=== PATIENT | male | born 1955 | race Caucasian/White ===

== ENCOUNTER 2016-06-21 11:27 | Inpatient (IN) | payer OTHER ==
[~2016-06-21] VITALS: Ht 172.7 cm; Wt 83.8 kg
[2016-06-21] VITALS (10 sets, daily range): BP systolic 110–160; BP diastolic 73–114; PULSE 94–152; RESP 20; TEMP 97.6–98.2; O2SAT 96–99
[~2016-06-21 11:27] MED LIST: ATEN25TA PO
[2016-06-21] MEDS ORDERED: ISOS10TA3 PO (11:44)
[2016-06-21] MEDS ORDERED: ROPI0.25 PO (11:44)
[2016-06-21] MEDS ORDERED: DILTIAZEM HCL 25 MG/5 ML VIAL IVP ONE (11:45)
[2016-06-21] MEDS ORDERED: SODIUM CHLORIDE 0.9% FLUSH 10 ML FLUSH IVF PRN (11:45)
--- NOTE | 2016-06-21 11:54 | PD ---
HPI Chief Complaint: Cardiac Complaint Time Seen by Provider: 11:50 Travel History International Travel<30 days: No Contact w/Intl Traveler<30days: No Traveled to known affect area: No History of Present Illness HPI 61-year-old male that presents to the ED for evaluation of elevated heart rate. Per patient he went to his doctor's office today and they found that he had an elevated heart rate. Initially they wanted to send him here to get evaluated but apparently patient did not want to, refused so instead to give him a prescription for atenolol and instructions to get blood work and go back to his office on . Patient apparently left the office and change his mind. And now he is here for evaluation. Per patient he has no chest pain. No weakness. No palpitations. No history of heart disease as far as he knows. He does take blood pressure medications as well as a history of restless leg syndrome. He continues to smoke. He denies any use of drugs but does state that he drinks. Denies any chest pain or shortness of breath. Denies any symptoms of any kind. Per patient is mainly concerned about the heart rate. No allergies to medication. Has not filled his prescription yet. Per patient his doctor called the ED and gave information about the patient's status. He denies taking any blood thinners. PFSH Past Medical History Cardiovascular Problems: Yes (htn) Hypertension: Yes Medical other: Yes (RLS) Influenza Vaccination: No Past Surgical History Eye Surgery: Yes (cataracts) Social History Alcohol Use: Yes (4) Tobacco Use: Yes (1ppd) Substance Use: No Allergies-Medications (Allergen,Severity, Reaction): Coded Allergies: No Known Allergies (Unverified , 06/21/16) Reported Meds & Prescriptions Reported Meds & Active Scripts Active Reported Ropinirole 0.25 Mg Tab 0.25 Mg PO HS Isosorbide Mononitrate 10 Mg Tab 10 Mg PO BID Take 2 doses 7 hours apart. Review of Systems Except as stated in HPI: all other systems reviewed are Neg Physical Exam Narrative GENERAL: SKIN: Warm and dry. HEAD: Atraumatic. Normocephalic. EYES: Pupils equal and round. No scleral icterus. No injection or drainage. ENT: No nasal bleeding or discharge. Mucous membranes pink and moist. Tongue is midline. No uvula deviation. NECK: Trachea midline. No JVD. CARDIOVASCULAR: Regular tachycardic rate and rhythm. No obvious murmurs, S3, S4. RESPIRATORY: No accessory muscle use. Clear to auscultation. Breath sounds equal bilaterally. GASTROINTESTINAL: Abdomen soft, non-tender, nondistended. Hepatic and splenic margins not palpable. MUSCULOSKELETAL: Extremities without clubbing, cyanosis, or edema. No obvious deformities. Full range of motion of the upper and lower extremities bilaterally. 2+ pulses bilaterally. NEUROLOGICAL: Awake and alert. No obvious cranial nerve deficits. Motor grossly within normal limits. Five out of 5 muscle strength in the arms and legs. Normal speech. PSYCHIATRIC: Appropriate mood and affect; insight and judgment normal. Data Data Last Documented VS Vital Signs Date Time Temp Pulse Resp B/P Pulse Ox O2 Delivery O2 Flow Rate FiO2 06/21/16 12:37 148 144/93 06/21/16 12:30 20 99 Nasal Cannula 2 06/21/16 11:30 98.2 Orders Electrocardiogram (06/21/16 11:39) Basic Metabolic Panel (Bmp) (06/21/16 11:39) Ckmb (Isoenzyme) Profile (06/21/16 11:39) Complete Blood Count With Diff (06/21/16 11:39) Magnesium (Mg) (06/21/16 11:39) Prothrombin Time / Inr (Pt) (06/21/16 11:39) Act Partial Throm Time (Ptt) (06/21/16 11:39) Troponin I (06/21/16 11:39) Chest, Single Ap (06/21/16 11:39) Ecg Monitoring (06/21/16 11:39) Iv Access Insert/Monitor (06/21/16 11:39) Oximetry (06/21/16 11:39) Sodium Chloride 0.9% Flush (Ns Flush) (06/21/16 11:45) Diltiazem Inj (Cardizem Inj) (06/21/16 11:45) Diltiazem Inj (Cardizem Inj) (06/21/16 12:30) Thyroid Stimulating Hormone (06/21/16 12:36) Diltiazem Inj (Cardizem Inj) (06/21/16 12:45) Digoxin Inj (Lanoxin Inj) (06/22/16 09:00) Digoxin Inj (Lanoxin Inj) (06/21/16 13:15) Consult Cardiology (06/21/16 ) Admit Order (Ed Use Only) (06/21/16 13:35) Labs Laboratory Tests Test 06/21/16 11:45 White Blood Count 7.0 TH/MM3 Red Blood Count 5.18 MIL/MM3 Hemoglobin 16.1 GM/DL Hematocrit 45.9 % Mean Corpuscular Volume 88.5 FL Mean Corpuscular Hemoglobin 31.0 PG Mean Corpuscular Hemoglobin 35.0 % Concent Red Cell Distribution Width 13.6 % Platelet Count 187 TH/MM3 Mean Platelet Volume 8.4 FL Neutrophils (%) (Auto) 76.1 % Lymphocytes (%) (Auto) 12.7 % Monocytes (%) (Auto) 8.9 % Eosinophils (%) (Auto) 1.5 % Basophils (%) (Auto) 0.8 % Neutrophils # (Auto) 5.3 TH/MM3 Lymphocytes # (Auto) 0.9 TH/MM3 Monocytes # (Auto) 0.6 TH/MM3 Eosinophils # (Auto) 0.1 TH/MM3 Basophils # (Auto) 0.1 TH/MM3 CBC Comment DIFF FINAL Differential Comment Prothrombin Time 12.3 SEC Prothromb Time International 1.1 RATIO Ratio Activated Partial 27.3 SEC Thromboplast Time Sodium Level 137 MEQ/L Potassium Level 4.1 MEQ/L Chloride Level 104 MEQ/L Carbon Dioxide Level 24.3 MEQ/L Anion Gap 9 MEQ/L Blood Urea Nitrogen 15 MG/DL Creatinine 1.06 MG/DL Estimat Glomerular Filtration 71 ML/MIN Rate Random Glucose 97 MG/DL Calcium Level 8.8 MG/DL Magnesium Level 1.9 MG/DL Total Creatine Kinase 86 U/L Troponin I LESS THAN 0.02 NG/ML MDM Medical Decision Making Medical Screen Exam Complete: Yes Emergency Medical Condition: Yes Medical Record Reviewed: Yes Interpretation(s) EKG showed atrial flutter with a ventricular rate in the 151. No sign of acute ischemia noted by me and my attending. CBC & BMP Diagram 06/21/16 11:45 Troponin negative CXR negative Differential Diagnosis Atrial flutter versus atrial fibrillation versus tachyarrhythmia versus electrolyte abnormality versus normal exam Narrative Course 61-year-old male that presents to the ED for evaluation of the liver heart rate. Patient was properly examined and was found to have signs and symptoms consistent appears to be atrial flutter. Ventricular rates in the 150s. At this time I recommend labs and imaging. Patient is in agreement with this. Patient was given diltiazem bolus and will be monitored. Patient was given a second bolus with minimal results. Patient was put on a drip. Patient was evaluated by my attending Dr. Navarro who agrees with admission plan. Patient goes to the [facility] for dressings were be contacted. This was discussed with the patient who was counceled extensively as well as about need for admission due to risk of stroke, CVA, . He decided to stay. Case discussed with residents who agreed to admission. Procedures EKG Prior to Arrival: No Diagnosis Primary Impression: Atrial flutter Qualified Code: I48.3 - Typical atrial flutter Admitting Information Admitting Physician Requests: Benjamin Mo Jun 21, 2016 11:54
[2016-06-21 11:55] LABS: AUTOMATED NEUTROPHIL # 5.3 TH/MM3 (1.8-7.7); BASOPHIL # 0.1 TH/MM3 (0-0.2); BASOPHIL % 0.8 % (0.0-2.0); EOSINOPHIL # 0.1 TH/MM3 (0-0.4); EOSINOPHIL % 1.5 % (0.0-4.0); HEMATOCRIT 45.9 % (39.0-51.0); HEMO FLAGS DIFF FINAL; LYMPH % 12.7 % (9.0-44.0); LYMPHOCYTE # 0.9 TH/MM3 (1.0-4.8); MEAN CELL VOLUME 88.5 FL (80.0-100.0); MONO % 8.9 % (0.0-8.0); NEUT % 76.1 % (16.0-70.0); PLATELET COUNT 187 TH/MM3 (150-450); RED BLOOD COUNT 5.18 MIL/MM3 (4.50-5.90); RED CELL DISTRIBUTION WIDTH 13.6 % (11.6-17.2)
[2016-06-21 12:09] LABS: APTT (PATIENT) 27.3 SEC (24.3-30.1); INTERNATIONAL NORMALIZED RATIO 1.1 RATIO; PROTHROMBIN TIME - PATIENT 12.3 SEC (9.8-11.6)
[2016-06-21 12:19] LABS: ANION GAP 9 MEQ/L (5-15); BICARBONATE 24.3 MEQ/L (21.0-32.0); BLOOD UREA NITROGEN 15 MG/DL (7-18); CHLORIDE 104 MEQ/L (98-107); GLOMERULAR FILTRATION RATE 71 ML/MIN (>89); MAGNESIUM 1.9 MG/DL (1.5-2.5); POTASSIUM 4.1 MEQ/L (3.5-5.1); SODIUM (NA) 137 MEQ/L (136-145)
[2016-06-21 12:20] LABS: CREATINE KINASE 86 U/L (39-308)
[2016-06-21] MEDS ORDERED: DILTIAZEM HCL 25 MG/5 ML VIAL IV ONE (12:30)
--- NOTE | 2016-06-21 12:44 | RADRPT ---
EXAM DATE/TIME: 06/21/2016 12:09 [facility] COMPARISON: No previous studies available for comparison. INDICATIONS : Tachycardia. MEDICAL HISTORY : Hypertension. Smoker. SURGICAL HISTORY : None. ENCOUNTER: Initial ACUITY: 1 day PAIN SCORE: 0/10 LOCATION: Bilateral chest FINDINGS: Calcified granuloma left upper lobe. Cardiomegaly. Clear lungs. Hyperinflation. Osseous structures ar e intact. CONCLUSION: No acute disease. Fortino Schrader MD on June 21, 2016 at 12:42 Board Certified Radiologist. This report was verified electronically.
[2016-06-21] MEDS ORDERED: DILTIAZEM INJ 125 MG in SODIUM CHLORIDE 0.9% INJ 100 ML IV SCH (12:45)
--- NOTE | 2016-06-21 13:05 | PD ---
Data Data Last Documented VS Vital Signs Date Time Temp Pulse Resp B/P Pulse Ox O2 Delivery O2 Flow Rate FiO2 06/21/16 12:37 148 144/93 06/21/16 12:30 20 99 Nasal Cannula 2 06/21/16 11:30 98.2 Orders Electrocardiogram (06/21/16 11:39) Basic Metabolic Panel (Bmp) (06/21/16 11:39) Ckmb (Isoenzyme) Profile (06/21/16 11:39) Complete Blood Count With Diff (06/21/16 11:39) Magnesium (Mg) (06/21/16 11:39) Prothrombin Time / Inr (Pt) (06/21/16 11:39) Act Partial Throm Time (Ptt) (06/21/16 11:39) Troponin I (06/21/16 11:39) Chest, Single Ap (06/21/16 11:39) Ecg Monitoring (06/21/16 11:39) Iv Access Insert/Monitor (06/21/16 11:39) Oximetry (06/21/16 11:39) Sodium Chloride 0.9% Flush (Ns Flush) (06/21/16 11:45) Diltiazem Inj (Cardizem Inj) (06/21/16 11:45) Diltiazem Inj (Cardizem Inj) (06/21/16 12:30) Thyroid Stimulating Hormone (06/21/16 12:36) Diltiazem Inj (Cardizem Inj) (06/21/16 12:45) Digoxin Inj (Lanoxin Inj) (06/22/16 09:00) Labs Laboratory Tests Test 06/21/16 11:45 White Blood Count 7.0 TH/MM3 Red Blood Count 5.18 MIL/MM3 Hemoglobin 16.1 GM/DL Hematocrit 45.9 % Mean Corpuscular Volume 88.5 FL Mean Corpuscular Hemoglobin 31.0 PG Mean Corpuscular Hemoglobin 35.0 % Concent Red Cell Distribution Width 13.6 % Platelet Count 187 TH/MM3 Mean Platelet Volume 8.4 FL Neutrophils (%) (Auto) 76.1 % Lymphocytes (%) (Auto) 12.7 % Monocytes (%) (Auto) 8.9 % Eosinophils (%) (Auto) 1.5 % Basophils (%) (Auto) 0.8 % Neutrophils # (Auto) 5.3 TH/MM3 Lymphocytes # (Auto) 0.9 TH/MM3 Monocytes # (Auto) 0.6 TH/MM3 Eosinophils # (Auto) 0.1 TH/MM3 Basophils # (Auto) 0.1 TH/MM3 CBC Comment DIFF FINAL Differential Comment Prothrombin Time 12.3 SEC Prothromb Time International 1.1 RATIO Ratio Activated Partial 27.3 SEC Thromboplast Time Sodium Level 137 MEQ/L Potassium Level 4.1 MEQ/L Chloride Level 104 MEQ/L Carbon Dioxide Level 24.3 MEQ/L Anion Gap 9 MEQ/L Blood Urea Nitrogen 15 MG/DL Creatinine 1.06 MG/DL Estimat Glomerular Filtration 71 ML/MIN Rate Random Glucose 97 MG/DL Calcium Level 8.8 MG/DL Magnesium Level 1.9 MG/DL Total Creatine Kinase 86 U/L Troponin I LESS THAN 0.02 NG/ML MDM Supervised Visit with TRANG: Yes Narrative Course I, Dr. Cooper, have reviewed the advance practice practioner's documentation and am in agreement, met with the patient face to face, made the diagnosis, and the medical decision making was done by me. *My assessment and Findings: 61-year-old male here with elevated heart rate. Patient went PCP office for medication refill. He is entirely symptomatic and noted to have heart rates around 150. Center to the ER for evaluation. No history of arrhythmia, otherwise been well recently. No chest pain shortness of breath or palpitations. On exam patient has heart rate in the 150s, narrow complex regular rhythm on monitor. Differential includes arrhythmia, electrolyte abnormality. Twelve-lead EKG shows atrial flutter, rate 151 with 2- 1 conduction. Patient was given 15 mg of diltiazem with no change in heart rate. Given 25 mg of diltiazem with little change in heart rate in place on diltiazem drip. Electrolytes all unremarkable. Patient not responding rapidly to diltiazem drip and therefore was given a dose of digoxin will be admitted for further management. Diagnosis Primary Impression: Atrial flutter Dea Cooper MD Jun 21, 2016 13:05
[2016-06-21] MEDS ORDERED: DIGOXIN 0.5 MG/2 ML VIAL IV PUSH ONE (13:15)
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
[2016-06-21] MEDS ORDERED: SODIUM CHLORIDE 0.9% FLUSH 10 ML FLUSH IV FLUSH PRN ×2 (14:30→14:45)
[2016-06-21] MEDS ORDERED: LORazepam 1 MG TAB PO PRN (14:45)
[2016-06-21] MEDS ORDERED: RESP: ALBUTEROL 2.5 MG/IPRATROPIUM 0.5 MG NEB (PRN) NEB (14:45)
[2016-06-21] MEDS ORDERED: FLUMAZENIL 0.5 MG/5 ML VIAL IV PUSH PRN (14:45)
[2016-06-21] MEDS ORDERED: hydrOXYzine HCL 25 MG TAB PO PRN (14:45)
[2016-06-21] MEDS: SODIUM CHLORIDE 0.9% FLUSH 10 ML FLUSH IV FLUSH SCH ×4 (14:49→21:00)
[2016-06-21] MEDS ORDERED: ENOXAPARIN SODIUM 40 MG/0.4 ML SYRINGE SQ SCH (15:00)
[2016-06-21] MEDS ORDERED: HEPARIN SODIUM - IV 10,000 UNITS/10 ML VIAL IV ONE (15:30)
[2016-06-21] MEDS ORDERED: DILTIAZEM HCL 25 MG/5 ML VIAL IV PUSH ONE (15:30)
[2016-06-21] MEDS ORDERED: DILTIAZEM HCL 25 MG/5 ML VIAL IVP PRN (15:45)
[2016-06-21] MEDS: HEPARIN-D5W INJ 250 ML IV SCH (16:48)
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
[2016-06-21 18:22] LABS: CREATINE KINASE 67 U/L (39-308)
[2016-06-21] MEDS: DILTIAZEM INJ 125 MG in SODIUM CHLORIDE 0.9% INJ 100 ML IV SCH (20:13)
[2016-06-21] MEDS ORDERED: HEPARIN SODIUM - IV 10,000 UNITS/10 ML VIAL IV PRN (21:30)
[2016-06-21 22:44] LABS: APTT (PATIENT) 35.5 SEC (24.3-30.1)
[2016-06-21] MEDS ORDERED: DILTIAZEM HCL 50 MG/10 ML VIAL IV ONE (23:00)
[2016-06-22] VITALS (23 sets, daily range): BP systolic 108–141; BP diastolic 74–93; PULSE 48–153; RESP 18–24; TEMP 97.4–98.2; O2SAT 95–100
[2016-06-22 01:30] LABS: CREATINE KINASE 85 U/L (39-308)
[2016-06-22] MEDS: LORazepam 2 MG TAB PO PRN ×2 (01:49→03:50)
[2016-06-22] MEDS: DILTIAZEM INJ 125 MG in SODIUM CHLORIDE 0.9% INJ 100 ML IV SCH (03:45)
[2016-06-22] MEDS: LORazepam 2 MG/ML VIAL IV PUSH PRN ×10 (04:16→19:41)
[2016-06-22 06:49] LABS: HEMATOCRIT 43.7 % (39.0-51.0); MEAN CELL VOLUME 87.7 FL (80.0-100.0); MEAN CORPUSCULAR HEMOGLOBIN 30.8 PG (27.0-34.0); MEAN CORPUSCULAR HGB CONC 35.1 % (32.0-36.0); PLATELET COUNT 150 TH/MM3 (150-450); RED BLOOD COUNT 4.98 MIL/MM3 (4.50-5.90); RED CELL DISTRIBUTION WIDTH 13.4 % (11.6-17.2); REVIEW FLAG FINAL; WHITE BLOOD COUNT 6.3 TH/MM3 (4.0-11.0)
[2016-06-22 06:53] LABS: APTT (PATIENT) 34.6 SEC (24.3-30.1)
[2016-06-22 07:05] LABS: ALKALINE PHOSPHATASE 43 U/L (45-117); ALT (GPT) 40 U/L (12-78); ANION GAP 8 MEQ/L (5-15); AST (GOT) 21 U/L (15-37); BICARBONATE 27.6 MEQ/L (21.0-32.0); BLOOD UREA NITROGEN 18 MG/DL (7-18); CHLORIDE 103 MEQ/L (98-107); GLOMERULAR FILTRATION RATE 72 ML/MIN (>89); POTASSIUM 3.6 MEQ/L (3.5-5.1); SODIUM (NA) 139 MEQ/L (136-145)
--- NOTE | 2016-06-22 08:46 | HHI.PR ---
Addendum to Inpatient Note Addendum Reason: Additional Documentation Additional Information VENICET NOTE S: Medical team paged for VENICET at approximately 0745 due to agitation. Per nursing report patient has been agitated and altered throughout the night with CIWA scores up to 25. Currently the patient will not participate in history due to agitation. Overnight he started to pull out his IVs and was verbally aggressive towards staff and threatening to leave AMA. He was placed in restraints and given 6 mg of Ativan since admission secondary to CIWA protocol. Per H/P and discussion with today, the patient does have an extensive history of alcohol use with up to 3/4 drinks per day. He also has an extensive smoking history, and per his was demanding to smoke a cigarette overnight. O: GENERAL: Well-nourished, well-developed patient writhing in bed currently restrained yelling at staff and . SKIN: Warm and dry. No rash. CARDIOVASCULAR: Tachycardic up to 150s with no MGR. RESPIRATORY: Clear to auscultation with no CRW. No increased work of breathing. GASTROINTESTINAL: Abdomen soft, non-tender, nondistended. MUSCULOSKELETAL: No cyanosis or edema. No obvious deformities NEURO/PSYCH: Patient oriented to self and date, but not to place. No focal ABN appreciated. A: Mr. Guevara is a 61 y/o CM with a PMHx of HTN presenting from the [facility] with an elevated, irregular heart rate found to have atrial flutter. He was admitted for atrial flutter and scheduled for ablation today, however now has AMS likely secondary to alcohol withdrawal with a CIWA score of 25. P: Transferred to ICU for further monitoring and possible intervention. Critical care consulted, appreciate recommendations. Discussed patient with Dr. Ron, environmental health inspector, who will accept the patient. CIWA score up to 25 overnight with most recent score of 15. A total of 6 mg of Ativan has been administered over the last 24 hours per protocol. Swapnil Barrera MD R1 Jun 22, 2016 08:46
[2016-06-22] MEDS ORDERED: DEXMEDETOMIDINE INJ 200 MCG in SODIUM CHLORIDE 0.9% INJ 50 ML IV SCH ×2 (09:00→10:15)
[2016-06-22] MEDS: FOLIC ACID 1 MG TAB PO SCH (09:00)
[2016-06-22] MEDS: THIAMINE HCL 100 MG TAB PO SCH (09:00)
[2016-06-22] MEDS: LOSARTAN 50 MG TAB PO SCH (09:00)
[2016-06-22] MEDS: MULTIVITAMINS/MINERALS THERAPEUTIC TAB PO SCH (09:00)
[2016-06-22] MEDS: SODIUM CHLORIDE 0.9% FLUSH 10 ML FLUSH IV FLUSH SCH ×5 (09:00→21:00)
[2016-06-22] MEDS ORDERED: DIGOXIN 0.5 MG/2 ML VIAL IV PUSH SCH (09:00)
[2016-06-22] MEDS: ASPIRIN 81 MG CHEW TAB PO SCH (09:00)
[2016-06-22] MEDS: HYDROCHLOROTHIAZIDE 12.5 MG CAP PO SCH (09:00)
--- NOTE | 2016-06-22 09:05 | EC ---
Study Study Date:06/21/2016 STUDY CONCLUSIONS SUMMARY - Left ventricle: The cavity size was normal. Wall thickness was normal. Systolic function was moderately reduced. The estimated ejection fraction was in the range of 35% to 40% but techically very difficult to assess due to marked tachycardia. Wall motion was normal; there were no regional wall motion abnormalities. - Aortic valve: Valve area: 3.84cm^2(VTI). Valve area: 3.81cm^2 (Vmax). If LV function is below 40, please consider prescribing an ACEI or ARB or document rationale for non-use. PROCEDURE DATA STUDY STATUS: Elective. Procedure: Transthoracic echocardiography. Image quality was good. Scanning was performed from the parasternal, apical, and subcostal acoustic windows. Study completion: The patient tolerated the procedure well. Transthoracic echocardiography. M-mode, complete 2D, complete spectral Doppler, and color Doppler. Height: Height: 68in. Weight: Weight: 210.6lb. Body mass index: BMI: 32.1kg/m^2. Body surface area: BSA: 2.09m^2. Patient status: Inpatient. CARDIAC ANATOMY LEFT VENTRICLE: The cavity size was normal. Wall thickness was normal. Systolic function was moderately reduced. The estimated ejection fraction was in the range of 35% to 40% but techically very difficult to assess due to marked tachycardia. Wall motion was normal; there were no regional wall motion abnormalities. AORTIC VALVE: Trileaflet; normal thickness leaflets. Doppler: Transvalvular velocity was within the normal range. There was no stenosis. No regurgitation. Valve area: 3.84cm^2(VTI). Indexed valve area: 1.84cm^2/m^2 (VTI). Valve area: 3.81cm^2 (Vmax). Indexed valve area: 1.82cm^2/m^2 (Vmax). Mean gradient: 2mm Hg (S). AORTA: Aortic root: The aortic root was normal in size. MITRAL VALVE: Structurally normal valve. Doppler: Transvalvular velocity was within the normal range. There was no evidence for stenosis. Trace regurgitation. Peak gradient: 5mm Hg (D). LEFT ATRIUM: The atrium was normal in size. RIGHT VENTRICLE: The cavity size was normal. Wall thickness was normal. PULMONIC VALVE: Doppler: Transvalvular velocity was within the normal range. There was no evidence for stenosis. No regurgitation. TRICUSPID VALVE: Structurally normal valve. Doppler: Transvalvular velocity was within the normal range. Trace regurgitation. PULMONARY ARTERY: The main pulmonary artery was normal-sized. Systolic pressure was within the normal range. RIGHT ATRIUM: The atrium was normal in size. PERICARDIUM: There was no pericardial effusion. SYSTEMIC VEINS: Inferior vena cava: Poorly visualized. Patient weight: 210.6lb _Ejection fraction:_ 65-75% _Fractional shortening:_ 32% up to 5Kg 5-11.5Kg 11.6-22.9Kg 23-45Kg 45-57Kg Aortic Root 7-13 <17 13-22 17-27 17-27 LA diam 6-13 <23 24-38 33-47 37-40 RVID 10-17 7-15 7-15 7-18 8-17 LVIDd 12-22 <32 24-38 33-47 37-40 LVPW 2-4 3-6 5-7 6-8 7-8 IVS 2-4 3-6 5-7 6-8 7-8 BASIC MEASUREMENTS ADULT NORMAL Left ventricle LV internal dimension, ED, chordal 51.1 mm 43-52 level, PLAX LV internal dimension, ES, chordal *47.3 mm 23-38 level, PLAX Fractional shortening, chordal level, *7 % >29 PLAX LV posterior wall thickness, ED 8.36 mm IVS/LVPW ratio, ED 1 <1.3 Ventricular septum Septal thickness, ED 8.33 mm Aortic valve Leaflet separation 20 mm 15-26 Aorta Root diameter, ED 33 mm Left atrium Anterior-posterior dimension 34 mm Anterior-posterior dimension index 1.63 cm/m^2 <2.2 BASIC MEASUREMENTS ADULT NORMAL Aortic valve Leaflet separation 20 mm 15-26 DOPPLER MEASUREMENTS ADULT NORMAL Aortic valve Peak velocity, S 93.7 cm/s Mean velocity, S 64.3 cm/s VTI, S 12.6 cm Mean gradient, S 2 mm Hg Valve area, VTI 3.84 cm^2 Valve area index, VTI 1.84 cm^2/m^2 Valve area, Vmax 3.81 cm^2 Valve area index, Vmax 1.82 cm^2/m^2 Mitral valve Peak E-wave velocity 114 cm/s Peak gradient, D 5 mm Hg Pulmonic valve Peak velocity, S 49.6 cm/s LEGEND: Mean values are shown as u=mean value. Asterisk (*) weller values outside specified normal range. Prepared and signed by Leoncio Casillas [id number]
--- NOTE | 2016-06-22 09:50 | HHI.HP ---
HPI Service Critical Care Medicine Primary Care Physician Irwin Rodriguez MD Admission Diagnosis atrial flutter with RVR Diagnosis: Travel History International Travel<30 Days: No Contact w/Intl Traveler <30 Da: No Traveled to Known Affected Are: No History of Present Illness On 06/21 ,Mr. Guevara presented with a PMHx of HTN presenting from the [facility] with an elevated, irregular heart rate. He is a patient of Dr. Irwin Rodriguez, who sent this patient from clinic. In clinic, he had a heart rate in the 150s and was instructed to go to the ED for further evaluation. Upon arriving to the ED ,the patient was found to have atrial flutter on twelve-lead EKG with a rate 151 with 2-1 conduction. He denied any chest pain, prior arrhythmia, thyroid disorder, or heart disease. He reported his last EKG was approximately 8 years ago before his eye surgery s/p accident. The patient has a significant alcohol and smoking history, but denies any illicit drugs. He states that he is at his baseline except for 3 episodes of nonbloody diarrhea that have all occurred over this morning. The patient was admitted to the hospital, and placed on CIWA protocol, Cardizem infusion and was scheduled for ablation per interventional cardiology. Early this a.m. the patient became significantly more confused, difficult to control a Hallicat at was called, and the patient was transferred to ICU for further management. Review of Systems Constitutional: DENIES: Fever Eyes: DENIES: Blurred vision, Double Vision Ears, nose, mouth, throat: COMPLAINS OF: Running Nose (allergies), DENIES: Throat pain Respiratory: COMPLAINS OF: Cough, DENIES: Shortness of breath Cardiovascular: DENIES: Chest pain, Palpitations, Syncope Gastrointestinal: COMPLAINS OF: Diarrhea (Today for 3 episodes), DENIES: Abdominal pain, Nausea, Vomiting Genitourinary: DENIES: Dysuria Musculoskeletal: COMPLAINS OF: Back pain Hematologic/lymphatic: DENIES: Lymphadenopathy Neurologic: DENIES: Headache Psychiatric: DENIES: Mood changes Past Family Social History Past Medical History Restless leg syndrome Hypertension L1-L3 collapsed disc Past Surgical History [place] teeth Cataract Eyelid repair Allergies: Coded Allergies: No Known Allergies (Unverified , 06/21/16) Family History Father - stomach or prostate cancer at age 76 y/o, CAD Mother - lung cancer 80 y/o Brother - 76 y/o healthy, stomach cancer Leonela - 74 y/o healthy glaucoma, diverticulitis Chetna - 63 y/o healthy, alcoholism Social History Tobacco - since age 19 y/o, 1 ppd EtOH: 17 y/o - used to drink beer, borboun - 3-4 drinks per day - helps with his back pain. 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 Physical Exam Vital Signs Vital Signs Date Time Temp Pulse Resp B/P Pulse Ox O2 Delivery O2 Flow Rate FiO2 06/22/16 08:03 153 06/22/16 07:46 96 Nasal Cannula 3.00 06/22/16 07:44 97.4 150 24 128/87 96 06/22/16 07:15 143 06/22/16 06:00 128 06/22/16 05:52 147 141/93 06/22/16 05:00 150 06/22/16 04:00 144 06/22/16 03:20 98.1 130 20 137/92 95 06/22/16 03:20 95 06/22/16 03:00 129 06/22/16 02:06 97 06/22/16 01:00 114 06/22/16 00:00 146 06/21/16 23:00 97.6 146 20 148/108 96 06/21/16 23:00 146 06/21/16 23:00 96 Nasal Cannula 2.00 06/21/16 22:22 122 16 111/73 100 Nasal Cannula 2 06/21/16 20:13 128 20 110/81 99 06/21/16 20:00 Nasal Cannula 2.00 06/21/16 16:55 94 20 143/81 96 Room Air 06/21/16 14:43 98 Nasal Cannula 2.00 06/21/16 12:37 148 144/93 06/21/16 12:30 149 20 143/100 99 Nasal Cannula 2 06/21/16 11:41 98 06/21/16 11:31 150 20 140/103 06/21/16 11:30 98.2 152 20 160/114 97 Room Air Physical Exam GENERAL: Agitated and combative, attempting to get out of bed, non-cooperative SKIN: Warm and dry. HEAD: Atraumatic. Normocephalic. EYES: Pupils equal and round. No scleral icterus. No injection or drainage. ENT: No nasal bleeding or discharge. Mucous membranes pink and moist. NECK: Trachea midline. No JVD. CARDIOVASCULAR: Normal rate, regular rhythm. RESPIRATORY: No accessory muscle use. Clear to auscultation. Breath sounds equal bilaterally. GASTROINTESTINAL: Abdomen soft, non-tender, nondistended. No guarding. MUSCULOSKELETAL: Extremities without clubbing, cyanosis, or edema. No obvious deformities. NEUROLOGICAL: Awake and alert, agitated. No gross focal/sensory deficits. Moving extremities 4. Laboratory Laboratory Tests Test 06/21/16 06/21/16 06/21/16 06/22/16 11:45 17:34 22:15 00:21 White Blood Count 7.0 Red Blood Count 5.18 Hemoglobin 16.1 Hematocrit 45.9 Mean Corpuscular Volume 88.5 Mean Corpuscular Hemoglobin 31.0 Mean Corpuscular Hemoglobin 35.0 Concent Red Cell Distribution Width 13.6 Platelet Count 187 Mean Platelet Volume 8.4 Neutrophils (%) (Auto) 76.1 Lymphocytes (%) (Auto) 12.7 Monocytes (%) (Auto) 8.9 Eosinophils (%) (Auto) 1.5 Basophils (%) (Auto) 0.8 Neutrophils # (Auto) 5.3 Lymphocytes # (Auto) 0.9 Monocytes # (Auto) 0.6 Eosinophils # (Auto) 0.1 Basophils # (Auto) 0.1 CBC Comment DIFF FINAL Differential Comment Prothrombin Time 12.3 Prothromb Time International 1.1 Ratio Activated Partial 27.3 35.5 Thromboplast Time Sodium Level 137 Potassium Level 4.1 Chloride Level 104 Carbon Dioxide Level 24.3 Anion Gap 9 Blood Urea Nitrogen 15 Creatinine 1.06 Estimat Glomerular Filtration 71 Rate Random Glucose 97 Calcium Level 8.8 Magnesium Level 1.9 Total Creatine Kinase 86 67 85 Troponin I LESS THAN 0.02 LESS THAN 0.02 LESS THAN 0.02 Thyroid Stimulating Hormone 1.470 3rd Gen Test 06/22/16 05:15 White Blood Count 6.3 Red Blood Count 4.98 Hemoglobin 15.3 Hematocrit 43.7 Mean Corpuscular Volume 87.7 Mean Corpuscular Hemoglobin 30.8 Mean Corpuscular Hemoglobin 35.1 Concent Red Cell Distribution Width 13.4 Platelet Count 150 Mean Platelet Volume 8.8 Activated Partial 34.6 Thromboplast Time Sodium Level 139 Potassium Level 3.6 Chloride Level 103 Carbon Dioxide Level 27.6 Anion Gap 8 Blood Urea Nitrogen 18 Creatinine 1.05 Estimat Glomerular Filtration 72 Rate Random Glucose 106 Calcium Level 8.9 Total Bilirubin 1.0 Aspartate Amino Transf 21 (AST/SGOT) Alanine Aminotransferase 40 (ALT/SGPT) Alkaline Phosphatase 43 Total Protein 6.4 Albumin 3.5 Result Diagram: 06/22/1651406/22/16514 Imaging Last 24 hours Impressions Chest X-Ray 06/21/16 1139 Signed Impressions: Service Date/Time: Tuesday, June 21, 2016 12:09 - CONCLUSION: No acute disease. Fortino Schrader MD Septic Shock Reassessment Heart: Regular rate and rhythm Lungs: Clear Skin: Warm Peripheral Pulses: Bounding Right Radial Bounding Left Radial Bounding Right Popliteal Bounding Left Popliteal Bounding Right Dorsalis Pedis Bounding Left Dorsalis Pedis Assessment and Plan Assessment and Plan Plan by systems: Neurologic: Delirium tremens Alcohol abuse Encephalopathy Alcohol withdrawal GCS 14-patient confused and combative, alert to name only Begin Precedex infusion Continue CIWA protocol-monitor for seizures Respiratory: Tobacco abuse Obtain chest x-ray Noted expiratory wheezing upon auscultation, significant smoking history one pack a day greater than 20 years DuoNeb every 6 hours scheduled and every 2 hours when necessary Maintain O2 sat greater than 92%, currently O2 at 3 L nasal cannula Cardiovascular: Atrial flutter Cardiomegaly Continue Cardizem infusion, heart rate 140's Planned ablation today with , spoke with Dr. Bautista Heparin infusion Cardiology following Tentative ablation per scheduled for today Renal: Monitor BMP -- Strict I/Os FEN/GI: Maintain nothing by mouth status Zofran IV for nausea Protonix IV Heme/ID: Monitor CBC Transfuse for hemoglobin less than 7 Endocrine: Glucose monitoring per ICU protocol Low-dose regimen -- SSI Prophylaxis: GI Prophylaxis Protonix IV 40 mg/day DVT Prophylaxis -- SCDs Heparin infusion Lines: Peripheral IVs 2. Central line if indicated Dispo: Discussed with and UNDERWRITING OPERATIONS MANAGER at bedside. The patient remains at elevated risk for possible intubation, states she is understands and agrees. Discussed with Dr. Bautista about continuing the possibility of ablation today with patient with continued intermittent confusion attempt made to contact to follow up regarding planned ablation for today. This patient remains critically ill with one or more organ systems which are or may become a threat to life. I have spent in excess of 60 minutes discontinuously in the care and management of this patient. This time is exclusive of procedures, and includes, but is not limited to, evaluation of the patient, review of the medical record, discussions with family, consultants, nursing staff, or respiratory therapy, and documentation in the medical record. Code Status Full Discussed Condition With and UNDERWRITING OPERATIONS MANAGER at bedside Alice Ron MD Jun 22, 2016 09:50
[2016-06-22] MEDS ORDERED: MAGNESIUM SULFATE INJ 2 GM in SODIUM CHLORIDE 0.9% INJ 96 ML IV PRN (10:15)
[2016-06-22] MEDS ORDERED: SODIUM PHOSPHATE INJ 30 MMOL in SODIUM CHLOR 0.9% 250 ML INJ 240 ML IV PRN (10:15)
[2016-06-22] MEDS ORDERED: ONDANSETRON HCL 4 MG/2 ML VIAL IV PRN (10:15)
[2016-06-22] MEDS ORDERED: MAGNESIUM SULFATE INJ 4 GM in SODIUM CHLORIDE 0.9% INJ 92 ML IV PRN (10:15)
[2016-06-22] MEDS ORDERED: POTASSIUM CHLOR 40 MEQ PREMIX 100 ML IV PRN (10:15)
[2016-06-22] MEDS ORDERED: RESP: ALBUTEROL 2.5 MG/IPRATROPIUM 0.5 MG NEB (PRN) INH (10:15)
[2016-06-22] MEDS ORDERED: POTASSIUM PHOSPHATE INJ 30 MMOL in SODIUM CHLOR 0.9% 250 ML INJ 250 ML IV PRN (10:15)
[2016-06-22] MEDS ORDERED: CHLORHEXIDINE GLUCONATE 2 % 1 PACK (2 CLOTHS) TOP PRN (10:15)
[2016-06-22] MEDS ORDERED: MISCELLANEOUS NURSING INFORMATION XX SCH (10:15)
[2016-06-22] MEDS ORDERED: POTASSIUM PHOSPHATE MONOBASIC 500 MG TAB PO PRN (10:15)
[2016-06-22] MEDS ORDERED: POTASSIUM CHLORIDE 25 MEQ EFFERVESCENT TAB PO PRN (10:15)
[2016-06-22] MEDS ORDERED: MAGNESIUM OXIDE 400 MG TAB PO PRN (10:15)
[2016-06-22] MEDS ORDERED: POTASSIUM PHOSPHATE MONOBASIC 500 MG TAB PO/TUBE PRN (10:15)
--- NOTE | 2016-06-22 10:30 | EKG ---
Date Performed: 06/22/2016 Time Performed: 00:07:26 PTAGE: 61 years EKG: Atrial flutter with rapid ventricular response with 2:1 A-V block Extensive ST-T changes ma y be due to myocardial ischemia Abnormal ECG NO PREVIOUS TRACING DOCTOR: Dax Schulte Interpretating Date/Time 06/22/2016 10:29:23
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
[2016-06-22] MEDS ORDERED: ETOMIDATE 20 MG/10 ML VIAL ONE (10:40)
[2016-06-22] MEDS ORDERED: PROPOFOL 1000 MG/100 ML INJ 100 ML ONE (10:40)
[2016-06-22] MEDS ORDERED: SUCCINYLCHOLINE CHLORIDE 200 MG/10 ML VIAL ONE (10:41)
[2016-06-22] MEDS ORDERED: ROCURONIUM INJ 50 MG/5 ML VIAL ONE (10:41)
--- NOTE | 2016-06-22 10:43 | EKG ---
Date Performed: 06/21/2016 Time Performed: 17:45:18 PTAGE: 61 years EKG: ATRIAL FLUTTER/TACHYCARDIA POSSIBLE RIGHT VENTRICULAR CONDUCTION DELAY SEPTAL MYOCARDIAL IN FARCTION MODERATE T-WAVE ABNORMALITY, CONSIDER INFERIOR ISCHEMIA ABNORMAL ECG PREVIOUS TRACING : 06/21/2016 11.39 DOCTOR: Dax Schulte Interpretating Date/Time 06/22/2016 10:43:15
[2016-06-22] MEDS ORDERED: NOREPINEPHRINE-DEXTROSE DRIP 250 ML IV ONE (10:59)
--- NOTE | 2016-06-22 11:09 | PD.PROCEDR ---
Procedure Note Procedure Endotracheal Intubation Diagnosis: Respiratory distress, atrial flutter Indications: Respiratory distress Consent: Obtained from Anesthesia: see MAR Description of the Procedure: The patient was positioned in the sniffing position. Pre-oxygenation was performed using a BVM. Anesthesia was induced via rapid sequence. A Glidescope 4 was used for laryngoscopy and a Grade 1 view was obtained. A 8.0 cuffed endotracheal tube was inserted atraumatically through the vocal cords. Confirmation of correct endotracheal tube placement was made by equal and bilateral breath sounds and colorimetric CO2 detection. The endotracheal tube was secured at 24 cm at the teeth. There were no immediate complications noted. The patient remained hemodynamically stable throughout the procedure. A chest x-ray has been ordered. I personally performed the procedure. Alice Ron MD Jun 22, 2016 11:09
--- NOTE | 2016-06-22 12:03 | EKG ---
Date Performed: 06/21/2016 Time Performed: 11:39:03 PTAGE: 61 years EKG: ATRIAL FLUTTER/TACHYCARDIA WITH RAPID VENTRICULAR RESPONSE POSSIBLE RIGHT VENTRICULAR CONDU CTION DELAY NONSPECIFIC ST & T-WAVE ABNORMALITY ABNORMAL RHYTHM ECG NO PREVIOUS TRACING DOCTOR: Dax Schulte Interpretating Date/Time 06/22/2016 11:56:22
--- NOTE | 2016-06-22 12:09 | RADRPT ---
EXAM DATE/TIME: 06/22/2016 11:03 [facility] COMPARISON: CHEST SINGLE AP, June 21, 2016, 12:09. INDICATIONS : Post intubation. Evaluate ET tube placement. MEDICAL HISTORY : Hypertension. Smoker. SURGICAL HISTORY : None. ENCOUNTER: Subsequent ACUITY: 2 days PAIN SCORE: Non-responsive. LOCATION: Bilateral chest FINDINGS: A single view of the chest demonstrates the lungs to be symmetrically aerated without evidence of mas s, infiltrate or effusion. The cardiomediastinal contours are unremarkable. Osseous structures are intact. Endotracheal tube tip at the inferior margin of the clavicles. CONCLUSION: Endotracheal tube as above. Fortino Schrader MD on June 22, 2016 at 12:07 Board Certified Radiologist. This report was verified electronically.
[2016-06-22] MEDS: HEPARIN-D5W INJ 250 ML IV SCH (13:48)
[2016-06-22 15:20] LABS: APTT (PATIENT) 30.3 SEC (24.3-30.1)
--- NOTE | 2016-06-22 16:44 | PD.PROCEDR ---
Procedure Note Procedure Diagnosis: Atrial flutter with 5-1 conduction Indications: Hemodynamic instability Consent: Obtained by Anesthesia: Versed 5 mg Description of the Procedure: The patient was placed in the supine, mild- Trendelenburg position. The area was prepped and draped sterilely. A 19g needle was inserted under negative pressure aspiration and dark venous blood was obtained. A guidewire was inserted easily without resistance. A small incision was made using a #11 blade. Using a modified Seldinger technique, the dilator and 7 [place] catheter were advanced over the guidewire without resistance. All ports were aspirated and flushed, and had brisk blood return. The line was secured at [ ] at the skin using 2-0 silk interrupted sutures. A Biopatch and Transparent sterile dressing were applied. There were no immediate complications noted. There was minimal EBL. The patient tolerated the procedure well. Right IJ Ultrasound Guidance: Ultrasound guidance was used to identify the right IJ. The vascular anatomy was normal. The vessel was cannulated under direct, real-time ultrasound visualization. After placement of the guidewire, confirmation of the guidewire in the lumen of the vessel was made using ultrasound visualization, before dilation of the tract. A Chest x-ray has been ordered. I personally performed the procedure. Alice Ron MD Jun 22, 2016 16:43
--- NOTE | 2016-06-22 17:07 | RADRPT ---
EXAM DATE/TIME: 06/22/2016 16:40 [facility] COMPARISON: CHEST SINGLE AP, June 22, 2016, 11:03. INDICATIONS : Evaluate for central line placement. MEDICAL HISTORY : Hypertension. Smoker. SURGICAL HISTORY : None. ENCOUNTER: Subsequent ACUITY: 1 day PAIN SCORE: Non-responsive. LOCATION: chest FINDINGS: Right jugular line tip overlies the SVC. Endotracheal tube tip at the inferior margin of the clavicle s. NG tube side-port at the esophagogastric junction. Linear atelectasis at the left lung base and ca rdiomegaly. No evidence of pneumothorax. CONCLUSION: Right jugular line placement as above. Fortino Schrader MD on June 22, 2016 at 17:05 Board Certified Radiologist. This report was verified electronically.
[2016-06-22] MEDS: RESP: ALBUTEROL 2.5 MG/IPRATROPIUM 0.5 MG NEB (SCH) NEB ×2 (17:16→20:14)
--- NOTE | 2016-06-22 19:13 | HHI.PR ---
Subjective Remarks On mechanical ventilation Objective Vital Signs Date Time Temp Pulse Resp B/P Pulse Ox O2 Delivery O2 Flow Rate FiO2 06/22/16 17:18 100 50 06/22/16 14:00 48 06/22/16 12:00 81 06/22/16 11:00 97 50 06/22/16 10:00 106 06/22/16 08:03 153 06/22/16 07:46 96 Nasal Cannula 3.00 06/22/16 07:44 97.4 150 24 128/87 96 06/22/16 07:15 143 06/22/16 06:00 128 06/22/16 05:52 147 141/93 06/22/16 05:00 150 06/22/16 04:00 144 06/22/16 03:20 98.1 130 20 137/92 95 06/22/16 03:20 95 06/22/16 03:00 129 06/22/16 02:06 97 06/22/16 01:00 114 06/22/16 00:00 146 06/21/16 23:00 97.6 146 20 148/108 96 06/21/16 23:00 146 06/21/16 23:00 96 Nasal Cannula 2.00 06/21/16 22:22 122 16 111/73 100 Nasal Cannula 2 06/21/16 20:13 128 20 110/81 99 06/21/16 20:00 Nasal Cannula 2.00 I/O 06/21/16 06/21/16 06/21/16 06/22/16 06/22/16 06/22/16 07:00 15:00 23:00 07:00 15:00 23:00 Intake Total 240 ml 240 ml 655 ml Output Total 1800 ml Balance 240 ml 240 ml -1145 ml Intake Oral 240 ml 240 ml 480 ml IV Total 175 ml Output Urine Total 1800 ml # Voids 1 # Bowel Movements 0 Result Diagram: 06/22/16 0515 06/22/1615 Imaging Sedated, on mechanical ventilation Lungs: ventilated Heart: S1, S2 regular Abdomen: soft, no mass Ext: no edema Last Impressions Chest X-Ray 06/22/16 0000 Signed Impressions: Service Date/Time: Wednesday, June 22, 2016 16:40 - CONCLUSION: Right jugular line placement as above. Fortino Schrader MD Current Medications Medications (Trade) Dose Ordered Sig/Krishan Route Start Time Stop Time Status Last Admin (NS Flush) 2 ml UNSCH PRN IV FLUSH 06/21/16 14:30 06/22/16 07:52 (NS Flush) 2 ml BID IV FLUSH 06/21/16 14:30 06/21/16 14:49 (Aspirin Chew) 81 mg DAILY PO 06/22/16 09:00 (NS Flush) 2 ml UNSCH PRN IV FLUSH 06/21/16 14:45 (NS Flush) 2 ml BID IV FLUSH 06/21/16 14:45 06/21/16 16:31 (Folate) 1 mg DAILY PO 06/22/16 09:00 06/27/16 08:59 (Vitamin B1) 100 mg DAILY PO 06/22/16 09:00 (Theragran M Tab) 1 tab DAILY PO 06/22/16 09:00 06/27/16 08:59 (Catapres) 0.1 mg Q6H PRN PO 06/21/16 14:45 (Romazicon Inj) 0.2 mg Q1M PRN IV PUSH 06/21/16 14:45 (Ativan) 1 mg Q4H PRN PO 06/21/16 14:45 06/21/16 22:51 (Ativan Inj) 1 mg Q4H PRN IV PUSH 06/21/16 14:45 (Ativan) 2 mg Q2H PRN PO 06/21/16 14:45 06/22/16 03:50 (Ativan Inj) 2 mg Q2H PRN IV PUSH 06/21/16 14:45 (Ativan Inj) 2 mg Q1H PRN IV PUSH 06/21/16 14:45 06/22/16 09:08 (Ativan Inj) 2 mg Q15M PRN IV PUSH 06/21/16 14:45 06/22/16 13:49 (Atarax) 25 mg HS PRN PO 06/21/16 14:45 06/21/16 23:20 (Heparin Inj) 5,000 units UNSCH PRN IV 06/21/16 21:30 Heparin Sodium (Porcine) 2500 units 2,500 units UNSCH PRN IV 06/21/16 21:30 Heparin Sodium/ Dextrose 250 ml @ 0 mls/hr TITRATE IV 06/21/16 15:30 06/22/16 13:48 (Cardizem Inj/NS Inj) 125 ml @ 0 mls/hr TITRATE IV 06/21/16 15:30 06/22/16 03:45 (Cozaar) 100 mg DAILY PO 06/22/16 09:00 (Microzide) 12.5 mg DAILY PO 06/22/16 09:00 (NS Flush) 2 ml UNSCH PRN IV FLUSH 06/22/16 10:15 (NS Flush) 2 ml BID IV FLUSH 06/22/16 21:00 (Protonix Inj) 40 mg DAILY IV 06/23/16 09:00 (Zofran Inj) 4 mg Q6H PRN IV 06/22/16 10:15 Miscellaneous Information 1 Q361D XX 06/22/16 10:15 (Chlorhexidine 2% Cloth) 3 pack Taper DAILY@04 TOP 06/23/16 04:00 06/19/17 03:59 Chlorhexidine Gluconate 3 pack 3 pack UNSCH PRN TOP 06/22/16 10:15 Potassium Chloride 100 ml @ 50 mls/hr Q2H PRN IV 06/22/16 10:15 (KCl 20 Meq Premix Inj) 100 ml @ 50 mls/hr Q2H PRN IV 06/22/16 10:15 Potassium Bicarb/ Potassium Chloride 50 meq 50 meq UNSCH PRN PO 06/22/16 10:15 Potassium Chloride 100 ml @ 25 mls/hr UNSCH PRN IV 06/22/16 10:15 Potassium Chloride 100 ml @ 50 mls/hr Q2H PRN IV 06/22/16 10:15 (Magnesium Sulfate Inj/NS Inj) 100 ml @ 50 mls/hr UNSCH PRN IV 06/22/16 10:15 Magnesium Oxide 800 mg 800 mg UNSCH PRN PO 06/22/16 10:15 (Magnesium Sulfate Inj/NS Inj) 100 ml @ 50 mls/hr UNSCH PRN IV 06/22/16 10:15 Potassium Phosphate 2000 mg 2,000 mg Q4H PRN PO 06/22/16 10:15 (Sodium Phosphate Inj/NS 250 ml Inj) 250 ml @ 42 mls/hr UNSCH PRN IV 06/22/16 10:15 Potassium Phosphate 2000 mg 2,000 mg UNSCH PRN PO/TUBE 06/22/16 10:15 Potassium Phosphate 30 mmol/ Sodium Chloride 260 ml @ 42 mls/hr UNSCH PRN IV 06/22/16 10:15 Fentanyl Citrate 250 ml @ 0 mls/hr TITRATE IV 06/22/16 14:00 (Versed Inj) 100 ml @ 0 mls/hr TITRATE IV 06/22/16 14:00 Assessment and Plan Problem List: (1) Atrial flutter with rapid ventricular response Status: Acute Plan: Patient on mechanical ventilation. HR control. Sedated , unresponsive. Was started on Levophed. Beck Operator inserting a jugular central line. I had a long conversation with The MD and subsequently with Mrs Guevara. The gentleman is currently intubated. HR control. There is a question vinny about alcohol withdrawal. If patient cleared in the morning, ablation will be considered. Otherwise we have to wait until patient stable and neurologically cleared. Condition of care. Prognosis guarded (2) Alcohol withdrawal Status: Acute Plan: upset. Believes ambien was the reason patient get disoriented, not alcohol withdrawal. I had a long conversation with her. I do ask her to trust the managing team. When the patient is stable ablation will be attempted (3) Respiratory failure Status: Acute Plan: On [facility] ventilation. Apparently stable (4) Hypertension Status: Acute Plan: SBP was in the 80s. now int the 130s. On Levophed Problem Qualifiers (1) Hypertension: Qualified Code: I10 - Essential hypertension Louis Ponce MD Jun 22, 2016 19:13
[2016-06-22] MEDS: MIDAZOLAM 100 MG/NS 100 ML DRIP Premix IV SCH ×2 (19:42→19:46)
[2016-06-22] MEDS: fentaNYL 2,500 MCG/NS 250 ML IV SCH (19:42)
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
[2016-06-23] VITALS (28 sets, daily range): BP systolic 93–129; BP diastolic 52–88; PULSE 74–146; RESP 17–23; TEMP 98.5–100.2; O2SAT 90–100
[2016-06-23] MEDS: MIDAZOLAM 100 MG/NS 100 ML DRIP Premix IV SCH ×2 (00:53→12:18)
[2016-06-23] MEDS ORDERED: TERBUTALINE INJ 1 MG/ML AMP SQ PRN (02:45)
[2016-06-23 02:59] LABS: HEMATOCRIT 38.7 % (39.0-51.0); MEAN CELL VOLUME 88.5 FL (80.0-100.0); MEAN CORPUSCULAR HEMOGLOBIN 31.2 PG (27.0-34.0); MEAN CORPUSCULAR HGB CONC 35.3 % (32.0-36.0); PLATELET COUNT 158 TH/MM3 (150-450); RED BLOOD COUNT 4.38 MIL/MM3 (4.50-5.90); RED CELL DISTRIBUTION WIDTH 13.6 % (11.6-17.2); REVIEW FLAG FINAL; WHITE BLOOD COUNT 7.8 TH/MM3 (4.0-11.0)
[2016-06-23] MEDS: RESP: ALBUTEROL 2.5 MG/IPRATROPIUM 0.5 MG NEB (SCH) NEB ×4 (03:29→20:09)
[2016-06-23] MEDS ORDERED: DILTIAZEM HCL 25 MG/5 ML VIAL IVP ONE (03:30)
[2016-06-23] MEDS ORDERED: DILTIAZEM INJ 125 MG in SODIUM CHLORIDE 0.9% INJ 100 ML IV SCH (03:30)
[2016-06-23 03:32] LABS: APTT (PATIENT) 52.4 SEC (24.3-30.1)
[2016-06-23 03:39] LABS: BICARBONATE 25.9 MEQ/L (21.0-32.0); POTASSIUM 3.7 MEQ/L (3.5-5.1)
[2016-06-23] MEDS ORDERED: PHENYLEPHRINE INJ 40 MG in DEXTROSE 5% IN WATE 500 ML INJ 496 ML IV SCH ×2 (03:45)
[2016-06-23] MEDS: LORazepam 2 MG/ML VIAL IV PUSH PRN ×5 (03:58→20:02)
[2016-06-23] MEDS: CHLORHEXIDINE GLUCONATE 2 % 1 PACK (2 CLOTHS) TOP SCH (04:00)
--- NOTE | 2016-06-23 07:38 | HHI.CCPN ---
Subjective Remarks/Hospital Course On 06/21 ,Mr. Guevara presented with a PMHx of HTN presenting from the [facility] with an elevated, irregular heart rate. He is a patient of Dr. Irwin Rodriguez, who sent this patient from clinic. In clinic, he had a heart rate in the 150s and was instructed to go to the ED for further evaluation. Upon arriving to the ED ,the patient was found to have atrial flutter on twelve-lead EKG with a rate 151 with 2-1 conduction. He denied any chest pain, prior arrhythmia, thyroid disorder, or heart disease. He reported his last EKG was approximately 8 years ago before his eye surgery s/p accident. The patient has a significant alcohol and smoking history, but denies any illicit drugs. He states that he is at his baseline except for 3 episodes of nonbloody diarrhea that have all occurred over this morning. The patient was admitted to the hospital, and placed on CIWA protocol, Cardizem infusion and was scheduled for ablation per interventional cardiology. Early this a.m. the patient became significantly more confused, difficult to control a Hallicat at was called, and the patient was transferred to ICU for further management. Subjective 06/23: Afebrile. Since admission to the ICU yesterday, the patient was placed initially on Precedex infusion for agitation/delirium, in addition to CIWA protocol. The patient subsequently required intubation. Later the afternoon the patient became hypotensive requiring vasopressor support of Levophed which was weaned off during the night. The patient converted to A. fib flutter heart rate 150s and Cardizem infusion was reinitiated. Systolic blood pressure low 100's. The patient continues on Versed low-dose and fentanyl infusions for ventilator synchrony. Plan today for cardiac ablation with Dr. Ponce. Objective Vital Signs Date Time Temp Pulse Resp B/P Pulse Ox O2 Delivery O2 Flow Rate FiO2 06/23/16 07:00 123 17 112/71 104/58 06/23/16 06:00 90 06/23/16 04:12 50 06/23/16 04:00 99.6 06/22/16 07:46 Nasal Cannula 3.00 Intake and Output 06/22/16 06/22/16 06/23/16 08:00 16:00 00:00 Intake Total 655 ml 2439 ml Output Total 1800 ml 600 ml Balance -1145 ml 1839 ml Result Diagram: 06/23/16 0245 06/23/16 0245 Imaging Last 24 hours Impressions Chest X-Ray 06/21/16 1139 Signed Impressions: Service Date/Time: Tuesday, June 21, 2016 12:09 - CONCLUSION: No acute disease. Fortino Schrader MD Objective Remarks GENERAL: Well-developed well-nourished, male patient intubated and sedated SKIN: Warm and dry. HEAD: Atraumatic. Normocephalic. EYES: Pupils equal and round. No scleral icterus. No injection or drainage. ENT: No nasal bleeding or discharge. Mucous membranes pink and moist. NECK: Trachea midline. No JVD. CARDIOVASCULAR: Normal rate, regular rhythm. RESPIRATORY: Mechanical ventilation Clear to auscultation. Breath sounds equal bilaterally. GASTROINTESTINAL: Abdomen soft, non-tender, nondistended. No guarding. OGT to gravity MUSCULOSKELETAL: Extremities without clubbing, cyanosis, or edema. No obvious deformities. NEUROLOGICAL: Intubated and sedated. Upon sedation vacation patient becomes agitated, moving extremitiesx4. Procedures Plan for cardiac ablation today with Dr. Ponce Urinary Catheter: Yes Lujan insert reason: Measure Accurate Output Vascular Central Line Catheter: Yes Date of Insertion: Jun 22, 2016 Line: Central Venous Catheter Side: Right Location: Internal, Jugular Reason for Continuation Vasopressor support and central venous pressure monitoring A/P Assessment and Plan Plan by systems: Neurologic: Delirium tremens Alcohol abuse Encephalopathy Alcohol withdrawal Restless leg syndrome GCS 11T Versed and fentanyl infusions for ventilator synchrony Neurochecks per ICU protocol Will resume Ropinirole 0.25 mg/ hs when clinically indicated Respiratory: Tobacco abuse Obtain chest x-ray Noted expiratory wheezing upon auscultation, significant smoking history one pack a day greater than 20 years DuoNeb every 6 hours scheduled and every 2 hours when necessary Maintain O2 sat greater than 92%, currently O2 at 3 L nasal cannula Plan cardiac ablation today Cardiovascular: Atrial flutter Atrial fib flutter Cardiomegaly Continue Cardizem infusion, heart rate 120's Heparin infusion Cardiology following Ablation per scheduled for today Renal: Monitor BMP -- Strict I/Os Lujan in situ FEN/GI: Maintain nothing by mouth status Zofran IV for nausea Protonix IV 40 mg/day Heme/ID: Monitor CBC Transfuse for hemoglobin less than 7 Monitor PTT per heparin protocol Endocrine: Glucose monitoring per ICU protocol Low-dose regimen -- SSI Prophylaxis: GI Prophylaxis Protonix IV 40 mg/day DVT Prophylaxis -- SCDs Heparin infusion Lines: Peripheral IVs 2. Central line right IJ 06/22 Dispo: Discussed with ROLL COVERER at bedside and Dr. Ponce this a.m. plan cardiac ablation today. Extensive discussion with Mrs. Guevara yesterday regarding the patient's medical status. This patient remains critically ill with one or more organ systems which are or may become a threat to life. I have spent in excess of 54 minutes discontinuously in the care and management of this patient. This time is exclusive of procedures, and includes, but is not limited to, evaluation of the patient, review of the medical record, discussions with family, consultants, nursing staff, or respiratory therapy, and documentation in the medical record. Physician Alice Murray MD Jun 23, 2016 07:38
[2016-06-23] MEDS: PANTOPRAZOLE SODIUM 40 MG VIAL IV SCH (08:40)
[2016-06-23] MEDS: SODIUM CHLORIDE 0.9% FLUSH 10 ML FLUSH IV FLUSH SCH ×6 (08:41→20:04)
[2016-06-23] MEDS: ASPIRIN 81 MG CHEW TAB PO SCH (08:49)
[2016-06-23] MEDS: THIAMINE HCL 100 MG TAB PO SCH (08:50)
[2016-06-23] MEDS: FOLIC ACID 1 MG TAB PO SCH (08:50)
[2016-06-23] MEDS: LOSARTAN 50 MG TAB PO SCH (08:50)
[2016-06-23] MEDS: HYDROCHLOROTHIAZIDE 12.5 MG CAP PO SCH (08:50)
[2016-06-23] MEDS: MULTIVITAMINS/MINERALS THERAPEUTIC TAB PO SCH (08:50)
[2016-06-23 10:07] LABS: APTT (PATIENT) 54.6 SEC (24.3-30.1)
--- NOTE | 2016-06-23 11:28 | HHI.FPPN ---
Subjective Remarks Patient seen and examined this morning by medical team. After admission to ICU yesterday, patient placed on Precedex drip for agitation and delirium in addition to the C1 protocol. Patient then subsequently required intubation and became unstable. He then became hypotensive requiring Levophed. Overnight the Levophed was weaned off, however his heart rate increased to the 150s with atrial flutter. Cardizem drip was then started in addition to low-dose Versed with fentanyl while intubated. Team discussed clinical course and plan for today with Dr. Ron, aquarium tank attendant. She states that Dr. gallegos will plan for cardiac ablation later this afternoon. (Swapnil Barrera MD R1) Objective Vitals Vital Signs Date Time Temp Pulse Resp B/P Pulse Ox O2 Delivery O2 Flow Rate FiO2 06/23/16 08:00 50 06/23/16 08:00 99.3 123 17 112/71 93 06/23/16 07:57 94 50 06/23/16 07:00 123 17 112/71 104/58 06/23/16 07:00 123 06/23/16 06:00 87 06/23/16 06:00 87 18 101/80 90 100/52 06/23/16 05:00 145 19 116/80 90 116/80 06/23/16 04:12 99 50 06/23/16 04:00 146 06/23/16 04:00 99.6 146 23 107/72 92 100/65 06/23/16 04:00 50 06/23/16 02:00 122 06/23/16 01:12 99 50 06/23/16 00:00 98.5 94 18 93/65 98 06/23/16 00:00 94 06/23/16 00:00 50 06/22/16 22:12 100 50 06/22/16 22:00 75 06/22/16 20:14 100 50 06/22/16 20:00 98.2 74 18 108/74 98 06/22/16 20:00 74 06/22/16 20:00 50 06/22/16 17:18 100 50 06/22/16 16:00 106 06/22/16 14:00 48 06/22/16 12:00 81 I/O 06/22/16 06/22/16 06/22/16 06/23/16 06/23/16 06/23/16 07:00 15:00 23:00 07:00 15:00 23:00 Intake Total 655 ml 2439 ml 406 ml Output Total 1800 ml 600 ml 275 ml Balance -1145 ml 1839 ml 131 ml Intake Oral 480 ml IV Total 175 ml 2439 ml 406 ml Output Urine Total 1800 ml 500 ml 275 ml Gastric Drainage Total 100 ml # Voids 1 # Bowel Movements 0 (Swapnil Barrera MD R1) Result Diagram: 06/23/1624406/23/16244 Objective Remarks GENERAL: Well-developed well-nourished, male patient intubated and sedated with at bedside. SKIN: Warm and dry. HEENT: Atraumatic, normocephalic. Endotracheal tube in place. CARDIOVASCULAR: Tachycardic to 120s. RESPIRATORY: Patient intubated and on mechanical ventilation. Clear to anterior auscultation bilaterally. GASTROINTESTINAL: Abdomen soft, non-tender, nondistended. No guarding. OGT to gravity MUSCULOSKELETAL: Extremities without clubbing, cyanosis, or edema. No obvious deformities. NEUROLOGICAL: Intubated and sedated. Upon sedation vacation patient becomes agitated, moving extremitiesx4 per staff. (Swapnil Barrera MD R1) Date of Insertion: Jun 22, 2016 Line: Central Venous Catheter Side: Right Location: Internal, Jugular (Swapnil Barrera MD R1) A/P Assessment and Plan Mr. Guevara is a 61 y/o CM with a PMHx of HTN and whiskey consumption presenting from the [facility] with an elevated, irregular heart rate found to have atrial flutter. He was admitted for medical management of his arrhythmia. However, overnight he went into severe alcohol withdrawal and is now intubated in the [facility]. Discharge Planning Unclear given patient's current clinical state. Discussed with Dr. Burr, Dr. Pizarro, Dr. Kavya Mcrae (Swapnil Barrera MD R1) Attending Attestation Patient seen and examined. Case reviewed and discussed with the resident team. Agree with plan of care as discussed with me and documented in the resident note. severe alcohol withdrawal complicated by his flutter which is effected by the meds used to help his withdrawal (Dana Burr MD) Problem List: (1) Alcohol withdrawal Status: Acute Plan: Medical team paged for HALICAT at approximately 0745 on 06/23/15 due to agitation. Per nursing report patient has been agitated and altered throughout the night with CIWA scores up to 25. Currently the patient will not participate in history due to agitation. Overnight he started to pull out his IVs and was verbally aggressive towards staff and threatening to leave AMA. He was placed in restraints and given 6 mg of Ativan since admission secondary to CIWA protocol. Per H/P and discussion with today, the patient does have an extensive history of alcohol use with up to 3/4 drinks per day. He also has an extensive smoking history, and per his was demanding to smoke a cigarette overnight. Patient on transfer to ICU for further clinical management and placed on Precedex drip. However he became unstable and was emergently intubated. Shift Superintendent Caustic Cresylate consulted, appreciate recommendations Patient intubated with Versed and fentanyl infusion GCS of 11 Ativan per CIWA protocol, scores up to 26 over the last 24 hours with most recent score of 2 (2) Atrial flutter with rapid ventricular response Status: Acute Plan: Patient presenting from clinic with atrial fibrillation with rate into the 150s. He is currently asymptomatic and will be admitted for medical management of his arrhythmia. Catapres to score of 1 (hypertension). EKG: Atrial fibrillation with rate of 150 per medical team on admission CBC: Within normal limits on admission Electrolytes: Within normal limits on admission TSH: 1.470 Troponin: Less than 0.02, 2 pending Echo: Normal cavity size and wall thickness. Systolic function mildly reduced with EF of 35-40%, however study was limited due to markedly tachycardia. Wall motion normal. Telemetry Consulted cardiology, appreciate recommendations which were for ablation * Per Dr. Ron, Dr. Ponce will plan for ablation later this afternoon. Medications: Heparin drip Diltiazem drip (3) Hypertension Status: Acute Plan: Patient with chronic HTN. Medications held due to intubation and current atrial flutter Continue Irbesartan-HCTZ (300-12.5) with conversion to Losartan 100mg daily and HCTZ 12.5mg daily Clonidine 0.1 mg by mouth when necessary for SBP greater than 180 over DBP greater than 110 (4) Restless leg syndrome Status: Acute Plan: Patient with reported restless leg syndrome -Hold Ropinirole for now (5) Nutrition, metabolism, and development symptoms Status: Acute Plan: Fluids: Currently none, monitor I/Os Diet: NPO as patient is intubated Electrolytes: WNL, continue to monitor DVT: Lovenox 40mg daily Prophylaxis: Protonix 40 mg IV daily, DuoNeb's every 6 hours when necessary for shortness of breath/wheezing, hydroxyzine 25 mg daily at bedtime when necessary for insomnia (Held) (Swapnil Barrera MD R1) Problem List: (1) Alcohol withdrawal Status: Acute Plan: Medical team paged for HALICAT at approximately 0745 on 06/23/15 due to agitation. Per nursing report patient has been agitated and altered throughout the night with CIWA scores up to 25. Currently the patient will not participate in history due to agitation. Overnight he started to pull out his IVs and was verbally aggressive towards staff and threatening to leave AMA. He was placed in restraints and given 6 mg of Ativan since admission secondary to CIWA protocol. Per H/P and discussion with today, the patient does have an extensive history of alcohol use with up to 3/4 drinks per day. He also has an extensive smoking history, and per his was demanding to smoke a cigarette overnight. Patient on transfer to ICU for further clinical management and placed on Precedex drip. However he became unstable and was emergently intubated. Shift Superintendent Caustic Cresylate consulted, appreciate recommendations Patient intubated with Versed and fentanyl infusion GCS of 11 Ativan per CIWA protocol, scores up to 26 over the last 24 hours with most recent score of 2 (2) Atrial flutter with rapid ventricular response Status: Acute Plan: Patient presenting from clinic with atrial fibrillation with rate into the 150s. He is currently asymptomatic and will be admitted for medical management of his arrhythmia. Catapres to score of 1 (hypertension). EKG: Atrial fibrillation with rate of 150 per medical team on admission CBC: Within normal limits on admission Electrolytes: Within normal limits on admission TSH: 1.470 Troponin: Less than 0.02, 2 pending Echo: Normal cavity size and wall thickness. Systolic function mildly reduced with EF of 35-40%, however study was limited due to markedly tachycardia. Wall motion normal. Telemetry Consulted cardiology, appreciate recommendations which were for ablation * Per Dr. Ron, Dr. Ponce will plan for ablation later this afternoon. Medications: Heparin drip Diltiazem drip (3) Hypertension Status: Acute Plan: Patient with chronic HTN. Medications held due to intubation and current atrial flutter Continue Irbesartan-HCTZ (300-12.5) with conversion to Losartan 100mg daily and HCTZ 12.5mg daily Clonidine 0.1 mg by mouth when necessary for SBP greater than 180 over DBP greater than 110 (4) Restless leg syndrome Status: Acute Plan: Patient with reported restless leg syndrome -Hold Ropinirole for now (5) Nutrition, metabolism, and development symptoms Status: Acute Plan: Fluids: Currently none, monitor I/Os Diet: NPO as patient is intubated Electrolytes: WNL, continue to monitor DVT: Lovenox 40mg daily Prophylaxis: Protonix 40 mg IV daily, DuoNeb's every 6 hours when necessary for shortness of breath/wheezing, hydroxyzine 25 mg daily at bedtime when necessary for insomnia (Held) (Dana Burr MD) Problem Qualifiers (1) Alcohol withdrawal: Qualified Code: F10.231 - Alcohol withdrawal, with delirium (2) Hypertension: Qualified Code: I10 - Essential hypertension Swapnil Barrera MD R1 Jun 23, 2016 11:28 Dana Burr MD Jun 25, 2016 13:32
[2016-06-23] MEDS: HEPARIN-D5W INJ 250 ML IV SCH (11:30)
[2016-06-23 12:57] LABS: BLOOD GAS BASE EXCESS -0.7 mmol/L (-2-2); BLOOD GAS CARBOXYHEMOGLOBIN 1.7 % (0-4); BLOOD GAS HCO3 25 mmol/L (22-26); BLOOD GAS METHEMOGLOBIN 1.1 % (0-2); BLOOD GAS O2 HGB SATURATION 92 % (90-100); BLOOD GAS OXYGEN CONTENT 18.6 Vol % (12.0-20.0); BLOOD GAS PCO2 50 mmHg (38-42); BLOOD GAS PO2 82 mmHg (61-120); BLOOD GAS TOTAL HGB 14.3 G/DL (12.0-16.0); CRITICAL VALUE NO; DRAW SITE ART LINE; FIO2 50 %; OXYGEN DEVICE VENTILATOR; TEMP CORR TO 98.6; VENT SETTINGS SIMV
[2016-06-23 12:58] LABS: STAT NO; ULNAR PULSE PRESENT
[2016-06-23] MEDS ORDERED: AMIODARONE INJ 150 MG in DEXTROSE 5% IN WATER 100ML INJ 97 ML IV ONE ×2 (13:15)
[2016-06-23 14:02] LABS: BLOOD GAS BASE EXCESS -0.9 mmol/L (-2-2); BLOOD GAS CARBOXYHEMOGLOBIN 1.8 % (0-4); BLOOD GAS HCO3 24 mmol/L (22-26); BLOOD GAS METHEMOGLOBIN 1.3 % (0-2); BLOOD GAS O2 HGB SATURATION 92 % (90-100); BLOOD GAS OXYGEN CONTENT 18.4 Vol % (12.0-20.0); BLOOD GAS PCO2 48 mmHg (38-42); BLOOD GAS PO2 82 mmHg (61-120); BLOOD GAS TOTAL HGB 14.1 G/DL (12.0-16.0); TEMP CORR TO 98.6
[2016-06-23 14:03] LABS: CRITICAL VALUE YES; OXYGEN DEVICE VENTILATOR
[2016-06-23 14:04] LABS: DRAW SITE ART LINE; FIO2 50 %; STAT YES; ULNAR PULSE PRESENT; VENT SETTINGS SIMV
[2016-06-23] MEDS ORDERED: VASOPRESSIN INJ 20 UNITS/ML VIAL ONE (14:14)
[2016-06-23] MEDS: fentaNYL 2,500 MCG/NS 250 ML IV SCH (15:05)
[2016-06-23] MEDS ORDERED: MIDAZOLAM HCL 5 MG/5 ML VIAL ONE (16:25)
[2016-06-23] MEDS ORDERED: HEPARIN-NS/PF INJ 500 ML ONE (16:51)
[2016-06-23] MEDS ORDERED: ISOPROTERENOL HCL 1 MG/5 ML AMP ONE (17:32)
[2016-06-23] MEDS ORDERED: ATROPINE SULFATE 1 MG/ML VIAL IV PRN (18:00)
[2016-06-23] MEDS ORDERED: LIDOCAINE HCL 1% 50 ML VIAL INFIL PRN (18:00)
[2016-06-23] MEDS ORDERED: LORazepam 2 MG/ML VIAL IV PRN (18:00)
[2016-06-23] MEDS ORDERED: SODIUM CHLOR 0.9% 250 ML INJ 250 ML IV PRN (18:00)
[2016-06-23] MEDS ORDERED: ONDANSETRON HCL 4 MG/2 ML VIAL IV PRN (18:00)
[2016-06-23] MEDS ORDERED: BACITRACIN OINT 0.9 GM PKT TOP ONE (18:00)
[2016-06-23] MEDS ORDERED: METOCLOPRAMIDE HCL 10 MG/2 ML VIAL IV PRN (18:00)
--- NOTE | 2016-06-23 22:23 | EKG ---
Date Performed: 06/23/2016 Time Performed: 18:33:26 PTAGE: 61 years EKG: SINUS TACHYCARDIA NONSPECIFIC T-WAVE ABNORMALITY ABNORMAL ECG PREVIOUS TRACING : 06/22/2016 15.51 Compared to previous tracing, Sinus rhythm has replaced atrial flutter. DOCTOR: Иван Bautista Interpretating Date/Time 06/23/2016 22:21:14
[2016-06-24] VITALS (19 sets, daily range): BP systolic 100–130; BP diastolic 51–83; PULSE 83–145; RESP 15–27; TEMP 98.1–100; O2SAT 89–99
[2016-06-24] MEDS: RESP: ALBUTEROL 2.5 MG/IPRATROPIUM 0.5 MG NEB (SCH) NEB ×4 (03:32→20:23)
[2016-06-24] MEDS: CHLORHEXIDINE GLUCONATE 2 % 1 PACK (2 CLOTHS) TOP SCH (04:00)
[2016-06-24] MEDS: HEPARIN-D5W INJ 250 ML IV SCH ×2 (04:46→23:20)
[2016-06-24] MEDS: fentaNYL 2,500 MCG/NS 250 ML IV SCH (04:47)
--- NOTE | 2016-06-24 05:26 | MA ---
cc: EDUARDO CHAVEZ M.D., HANSCY M.D. DATE 06/23/2016 PROCEDURE PERFORMED Electrophysiology study, CS cannulation, 3-D mapping, radiofrequency ablation of atrial flutter, repeat electrophysiology study on Isuprel infusion. INDICATIONS FOR PROCEDURE Mr. Guevara is 61-year-old gentleman with atrial flutter, heart rate unable to control with medication, was agitated, was put on mechanical ventilation. Blood pressure cannot be maintained with negative chronotropic medication. He had to be put on Levophed on multiple occasions. After multiple conversations with the anesthesiologist and spool salvager, decision for atrial flutter ablation was taken. The family understands the risks, the nature and the benefit of the procedure. Industrial Maintenance Technician mentioned that the patient has to have the heart rate controlled before they can try intubation and control the blood pressure. The understood and agreed to proceed. Also, the patient is a very high risk. PROCEDURE After written informed consent was obtained, the patient was brought to the EP Lab where he was prepped and draped in the usual sterile fashion. Conscious sedation was initiated and maintained throughout the procedure by anesthesiologist. The patient was already intubated. Once sedation was verified, the right and left inguinal area was anesthetized with 2% Xylocaine. Using modified Seldinger technique, the left femoral vein first was cannulated on three occasions and three guidewires were advanced. Over the wires three 5-Syriac Hemaquets were advanced. Then the right femoral vein was cannulated on two occasions. Two guidewires were advanced over the wires. A 6 and an 8-Syriac Hemaquet were advanced. Then under fluoroscopic guidance through the 5 and 6-Syriac Hemaquet, four 5-Syriac Constantino curved quadripolar electrophysiology catheters were advanced and placed on the His, upper right atrium, coronary sinus and right ventricular apex. The patient was in atrial flutter. Entrainment was performed and was positive. Then, through the 8-Syriac Hemaquet, a Cordis Flood F-curve, 8-mm mapping and radiofrequency ablation catheter was advanced. Using [employer] endocardial solution mapping system, a three-dimensional configuration of the right atrium was obtained. Then the catheter was placed at the critical isthmus. Radiofrequency energy was delivered. During ablation, further cycle length increased and subsequently converted into sinus rhythm. Further burn was delivered in the area. Then atrial pacing protocol was performed. No tachyarrhythmia was induced. Pacing lateral to the line indicated activation in the His compared to the CS that indicated bilateral line of block. Then Isuprel infusion was initiated at 10 mcg for over 10 minutes. No tachyarrhythmia was induced. At that the point procedure was complete. All catheters were removed. The patient is going to be transferred to the recovery room. No incident reported. The patient tolerated the procedure, blood loss minimal. 1. ELECTROCARDIOGRAM: At baseline the patient was in atrial flutter. Postprocedure the patient was in sinus rhythm. 2. BASIC INTERVAL: Base cycle length was around 620, post-ablation it was around 980, AH at 90 and HV at around 40 milliseconds. 3. ATRIAL PACING PROTOCOL: Entrainment was performed. It was positive. Post-ablation Wenckebach was around 420 milliseconds. 4. TACHYARRHYTHMIA: Atrial flutter was mapped and ablated. Ablation was successful. CONCLUSIONS Successful electrophysiology study, mapping and radiofrequency ablation of atrial flutter, RECOMMENDATIONS The patient going to be transferred back to the intensive care unit. Further decision about extubation and management by critical care and . Louis Ponce MD HS/SSB /5:54 PM /5:02 AM
[2016-06-24 05:30] LABS: APTT (PATIENT) 48.6 SEC (24.3-30.1)
[2016-06-24 05:36] LABS: BICARBONATE 25.5 MEQ/L (21.0-32.0); MAGNESIUM 1.9 MG/DL (1.5-2.5); POTASSIUM 3.8 MEQ/L (3.5-5.1)
[2016-06-24 05:37] LABS: HEMATOCRIT 40.6 % (39.0-51.0); MEAN CELL VOLUME 89.9 FL (80.0-100.0); MEAN CORPUSCULAR HEMOGLOBIN 30.4 PG (27.0-34.0); MEAN CORPUSCULAR HGB CONC 33.9 % (32.0-36.0); PLATELET COUNT 133 TH/MM3 (150-450); RED BLOOD COUNT 4.52 MIL/MM3 (4.50-5.90); RED CELL DISTRIBUTION WIDTH 13.9 % (11.6-17.2); REVIEW FLAG FINAL; WHITE BLOOD COUNT 9.5 TH/MM3 (4.0-11.0)
--- NOTE | 2016-06-24 06:56 | RADRPT ---
EXAM DATE/TIME: 06/24/2016 04:16 [facility] COMPARISON: CHEST SINGLE AP, June 22, 2016, 16:40. INDICATIONS : Shortness of breath. MEDICAL HISTORY : Hypertension. SURGICAL HISTORY : None. ENCOUNTER: Subsequent ACUITY: 4 - 6 days PAIN SCORE: Non-responsive. LOCATION: Bilateral chest FINDINGS: The support devices remain in place. There is no pneumothorax. There is some mild bibasilar atelectas is. No significant changes compared to the prior study. CONCLUSION: No interval change. Shashank Ramos MD on June 24, 2016 at 6:54 Board Certified Radiologist. This report was verified electronically.
--- NOTE | 2016-06-24 08:25 | EKG ---
Date Performed: 06/22/2016 Time Performed: 15:51:34 PTAGE: 61 years EKG: Atrial flutter. Incomplete RBBB Lateral ST-T changes may be due to myocardial ischemia Low QRS voltages in precordial leads Abnormal ECG Compared to PREVIOUS TRACING , the ventricular response has slowed. PREVIOUS TRACIN06/22/2016 00.0 7 DOCTOR: Cl Rollins Interpretating Date/Time 06/24/2016 08:23:47
[2016-06-24] MEDS: ASPIRIN 81 MG CHEW TAB PO SCH (09:00)
[2016-06-24] MEDS: LOSARTAN 50 MG TAB PO SCH (09:00)
[2016-06-24] MEDS: HYDROCHLOROTHIAZIDE 12.5 MG CAP PO SCH (09:00)
--- NOTE | 2016-06-24 09:10 | PD.CARD.PN ---
Subjective Subjective Remarks Status post self extubation. Mildly dyspneic. No CP, groin pain, dizziness, palpitations. Objective Medications Item Value Date Time Aspirin 81 mg 06/22/16 0900 (Aspirin Chew) DAILY/PO Losartan Potassium 100 mg 06/22/16 0900 (Cozaar) DAILY/PO Hydrochlorothiazide 12.5 mg 06/22/16 0900 (Microzide) DAILY/PO Heparin Sodium/ 250 ml @ 0 mls/hr 06/21/16 1530 Dextrose TITRATE/IV 06/24/16 0446 Vital Signs / I&O Vital Signs Date Time Temp Pulse Resp B/P Pulse Ox O2 Delivery O2 Flow Rate FiO2 06/24/16 08:56 92 4 06/24/16 08:14 94 50 06/24/16 08:14 50 06/24/16 06:00 100 06/24/16 06:00 100.0 100 18 118/75 95 103/53 06/24/16 04:09 98 50 06/24/16 04:00 100.0 89 18 119/74 94 100/51 06/24/16 04:00 97 06/24/16 04:00 50 06/24/16 02:00 98 06/24/16 01:09 99 50 06/24/16 00:38 99.5 96 18 122/76 95 103/56 06/24/16 00:00 50 06/24/16 00:00 89 06/24/16 00:00 99.5 89 18 105/72 99 103/60 06/23/16 23:38 99.1 90 18 105/71 99 104/61 06/23/16 23:02 98 50 06/23/16 22:38 93 18 103/70 99 98/58 06/23/16 22:00 96 06/23/16 21:38 99.4 95 18 102/68 99 100/60 06/23/16 20:30 100 18 111/74 98 112/64 06/23/16 20:08 100 50 06/23/16 20:08 99.3 106 18 125/79 99 129/69 06/23/16 20:00 50 06/23/16 20:00 99.3 106 18 125/79 99 129/69 06/23/16 20:00 106 06/23/16 19:38 99.3 100 18 112/72 99 120/68 4/13/17 19:08 99.3 101 18 109/73 97 116/66 06/23/16 18:45 104 22 107/74 06/23/16 18:30 107 06/23/16 18:30 107 18 118/62 06/23/16 16:00 74 06/23/16 16:00 99.5 74 18 105/66 98 06/23/16 16:00 50 06/23/16 15:57 99 50 06/23/16 14:00 142 06/23/16 13:33 98 50 06/23/16 12:00 50 06/23/16 12:00 100.2 138 18 120/88 99 06/23/16 12:00 138 06/23/16 11:47 99 50 I/O 06/23/16 06/23/16 06/23/16 06/24/16 06/24/16 06/24/16 07:00 15:00 23:00 07:00 15:00 23:00 Intake Total 406 ml 665 ml 284 ml 484 ml Output Total 275 ml 225 ml 175 ml 200 ml Balance 131 ml 440 ml 109 ml 284 ml Intake Oral 0 ml 0 ml 0 ml IV Total 406 ml 665 ml 224 ml 484 ml Tube Irrigant 60 ml Output Urine Total 275 ml 225 ml 175 ml 200 ml Physical Exam GENERAL: Well developed, well nourished. Mild respiratory distress. HEENT: Jugular venous pressure is normal. CHEST: Few scattered anterior wheezes. CARDIAC: Regular rate and rhythm without S3, S4, or murmur. ABDOMEN: Soft, nontender, no hepatosplenomegaly. Bowel sounds present. EXTREMITIES: No clubbing, cyanosis, or edema. Laboratory Laboratory Tests Test 06/23/16 06/23/16 06/23/16 06/24/16 09:40 12:43 13:41 04:52 Activated Partial 54.6 SEC 48.6 SEC Thromboplast Time Blood Gas Puncture Site ART LINE ART LINE Blood Gas Patient Temperature 98.6 98.6 Blood Gas HCO3 25 mmol/L 24 mmol/L Blood Gas Base Excess -0.7 mmol/L -0.9 mmol/L Blood Gas Oxygen Saturation 92 % 92 % Arterial Blood pH 7.31 7.33 Arterial Blood Partial 50 mmHg 48 mmHg Pressure CO2 Arterial Blood Partial 82 mmHg 82 mmHg Pressure O2 Arterial Blood Oxygen Content 18.6 Vol % 18.4 Vol % Arterial Blood 1.7 % 1.8 % Carboxyhemoglobin Arterial Blood Methemoglobin 1.1 % 1.3 % Blood Gas Hemoglobin 14.3 G/DL 14.1 G/DL Oxygen Delivery Device VENTILATOR VENTILATOR Blood Gas Ventilator Setting SIMV SIMV Blood Gas Inspired Oxygen 50 % 50 % White Blood Count 9.5 TH/MM3 Red Blood Count 4.52 MIL/MM3 Hemoglobin 13.8 GM/DL Hematocrit 40.6 % Mean Corpuscular Volume 89.9 FL Mean Corpuscular Hemoglobin 30.4 PG Mean Corpuscular Hemoglobin 33.9 % Concent Red Cell Distribution Width 13.9 % Platelet Count 133 TH/MM3 Mean Platelet Volume 8.8 FL Sodium Level 139 MEQ/L Potassium Level 3.8 MEQ/L Chloride Level 105 MEQ/L Carbon Dioxide Level 25.5 MEQ/L Anion Gap 9 MEQ/L Blood Urea Nitrogen 19 MG/DL Creatinine 1.37 MG/DL Estimat Glomerular Filtration 53 ML/MIN Rate Random Glucose 121 MG/DL Calcium Level 8.2 MG/DL Phosphorus Level 3.3 MG/DL Magnesium Level 1.9 MG/DL Imaging Last 48 hours Impressions Chest X-Ray 06/24/16 0600 Signed Impressions: Service Date/Time: Friday, June 24, 2016 04:16 - CONCLUSION: No interval change. Shashank Ramos MD Assessment and Plan Problem List: (1) Paroxysmal atrial flutter Assessment and Plan: Stable s/p ablation by Dr. Ponce. Rhythm currently appears to be sinus tachycardia. Continue daily aspirin. Will f/u as needed over the weekend. (2) Hypertension Assessment and Plan: Hypertension not active issue. Code Status full code Discussed Condition With patient Problem Qualifiers (1) Hypertension: Qualified Code: I10 - Essential hypertension Иван Bautista MD Jun 24, 2016 09:10
[2016-06-24] MEDS: PANTOPRAZOLE SODIUM 40 MG VIAL IV SCH (09:13)
[2016-06-24] MEDS: SODIUM CHLORIDE 0.9% FLUSH 10 ML FLUSH IV FLUSH SCH ×4 (09:14→19:54)
--- NOTE | 2016-06-24 09:35 | EKG ---
Date Performed: 06/24/2016 Time Performed: 07:27:24 PTAGE: 61 years EKG: SINUS TACHYCARDIA NONSPECIFIC T-WAVE ABNORMALITY ABNORMAL RHYTHM ECG PREVIOUS TRACING : 06/23/2016 18.33 No significant change from previous tracing noted. DOCTOR: Иван Bautista Interpretating Date/Time 06/24/2016 09:34:29
--- NOTE | 2016-06-24 09:48 | HHI.FPPN ---
Subjective Remarks Pt seem and examined this morning. Intubated and on fentanyl and midazolam IV. On ventilator SIMV setting, rate of 18, FiO2 of 50%, Peep 5, currently undergoing CPAP trials which he is tolerating. Able to respond to commands, agitated. Status update: Pt self intubated despite restraints, respiratory status currently stable. (Vasile Mcrae MD R2) Objective Vitals Vital Signs Date Time Temp Pulse Resp B/P Pulse Ox O2 Delivery O2 Flow Rate FiO2 06/24/16 08:56 92 4 06/24/16 08:14 94 50 06/24/16 08:14 50 06/24/16 06:00 100 06/24/16 06:00 100.0 100 18 118/75 95 103/53 06/24/16 04:09 98 50 06/24/16 04:00 100.0 89 18 119/74 94 100/51 06/24/16 04:00 97 06/24/16 04:00 50 06/24/16 02:00 98 06/24/16 01:09 99 50 06/24/16 00:38 99.5 96 18 122/76 95 103/56 06/24/16 00:00 50 06/24/16 00:00 89 06/24/16 00:00 99.5 89 18 105/72 99 103/60 06/23/16 23:38 99.1 90 18 105/71 99 104/61 06/23/16 23:02 98 50 06/23/16 22:38 93 18 103/70 99 98/58 06/23/16 22:00 96 06/23/16 21:38 99.4 95 18 102/68 99 100/60 06/23/16 20:30 100 18 111/74 98 112/64 06/23/16 20:08 100 50 06/23/16 20:08 99.3 106 18 125/79 99 129/69 06/23/16 20:00 50 06/23/16 20:00 99.3 106 18 125/79 99 129/69 06/23/16 20:00 106 06/23/16 19:38 99.3 100 18 112/72 99 120/68 06/23/16 19:08 99.3 101 18 109/73 97 116/66 06/23/16 18:45 104 22 107/74 06/23/16 18:30 107 4/13/17 18:30 107 18 118/62 06/23/16 16:00 74 06/23/16 16:00 99.5 74 18 105/66 98 06/23/16 16:00 50 06/23/16 15:57 99 50 06/23/16 14:00 142 06/23/16 13:33 98 50 06/23/16 12:00 50 06/23/16 12:00 100.2 138 18 120/88 99 06/23/16 12:00 138 06/23/16 11:47 99 50 I/O 06/23/16 06/23/16 06/23/16 06/24/16 06/24/16 06/24/16 07:00 15:00 23:00 07:00 15:00 23:00 Intake Total 406 ml 665 ml 284 ml 484 ml Output Total 275 ml 225 ml 175 ml 200 ml Balance 131 ml 440 ml 109 ml 284 ml Intake Oral 0 ml 0 ml 0 ml IV Total 406 ml 665 ml 224 ml 484 ml Tube Irrigant 60 ml Output Urine Total 275 ml 225 ml 175 ml 200 ml (Vasile Mcrae MD R2) Result Diagram: 06/24/16 0452 06/24/16 045 Objective Remarks GENERAL: Well-developed well-nourished, male patient intubated. SKIN: Warm and dry. HEENT: Atraumatic, normocephalic. Endotracheal tube in place. CARDIOVASCULAR: Tachycardic to 120s. RESPIRATORY: Patient intubated and on mechanical ventilation. Clear to anterior auscultation bilaterally. GASTROINTESTINAL: Abdomen soft, non-tender, nondistended. No guarding. OGT to gravity MUSCULOSKELETAL: Extremities without clubbing, cyanosis, or edema. No obvious deformities. NEUROLOGICAL: Intubated and sedated. Upon sedation vacation patient becomes agitated, moving extremitiesx4 per staff. (Vasile Mcrae MD R2) Date of Insertion: Jun 22, 2016 Line: Central Venous Catheter Side: Right Location: Internal, Jugular (Vasile Mcrae MD R2) A/P Assessment and Plan Mr. Guevara is a 61 y/o CM with a PMHx of HTN and alcohol abuse presenting from the [facility] with an elevated, irregular heart rate found to have atrial flutter. He was admitted for medical management of his arrhythmia. Currently withdrawing from chronic alcohol use, on the CIWA protocol. Discharge Planning Unclear given patient's current clinical state. Discussed with Dr. Burr (Vasile Mcrae MD R2) Attending Attestation Patient seen and examined. Case reviewed and discussed with the resident team. Agree with plan of care as discussed with me and documented in the resident note. he is very strong and self extubated. he is still in severe DTs, appreciate so much all the help by Dr Ron who has saved this patients life (Dana Burr MD) Problem List: (1) Alcohol withdrawal Status: Acute Plan: Medical team paged for HALICAT at approximately 0745 on 06/23/15 due to agitation. Per nursing report patient had been agitated and altered throughout the night with CIWA scores up to 25. The patient does have an extensive history of alcohol use with up to 3/4 drinks per day. He also has an extensive smoking history. Patient transferred to ICU. Flue Gas Analyst consulted, appreciate recommendations Patient intubated, currenlty self extubated despite Midazolam and fentanyl infusion. Sedation is currently off. Continue to monitor respiratory status Ativan per CIWA protocol, scores up to 20 over the last 24 hours with most recent score of 5 Over the past 24 hours patient has received approximately 8 mg of Ativan per CIWA protocol, as well as 2 mg of Haldol. (2) Atrial flutter with rapid ventricular response Status: Acute Plan: Patient presenting from clinic with atrial fibrillation with rate into the 150s, found to be in atrial flutter. Patient's heart rate has been persistently elevated. Cardiology consulted, appreciate recommendations and intervention Patient status post successful ablation on 06/23, currently on a heparin drip Echo: Normal cavity size and wall thickness. Systolic function mildly reduced with EF of 35-40%, however study was limited due to markedly tachycardia. Wall motion normal. Heart rate in the 90s-140s Continue to monitor vitals (3) Hypertension Status: Acute Plan: Patient with chronic HTN Pt has been hypotensive and required pressors from 06/23 until 06/24 Hold home Irbesartan-HCTZ (300-12.5) with conversion to Losartan 100mg daily and HCTZ 12.5mg daily (4) Restless leg syndrome Status: Acute Plan: Patient with reported restless leg syndrome -Hold Ropinirole (5) History of alcohol use Status: Acute Plan: Patient with history of alcohol abuse since 17 years old. Reports that he drinks 3-4 drinks per day of beer/bourbon to ease his back pain. Patient actively withdrawing from alcohol, see plan above Rally pack CIWA protocol Seizure precautions (6) Nutrition, metabolism, and development symptoms Status: Acute Plan: Fluids: NS 50mls/hr Diet: Heart healthy as tolerated Electrolytes: WNL, continue to monitor DVT PPX: Heparin drip GI Prophylaxis: Protonix (Vasile Mcrae MD R2) Problem Qualifiers (1) Alcohol withdrawal: Qualified Code: F10.231 - Alcohol withdrawal, with delirium (2) Hypertension: Qualified Code: I10 - Essential hypertension Vasile Mcrae MD R2 Jun 24, 2016 09:48 Dnaa Burr MD Jun 25, 2016 13:34
[2016-06-24 09:55] LABS: BLOOD GAS BASE EXCESS -0.8 mmol/L (-2-2); BLOOD GAS CARBOXYHEMOGLOBIN 1.8 % (0-4); BLOOD GAS HCO3 24 mmol/L (22-26); BLOOD GAS O2 HGB SATURATION 92 % (90-100); BLOOD GAS OXYGEN CONTENT 16.6 Vol % (12.0-20.0); BLOOD GAS PCO2 42 mmHg (38-42); BLOOD GAS PO2 75 mmHg (61-120); BLOOD GAS TOTAL HGB 12.9 G/DL (12.0-16.0); CRITICAL VALUE NO; FIO2 50 %; OXYGEN DEVICE Venti Mask; TEMP CORR TO 98.6
[2016-06-24 09:56] LABS: DRAW SITE ART LINE; STAT NO
[2016-06-24] MEDS ORDERED: METOPROLOL TARTRATE 5 MG/5 ML VIAL ONE (10:06)
[2016-06-24] MEDS ORDERED: DEXMEDETOMIDINE HCL 200 MCG/2 ML VIAL ONE (10:08)
[2016-06-24] MEDS: LORazepam 2 MG/ML VIAL IV PUSH PRN ×8 (10:11→21:49)
[2016-06-24] MEDS ORDERED: METOPROLOL TARTRATE 5 MG/5 ML VIAL IV PUSH ONE (11:00)
--- NOTE | 2016-06-24 11:38 | HHI.CCPN ---
Subjective Remarks/Hospital Course On 06/21 ,Mr. Guevara presented with a PMHx of HTN presenting from the [facility] with an elevated, irregular heart rate. He is a patient of Dr. Irwin Rodriguez, who sent this patient from clinic. In clinic, he had a heart rate in the 150s and was instructed to go to the ED for further evaluation. Upon arriving to the ED ,the patient was found to have atrial flutter on twelve-lead EKG with a rate 151 with 2-1 conduction. He denied any chest pain, prior arrhythmia, thyroid disorder, or heart disease. He reported his last EKG was approximately 8 years ago before his eye surgery s/p accident. The patient has a significant alcohol and smoking history, but denies any illicit drugs. He states that he is at his baseline except for 3 episodes of nonbloody diarrhea that have all occurred over this morning. The patient was admitted to the hospital, and placed on CIWA protocol, Cardizem infusion and was scheduled for ablation per interventional cardiology. Early this a.m. the patient became significantly more confused, difficult to control a Hallicat at was called, and the patient was transferred to ICU for further management. Subjective 06/23: Afebrile. Since admission to the ICU yesterday, the patient was placed initially on Precedex infusion for agitation/delirium, in addition to CIWA protocol. The patient subsequently required intubation. Later the afternoon the patient became hypotensive requiring vasopressor support of Levophed which was weaned off during the night. The patient converted to A. fib flutter heart rate 150s and Cardizem infusion was reinitiated. Systolic blood pressure low 100's. The patient continues on Versed low-dose and fentanyl infusions for ventilator synchrony. Plan today for cardiac ablation with Dr. Ponce. 06/24: The patient underwent successful RF ablation for atrial flutter, patient currently remains sinus rhythm sinus tach. The patient underwent CPAP trials however self extubated. Immediately upon self extubation the patient stated " I havent had a drink in 3 days, I need a drink" .The patient's maintain an O2 sat greater than 92% on Ventimask at 50% currently. The patient continues to be confused and agitated than what appears to be delirium tremens , Precedex infusion begun with Ativan PRN . Family present at bedside with patient. The patient noted to be confused, combative, remains in 4 point restraints. Will initiate Coumadin pharmacy dosing, with overlap of heparin until therapeutic INR today. CIWA protocol initiated. Objective Vital Signs Date Time Temp Pulse Resp B/P Pulse Ox O2 Delivery O2 Flow Rate FiO2 06/24/16 10:49 94 Venturi Mask 50 06/24/16 08:56 4 06/24/16 06:00 100 06/24/16 06:00 100.0 18 118/75 103/53 Intake and Output 06/23/16 06/23/16 06/24/16 08:00 16:00 00:00 Intake Total 406 ml 665 ml 284 ml Output Total 275 ml 225 ml 175 ml Balance 131 ml 440 ml 109 ml Result Diagram: 06/24/16 0452 06/24/16 0452 Other Results Laboratory Tests Test 06/23/16 06/23/16 06/24/16 12:43 13:41 09:44 Blood Gas Puncture Site ART LINE ART LINE ART LINE Blood Gas Patient Temperature 98.6 98.6 98.6 Blood Gas HCO3 25 mmol/L 24 mmol/L 24 mmol/L (22-26) (22-26) (22-26) Blood Gas Base Excess -0.7 mmol/L -0.9 mmol/L -0.8 mmol/L (-2-2) (-2-2) (-2-2) Blood Gas Oxygen Saturation 92 % (90-100) 92 % (90-100) 92 % (90-100) Arterial Blood pH 7.31 7.33 7.37 (7.380-7.420) (7.380-7.420) (7.380-7.420) Arterial Blood Partial 50 mmHg (38-42) 48 mmHg (38-42) 42 mmHg (38-42) Pressure CO2 Arterial Blood Partial 82 mmHg 82 mmHg 75 mmHg Pressure O2 (61-120) (61-120) (61-120) Arterial Blood Oxygen Content 18.6 Vol % 18.4 Vol % 16.6 Vol % (12.0-20.0) (12.0-20.0) (12.0-20.0) Arterial Blood 1.7 % (0-4) 1.8 % (0-4) 1.8 % (0-4) Carboxyhemoglobin Arterial Blood Methemoglobin 1.1 % (0-2) 1.3 % (0-2) 1.0 % (0-2) Blood Gas Hemoglobin 14.3 G/DL 14.1 G/DL 12.9 G/DL (12.0-16.0) (12.0-16.0) (12.0-16.0) Oxygen Delivery Device VENTILATOR VENTILATOR Venti Mask Blood Gas Ventilator Setting SIMV SIMV Blood Gas Inspired Oxygen 50 % 50 % 50 % Imaging Last Impressions Chest X-Ray 06/24/16 0600 Signed Impressions: Service Date/Time: Friday, June 24, 2016 04:16 - CONCLUSION: No interval change. Shashank Ramos MD Last 24 hours Impressions Chest X-Ray 06/21/16 1139 Signed Impressions: Service Date/Time: Tuesday, June 21, 2016 12:09 - CONCLUSION: No acute disease. Fortino Schrader MD Objective Remarks GENERAL: Agitated and combative, attempting to get out of bed, non-cooperative, confused SKIN: Warm and dry. HEAD: Atraumatic. Normocephalic. EYES: Pupils equal and round. No scleral icterus. No injection or drainage. ENT: No nasal bleeding or discharge. Mucous membranes pink and moist. NECK: Trachea midline. No JVD. CARDIOVASCULAR: Normal rate, regular rhythm. RESPIRATORY: No accessory muscle use. Clear to auscultation. Breath sounds equal bilaterally. GASTROINTESTINAL: Abdomen soft, non-tender, nondistended. No guarding. MUSCULOSKELETAL: Extremities without clubbing, cyanosis, or edema. No obvious deformities. NEUROLOGICAL: Awake and alert, agitated. No gross focal/sensory deficits. Moving extremities 4. GCS 14 Urinary Catheter: Yes Lujan insert reason: Measure Accurate Output Date of Insertion: Jun 22, 2016 Line: Central Venous Catheter Side: Right Location: Internal, Jugular A/P Assessment and Plan Plan by systems: Neurologic: Delirium tremens Alcohol abuse Encephalopathy Alcohol withdrawal Restless leg syndrome GCS 14-patient alert to name, recognizes family members combative and agitated Neurochecks per ICU protocol Will resume Ropinirole 0.25 mg/ hs when clinically indicated CIWA Protocol-monitor for signs of withdrawal and seizure activity Continue Precedex infusion Multivitamin bag x 5 days Thiamine IVPB daily Respiratory: Tobacco abuse Noted expiratory wheezing upon auscultation, significant smoking history one pack a day greater than 20 years DuoNeb every 6 hours scheduled and every 2 hours when necessary Maintain O2 sat greater than 92%, currently O2 at 3 L nasal cannula Plan cardiac ablation today, we'll order nicotine patch post procedure Cardiovascular: Atrial flutter-resolved Atrial fib flutter-resolved Cardiomegaly Sinus tachycardia HR 100-120's. Begin metoprolol Heparin infusion, initiate Coumadin pharmacy dosing Cardiology following, Dr. Bautista S/P RF Ablation 06/24 Renal: Monitor BMP Slight creatinine elevation 1.3 -- Strict I/Os Lujan in situ FEN/GI: Maintain NPO Begin NS @50 cc/hour Zofran IV for nausea Protonix IV 40 mg/day Heme/ID: Monitor CBC Transfuse for hemoglobin less than 7 Monitor PTT per heparin protocol Transition Coumadin today, when INR therapeutic will discontinue heparin Endocrine: Glucose monitoring per ICU protocol Low-dose regimen -- SSI Prophylaxis: GI Prophylaxis Protonix IV 40 mg/day DVT Prophylaxis -- SCDs Heparin infusion Lines: Peripheral IVs 2. Central line right IJ 06/22 Dispo: Mrs. Guevara , son and daughter updated at patient bedside. Family made aware that the patient may require reintubation. This patient remains critically ill with one or more organ systems which are or may become a threat to life. I have spent in excess of 51 minutes discontinuously in the care and management of this patient. This time is exclusive of procedures, and includes, but is not limited to, evaluation of the patient, review of the medical record, discussions with family, consultants, nursing staff, or respiratory therapy, and documentation in the medical record. Physician Alice Murray MD Jun 24, 2016 11:38
[2016-06-24] MEDS: SODIUM CHLOR 0.9% 1000 ML INJ 1,000 ML IV SCH (11:41)
[2016-06-24] MEDS ORDERED: FLUMAZENIL 0.5 MG/5 ML VIAL IV PUSH PRN (11:45)
[2016-06-24] MEDS ORDERED: LORazepam 1 MG TAB PO PRN (11:45)
[2016-06-24] MEDS: HALOPERIDOL LACTATE 5 MG/ML AMP IM PRN ×3 (12:27→22:00)
[2016-06-24] MEDS: DEXMEDETOMIDINE INJ 200 MCG in SODIUM CHLORIDE 0.9% INJ 50 ML IV SCH ×2 (12:40→12:44)
[2016-06-24 12:58] LABS: INTERNATIONAL NORMALIZED RATIO 1.1 RATIO; PROTHROMBIN TIME - PATIENT 12.7 SEC (9.8-11.6)
[2016-06-24] MEDS: DEXMEDETOMIDINE INJ 1,000 MCG in SODIUM CHLOR 0.9% 250 ML INJ 250 ML IV SCH ×2 (13:27→20:18)
[2016-06-24] MEDS: THIAMINE INJ 100 MG in SODIUM CHLORIDE 0.9% INJ 100 ML IV SCH (13:28)
[2016-06-24] MEDS: MULTIVITAMIN INJ 10 ML, FOLIC ACID INJ 1 MG in SODIUM CHLORID 0.9% 500 ML INJ 500 ML IV SCH (13:31)
[2016-06-24] MEDS ORDERED: WARFARIN SOD 5 MG TAB PO SCH (16:00)
[2016-06-24] MEDS ORDERED: FUROSEMIDE 20 MG/2 ML VIAL IV PUSH ONE (23:15)
[2016-06-25] VITALS (17 sets, daily range): BP systolic 81–164; BP diastolic 50–97; PULSE 79–120; RESP 19–45; TEMP 97.4–99.2; O2SAT 92–97
[2016-06-25] MEDS: LORazepam 2 MG/ML VIAL IV PUSH PRN ×9 (00:26→18:56)
[2016-06-25] MEDS: DEXMEDETOMIDINE INJ 1,000 MCG in SODIUM CHLOR 0.9% 250 ML INJ 250 ML IV SCH ×2 (02:16→10:27)
[2016-06-25] MEDS: RESP: ALBUTEROL 2.5 MG/IPRATROPIUM 0.5 MG NEB (SCH) NEB ×4 (03:28→20:43)
[2016-06-25] MEDS: CHLORHEXIDINE GLUCONATE 2 % 1 PACK (2 CLOTHS) TOP SCH (04:00)
[2016-06-25 05:17] LABS: APTT (PATIENT) 44.3 SEC (24.3-30.1)
[2016-06-25] MEDS: SODIUM CHLOR 0.9% 1000 ML INJ 1,000 ML IV SCH (05:59)
[2016-06-25] MEDS: HALOPERIDOL LACTATE 5 MG/ML AMP IM PRN ×4 (06:24→15:01)
[2016-06-25] MEDS: SODIUM CHLORIDE 0.9% FLUSH 10 ML FLUSH IV FLUSH SCH ×2 (07:57→20:24)
[2016-06-25] MEDS: PANTOPRAZOLE SODIUM 40 MG VIAL IV SCH (07:57)
[2016-06-25] MEDS: LOSARTAN 50 MG TAB PO SCH (09:00)
[2016-06-25] MEDS: ASPIRIN 81 MG CHEW TAB PO SCH (09:00)
[2016-06-25] MEDS: HYDROCHLOROTHIAZIDE 12.5 MG CAP PO SCH (09:00)
--- NOTE | 2016-06-25 12:13 | HHI.FPPN ---
Subjective Remarks Patient seen and examined this morning. Overnight patient became SOB with coarse breath sound believed to be due to fluid overload therefore Lasix was ordered. Currently patient with oxygen saturation of 98% while on 8L via simple mask with auditory wheezing and upper airway sounds. Patient is agitated and disoriented. He does respond to verbal stimulation with incoherent auditory sounds. He continues to be restrained due to his agitation. He is unable to assist with a complete ROS due to his disorientation at this time. (Swapnil Barrera MD R1) Objective Vitals Vital Signs Date Time Temp Pulse Resp B/P Pulse Ox O2 Delivery O2 Flow Rate FiO2 06/25/16 10:00 97 06/25/16 08:38 97 Simple Mask 8.00 06/25/16 08:00 86 06/25/16 06:00 94 06/25/16 04:00 97.4 90 20 164/97 95 06/25/16 04:00 90 06/25/16 02:00 79 06/25/16 00:00 84 06/25/16 00:00 97.8 84 20 150/90 95 06/24/16 22:00 83 06/24/16 20:48 93 Simple Mask 8.00 06/24/16 20:00 98.1 83 24 130/81 89 06/24/16 20:00 83 06/24/16 18:00 85 06/24/16 16:00 96 06/24/16 16:00 99.7 92 27 129/82 94 06/24/16 14:00 97 06/24/16 12:00 102 06/24/16 12:00 99.8 102 27 104/65 92 I/O 06/24/16 06/24/16 06/24/16 06/25/16 06/25/16 06/25/16 07:00 15:00 23:00 07:00 15:00 23:00 Intake Total 484 ml 629 ml 1178 ml 640 ml Output Total 200 ml 250 ml 200 ml 1550 ml Balance 284 ml 379 ml 978 ml -910 ml Intake Oral 0 ml 0 ml IV Total 484 ml 629 ml 1178 ml 640 ml Output Urine Total 200 ml 250 ml 200 ml 1550 ml # Bowel Movements 0 0 (Swapnil Barrera MD R1) Result Diagram: 06/24/1645106/24/16451 Objective Remarks GENERAL: 61 y/o CM lying in bed restrained who is currently disoriented. SKIN: Warm and dry. CARDIOVASCULAR: Tachycardic to 90s in sinus rhythm per monitor. RESPIRATORY: Patient currently breathing with simple mask applied with 8L of supplemental oxygen. Mild increase work of breathing. Coarse breath sound BL with expiratory wheezing and audible upper respiratory sounds. GASTROINTESTINAL: Abdomen soft, non-tender, nondistended with +BS. No masses appreciated. MUSCULOSKELETAL: Extremities without cyanosis or edema. UROGENITAL: Patient with lakhani catheter in place. No signs of hemorrhage at site of insertion. Patient with approximately 150cc of red/blood tinged urine likely due to irritation from the lakhani. NEUROLOGICAL: AAOx1. Patient disoriented and unable to follow commands currently. Patient also agitated as well, writhing in bed due to frustration from restraints. (Swapnil Barrera MD R1) Date of Insertion: Jun 22, 2016 Line: Central Venous Catheter Side: Right Location: Internal, Jugular (Swapnil Barrera MD R1) A/P Assessment and Plan Mr. Guevara is a 61 y/o CM with a PMHx of HTN and alcohol abuse presenting from the [facility] with an elevated, irregular heart rate found to have atrial flutter. He is s/p cardiac ablation and currently in sinus rhythm. Currently withdrawing from chronic alcohol use, on the CIWA protocol. Discharge Planning Unclear given patient's current clinical state. Discussed with Dr. Burr (Swapnil Barrera MD R1) Attending Attestation Patient seen and examined. Case reviewed and discussed with the resident team. Agree with plan of care as discussed with me and documented in the resident note. his breathing was much better with no wheezes after his treatment. He is still delirious from his alcohol withdrawal. Hopefully, when he is clearer mentally he could be persuaded to stop drinking alcohol. per his he has been to "a few AA meetings but otherwise has not been ready to quit drinking". (Dana Burr MD) Problem List: (1) Alcohol withdrawal Status: Acute Plan: Medical team paged for HALICAT at approximately 0745 on 06/23/15 due to agitation. Per nursing report patient had been agitated and altered throughout the night with CIWA scores up to 25. The patient does have an extensive history of alcohol use with up to 3/4 drinks per day. He also has an extensive smoking history. Patient transferred to ICU. Cloud Automation Tester consulted, appreciate recommendations Patient intubated, then self extubated despite Midazolam and fentanyl infusion. Continue to monitor respiratory status Ativan per CIWA protocol, scores 10-14 over the last 24 hours with most recent score of 10 Currently on Precedex drip per protocol, currently running at 1.3 (2) Atrial flutter with rapid ventricular response Status: Acute Plan: Patient presenting from clinic with atrial fibrillation with rate into the 150s, found to be in atrial flutter. Patient's heart rate has been persistently elevated. Cardiology consulted, appreciate recommendations and intervention Patient status post successful ablation on 06/23, currently on a heparin drip and in sinus rhythm Echo: Normal cavity size and wall thickness. Systolic function mildly reduced with EF of 35-40%, however study was limited due to markedly tachycardia. Wall motion normal. Heart rate in the 80s-140s Continue to monitor vitals (3) Hypertension Status: Acute Plan: Patient with chronic HTN Pt has been hypotensive and required pressors from 06/23 until 06/24 Hold home Irbesartan-HCTZ (300-12.5) with conversion to Losartan 100mg daily and HCTZ 12.5mg daily (4) Restless leg syndrome Status: Acute Plan: Patient with reported restless leg syndrome -Hold Ropinirole (5) History of alcohol use Status: Acute Plan: Patient with history of alcohol abuse since 17 years old. Reports that he drinks 3-4 drinks per day of beer/bourbon to ease his back pain. Patient actively withdrawing from alcohol, see plan above Rally pack [facility] protocol Seizure precautions (6) Nutrition, metabolism, and development symptoms Status: Acute Plan: Fluids: NS 50mls/hr Diet: Heart healthy as tolerated Electrolytes: WNL, continue to monitor DVT PPX: Heparin drip GI Prophylaxis: Protonix (Swapnil Barrera MD R1) Problem Qualifiers (1) Alcohol withdrawal: Qualified Code: F10.231 - Alcohol withdrawal, with delirium (2) Hypertension: Qualified Code: I10 - Essential hypertension Swapnil Barrera MD R1 Jun 25, 2016 12:13 Dana Burr MD Jun 25, 2016 13:37
[2016-06-25 12:42] LABS: HEMATOCRIT 35.4 % (39.0-51.0); MEAN CELL VOLUME 88.3 FL (80.0-100.0); MEAN CORPUSCULAR HEMOGLOBIN 31.3 PG (27.0-34.0); MEAN CORPUSCULAR HGB CONC 35.5 % (32.0-36.0); PLATELET COUNT 109 TH/MM3 (150-450); RED CELL DISTRIBUTION WIDTH 13.5 % (11.6-17.2); REVIEW FLAG FINAL; WHITE BLOOD COUNT 7.2 TH/MM3 (4.0-11.0)
[2016-06-25 12:49] LABS: INTERNATIONAL NORMALIZED RATIO 1.1 RATIO; PROTHROMBIN TIME - PATIENT 12.3 SEC (9.8-11.6)
[2016-06-25 13:11] LABS: ALKALINE PHOSPHATASE 41 U/L (45-117); ALT (GPT) 32 U/L (12-78); ANION GAP 9 MEQ/L (5-15); AST (GOT) 20 U/L (15-37); BICARBONATE 27.3 MEQ/L (21.0-32.0); BLOOD UREA NITROGEN 14 MG/DL (7-18); CHLORIDE 104 MEQ/L (98-107); GLOMERULAR FILTRATION RATE 69 ML/MIN (>89); MAGNESIUM 1.9 MG/DL (1.5-2.5); POTASSIUM 3.7 MEQ/L (3.5-5.1); SODIUM (NA) 140 MEQ/L (136-145); TOTAL BILIRUBIN ADULT 0.9 MG/DL (0.2-1.0)
[2016-06-25] MEDS: MULTIVITAMIN INJ 10 ML, FOLIC ACID INJ 1 MG in SODIUM CHLORID 0.9% 500 ML INJ 500 ML IV SCH (13:38)
[2016-06-25] MEDS: THIAMINE INJ 100 MG in SODIUM CHLORIDE 0.9% INJ 100 ML IV SCH (13:38)
[2016-06-25] MEDS ORDERED: DILTIAZEM HCL 25 MG/5 ML VIAL ONE ×2 (15:22→15:25)
[2016-06-25] MEDS ORDERED: FUROSEMIDE 40 MG/4 ML VIAL ONE (15:25)
[2016-06-25] MEDS ORDERED: DILTIAZEM HCL 25 MG/5 ML VIAL IVP ONE (15:45)
--- NOTE | 2016-06-25 15:56 | RADRPT ---
EXAM DATE/TIME: 06/25/2016 15:28 [facility] COMPARISON: CHEST SINGLE AP, June 24, 2016, 4:16. INDICATIONS : Respiratory distress MEDICAL HISTORY : Hypertension. SURGICAL HISTORY : None. ENCOUNTER: Subsequent ACUITY: 4 - 6 days PAIN SCORE: Non-responsive. LOCATION: Bilateral chest FINDINGS: A single view of the chest demonstrates right central line in superior vena cava. Previous endotrache al tube and nasogastric tube removed. Basilar airspace disease slightly increased from June 24. No s ignificant effusion. No pneumothorax. CONCLUSION: 1. Right central line tip in superior vena cava. Basilar airspace disease stable to slightly increase d from June 24. Yves Olivarez MD on June 25, 2016 at 15:53 Board Certified Radiologist. This report was verified electronically.
[2016-06-25 16:05] LABS: BLOOD GAS BASE EXCESS -2.4 mmol/L (-2-2); BLOOD GAS CARBOXYHEMOGLOBIN 1.6 % (0-4); BLOOD GAS HCO3 22 mmol/L (22-26); BLOOD GAS METHEMOGLOBIN 1.1 % (0-2); BLOOD GAS O2 HGB SATURATION 93 % (90-100); BLOOD GAS OXYGEN CONTENT 16.9 Vol % (12.0-20.0); BLOOD GAS PCO2 35 mmHg (38-42); BLOOD GAS PO2 78 mmHg (61-120); BLOOD GAS TOTAL HGB 12.9 G/DL (12.0-16.0); CRITICAL VALUE NO; DRAW SITE RT RADIAL; FIO2 100 %; LITER FLOW 12 L/M; NUMBER OF ARTERIAL PUNCTURES 1; OXYGEN DEVICE NRM; STAT YES; TEMP CORR TO 98.6; ULNAR PULSE PRESENT
[2016-06-25] MEDS ORDERED: DILTIAZEM HCL 25 MG/5 ML VIAL IVP PRN (16:15)
[2016-06-25] MEDS ORDERED: ETOMIDATE 20 MG/10 ML VIAL ONE (16:45)
[2016-06-25] MEDS ORDERED: PROPOFOL 1000 MG/100 ML INJ 100 ML ONE (16:50)
--- NOTE | 2016-06-25 17:17 | PD.PROCEDR ---
Procedure Note Procedure Endotracheal Intubation Diagnosis: Respiratory distress , uncontrolled atrial fibrillation Indications: Respiratory distress Consent: Emergent by discussed extensively with Anesthesia: See MAR Description of the Procedure: The patient was positioned in the sniffing position. Pre-oxygenation was performed using a BVM. Anesthesia was induced via rapid sequence. A Glidescope 4 was used for laryngoscopy and a Grade [ ] view was obtained. A 8.0 cuffed endotracheal tube was inserted atraumatically through the vocal cords. Confirmation of correct endotracheal tube placement was made by equal and bilateral breath sounds and colorimetric CO2 detection. The endotracheal tube was secured at [ ] cm at the teeth. There were no immediate complications noted. The patient remained hemodynamically stable throughout the procedure. A chest x-ray has been ordered. I personally performed the procedure. Alice Ron MD Jun 25, 2016 17:17
--- NOTE | 2016-06-25 17:37 | HHI.CCPN ---
Subjective Remarks/Hospital Course On 06/21 ,Mr. Guevara presented with a PMHx of HTN presenting from the [facility] with an elevated, irregular heart rate. He is a patient of Dr. Irwin Rodriguez, who sent this patient from clinic. In clinic, he had a heart rate in the 150s and was instructed to go to the ED for further evaluation. Upon arriving to the ED ,the patient was found to have atrial flutter on twelve-lead EKG with a rate 151 with 2-1 conduction. He denied any chest pain, prior arrhythmia, thyroid disorder, or heart disease. He reported his last EKG was approximately 8 years ago before his eye surgery s/p accident. The patient has a significant alcohol and smoking history, but denies any illicit drugs. He states that he is at his baseline except for 3 episodes of nonbloody diarrhea that have all occurred over this morning. The patient was admitted to the hospital, and placed on CIWA protocol, Cardizem infusion and was scheduled for ablation per interventional cardiology. Early this a.m. the patient became significantly more confused, difficult to control a Hallicat at was called, and the patient was transferred to ICU for further management. Subjective 06/23: Afebrile. Since admission to the ICU yesterday, the patient was placed initially on Precedex infusion for agitation/delirium, in addition to CIWA protocol. The patient subsequently required intubation. Later the afternoon the patient became hypotensive requiring vasopressor support of Levophed which was weaned off during the night. The patient converted to A. fib flutter heart rate 150s and Cardizem infusion was reinitiated. Systolic blood pressure low 100's. The patient continues on Versed low-dose and fentanyl infusions for ventilator synchrony. Plan today for cardiac ablation with Dr. Ponce. 06/24: The patient underwent successful RF ablation for atrial flutter, patient currently remains sinus rhythm sinus tach. The patient underwent CPAP trials however self extubated. Immediately upon self extubation the patient stated " I havent had a drink in 3 days, I need a drink" .The patient's maintain an O2 sat greater than 92% on Ventimask at 50% currently. The patient continues to be confused and agitated than what appears to be delirium tremens , Precedex infusion begun with Ativan PRN . Family present at bedside with patient. The patient noted to be confused, combative, remains in 4 point restraints. Will initiate Coumadin pharmacy dosing, with overlap of heparin until therapeutic INR today. CIWA protocol initiated. 06/25: The patient remain on Precedex infusion throughout the night, with supplementation per CIMT protocol and rested comfortably without agitation, in normal sinus rhythm. During the night he received Lasix 20 mg IV and diuresed greater than 1 L. At approximately 1400, the patient went into A. fib RVR with a rate of 220, and extremely dyspneic with audibly expiratory wheezing. Cardizem bolus 20 mg 2 doses was given. The patient was placed on a Cardizem infusion at 10 mg per hour. The heart rate decreased from 80-100, but rhythm atrial fibrillation. The patient continued to have respiratory distress, tachypnea with a rate in the 40s50s. An ABG was obtained showing a very large A-a gradient, and a PaO2 of 77 on 100% nonrebreather after 40 mg of Lasix diuresis and a DuoNeb treatment. Emergent intubation was required, family at bedside, discussed extensively with and updated her on the the patient's current condition. The patient was reintubated. He continues on a heparin infusion propofol infusion for ventilator synchrony. Objective Vital Signs Date Time Temp Pulse Resp B/P Pulse Ox O2 Delivery O2 Flow Rate FiO2 06/25/16 12:00 98.4 92 34 143/83 96 06/25/16 08:38 Simple Mask 8.00 06/24/16 10:49 50 Intake and Output 06/24/16 06/24/16 06/25/16 08:00 16:00 00:00 Intake Total 484 ml 629 ml 1178 ml Output Total 200 ml 250 ml 200 ml Balance 284 ml 379 ml 978 ml Result Diagram: 06/25/16 1145 06/25/16 1145 Other Results Laboratory Tests Test 06/25/16 15:55 Blood Gas Puncture Site RT RADIAL Blood Gas Patient Temperature 98.6 Blood Gas HCO3 22 mmol/L (22-26) Blood Gas Base Excess -2.4 mmol/L (-2-2) Blood Gas Oxygen Saturation 93 % (90-100) Arterial Blood pH 7.41 (7.380-7.420) Arterial Blood Partial 35 mmHg (38-42) Pressure CO2 Arterial Blood Partial 78 mmHg Pressure O2 (61-120) Arterial Blood Oxygen Content 16.9 Vol % (12.0-20.0) Arterial Blood 1.6 % (0-4) Carboxyhemoglobin Arterial Blood Methemoglobin 1.1 % (0-2) Blood Gas Hemoglobin 12.9 G/DL (12.0-16.0) Oxygen Delivery Device NRM Blood Gas Liter Flow 12 L/M Blood Gas Inspired Oxygen 100 % Imaging Last Impressions Chest X-Ray 06/24/16 0600 Signed Impressions: Service Date/Time: Friday, June 24, 2016 04:16 - CONCLUSION: No interval change. Shashank Ramos MD Last 24 hours Impressions Chest X-Ray 06/21/16 1139 Signed Impressions: Service Date/Time: Tuesday, June 21, 2016 12:09 - CONCLUSION: No acute disease. Fortino Schrader MD Objective Remarks GENERAL: Agitated and combative, attempting to get out of bed, non-cooperative, confused SKIN: Warm and dry. HEAD: Atraumatic. Normocephalic. EYES: Pupils equal and round. No scleral icterus. No injection or drainage. ENT: No nasal bleeding or discharge. Mucous membranes pink and moist. NECK: Trachea midline. No JVD. CARDIOVASCULAR: Normal rate, regular rhythm. RESPIRATORY: No accessory muscle use. Clear to auscultation. Breath sounds equal bilaterally. GASTROINTESTINAL: Abdomen soft, non-tender, nondistended. No guarding. MUSCULOSKELETAL: Extremities without clubbing, cyanosis, or edema. No obvious deformities. NEUROLOGICAL: Awake and alert, agitated. No gross focal/sensory deficits. Moving extremities 4. GCS 14 Urinary Catheter: Yes Vascular Central Line Catheter: Yes Date of Insertion: Jun 22, 2016 Line: Central Venous Catheter Side: Right Location: Internal, Jugular A/P Assessment and Plan Plan by systems: Neurologic: Delirium tremens Alcohol abuse Encephalopathy Alcohol withdrawal Restless leg syndrome GCS 3T S/P intubation procedure 8.0 ETT Neurochecks per ICU protocol Will resume Ropinirole 0.25 mg/ hs when clinically indicated CIWA Protocol-monitor for signs of withdrawal and seizure activity Discontinue Precedex and propofol infusion for ventilator synchrony Multivitamin bag x 5 days Thiamine IVPB daily Respiratory: Tobacco abuse Noted expiratory wheezing upon auscultation, significant smoking history one pack a day greater than 20 years DuoNeb every 6 hours scheduled and every 2 hours when necessary Maintain O2 sat greater than 92%, Mechanical vent settings to 550/14/0.50/5 Cardiovascular: Atrial flutter-resolved Atrial fib flutter-resolved Cardiomegaly Sinus tachycardia A. fib RVR HR 80-110. Heparin infusion, initiate Coumadin pharmacy dosing Cardiology following, Dr. Bautista S/P RF Ablation 06/24 Paroxysmal A. fib-Cardizem bolus 30mg, currently on Cardizem infusion at 15 mg an hour Renal: Monitor BMP Slight creatinine elevation 1.3 -- Strict I/Os Lujan in situ FEN/GI: Maintain NPO D/C NS Lasix 20 mg -diuresed approximately 2 L Zofran IV for nausea Protonix IV 40 mg/day Heme/ID: Monitor CBC Transfuse for hemoglobin less than 7 Monitor PTT per heparin protocol Unable to Transition Coumadin today Endocrine: Glucose monitoring per ICU protocol Low-dose regimen -- SSI Prophylaxis: GI Prophylaxis Protonix IV 40 mg/day DVT Prophylaxis -- SCDs Heparin infusion Lines: Peripheral IVs 2. Central line right IJ 06/22 Dispo: Mrs. Guevara son r updated at patient bedside. Family made aware that the patient requires reintubation. This patient remains critically ill with one or more organ systems which are or may become a threat to life. I have spent in excess of 60 minutes discontinuously in the care and management of this patient. This time is exclusive of procedures, and includes, but is not limited to, evaluation of the patient, review of the medical record, discussions with family, consultants, nursing staff, or respiratory therapy, and documentation in the medical record. Physician Alice Murray MD Jun 25, 2016 17:37
--- NOTE | 2016-06-25 17:59 | RADRPT ---
EXAM DATE/TIME: 06/25/2016 17:14 [facility] COMPARISON: CHEST SINGLE AP, June 25, 2016, 15:28. INDICATIONS : Post intubation. MEDICAL HISTORY : Hypertension. SURGICAL HISTORY : None. ENCOUNTER: Subsequent ACUITY: 4 - 6 days PAIN SCORE: 0/10 LOCATION: Bilateral chest FINDINGS: Endotracheal tube tip is in the proximal right mainstem bronchus. This should be withdrawn about 3 cm . Right central line in superior vena cava. Basilar airspace disease and small effusions. Cardiomegal y. No pneumothorax. CONCLUSION: 1. Endotracheal tube tip in proximal right mainstem bronchus. This should be withdrawn about 3 cm. Yves Olivarez MD on June 25, 2016 at 17:57 Board Certified Radiologist. This report was verified electronically.
[2016-06-25] MEDS: HEPARIN-D5W INJ 250 ML IV SCH (18:55)
[2016-06-25] MEDS: fentaNYL 2,500 MCG/NS 250 ML IV SCH (20:24)
[2016-06-25] MEDS: PROPOFOL 1000 MG/100 ML INJ 100 ML IV SCH (21:21)
[2016-06-26] VITALS (21 sets, daily range): BP systolic 86–113; BP diastolic 56–71; PULSE 83–129; RESP 14–29; TEMP 99–100.6; O2SAT 93–98
[2016-06-26] MEDS: SODIUM CHLOR 0.9% 1000 ML INJ 1,000 ML IV SCH (03:00)
[2016-06-26] MEDS: RESP: ALBUTEROL 2.5 MG/IPRATROPIUM 0.5 MG NEB (SCH) NEB ×4 (03:22→20:00)
[2016-06-26] MEDS: CHLORHEXIDINE GLUCONATE 2 % 1 PACK (2 CLOTHS) TOP SCH (04:00)
[2016-06-26] MEDS: PROPOFOL 1000 MG/100 ML INJ 100 ML IV SCH ×4 (05:47→19:58)
[2016-06-26] MEDS: fentaNYL 2,500 MCG/NS 250 ML IV SCH ×2 (05:47→17:58)
[2016-06-26 07:04] LABS: HEMATOCRIT 31.6 % (39.0-51.0); MEAN CELL VOLUME 88.8 FL (80.0-100.0); MEAN CORPUSCULAR HGB CONC 34.9 % (32.0-36.0); PLATELET COUNT 123 TH/MM3 (150-450); RED BLOOD COUNT 3.56 MIL/MM3 (4.50-5.90); RED CELL DISTRIBUTION WIDTH 13.5 % (11.6-17.2); REVIEW FLAG FINAL; WHITE BLOOD COUNT 5.6 TH/MM3 (4.0-11.0)
[2016-06-26 07:36] LABS: BICARBONATE 28.6 MEQ/L (21.0-32.0); POTASSIUM 3.2 MEQ/L (3.5-5.1)
[2016-06-26 07:45] LABS: APTT (PATIENT) 43.6 SEC (24.3-30.1); INTERNATIONAL NORMALIZED RATIO 1.1 RATIO
[2016-06-26] MEDS: SODIUM CHLORIDE 0.9% FLUSH 10 ML FLUSH IV FLUSH SCH ×2 (08:37→19:58)
[2016-06-26] MEDS: POTASSIUM CHLOR 40 MEQ PREMIX 100 ML IV PRN ×2 (08:37→10:51)
[2016-06-26] MEDS: PANTOPRAZOLE SODIUM 40 MG VIAL IV SCH (08:37)
[2016-06-26] MEDS: ASPIRIN 81 MG CHEW TAB PO SCH (09:00)
[2016-06-26] MEDS: HYDROCHLOROTHIAZIDE 12.5 MG CAP PO SCH (09:00)
[2016-06-26] MEDS: LOSARTAN 50 MG TAB PO SCH (09:00)
--- NOTE | 2016-06-26 09:57 | RADRPT ---
EXAM DATE/TIME: 06/26/2016 08:42 [facility] COMPARISON: CHEST SINGLE AP, June 25, 2016, 17:14. INDICATIONS : Respiratory disstress. MEDICAL HISTORY : Hypertension. SURGICAL HISTORY : None. ENCOUNTER: Subsequent ACUITY: 4 - 6 days PAIN SCORE: Non-responsive. LOCATION: Bilateral chest FINDINGS: NG tube is present with tip in the stomach. ET tube is present with tip overlapping approximately 1 c m above the burak. There is no significant change in diffuse pulmonary edema bilaterally. Left basil ar opacity is present may be due to a combination of consolidation and or pleural effusion. Right IJ line is present with tip overlapping the expected region of the SVC. CONCLUSION: Placement of NG tube otherwise not changed. Muaricio Hines MD on June 26, 2016 at 9:55 Board Certified Radiologist. This report was verified electronically.
[2016-06-26] MEDS: DILTIAZEM INJ 125 MG in SODIUM CHLORIDE 0.9% INJ 100 ML IV SCH ×2 (10:51→20:10)
--- NOTE | 2016-06-26 11:28 | HHI.FPPN ---
Subjective Remarks Patient seen and examined this morning. Patient was reintubated yesterday after becoming extremely dyspneic with a PaO2 of 77 while on 100% nonrebreather and Lasix diuresis. Patient also went into A. fib with RVR with a rate of 220. Rate currently controlled with Cardizem infusion. This morning patient with Tmax of 100.6. Per discussion with Dr. Ron, straightening press operator helper, patient will remain intubated and sedated today with initiation of tube feeds. Objective Vitals Vital Signs Date Time Temp Pulse Resp B/P Pulse Ox O2 Delivery O2 Flow Rate FiO2 06/26/16 10:00 129 06/26/16 08:07 94 70 06/26/16 08:00 65 06/26/16 08:00 100.6 101 17 93/57 94 06/26/16 08:00 101 06/26/16 07:00 98 06/26/16 06:00 96 06/26/16 04:09 94 70 06/26/16 04:00 70 06/26/16 04:00 99.4 97 14 103/62 98 06/26/16 04:00 95 06/26/16 02:00 88 06/26/16 01:16 95 80 06/26/16 00:00 90 06/26/16 00:00 99.6 83 24 86/56 96 06/26/16 00:00 87 06/25/16 23:00 80 06/25/16 22:15 96 90 06/25/16 22:00 119 06/25/16 20:43 95 100 06/25/16 20:00 120 06/25/16 20:00 100 06/25/16 20:00 99.2 79 19 81/50 96 06/25/16 18:00 95 06/25/16 17:00 94 100 06/25/16 16:00 98.7 99 45 142/71 93 06/25/16 16:00 99 06/25/16 14:00 93 06/25/16 12:00 98.4 92 34 143/83 96 06/25/16 12:00 92 I/O 06/25/16 06/25/16 06/25/16 06/26/16 06/26/16 06/26/16 07:00 15:00 23:00 07:00 15:00 23:00 Intake Total 640 ml 1101 ml 1033 ml 638 ml Output Total 1550 ml 2000 ml 150 ml 150 ml Balance -910 ml -899 ml 883 ml 488 ml IV Total 640 ml 1101 ml 1033 ml 638 ml Output Urine Total 1550 ml 2000 ml 150 ml 150 ml Stool Total 0 ml # Bowel Movements 0 0 0 Result Diagram: 06/26/16 0600 06/26/16 0600 Objective Remarks GENERAL: 61 y/o CM lying in bed intubated and sedated SKIN: Warm and dry. CARDIOVASCULAR: Tachycardic to 90s in atrial fibrillation. RESPIRATORY: Currently intubated. Coarse, equal breath sounds bilaterally. GASTROINTESTINAL: Abdomen soft, non-tender, nondistended with +BS. No masses appreciated. MUSCULOSKELETAL: Extremities without cyanosis or edema. UROGENITAL: Patient with lakhani catheter in place. No signs of hemorrhage at site of insertion. Patient with approximately 200cc of concentrated urine. NEUROLOGICAL: Patient currently intubated and sedated. Date of Insertion: Jun 22, 2016 Line: Central Venous Catheter Side: Right Location: Internal, Jugular A/P Assessment and Plan Mr. Guevara is a 61 y/o CM with a PMHx of HTN and alcohol abuse presenting from the [facility] with an elevated, irregular heart rate found to have atrial flutter. He is s/p cardiac ablation and currently in sinus rhythm. Currently withdrawing from chronic alcohol use, on the CIWA protocol. Discharge Planning Unclear given patient's current clinical state. Discussed with Dr. Abreu, Dr. Kavya Mcrae Problem List: (1) Alcohol withdrawal Status: Acute Plan: Medical team paged for HALICAT at approximately 0745 on 06/23/15 due to agitation. Per nursing report patient had been agitated and altered throughout the night with CIWA scores up to 25. The patient does have an extensive history of alcohol use with up to 3/4 drinks per day. He also has an extensive smoking history. Patient transferred to ICU. Clinical Staff Pharmacist consulted, appreciate recommendations Patient intubated, then self extubated despite Midazolam and fentanyl infusion. Patient reintubated on 06/25 due to flash pulmonary edema with desaturation. Continue to monitor respiratory status Ativan per CIWA protocol, scores 5 over the last 24 hours with most recent score of 5 Currently on Diprivan and fentanyl drips (2) Atrial flutter with rapid ventricular response Status: Acute Plan: Patient presenting from clinic with atrial fibrillation with rate into the 150s, found to be in atrial flutter. Patient was then ablated, however presented with atrial fibrillation with RVR to a rate of 220. Rate currently controlled on diltiazem drip Cardiology consulted, appreciate recommendations and intervention Patient status post successful ablation on 06/23, currently on a heparin drip and in sinus rhythm Echo: Normal cavity size and wall thickness. Systolic function mildly reduced with EF of 35-40%, however study was limited due to markedly tachycardia. Wall motion normal. Patient converted to atrial fibrillation with RVR on 06/25 to a rate of 220, diltiazem drip initiated to control rate Medications: Heparin drip Diltiazem drip (3) Creatinine elevation Status: Acute Plan: Patient with creatinine elevation to 1.9 on 06/26/16. Patient with hematuria upon Lakhani placement. Strict I's/O's with Lakhani catheter Continue to monitor (4) Hypertension Status: Chronic Plan: Patient with chronic HTN Pt has been hypotensive and required pressors from 06/23 until 06/24 Hold home Irbesartan-HCTZ (300-12.5) with conversion to Losartan 100mg daily and HCTZ 12.5mg daily (5) Restless leg syndrome Status: Chronic Plan: Patient with reported restless leg syndrome -Hold Ropinirole for now (6) Nutrition, metabolism, and development symptoms Status: Acute Plan: Fluids: Currently none, monitor I/Os Diet: NPO as patient is intubated Electrolytes: WNL, continue to monitor DVT: Heparin drip Prophylaxis: Protonix 40 mg IV daily, DuoNeb's every 6 hours when necessary for shortness of breath/wheezing, hydroxyzine 25 mg daily at bedtime when necessary for insomnia (Held) Problem Qualifiers (1) Alcohol withdrawal: Qualified Code: F10.231 - Alcohol withdrawal, with delirium (2) Hypertension: Qualified Code: I10 - Essential hypertension Swapnil Barrera MD R1 Jun 26, 2016 11:28 Swapnil Barrera MD R1 Jun 26, 2016 11:28
[2016-06-26] MEDS: MULTIVITAMIN INJ 10 ML, FOLIC ACID INJ 1 MG in SODIUM CHLORID 0.9% 500 ML INJ 500 ML IV SCH (13:13)
[2016-06-26] MEDS: THIAMINE INJ 100 MG in SODIUM CHLORIDE 0.9% INJ 100 ML IV SCH (13:13)
[2016-06-26] MEDS ORDERED: FUROSEMIDE 20 MG/2 ML VIAL IV PUSH ONE (13:45)
--- NOTE | 2016-06-26 14:07 | HHI.CCPN ---
Subjective Remarks/Hospital Course On 06/21 ,Mr. Guevara presented with a PMHx of HTN presenting from the [facility] with an elevated, irregular heart rate. He is a patient of Dr. Irwin Rodriguez, who sent this patient from clinic. In clinic, he had a heart rate in the 150s and was instructed to go to the ED for further evaluation. Upon arriving to the ED ,the patient was found to have atrial flutter on twelve-lead EKG with a rate 151 with 2-1 conduction. He denied any chest pain, prior arrhythmia, thyroid disorder, or heart disease. He reported his last EKG was approximately 8 years ago before his eye surgery s/p accident. The patient has a significant alcohol and smoking history, but denies any illicit drugs. He states that he is at his baseline except for 3 episodes of nonbloody diarrhea that have all occurred over this morning. The patient was admitted to the hospital, and placed on CIWA protocol, Cardizem infusion and was scheduled for ablation per interventional cardiology. Early this a.m. the patient became significantly more confused, difficult to control a Hallicat at was called, and the patient was transferred to ICU for further management. Subjective 06/23: Afebrile. Since admission to the ICU yesterday, the patient was placed initially on Precedex infusion for agitation/delirium, in addition to CIWA protocol. The patient subsequently required intubation. Later the afternoon the patient became hypotensive requiring vasopressor support of Levophed which was weaned off during the night. The patient converted to A. fib flutter heart rate 150s and Cardizem infusion was reinitiated. Systolic blood pressure low 100's. The patient continues on Versed low-dose and fentanyl infusions for ventilator synchrony. Plan today for cardiac ablation with Dr. Ponce. 06/24: The patient underwent successful RF ablation for atrial flutter, patient currently remains sinus rhythm sinus tach. The patient underwent CPAP trials however self extubated. Immediately upon self extubation the patient stated " I havent had a drink in 3 days, I need a drink" .The patient's maintain an O2 sat greater than 92% on Ventimask at 50% currently. The patient continues to be confused and agitated than what appears to be delirium tremens , Precedex infusion begun with Ativan PRN . Family present at bedside with patient. The patient noted to be confused, combative, remains in 4 point restraints. Will initiate Coumadin pharmacy dosing, with overlap of heparin until therapeutic INR today. CIWA protocol initiated. 06/25: The patient remain on Precedex infusion throughout the night, with supplementation per CIVT protocol and rested comfortably without agitation, in normal sinus rhythm. During the night he received Lasix 20 mg IV and diuresed greater than 1 L. At approximately 1400, the patient went into A. fib RVR with a rate of 220, and extremely dyspneic with audibly expiratory wheezing. Cardizem bolus 20 mg 2 doses was given. The patient was placed on a Cardizem infusion at 10 mg per hour. The heart rate decreased from 80-100, but rhythm atrial fibrillation. The patient continued to have respiratory distress, tachypnea with a rate in the 40s50s. An ABG was obtained showing a very large A-a gradient, and a PaO2 of 77 on 100% nonrebreather after 40 mg of Lasix diuresis and a DuoNeb treatment. Emergent intubation was required, family at bedside, discussed extensively with and updated her on the the patient's current condition. The patient was reintubated. He continues on a heparin infusion propofol infusion for ventilator synchrony. 06/26:Tmax 100.6. Patient's rhythm atrial fibrillation with a rate 90-109, Cardizem 12 mg/hour. The patient continues on a heparin infusion at this time. Patient was noted to have flash pulmonary edema episode of A. fib RVR which required intubation. Repeat chest x-ray this a.m. still shows pulmonary edema, the patient was diuresed approximately 2 L yesterday, he continues on a PEEP of 10. Patient remains sedated on a propofol and fentanyl infusion for ventilator synchrony. Will initiate tube feeds today. Objective Vital Signs Date Time Temp Pulse Resp B/P Pulse Ox O2 Delivery O2 Flow Rate FiO2 06/26/16 12:04 94 65 06/26/16 12:00 124 06/26/16 12:00 100.5 25 101/71 06/25/16 08:38 Simple Mask 8.00 Intake and Output 06/25/16 06/25/16 06/26/16 08:00 16:00 00:00 Intake Total 640 ml 1101 ml 1033 ml Output Total 1550 ml 2000 ml 150 ml Balance -910 ml -899 ml 883 ml Result Diagram: 06/26/16 0600 06/26/16 0600 Other Results Laboratory Tests Test 06/25/16 15:55 Blood Gas Puncture Site RT RADIAL Blood Gas Patient Temperature 98.6 Blood Gas HCO3 22 mmol/L (22-26) Blood Gas Base Excess -2.4 mmol/L (-2-2) Blood Gas Oxygen Saturation 93 % (90-100) Arterial Blood pH 7.41 (7.380-7.420) Arterial Blood Partial 35 mmHg (38-42) Pressure CO2 Arterial Blood Partial 78 mmHg Pressure O2 (61-120) Arterial Blood Oxygen Content 16.9 Vol % (12.0-20.0) Arterial Blood 1.6 % (0-4) Carboxyhemoglobin Arterial Blood Methemoglobin 1.1 % (0-2) Blood Gas Hemoglobin 12.9 G/DL (12.0-16.0) Oxygen Delivery Device NRM Blood Gas Liter Flow 12 L/M Blood Gas Inspired Oxygen 100 % Imaging Last Impressions Chest X-Ray 06/24/16 0600 Signed Impressions: Service Date/Time: Friday, June 24, 2016 04:16 - CONCLUSION: No interval change. Shashank Ramos MD Last 24 hours Impressions Chest X-Ray 06/21/16 1139 Signed Impressions: Service Date/Time: Tuesday, June 21, 2016 12:09 - CONCLUSION: No acute disease. Fortino Schrader MD Objective Remarks GENERAL: Well-nourished well-developed male intubated and sedated. SKIN: Warm and dry. HEAD: Atraumatic. Normocephalic. EYES: Pupils equal and round. No scleral icterus. No injection or drainage. ENT: No nasal bleeding or discharge. Mucous membranes pink and moist. NECK: Trachea midline. No JVD. CARDIOVASCULAR: Normal rate, regular rhythm. RESPIRATORY: No accessory muscle use. Clear to auscultation. Breath sounds equal bilaterally. GASTROINTESTINAL: Abdomen soft, non-tender, nondistended. No guarding. MUSCULOSKELETAL: Extremities without clubbing, cyanosis, or edema. No obvious deformities. NEUROLOGICAL:RASS-2. On propofol and fentanyl infusions intubated and sedated. Urinary Catheter: Yes Lujan insert reason: Measure Accurate Output Date of Insertion: Jun 22, 2016 Line: Central Venous Catheter Side: Right Location: Internal, Jugular A/P Assessment and Plan Plan by systems: Neurologic: Delirium tremens Alcohol abuse Encephalopathy Alcohol withdrawal Restless leg syndrome GCS 11T Versed and fentanyl infusions for ventilator synchrony Neurochecks per ICU protocol Will resume Ropinirole 0.25 mg/ hs when clinically indicated Respiratory: Tobacco abuse 06/26 CXR-diffuse pulmonary edema Continue fentanyl and propofol for ventilator synchrony CPAP trials as tolerated DuoNeb every 6 hours scheduled and every 2 hours when necessary Mechanical vent settings 14/550/60/10, wean FiO2 to maintain O2 sat greater than 92% 06/24 S/P RF cardiac ablation Cardiovascular: Atrial flutter-resolved Atrial fib flutter resolved Atrial fibrillation with RVR 06/25 (HR 220's) Cardiomegaly Continue Cardizem infusion, heart rate 90-109 Heparin infusion Cardizem infusion currently at 12 mg/hour Cardiology following- Dr. Bautista S/P RF cardiac ablation per Renal: Hematuria Monitor BMP -- Strict I/Os Lujan in situ, continue to monitor Creatinine elevated 1.9, continue to monitor FEN/GI: Begin tube feeds, monitor for residual Zofran IV for nausea Protonix IV 40 mg/day Bowel regimen Heme/ID: Monitor CBC Transfuse for hemoglobin less than 7 Monitor PTT per heparin protocol Plan to transition to Coumadin PO, if no further cardiac procedures or other interventional procedures indicated Endocrine: Glucose monitoring per ICU protocol Low-dose regimen -- SSI Prophylaxis: GI Prophylaxis Protonix IV 40 mg/day DVT Prophylaxis -- SCDs Heparin infusion Lines: Peripheral IVs 2. Central line right IJ 06/22 Dispo: Discussed with [facility], and Mrs. Guevara was updated on the patient's current medical status. This patient remains critically ill with one or more organ systems which are or may become a threat to life. I have spent in excess of 39 minutes discontinuously in the care and management of this patient. This time is exclusive of procedures, and includes, but is not limited to, evaluation of the patient, review of the medical record, discussions with family, consultants, nursing staff, or respiratory therapy, and documentation in the medical record. Physician Alice Murray MD Jun 26, 2016 14:07
[2016-06-26 14:21] LABS: BLOOD GAS BASE EXCESS -2.5 mmol/L (-2-2); BLOOD GAS CARBOXYHEMOGLOBIN 1.4 % (0-4); BLOOD GAS HCO3 22 mmol/L (22-26); BLOOD GAS METHEMOGLOBIN 1.2 % (0-2); BLOOD GAS O2 HGB SATURATION 92 % (90-100); BLOOD GAS OXYGEN CONTENT 14.7 Vol % (12.0-20.0); BLOOD GAS PCO2 42 mmHg (38-42); BLOOD GAS PO2 76 mmHg (61-120); BLOOD GAS TOTAL HGB 11.3 G/DL (12.0-16.0); CRITICAL VALUE NO; OXYGEN DEVICE VENTILATOR; TEMP CORR TO 98.6
[2016-06-26 14:23] LABS: DRAW SITE RT RADIAL; FIO2 65 %; NUMBER OF ARTERIAL PUNCTURES 1; STAT NO; ULNAR PULSE PRESENT
[2016-06-26] MEDS: HEPARIN-D5W INJ 250 ML IV SCH (14:59)
[2016-06-26] MEDS: DOCUSATE SODIUM 100 MG/10 ML UDC PO SCH (19:58)
[2016-06-27] VITALS (20 sets, daily range): BP systolic 90–117; BP diastolic 56–69; PULSE 74–122; RESP 14–22; TEMP 98.2–100.5; O2SAT 91–99
[2016-06-27] MEDS: RESP: ALBUTEROL 2.5 MG/IPRATROPIUM 0.5 MG NEB (SCH) NEB ×4 (03:39→20:26)
[2016-06-27] MEDS: CHLORHEXIDINE GLUCONATE 2 % 1 PACK (2 CLOTHS) TOP SCH (04:00)
[2016-06-27] MEDS: DILTIAZEM INJ 125 MG in SODIUM CHLORIDE 0.9% INJ 100 ML IV SCH (05:41)
[2016-06-27] MEDS: fentaNYL 2,500 MCG/NS 250 ML IV SCH ×2 (05:41→21:05)
[2016-06-27] MEDS: HEPARIN-D5W INJ 250 ML IV SCH (05:43)
[2016-06-27 06:06] LABS: BLOOD GAS BASE EXCESS -1.6 mmol/L (-2-2); BLOOD GAS CARBOXYHEMOGLOBIN 1.4 % (0-4); BLOOD GAS HCO3 24 mmol/L (22-26); BLOOD GAS METHEMOGLOBIN 1.3 % (0-2); BLOOD GAS O2 HGB SATURATION 94 % (90-100); BLOOD GAS OXYGEN CONTENT 17.9 Vol % (12.0-20.0); BLOOD GAS PCO2 49 mmHg (38-42); BLOOD GAS PO2 90 mmHg (61-120); BLOOD GAS TOTAL HGB 13.5 G/DL (12.0-16.0); TEMP CORR TO 98.6
[2016-06-27 06:07] LABS: CRITICAL VALUE NO; OXYGEN DEVICE VENTILATOR; VENT SETTINGS SIMV/IMV
[2016-06-27 06:08] LABS: DRAW SITE RT BRACHIAL; FIO2 80 %; NUMBER OF ARTERIAL PUNCTURES 1; STAT NO; ULNAR PULSE PRESENT
[2016-06-27 06:41] LABS: HEMATOCRIT 34.1 % (39.0-51.0); MEAN CELL VOLUME 90.4 FL (80.0-100.0); MEAN CORPUSCULAR HEMOGLOBIN 30.2 PG (27.0-34.0); MEAN CORPUSCULAR HGB CONC 33.4 % (32.0-36.0); PLATELET COUNT 136 TH/MM3 (150-450); RED BLOOD COUNT 3.78 MIL/MM3 (4.50-5.90); RED CELL DISTRIBUTION WIDTH 14.2 % (11.6-17.2); REVIEW FLAG FINAL; WHITE BLOOD COUNT 6.1 TH/MM3 (4.0-11.0)
[2016-06-27 06:42] LABS: APTT (PATIENT) 36.4 SEC (24.3-30.1); PROTHROMBIN TIME - PATIENT 11.1 SEC (9.8-11.6)
[2016-06-27] MEDS: PROPOFOL 1000 MG/100 ML INJ 100 ML IV SCH ×3 (06:49→21:06)
[2016-06-27 06:56] LABS: BICARBONATE 26.1 MEQ/L (21.0-32.0); MAGNESIUM 2.1 MG/DL (1.5-2.5); POTASSIUM 3.7 MEQ/L (3.5-5.1)
[2016-06-27] MEDS: SENNOSIDES SYRUP 8.8 MG/5 ML CUP PO SCH (08:23)
[2016-06-27] MEDS: DOCUSATE SODIUM 100 MG/10 ML UDC PO SCH ×2 (08:23→21:03)
[2016-06-27] MEDS: PANTOPRAZOLE SODIUM 40 MG VIAL IV SCH (08:23)
[2016-06-27] MEDS: ASPIRIN 81 MG CHEW TAB PO SCH (08:23)
[2016-06-27] MEDS: SODIUM CHLORIDE 0.9% FLUSH 10 ML FLUSH IV FLUSH SCH ×2 (08:24→21:03)
[2016-06-27] MEDS: LOSARTAN 50 MG TAB PO SCH (08:26)
--- NOTE | 2016-06-27 08:45 | HHI.CCPN ---
Subjective Remarks/Hospital Course On 06/21 ,Mr. Guevara presented with a PMHx of HTN presenting from the [facility] with an elevated, irregular heart rate. He is a patient of Dr. Irwin Rodriguez, who sent this patient from clinic. In clinic, he had a heart rate in the 150s and was instructed to go to the ED for further evaluation. Upon arriving to the ED ,the patient was found to have atrial flutter on twelve-lead EKG with a rate 151 with 2-1 conduction. He denied any chest pain, prior arrhythmia, thyroid disorder, or heart disease. He reported his last EKG was approximately 8 years ago before his eye surgery s/p accident. The patient has a significant alcohol and smoking history, but denies any illicit drugs. He states that he is at his baseline except for 3 episodes of nonbloody diarrhea that have all occurred over this morning. The patient was admitted to the hospital, and placed on CIWA protocol, Cardizem infusion and was scheduled for ablation per interventional cardiology. Early this a.m. the patient became significantly more confused, difficult to control a Hallicat at was called, and the patient was transferred to ICU for further management. Subjective 06/23: Afebrile. Since admission to the ICU yesterday, the patient was placed initially on Precedex infusion for agitation/delirium, in addition to CIWA protocol. The patient subsequently required intubation. Later the afternoon the patient became hypotensive requiring vasopressor support of Levophed which was weaned off during the night. The patient converted to A. fib flutter heart rate 150s and Cardizem infusion was reinitiated. Systolic blood pressure low 100's. The patient continues on Versed low-dose and fentanyl infusions for ventilator synchrony. Plan today for cardiac ablation with Dr. Ponce. 06/24: The patient underwent successful RF ablation for atrial flutter, patient currently remains sinus rhythm sinus tach. The patient underwent CPAP trials however self extubated. Immediately upon self extubation the patient stated " I havent had a drink in 3 days, I need a drink" .The patient's maintain an O2 sat greater than 92% on Ventimask at 50% currently. The patient continues to be confused and agitated than what appears to be delirium tremens , Precedex infusion begun with Ativan PRN . Family present at bedside with patient. The patient noted to be confused, combative, remains in 4 point restraints. Will initiate Coumadin pharmacy dosing, with overlap of heparin until therapeutic INR today. CIWA protocol initiated. 06/25: The patient remain on Precedex infusion throughout the night, with supplementation per [facility] protocol and rested comfortably without agitation, in normal sinus rhythm. During the night he received Lasix 20 mg IV and diuresed greater than 1 L. At approximately 1400, the patient went into A. fib RVR with a rate of 220, and extremely dyspneic with audibly expiratory wheezing. Cardizem bolus 20 mg 2 doses was given. The patient was placed on a Cardizem infusion at 10 mg per hour. The heart rate decreased from 80-100, but rhythm atrial fibrillation. The patient continued to have respiratory distress, tachypnea with a rate in the 40s50s. An ABG was obtained showing a very large A-a gradient, and a PaO2 of 77 on 100% nonrebreather after 40 mg of Lasix diuresis and a DuoNeb treatment. Emergent intubation was required, family at bedside, discussed extensively with and updated her on the the patient's current condition. The patient was reintubated. He continues on a heparin infusion propofol infusion for ventilator synchrony. 06/26:Tmax 100.6. Patient's rhythm atrial fibrillation with a rate 90-109, Cardizem 12 mg/hour. The patient continues on a heparin infusion at this time. Patient was noted to have flash pulmonary edema episode of A. fib RVR which required intubation. Repeat chest x-ray this a.m. still shows pulmonary edema, the patient was diuresed approximately 2 L yesterday, he continues on a PEEP of 10. Patient remains sedated on a propofol and fentanyl infusion for ventilator synchrony. Will initiate tube feeds today. 06/27 Patient is sedated with Diprivan, Fentnayl and intubated. Tmax 100.6. On Heparin and Cardizem drips. On SIMV with FIO2 80%, PEEP: 10. Objective Vital Signs Date Time Temp Pulse Resp B/P Pulse Ox O2 Delivery O2 Flow Rate FiO2 06/27/16 07:49 92 50 06/27/16 06:00 111 06/27/16 04:00 99.0 14 111/69 06/25/16 08:38 Simple Mask 8.00 Intake and Output 06/26/16 06/26/16 06/27/16 08:00 16:00 00:00 Intake Total 638 ml 1067 ml 1230 ml Output Total 150 ml 250 ml 1150 ml Balance 488 ml 817 ml 80 ml Result Diagram: 06/27/16 0620 06/27/16 0620 Other Results Laboratory Tests Test 06/26/16 06/26/16 06/27/16 06/27/16 14:10 16:00 05:57 06:20 Blood Gas Puncture Site RT RADIAL RT BRACHIAL Blood Gas Patient Temperature 98.6 98.6 Blood Gas HCO3 22 mmol/L 24 mmol/L Blood Gas Base Excess -2.5 mmol/L -1.6 mmol/L Blood Gas Oxygen Saturation 92 % 94 % Arterial Blood pH 7.35 7.31 Arterial Blood Partial 42 mmHg 49 mmHg Pressure CO2 Arterial Blood Partial 76 mmHg 90 mmHg Pressure O2 Arterial Blood Oxygen Content 14.7 Vol % 17.9 Vol % Arterial Blood 1.4 % 1.4 % Carboxyhemoglobin Arterial Blood Methemoglobin 1.2 % 1.3 % Blood Gas Hemoglobin 11.3 G/DL 13.5 G/DL Oxygen Delivery Device VENTILATOR VENTILATOR Blood Gas Ventilator Setting SIMV/IMV Blood Gas Inspired Oxygen 65 % 80 % Potassium Level 3.8 MEQ/L 3.7 MEQ/L White Blood Count 6.1 TH/MM3 Red Blood Count 3.78 MIL/MM3 Hemoglobin 11.4 GM/DL Hematocrit 34.1 % Mean Corpuscular Volume 90.4 FL Mean Corpuscular Hemoglobin 30.2 PG Mean Corpuscular Hemoglobin 33.4 % Concent Red Cell Distribution Width 14.2 % Platelet Count 136 TH/MM3 Mean Platelet Volume 8.8 FL Prothrombin Time 11.1 SEC Prothromb Time International 1.0 RATIO Ratio Activated Partial 36.4 SEC Thromboplast Time Sodium Level 142 MEQ/L Chloride Level 107 MEQ/L Carbon Dioxide Level 26.1 MEQ/L Anion Gap 9 MEQ/L Blood Urea Nitrogen 23 MG/DL Creatinine 1.35 MG/DL Estimat Glomerular Filtration 54 ML/MIN Rate Random Glucose 122 MG/DL Calcium Level 8.7 MG/DL Phosphorus Level 3.4 MG/DL Magnesium Level 2.1 MG/DL Imaging Last Impressions Chest X-Ray 06/26/16 0000 Signed Impressions: Service Date/Time: Sunday, June 26, 2016 08:42 - CONCLUSION: Placement of NG tube otherwise not changed. Mauricio Hines MD Objective Remarks GENERAL: Well-nourished well-developed male intubated and sedated. SKIN: Warm and dry. HEAD: Atraumatic. Normocephalic. EYES: Pupils equal and round. No scleral icterus. No injection or drainage. ENT: No nasal bleeding or discharge. Mucous membranes pink and moist. NECK: Trachea midline. No JVD. Orally intubated CARDIOVASCULAR: Tachycardic, Nl S1, S2, no murmurs. RESPIRATORY: No accessory muscle use. Clear to auscultation. Breath sounds equal bilaterally. GASTROINTESTINAL: Abdomen soft, non-tender, nondistended. No guarding. MUSCULOSKELETAL: Extremities without clubbing, cyanosis, or edema. No obvious deformities. NEUROLOGICAL:RASS-2. On propofol and fentanyl infusions intubated and sedated. Date of Insertion: Jun 22, 2016 Line: Central Venous Catheter Side: Right Location: Internal, Jugular A/P Assessment and Plan Plan by systems: Neurologic: Delirium tremens Alcohol abuse Encephalopathy Alcohol withdrawal Restless leg syndrome On Diprivan and Fentnayl infusion for sedation. Daily sedation vacation when appropriate. Neurochecks per ICU protocol Respiratory: Tobacco abuse VDRF Continue with vent support keep sat >92%. Change vent setting to ACV RR 14, TV 550, PEEP: 10 and decrease FIO2 50% as farzana. Check ABG Bronchodilators, ICU vent bundle. 06/24 S/P RF cardiac ablation 06/21 Echo showed EF 35-40% Cardiovascular: Atrial fibrillation with RVR 06/25 Cardiomegaly Monitor HR and BP keep MAP>65mmHg Wean off Cardizem drip and place on PO cardizem 60mg QID On Heparin infusion- monitor PTT Cardiology following- Dr. Bautista S/P RF cardiac ablation per Renal: SHAWNA Monitor renal function, I/O's, avoid nephrotoxins Renal function improviong with Cr: 1.35 today from 1.98. UO 1800ml in 24 hrs FEN/GI: Continue TF-Jevity 1.5 with goal rate 50ml/hr Zofran IV for nausea Protonix IV 40 mg/day Bowel regimen Heme/ID: Monitor CBC Transfuse for hemoglobin less than 7 Monitor PTT per heparin protocol Plan to transition to Coumadin PO, if no further cardiac procedures or other interventional procedures indicated Monitor for signs of infections ( Fever, WBC) check sputum cx, UA with cx if indicated Endocrine: Glucose monitoring per ICU protocol Low-dose regimen -- SSI Prophylaxis: GI Prophylaxis Protonix IV 40 mg/day DVT Prophylaxis -- SCDs Heparin infusion Lines: Peripheral IVs 2. Central line right IJ 06/22 CCT 30 mins Adrienne Suh MD Jun 27, 2016 08:45
[2016-06-27 08:47] LABS: BLOOD GAS BASE EXCESS 0.2 mmol/L (-2-2); BLOOD GAS CARBOXYHEMOGLOBIN 1.4 % (0-4); BLOOD GAS HCO3 25 mmol/L (22-26); BLOOD GAS METHEMOGLOBIN 0.9 % (0-2); BLOOD GAS O2 HGB SATURATION 92 % (90-100); BLOOD GAS OXYGEN CONTENT 14.8 Vol % (12.0-20.0); BLOOD GAS PCO2 45 mmHg (38-42); BLOOD GAS PO2 73 mmHg (61-120); BLOOD GAS TOTAL HGB 11.4 G/DL (12.0-16.0); CRITICAL VALUE NO; DRAW SITE RT RADIAL; FIO2 50 %; NUMBER OF ARTERIAL PUNCTURES 1; OXYGEN DEVICE VENTILATOR; STAT NO; TEMP CORR TO 98.6; ULNAR PULSE PRESENT; VENT SETTINGS AC/14/550/PEEP10
[2016-06-27] MEDS ORDERED: BUMETANIDE INJ 1 MG/4 ML VIAL IV PUSH ONE (09:15)
[2016-06-27] MEDS: DILTIAZEM HCL 60 MG TAB PO SCH ×4 (10:34→21:03)
--- NOTE | 2016-06-27 10:35 | HHI.FPPN ---
Subjective Remarks Patient seen and examined this morning by medical team. Patient intubated and sedated with tube feeds currently running at goal. No acute events overnight per nursing staff. Patient with temperature up to 100.5 overnight and tachycardic to 111 while on Cardizem drip. Per discussion with critical care, team will plan to transition to by mouth Cardizem today and remained sedated while intubated. (Swapnil Barrera MD R1) Objective Vitals Vital Signs Date Time Temp Pulse Resp B/P Pulse Ox O2 Delivery O2 Flow Rate FiO2 06/27/16 10:00 122 06/27/16 08:00 50 06/27/16 08:00 100.5 103 14 117/67 91 06/27/16 08:00 103 06/27/16 07:49 92 50 06/27/16 06:00 111 06/27/16 05:05 93 80 06/27/16 04:20 94 50 06/27/16 04:00 99.0 102 14 111/69 95 06/27/16 04:00 102 06/27/16 04:00 65 06/27/16 02:00 95 06/27/16 01:17 95 50 06/27/16 00:00 98.2 88 14 90/66 98 06/27/16 00:00 94 06/27/16 00:00 65 06/26/16 23:00 99 06/26/16 22:21 96 60 06/26/16 22:00 107 06/26/16 20:00 102 06/26/16 20:00 99.0 104 14 93/62 94 06/26/16 20:00 95 60 06/26/16 20:00 65 06/26/16 18:00 104 06/26/16 16:00 101 06/26/16 16:00 65 06/26/16 16:00 100.5 101 29 113/68 95 06/26/16 15:32 93 60 06/26/16 15:00 116 06/26/16 14:00 107 06/26/16 12:04 94 65 06/26/16 12:00 124 06/26/16 12:00 65 06/26/16 12:00 100.5 124 25 101/71 94 I/O 06/26/16 06/26/16 06/26/16 06/27/16 06/27/1606/27/17 07:00 15:00 23:00 07:00 15:00 23:00 Intake Total 638 ml 1067 ml 1230 ml 1114 ml Output Total 150 ml 250 ml 1150 ml 400 ml Balance 488 ml 817 ml 80 ml 714 ml IV Total 638 ml 1067 ml 937 ml 568 ml Tube Feeding 93 ml 296 ml Other 200 ml 250 ml Output Urine Total 150 ml 250 ml 1150 ml 400 ml # Bowel Movements 0 0 0 0 (Swapnil Barrera MD R1) Result Diagram: 06/27/1661906/27/16619 Objective Remarks GENERAL: 61 y/o CM lying in bed intubated and sedated SKIN: Warm and dry. CARDIOVASCULAR: Tachycardic to 90s in atrial fibrillation. RESPIRATORY: Currently intubated. Breath sound equal bilaterally with mild coarse sound, improved from yesterday's exam. GASTROINTESTINAL: Abdomen soft, non-tender, nondistended with +BS. No masses appreciated. MUSCULOSKELETAL: Extremities without cyanosis. Mild anasarca changes to BL hands. UROGENITAL: Patient with lakhani catheter in place. No signs of hemorrhage at site of insertion. Patient with approximately 150-200cc of concentrated urine. Dried blood in catheter tubing from traumatic placement per staff. NEUROLOGICAL: Patient currently intubated and sedated. (Swapnil Barrera MD R1) Date of Insertion: Jun 22, 2016 Line: Central Venous Catheter Side: Right Location: Internal, Jugular (Swapnil Barrera MD R1) A/P Assessment and Plan Mr. Guevara is a 61 y/o CM with a PMHx of HTN and alcohol abuse presenting from the [facility] with an elevated, irregular heart rate found to have atrial flutter. He is s/p cardiac ablation and currently in sinus rhythm. Currently withdrawing from chronic alcohol use, on the CIWA protocol. Discharge Planning Unclear given patient's current clinical state. Discussed with Dr. Moira Garcia (Swapnil Barrera MD R1) Attending Attestation Pt. examined and case discussed with resident team I have read the above note and agree with the assessment/plan as discussed with me I was involved in all medical decision making for this patient Shashank Abreu MD (Shashank Abreu MD) Problem List: (1) Alcohol withdrawal Status: Acute Plan: Medical team paged for HALTRINIT at approximately 6207 on 06/23/15 due to agitation. Per nursing report patient had been agitated and altered throughout the night with CIWA scores up to 25. The patient does have an extensive history of alcohol use with up to 3/4 drinks per day. He also has an extensive smoking history. Patient transferred to ICU. Dye Penetrant Testing Technician consulted, appreciate recommendations Patient intubated, then self extubated despite Midazolam and fentanyl infusion. Patient reintubated on 06/25 due to flash pulmonary edema with desaturation. Continue to monitor respiratory status Ativan per CIWA protocol, scores up to 6 the last 24 hours with most recent score of 5 Currently on Diprivan and fentanyl drips (2) Atrial flutter with rapid ventricular response Status: Acute Plan: Patient presenting from clinic with atrial fibrillation with rate into the 150s, found to be in atrial flutter. Patient was then ablated, however presented with atrial fibrillation with RVR to a rate of 220. Rate currently controlled on diltiazem drip Cardiology consulted, appreciate recommendations and intervention Patient status post successful ablation on 06/23, currently on a heparin drip and in sinus rhythm Echo: Normal cavity size and wall thickness. Systolic function mildly reduced with EF of 35-40%, however study was limited due to markedly tachycardia. Wall motion normal. Patient converted to atrial fibrillation with RVR on 06/25 to a rate of 220, diltiazem drip initiated to control rate Medications: Heparin drip Diltiazem drip, plan to transition to PO today per CC (3) Creatinine elevation Status: Acute Plan: Patient with creatinine elevation to 1.9 on 06/26/16. Patient with hematuria upon Lakhani placement. Strict I's/O's with Lakhani catheter Continue to monitor (4) Hypertension Status: Chronic Plan: Patient with chronic HTN Pt has been hypotensive and required pressors from 06/23 until 06/24 Hold home Irbesartan-HCTZ (300-12.5) with conversion to Losartan 100mg daily and HCTZ 12.5mg daily (5) Restless leg syndrome Status: Chronic Plan: Patient with reported restless leg syndrome -Hold Ropinirole for now (6) Nutrition, metabolism, and development symptoms Status: Acute Plan: Fluids: Currently none, monitor I/Os Diet: NPO as patient is intubated. Tube feeds with Jevity at goal with rate of 50 ml/hr. Electrolytes: WNL, continue to monitor DVT: Heparin drip Prophylaxis: Protonix 40 mg IV daily, DuoNeb's every 6 hours when necessary for shortness of breath/wheezing, hydroxyzine 25 mg daily at bedtime when necessary for insomnia (Held) (Swapnil Barrera MD R1) Problem Qualifiers (1) Alcohol withdrawal: Qualified Code: F10.231 - Alcohol withdrawal, with delirium (2) Hypertension: Qualified Code: I10 - Essential hypertension Swapnil Barrera MD R1 Jun 27, 2016 10:35 Shashank Abreu MD Jun 27, 2016 16:23
[2016-06-27 12:36] LABS: BACTERIA, URINE OCC /hpf; BLOOD, URINE MOD (NEG); COMMENT (UR) CATH-CULTURE IND; CULTURE IF INDICATED CATH CULTURE IND; GLUCOSE,URINE NEG (NEG); HYALINE CAST, URINE 7 /lpf (RARE); KETONE, URINE NEG (NEG); MUCUS URINE FEW /lpf (OCC); NITRITE,URINE NEG (NEG); SQUAMOUS EPITHELIAL CELL URINE <1 /hpf (0-5); URIC ACID CRYSTALS, URINE RARE /hpf; URINE COLOR YELLOW (YELLW/STRAW)
[2016-06-27] MEDS: MULTIVITAMIN INJ 10 ML, FOLIC ACID INJ 1 MG in SODIUM CHLORID 0.9% 500 ML INJ 500 ML IV SCH (13:35)
[2016-06-27] MEDS: METOPROLOL TARTRATE 5 MG/5 ML VIAL IV PUSH PRN (21:44)
[2016-06-27 23:44] LABS: APTT (PATIENT) 36.7 SEC (24.3-30.1)
[2016-06-28] VITALS (20 sets, daily range): BP systolic 90–167; BP diastolic 59–97; PULSE 99–154; RESP 14; TEMP 99–100.3; O2SAT 93–100
[2016-06-28] MEDS: PROPOFOL 1000 MG/100 ML INJ 100 ML IV SCH ×6 (00:11→23:27)
[2016-06-28] MEDS: HEPARIN-D5W INJ 250 ML IV SCH ×2 (00:13→17:10)
[2016-06-28] MEDS: HEPARIN SODIUM - IV 10,000 UNITS/10 ML VIAL IV PRN (00:14)
[2016-06-28] MEDS: RESP: ALBUTEROL 2.5 MG/IPRATROPIUM 0.5 MG NEB (SCH) NEB ×4 (03:40→19:42)
[2016-06-28] MEDS: LORazepam 2 MG/ML VIAL IV PUSH PRN ×2 (03:52→06:35)
[2016-06-28] MEDS: CHLORHEXIDINE GLUCONATE 2 % 1 PACK (2 CLOTHS) TOP SCH (04:00)
[2016-06-28 05:47] LABS: AUTOMATED NEUTROPHIL # 4.6 TH/MM3 (1.8-7.7); BASOPHIL % 0.3 % (0.0-2.0); EOSINOPHIL # 0.1 TH/MM3 (0-0.4); EOSINOPHIL % 2.1 % (0.0-4.0); HEMATOCRIT 33.2 % (39.0-51.0); HEMO FLAGS DIFF FINAL; LYMPH % 6.8 % (9.0-44.0); LYMPHOCYTE # 0.4 TH/MM3 (1.0-4.8); MEAN CELL VOLUME 90.1 FL (80.0-100.0); MEAN CORPUSCULAR HEMOGLOBIN 30.9 PG (27.0-34.0); MEAN CORPUSCULAR HGB CONC 34.3 % (32.0-36.0); MONO % 13.7 % (0.0-8.0); NEUT % 77.1 % (16.0-70.0); PLATELET COUNT 154 TH/MM3 (150-450); RED BLOOD COUNT 3.68 MIL/MM3 (4.50-5.90); RED CELL DISTRIBUTION WIDTH 13.9 % (11.6-17.2)
[2016-06-28 06:01] LABS: APTT (PATIENT) 41.6 SEC (24.3-30.1); PROTHROMBIN TIME - PATIENT 11.4 SEC (9.8-11.6)
[2016-06-28 06:10] LABS: BICARBONATE 30.4 MEQ/L (21.0-32.0); MAGNESIUM 2.3 MG/DL (1.5-2.5); POTASSIUM 3.7 MEQ/L (3.5-5.1)
[2016-06-28] MEDS: METOPROLOL TARTRATE 5 MG/5 ML VIAL IV PUSH PRN (06:34)
[2016-06-28] MEDS: fentaNYL 2,500 MCG/NS 250 ML IV SCH ×2 (07:26→20:29)
--- NOTE | 2016-06-28 08:07 | HHI.FPPN ---
Subjective Remarks Pt seen and examined. Overnight HR elevated to the 130s. He is currently off Cardizem drip, remains sedated on Diprivan and fentanyl. He is agitated at times despite sedation. Ventilator with PEEP of 10, FiO2 40%. Objective Vitals Vital Signs Date Time Temp Pulse Resp B/P Pulse Ox O2 Delivery O2 Flow Rate FiO2 06/28/16 06:00 130 06/28/16 05:04 98 40 06/28/16 04:00 40 06/28/16 04:00 99.3 114 14 109/72 93 06/28/16 04:00 114 06/28/16 02:00 124 06/28/16 01:56 98 40 06/28/16 00:00 100.3 116 14 127/69 98 06/28/16 00:00 40 06/28/16 00:00 116 06/27/16 23:42 97 40 06/27/16 22:00 74 06/27/16 20:26 98 40 06/27/16 20:00 40 06/27/16 20:00 108 22 110/56 96 06/27/16 20:00 74 06/27/16 18:00 109 06/27/16 16:05 99 40 06/27/16 16:00 99.8 101 14 113/63 96 06/27/16 16:00 101 06/27/16 16:00 40 06/27/16 14:00 102 06/27/16 12:00 99.8 107 14 103/59 93 06/27/16 12:00 107 06/27/16 12:00 40 06/27/16 11:07 92 50 06/27/16 10:00 122 I/O 06/27/16 06/27/16 06/27/16 06/28/16 06/28/16 06/28/16 07:00 15:00 23:00 07:00 15:00 23:00 Intake Total 1114 ml 1055 ml 1011 ml 767 ml Output Total 400 ml 450 ml 350 ml 300 ml Balance 714 ml 605 ml 661 ml 467 ml Intake Oral 0 ml IV Total 568 ml 553 ml 442 ml 459 ml Tube Feeding 296 ml 382 ml 369 ml 308 ml Other 250 ml 120 ml 200 ml Output Urine Total 400 ml 450 ml 350 ml 300 ml Gastric Drainage Total 0 ml Tube Feeding Residual Discard 0 ml 0 ml # Bowel Movements 0 0 0 Result Diagram: 06/28/16 0515 06/28/16 0515 Objective Remarks GENERAL: 61 y/o CM lying in bed, in no acute cardiopulmonary distress. SKIN: Warm and dry. CARDIOVASCULAR: Tachycardic to 130s in atrial fibrillation. RESPIRATORY: Currently intubated. Breath sound equal bilaterally with mild coarse breath sounds GASTROINTESTINAL: Abdomen soft, non-tender, nondistended with +BS. No masses appreciated. MUSCULOSKELETAL: Extremities without cyanosis. Mild edema to BL hands. UROGENITAL: Patient with lakhani catheter in place. No signs of hemorrhage at site of insertion. Urine appears concentrated. NEUROLOGICAL: Patient currently intubated and sedated. Date of Insertion: Jun 22, 2016 Line: Central Venous Catheter Side: Right Location: Internal, Jugular A/P Assessment and Plan Mr. Guevara is a 61 y/o CM with a PMHx of HTN and alcohol abuse presenting from the [facility] with an elevated, irregular heart rate found to have atrial flutter. He is s/p cardiac ablation and currently in sinus rhythm. Currently withdrawing from chronic alcohol use, on the CIWA protocol. Discharge Planning Unclear given patient's current clinical state. Discussed with Dr. Abreu, Dr. Pizarro Problem List: (1) Alcohol withdrawal Status: Acute Plan: Maintenance Technician consulted, appreciate recommendations Patient intubated, then self extubated despite Midazolam and fentanyl infusion. Patient reintubated on 06/25 due to flash pulmonary edema with desaturation. Continue to monitor respiratory status Ativan per CIWA protocol, scores up to 5 the last 24 hours, he has received 2Mg of Ativan this morning Currently on Diprivan and fentanyl drips Medical team paged for HALICAT at approximately 0745 on 06/23/15 due to agitation. Per nursing report patient had been agitated and altered throughout the night with CIWA scores up to 25. The patient does have an extensive history of alcohol use with up to 3/4 drinks per day. He also has an extensive smoking history. Patient transferred to ICU. (2) Atrial flutter with rapid ventricular response Status: Acute Plan: Patient presenting from clinic with atrial fibrillation with rate into the 150s, found to be in atrial flutter. Patient was then ablated, however presented with atrial fibrillation with RVR to a rate of 220. HR currently elevated to the 130s. Cardiology consulted, appreciate recommendations and intervention Patient status post successful ablation on 06/23, currently on a heparin drip and in sinus rhythm Echo: Normal cavity size and wall thickness. Systolic function mildly reduced with EF of 35-40%, however study was limited due to markedly tachycardia. Wall motion normal. Patient converted to atrial fibrillation with RVR on 06/25 to a rate of 220, diltiazem drip initiated to control rate. Diltiazem drip has currently been stopped (06/25-06/27) and he has been transitioned to PO Cardizem. Medications: Heparin drip Diltiazem PO (3) Creatinine elevation Status: Acute Plan: RESOLVED Patient with creatinine elevation to 1.9 on 06/26/16. Patient with hematuria upon Lakhani placement. Creatinine within normal limits at 1.04 this morning. Strict I's/O's with Lakhani catheter Continue to monitor (4) Hypertension Status: Chronic Plan: Patient with chronic HTN Pt has been hypotensive and required pressors from 06/23 until 06/24, BP currently stable. Hold home Irbesartan-HCTZ (300-12.5) with conversion to Losartan 100mg daily and HCTZ 12.5mg daily -Cardizem 60mg QID -Lopressor and clonidine PRN (5) Restless leg syndrome Status: Chronic Plan: Patient with reported restless leg syndrome -Hold Ropinirole for now (6) Nutrition, metabolism, and development symptoms Status: Acute Plan: Fluids: Currently none, monitor I/Os Diet: NPO as patient is intubated. Tube feeds with Jevity at goal with rate of 50 ml/hr. Electrolytes: WNL, continue to monitor DVT: Heparin drip Prophylaxis: Protonix 40 mg IV daily, DuoNeb's every 6 hours when necessary for shortness of breath/wheezing, hydroxyzine 25 mg daily at bedtime when necessary for insomnia (Held) Problem Qualifiers (1) Alcohol withdrawal: Qualified Code: F10.231 - Alcohol withdrawal, with delirium (2) Hypertension: Qualified Code: I10 - Essential hypertension Vasile Mcrae MD R2 Jun 28, 2016 08:07
--- NOTE | 2016-06-28 08:57 | HHI.CCPN ---
Subjective Remarks/Hospital Course On 06/21 ,Mr. Guevara presented with a PMHx of HTN presenting from the [facility] with an elevated, irregular heart rate. He is a patient of Dr. Irwin Rodriguez, who sent this patient from clinic. In clinic, he had a heart rate in the 150s and was instructed to go to the ED for further evaluation. Upon arriving to the ED ,the patient was found to have atrial flutter on twelve-lead EKG with a rate 151 with 2-1 conduction. He denied any chest pain, prior arrhythmia, thyroid disorder, or heart disease. He reported his last EKG was approximately 8 years ago before his eye surgery s/p accident. The patient has a significant alcohol and smoking history, but denies any illicit drugs. He states that he is at his baseline except for 3 episodes of nonbloody diarrhea that have all occurred over this morning. The patient was admitted to the hospital, and placed on CIWA protocol, Cardizem infusion and was scheduled for ablation per interventional cardiology. Early this a.m. the patient became significantly more confused, difficult to control a Hallicat at was called, and the patient was transferred to ICU for further management. Subjective 06/23: Afebrile. Since admission to the ICU yesterday, the patient was placed initially on Precedex infusion for agitation/delirium, in addition to CIWA protocol. The patient subsequently required intubation. Later the afternoon the patient became hypotensive requiring vasopressor support of Levophed which was weaned off during the night. The patient converted to A. fib flutter heart rate 150s and Cardizem infusion was reinitiated. Systolic blood pressure low 100's. The patient continues on Versed low-dose and fentanyl infusions for ventilator synchrony. Plan today for cardiac ablation with Dr. Ponce. 06/24: The patient underwent successful RF ablation for atrial flutter, patient currently remains sinus rhythm sinus tach. The patient underwent CPAP trials however self extubated. Immediately upon self extubation the patient stated " I havent had a drink in 3 days, I need a drink" .The patient's maintain an O2 sat greater than 92% on Ventimask at 50% currently. The patient continues to be confused and agitated than what appears to be delirium tremens , Precedex infusion begun with Ativan PRN . Family present at bedside with patient. The patient noted to be confused, combative, remains in 4 point restraints. Will initiate Coumadin pharmacy dosing, with overlap of heparin until therapeutic INR today. CIWA protocol initiated. 06/25: The patient remain on Precedex infusion throughout the night, with supplementation per [facility] protocol and rested comfortably without agitation, in normal sinus rhythm. During the night he received Lasix 20 mg IV and diuresed greater than 1 L. At approximately 1400, the patient went into A. fib RVR with a rate of 220, and extremely dyspneic with audibly expiratory wheezing. Cardizem bolus 20 mg 2 doses was given. The patient was placed on a Cardizem infusion at 10 mg per hour. The heart rate decreased from 80-100, but rhythm atrial fibrillation. The patient continued to have respiratory distress, tachypnea with a rate in the 40s50s. An ABG was obtained showing a very large A-a gradient, and a PaO2 of 77 on 100% nonrebreather after 40 mg of Lasix diuresis and a DuoNeb treatment. Emergent intubation was required, family at bedside, discussed extensively with and updated her on the the patient's current condition. The patient was reintubated. He continues on a heparin infusion propofol infusion for ventilator synchrony. 06/26:Tmax 100.6. Patient's rhythm atrial fibrillation with a rate 90-109, Cardizem 12 mg/hour. The patient continues on a heparin infusion at this time. Patient was noted to have flash pulmonary edema episode of A. fib RVR which required intubation. Repeat chest x-ray this a.m. still shows pulmonary edema, the patient was diuresed approximately 2 L yesterday, he continues on a PEEP of 10. Patient remains sedated on a propofol and fentanyl infusion for ventilator synchrony. Will initiate tube feeds today. 06/27 Patient is sedated with Diprivan, Fentnayl and intubated. Tmax 100.6. On Heparin and Cardizem drips. On SIMV with FIO2 80%, PEEP: 10. 06/28 No acute events ovenright. Remains sedated and intubated. Afebrile. Off Cardizem drip . On ACV with PEEP: 10 and FIO2 40%. T:100.3 at midnight. Objective Vital Signs Date Time Temp Pulse Resp B/P Pulse Ox O2 Delivery O2 Flow Rate FiO2 06/28/16 08:02 98 40 06/28/16 06:00 130 06/28/16 04:00 99.3 14 109/72 06/25/16 08:38 Simple Mask 8.00 Intake and Output 06/27/16 06/27/16 06/27/16 07:59 15:59 23:59 Intake Total 1114 ml 1055 ml 1011 ml Output Total 400 ml 450 ml 350 ml Balance 714 ml 605 ml 661 ml Result Diagram: 06/28/16 0515 06/28/16 0515 Other Results Laboratory Tests Test 06/27/16 06/27/16 06/27/16 06/28/16 12:10 14:10 23:15 05:15 Urine Color YELLOW Urine Turbidity HAZY Urine pH 5.0 Urine Specific [place] 1.012 Urine Protein NEG mg/dL Urine Glucose (UA) NEG mg/dL Urine Ketones NEG mg/dL Urine Occult Blood MOD Urine Nitrite NEG Urine Bilirubin NEG Urine Urobilinogen LESS THAN 2.0 MG/DL Urine Leukocyte Esterase NEG Urine RBC 53 /hpf Urine WBC 2 /hpf Urine Squamous Epithelial <1 /hpf Cells Urine Uric Acid Crystals RARE /hpf Urine Amorphous Sediment FEW Urine Bacteria OCC /hpf Urine Hyaline Casts 7 /lpf Urine Mucus FEW /lpf Microscopic Urinalysis Comment CATH-CULTURE IND Activated Partial 38.0 SEC 36.7 SEC 41.6 SEC Thromboplast Time White Blood Count 6.0 TH/MM3 Red Blood Count 3.68 MIL/MM3 Hemoglobin 11.4 GM/DL Hematocrit 33.2 % Mean Corpuscular Volume 90.1 FL Mean Corpuscular Hemoglobin 30.9 PG Mean Corpuscular Hemoglobin 34.3 % Concent Red Cell Distribution Width 13.9 % Platelet Count 154 TH/MM3 Mean Platelet Volume 9.3 FL Neutrophils (%) (Auto) 77.1 % Lymphocytes (%) (Auto) 6.8 % Monocytes (%) (Auto) 13.7 % Eosinophils (%) (Auto) 2.1 % Basophils (%) (Auto) 0.3 % Neutrophils # (Auto) 4.6 TH/MM3 Lymphocytes # (Auto) 0.4 TH/MM3 Monocytes # (Auto) 0.8 TH/MM3 Eosinophils # (Auto) 0.1 TH/MM3 Basophils # (Auto) 0.0 TH/MM3 CBC Comment DIFF FINAL Differential Comment Prothrombin Time 11.4 SEC Prothromb Time International 1.0 RATIO Ratio Sodium Level 143 MEQ/L Potassium Level 3.7 MEQ/L Chloride Level 107 MEQ/L Carbon Dioxide Level 30.4 MEQ/L Anion Gap 6 MEQ/L Blood Urea Nitrogen 20 MG/DL Creatinine 1.04 MG/DL Estimat Glomerular Filtration 72 ML/MIN Rate Random Glucose 127 MG/DL Calcium Level 8.5 MG/DL Phosphorus Level 3.4 MG/DL Magnesium Level 2.3 MG/DL Imaging Last Impressions Chest X-Ray 06/26/16 0000 Signed Impressions: Service Date/Time: Sunday, June 26, 2016 08:42 - CONCLUSION: Placement of NG tube otherwise not changed. Mauricio Hines MD Objective Remarks GENERAL: Well-nourished well-developed male intubated and sedated. SKIN: Warm and dry. HEAD: Atraumatic. Normocephalic. EYES: Pupils equal and round. No scleral icterus. No injection or drainage. ENT: No nasal bleeding or discharge. Mucous membranes pink and moist. NECK: Trachea midline. No JVD. Orally intubated CARDIOVASCULAR: Tachycardic, Nl S1, S2, no murmurs. RESPIRATORY: No accessory muscle use. Clear to auscultation. Breath sounds equal bilaterally. GASTROINTESTINAL: Abdomen soft, non-tender, nondistended. No guarding. MUSCULOSKELETAL: Extremities without clubbing, cyanosis, or edema. No obvious deformities. NEUROLOGICAL:RASS-2. On propofol and fentanyl infusions intubated and sedated. Date of Insertion: Jun 22, 2016 Line: Central Venous Catheter Side: Right Location: Internal, Jugular A/P Assessment and Plan Plan by systems: Neurologic: Delirium tremens Alcohol abuse Encephalopathy Alcohol withdrawal Restless leg syndrome On Diprivan and Fentanyl infusion for sedation. Daily sedation vacation Neurochecks per ICU protocol Continue with Thiamine , MVI, Folic acid Respiratory: Tobacco abuse VDRF Continue with vent support keep sat >92%., decrease PEEP: 5 Bronchodilators, ICU vent bundle. Start SBT daily as farzana 06/24 S/P RF cardiac ablation 06/21 Echo showed EF 35-40% Cardiovascular: Atrial fibrillation with RVR 06/25 Cardiomegaly Monitor HR and BP keep MAP>65mmHg On PO Cardizem 60mg QID On Heparin infusion- monitor PTT Cardiology following- Dr. Bautista S/P RF cardiac ablation per Renal: SHAWNA Monitor renal function, I/O's, avoid nephrotoxins Renal function improving with Cr:1.04 from 1.35 Diurese with Bumex 1mg x1 FEN/GI: Continue TF-Jevity 1.5 with goal rate 50ml/hr Zofran IV for nausea Protonix IV 40 mg/day Bowel regimen Heme/ID: Monitor CBC Transfuse for hemoglobin less than 7 Monitor PTT per heparin protocol Plan to transition to Coumadin PO, if no further cardiac procedures or other interventional procedures indicated Monitor for signs of infections ( Fever, WBC) follow up on sputum cx and urine cx Endocrine: Glucose monitoring per ICU protocol Low-dose regimen -- SSI Prophylaxis: GI Prophylaxis Protonix IV 40 mg/day DVT Prophylaxis -- SCDs Heparin infusion Lines: Peripheral IVs 2. Central line right IJ 06/22 CCT 30 mins Adrienne Suh MD Jun 28, 2016 08:57
[2016-06-28] MEDS: SODIUM CHLORIDE 0.9% FLUSH 10 ML FLUSH IV FLUSH SCH ×2 (09:00→21:31)
[2016-06-28] MEDS ORDERED: BUMETANIDE INJ 1 MG/4 ML VIAL IV PUSH ONE (09:00)
[2016-06-28] MEDS: LOSARTAN 50 MG TAB PO SCH (09:10)
[2016-06-28] MEDS: SENNOSIDES SYRUP 8.8 MG/5 ML CUP PO SCH (09:10)
[2016-06-28] MEDS: PANTOPRAZOLE SODIUM 40 MG VIAL IV SCH (09:10)
[2016-06-28] MEDS: DOCUSATE SODIUM 100 MG/10 ML UDC PO SCH ×2 (09:10→21:31)
[2016-06-28] MEDS: THIAMINE HCL 100 MG TAB PO SCH (09:11)
[2016-06-28] MEDS: DILTIAZEM HCL 60 MG TAB PO SCH ×4 (09:11→21:31)
[2016-06-28] MEDS: ASPIRIN 81 MG CHEW TAB PO SCH (09:11)
[2016-06-28 11:32] LABS: APTT (PATIENT) 37.9 SEC (24.3-30.1)
[2016-06-28] MEDS: MULTIVITAMIN INJ 10 ML, FOLIC ACID INJ 1 MG in SODIUM CHLORID 0.9% 500 ML INJ 500 ML IV SCH (14:50)
[2016-06-28 18:40] LABS: APTT (PATIENT) 38.7 SEC (24.3-30.1)
[2016-06-28] MEDS ORDERED: DEXTROSE 50% IN WATER 50 ML VIAL(D50) IV PUSH PRN (20:30)
[2016-06-28] MEDS ORDERED: GLUCAGON 1 MG/ML VIAL OTHER PRN (20:30)
[2016-06-28] MEDS: INSULIN NovoLIN REGULAR SUPPLEMENTAL SCALE SQ SCH (21:00)
[2016-06-29] VITALS (17 sets, daily range): BP systolic 103–127; BP diastolic 58–87; PULSE 81–117; RESP 14–22; TEMP 98–99; O2SAT 94–98
[2016-06-29 03:00] LABS: APTT (PATIENT) 51.5 SEC (24.3-30.1)
[2016-06-29] MEDS: PROPOFOL 1000 MG/100 ML INJ 100 ML IV SCH ×5 (03:04→20:42)
[2016-06-29] MEDS: RESP: ALBUTEROL 2.5 MG/IPRATROPIUM 0.5 MG NEB (SCH) NEB ×3 (03:56→21:14)
[2016-06-29] MEDS: CHLORHEXIDINE GLUCONATE 2 % 1 PACK (2 CLOTHS) TOP SCH (04:00)
[2016-06-29 05:57] LABS: BASOPHIL % 0.5 % (0.0-2.0); EOSINOPHIL # 0.2 TH/MM3 (0-0.4); EOSINOPHIL % 2.9 % (0.0-4.0); HEMATOCRIT 32.7 % (39.0-51.0); HEMO FLAGS DIFF FINAL; LYMPH % 10.7 % (9.0-44.0); LYMPHOCYTE # 0.6 TH/MM3 (1.0-4.8); MEAN CELL VOLUME 89.6 FL (80.0-100.0); MEAN CORPUSCULAR HEMOGLOBIN 30.1 PG (27.0-34.0); MEAN CORPUSCULAR HGB CONC 33.6 % (32.0-36.0); MONO % 12.5 % (0.0-8.0); NEUT % 73.4 % (16.0-70.0); PLATELET COUNT 158 TH/MM3 (150-450); RED BLOOD COUNT 3.65 MIL/MM3 (4.50-5.90); RED CELL DISTRIBUTION WIDTH 13.6 % (11.6-17.2); WHITE BLOOD COUNT 5.5 TH/MM3 (4.0-11.0)
[2016-06-29 05:58] LABS: APTT (PATIENT) 52.4 SEC (24.3-30.1); INTERNATIONAL NORMALIZED RATIO 1.1 RATIO; PROTHROMBIN TIME - PATIENT 11.9 SEC (9.8-11.6)
[2016-06-29 06:10] LABS: POTASSIUM 3.5 MEQ/L (3.5-5.1)
[2016-06-29] MEDS: fentaNYL 2,500 MCG/NS 250 ML IV SCH ×3 (06:10→20:43)
[2016-06-29] MEDS: HEPARIN-D5W INJ 250 ML IV SCH (06:11)
[2016-06-29] MEDS: INSULIN NovoLIN REGULAR SUPPLEMENTAL SCALE SQ SCH ×4 (06:22→21:00)
[2016-06-29] MEDS: THIAMINE HCL 100 MG TAB PO SCH (09:00)
[2016-06-29] MEDS: DOCUSATE SODIUM 100 MG/10 ML UDC PO SCH ×2 (09:08→21:01)
[2016-06-29] MEDS: SENNOSIDES SYRUP 8.8 MG/5 ML CUP PO SCH (09:08)
[2016-06-29] MEDS: LOSARTAN 50 MG TAB PO SCH (09:09)
[2016-06-29] MEDS: DILTIAZEM HCL 60 MG TAB PO SCH ×3 (09:09→21:01)
[2016-06-29] MEDS: PANTOPRAZOLE SODIUM 40 MG VIAL IV SCH (09:09)
[2016-06-29] MEDS: ASPIRIN 81 MG CHEW TAB PO SCH (09:09)
[2016-06-29] MEDS: SODIUM CHLORIDE 0.9% FLUSH 10 ML FLUSH IV FLUSH SCH ×2 (09:10→21:00)
--- NOTE | 2016-06-29 09:43 | HHI.CCPN ---
Subjective Remarks/Hospital Course On 06/21 ,Mr. Guevara presented with a PMHx of HTN presenting from the [facility] with an elevated, irregular heart rate. He is a patient of Dr. Irwin Rodriguez, who sent this patient from clinic. In clinic, he had a heart rate in the 150s and was instructed to go to the ED for further evaluation. Upon arriving to the ED ,the patient was found to have atrial flutter on twelve-lead EKG with a rate 151 with 2-1 conduction. He denied any chest pain, prior arrhythmia, thyroid disorder, or heart disease. He reported his last EKG was approximately 8 years ago before his eye surgery s/p accident. The patient has a significant alcohol and smoking history, but denies any illicit drugs. He states that he is at his baseline except for 3 episodes of nonbloody diarrhea that have all occurred over this morning. The patient was admitted to the hospital, and placed on CIWA protocol, Cardizem infusion and was scheduled for ablation per interventional cardiology. Early this a.m. the patient became significantly more confused, difficult to control a Hallicat at was called, and the patient was transferred to ICU for further management. Subjective 06/23: Afebrile. Since admission to the ICU yesterday, the patient was placed initially on Precedex infusion for agitation/delirium, in addition to CIWA protocol. The patient subsequently required intubation. Later the afternoon the patient became hypotensive requiring vasopressor support of Levophed which was weaned off during the night. The patient converted to A. fib flutter heart rate 150s and Cardizem infusion was reinitiated. Systolic blood pressure low 100's. The patient continues on Versed low-dose and fentanyl infusions for ventilator synchrony. Plan today for cardiac ablation with Dr. Ponce. 06/24: The patient underwent successful RF ablation for atrial flutter, patient currently remains sinus rhythm sinus tach. The patient underwent CPAP trials however self extubated. Immediately upon self extubation the patient stated " I havent had a drink in 3 days, I need a drink" .The patient's maintain an O2 sat greater than 92% on Ventimask at 50% currently. The patient continues to be confused and agitated than what appears to be delirium tremens , Precedex infusion begun with Ativan PRN . Family present at bedside with patient. The patient noted to be confused, combative, remains in 4 point restraints. Will initiate Coumadin pharmacy dosing, with overlap of heparin until therapeutic INR today. CIWA protocol initiated. 06/25: The patient remain on Precedex infusion throughout the night, with supplementation per [facility] protocol and rested comfortably without agitation, in normal sinus rhythm. During the night he received Lasix 20 mg IV and diuresed greater than 1 L. At approximately 1400, the patient went into A. fib RVR with a rate of 220, and extremely dyspneic with audibly expiratory wheezing. Cardizem bolus 20 mg 2 doses was given. The patient was placed on a Cardizem infusion at 10 mg per hour. The heart rate decreased from 80-100, but rhythm atrial fibrillation. The patient continued to have respiratory distress, tachypnea with a rate in the 40s50s. An ABG was obtained showing a very large A-a gradient, and a PaO2 of 77 on 100% nonrebreather after 40 mg of Lasix diuresis and a DuoNeb treatment. Emergent intubation was required, family at bedside, discussed extensively with and updated her on the the patient's current condition. The patient was reintubated. He continues on a heparin infusion propofol infusion for ventilator synchrony. 06/26:Tmax 100.6. Patient's rhythm atrial fibrillation with a rate 90-109, Cardizem 12 mg/hour. The patient continues on a heparin infusion at this time. Patient was noted to have flash pulmonary edema episode of A. fib RVR which required intubation. Repeat chest x-ray this a.m. still shows pulmonary edema, the patient was diuresed approximately 2 L yesterday, he continues on a PEEP of 10. Patient remains sedated on a propofol and fentanyl infusion for ventilator synchrony. Will initiate tube feeds today. 06/27 Patient is sedated with Diprivan, Fentnayl and intubated. Tmax 100.6. On Heparin and Cardizem drips. On SIMV with FIO2 80%, PEEP: 10. 06/28 No acute events overnight. Remains sedated and intubated. Afebrile. Off Cardizem drip . On ACV with PEEP: 10 and FIO2 40%. T:100.3 at midnight. 06/29 Patient remains sedated and intubated. Afebrile. Remains on Heparin drip. Objective Vital Signs Date Time Temp Pulse Resp B/P Pulse Ox O2 Delivery O2 Flow Rate FiO2 06/29/16 08:21 95 40 06/29/16 06:00 94 06/29/16 04:00 98.4 14 103/60 06/25/16 08:38 Simple Mask 8.00 Intake and Output 06/28/16 06/28/16 06/29/16 08:00 16:00 00:00 Intake Total 767 ml 979 ml 1577 ml Output Total 300.0 ml 1150.0 ml 350.0 ml Balance 467.0 ml -171.0 ml 1227.0 ml Result Diagram: 06/29/16 0510 06/29/16 0510 Other Results Laboratory Tests Test 06/28/16 06/28/16 06/29/16 06/29/16 11:00 18:05 02:10 05:10 Activated Partial 37.9 SEC 38.7 SEC 51.5 SEC 52.4 SEC Thromboplast Time White Blood Count 5.5 TH/MM3 Red Blood Count 3.65 MIL/MM3 Hemoglobin 11.0 GM/DL Hematocrit 32.7 % Mean Corpuscular Volume 89.6 FL Mean Corpuscular Hemoglobin 30.1 PG Mean Corpuscular Hemoglobin 33.6 % Concent Red Cell Distribution Width 13.6 % Platelet Count 158 TH/MM3 Mean Platelet Volume 9.3 FL Neutrophils (%) (Auto) 73.4 % Lymphocytes (%) (Auto) 10.7 % Monocytes (%) (Auto) 12.5 % Eosinophils (%) (Auto) 2.9 % Basophils (%) (Auto) 0.5 % Neutrophils # (Auto) 4.0 TH/MM3 Lymphocytes # (Auto) 0.6 TH/MM3 Monocytes # (Auto) 0.7 TH/MM3 Eosinophils # (Auto) 0.2 TH/MM3 Basophils # (Auto) 0.0 TH/MM3 CBC Comment DIFF FINAL Differential Comment Prothrombin Time 11.9 SEC Prothromb Time International 1.1 RATIO Ratio Sodium Level 143 MEQ/L Potassium Level 3.5 MEQ/L Chloride Level 105 MEQ/L Carbon Dioxide Level 33.0 MEQ/L Anion Gap 5 MEQ/L Blood Urea Nitrogen 17 MG/DL Creatinine 0.90 MG/DL Estimat Glomerular Filtration 86 ML/MIN Rate Random Glucose 171 MG/DL Calcium Level 9.0 MG/DL Imaging Last Impressions Chest X-Ray 06/26/16 0000 Signed Impressions: Service Date/Time: Sunday, June 26, 2016 08:42 - CONCLUSION: Placement of NG tube otherwise not changed. Mauricio Hines MD Objective Remarks GENERAL: Well-nourished well-developed male intubated and sedated. SKIN: Warm and dry. HEAD: Atraumatic. Normocephalic. EYES: Pupils equal and round. No scleral icterus. No injection or drainage. ENT: No nasal bleeding or discharge. Mucous membranes pink and moist. NECK: Trachea midline. No JVD. Orally intubated CARDIOVASCULAR: Tachycardic, Nl S1, S2, no murmurs. RESPIRATORY: No accessory muscle use. Clear to auscultation. Breath sounds equal bilaterally. GASTROINTESTINAL: Abdomen soft, non-tender, nondistended. No guarding. MUSCULOSKELETAL: Extremities without clubbing, cyanosis, or edema. No obvious deformities. NEUROLOGICAL:RASS-2. On propofol and fentanyl infusions intubated and sedated. Date of Insertion: Jun 22, 2016 Line: Central Venous Catheter Side: Right Location: Internal, Jugular A/P Assessment and Plan Plan by systems: Neurologic: Delirium tremens Alcohol abuse Encephalopathy Alcohol withdrawal Restless leg syndrome On Diprivan and Fentanyl infusion for sedation. Daily sedation vacation Place on Precedex drip to facilitate with weaning trials. Neurochecks per ICU protocol Continue with Thiamine , MVI, Folic acid Respiratory: Tobacco abuse VDRF Continue with vent support keep sat >92%., Bronchodilators, ICU vent bundle. SBT daily as farzana Check CXR Cardiovascular: Atrial fibrillation with RVR 06/25 Cardiomegaly Monitor HR and BP keep MAP>65mmHg On PO Cardizem 60mg QID On Heparin infusion- monitor PTT Cardiology following- Dr. Bautista 06/24 S/P RF cardiac ablation 06/21 Echo showed EF 35-40% Renal: SHAWNA- resolved Monitor renal function, I/O's, electrolytes replacement per protocol. Diurese with Bumex 1mg IV daily FEN/GI: Continue TF-Jevity 1.5 with goal rate 50ml/hr Zofran IV for nausea Protonix IV 40 mg/day Bowel regimen Heme/ID: Monitor CBC Transfuse for hemoglobin less than 7 Monitor PTT per heparin protocol Plan to transition to Coumadin PO, if no further cardiac procedures or other interventional procedures indicated Monitor for signs of infections ( Fever, WBC) Endocrine: Glucose monitoring per ICU protocol Low-dose regimen -- SSI Prophylaxis: GI Prophylaxis Protonix IV 40 mg/day DVT Prophylaxis -- SCDs Heparin infusion Lines: Peripheral IVs 2. Central line right IJ 06/22 CCT 30 mins Adrienne Suh MD Jun 29, 2016 09:43
[2016-06-29] MEDS: BUMETANIDE INJ 1 MG/4 ML VIAL IV PUSH SCH (10:48)
--- NOTE | 2016-06-29 11:05 | RADRPT ---
EXAM DATE/TIME: 06/29/2016 10:15 [place] COMPARISON: CHEST SINGLE AP, June 25, 2016, 17:14. CHEST SINGLE AP, June 26, 2016, 8:42. INDICATIONS : Respiratory failure. MEDICAL HISTORY : Hypertension. SURGICAL HISTORY : None. ENCOUNTER: Subsequent ACUITY: 1 week PAIN SCORE: Non-responsive. LOCATION: Bilateral chest FINDINGS: Endotracheal tube tip is 4 cm above the burak. Right internal jugular catheter tip projects over th e proximal superior vena cava. There is persistent consolidation in the left lower lung with loss of delineation the left hemidiaphragm. There is a new area of consolidation in the right upper lobe ad jacent to the minor fissure. The right hemidiaphragm is well delineated. The heart is enlarged, sim ilar to prior. CONCLUSION: Stable consolidation left lower lobe. New area of consolidation in the right upper lobe. Alexandr Bernal MD on June 29, 2016 at 11:02 Board Certified Radiologist. This report was verified electronically.
--- NOTE | 2016-06-29 11:56 | HHI.FPPN ---
Subjective Remarks Patient seen and examined this morning. No acute events overnight. Patient remains tachycardic to 122 over the last 24 hours. Patient continues to be intubated and sedated with heparin drip. Critical care plans to initiate Precedex drip today and possible CPAP trials this afternoon pending clinical course. Objective Vitals Vital Signs Date Time Temp Pulse Resp B/P Pulse Ox O2 Delivery O2 Flow Rate FiO2 06/29/16 11:33 97 40 06/29/16 10:00 113 06/29/16 08:21 95 40 06/29/16 08:00 98.0 108 22 126/80 96 06/29/16 08:00 40 06/29/16 08:00 113 06/29/16 06:00 94 06/29/16 04:00 40 06/29/16 04:00 90 06/29/16 04:00 98.4 90 14 103/60 97 06/29/16 03:56 97 40 06/29/16 02:00 104 06/29/16 00:00 99.0 94 14 108/58 94 06/29/16 00:00 40 06/29/16 00:00 94 06/28/16 22:58 93 40 06/28/16 22:00 103 06/28/16 20:00 114 06/28/16 20:00 99.0 114 14 90/73 94 06/28/16 20:00 40 06/28/16 19:42 94 40 06/28/16 18:00 108 06/28/16 16:44 97 40 06/28/16 16:00 99.5 99 14 115/60 96 06/28/16 16:00 40 06/28/16 16:00 99 06/28/16 14:15 40 06/28/16 14:00 40 06/28/16 14:00 122 06/28/16 14:00 40 06/28/16 12:11 96 40 06/28/16 12:00 40 06/28/16 12:00 99.5 101 14 100/59 98 06/28/16 12:00 101 I/O 06/28/16 06/28/16 06/28/16 06/29/16 06/29/16 06/29/16 07:00 15:00 23:00 07:00 15:00 23:00 Intake Total 767 ml 979 ml 1577 ml 826 ml Output Total 300 ml 1150 ml 350 ml 250 ml Balance 467 ml -171 ml 1227 ml 576 ml IV Total 459 ml 496 ml 1094 ml 492 ml Tube Feeding 308 ml 363 ml 383 ml 334 ml Other 120 ml 100 ml Output Urine Total 300 ml 1150 ml 350 ml 250 ml Tube Feeding Residual Discard 0 ml 0 ml 0 ml 0 ml # Bowel Movements 0 0 0 Result Diagram: 06/29/1610 06/29/16509 Objective Remarks GENERAL: 61 y/o CM lying in bed, in no acute cardiopulmonary distress. SKIN: Warm and dry. CARDIOVASCULAR: Tachycardic to 110s in atrial fibrillation. RESPIRATORY: Currently intubated. Breath sound equal bilaterally with mild coarse breath sounds GASTROINTESTINAL: Abdomen soft, non-tender, nondistended with +BS. No masses appreciated. MUSCULOSKELETAL: Extremities without cyanosis. Mild edema to BL hands. UROGENITAL: Patient with lakhani catheter in place. No signs of hemorrhage at site of insertion. Urine concentration improved. NEUROLOGICAL: Patient currently intubated and sedated. Date of Insertion: Jun 22, 2016 Line: Central Venous Catheter Side: Right Location: Internal, Jugular A/P Assessment and Plan Mr. Guevara is a 61 y/o CM with a PMHx of HTN and alcohol abuse presenting from the [facility] with an elevated, irregular heart rate found to have atrial flutter. He is s/p cardiac ablation and currently in sinus rhythm. Currently withdrawing from chronic alcohol use, on the CIWA protocol. Discharge Planning Unclear given patient's current clinical state. Discussed with Dr. Abreu, Dr. Pizarro Problem List: (1) Alcohol withdrawal Status: Acute Plan: Medical team paged for HALICAT at approximately 0745 on 06/23/15 due to agitation. Per nursing report patient had been agitated and altered throughout the night with CIWA scores up to 25. The patient does have an extensive history of alcohol use with up to 3/4 drinks per day. He also has an extensive smoking history. Patient transferred to ICU. Caddy Packer consulted, appreciate recommendations Patient intubated, then self extubated despite Midazolam and fentanyl infusion. Patient reintubated on 06/25 due to flash pulmonary edema with desaturation. Continue to monitor respiratory status Ativan per CIWA protocol, scores up to 5 the last 24 hours Currently on Diprivan and fentanyl drips Per staff, critical care will plan to transition to Precedex drip today for likely CPAP trials and eventual extubation pending clinical course (2) Atrial flutter with rapid ventricular response Status: Acute Plan: Patient presenting from clinic with atrial fibrillation with rate into the 150s, found to be in atrial flutter. Patient was then ablated, however presented with atrial fibrillation with RVR to a rate of 220. HR currently elevated to the 130s. Cardiology consulted, appreciate recommendations and intervention Patient status post successful ablation on 06/23, currently on a heparin drip and in sinus rhythm Echo: Normal cavity size and wall thickness. Systolic function mildly reduced with EF of 35-40%, however study was limited due to markedly tachycardia. Wall motion normal. Patient converted to atrial fibrillation with RVR on 06/25 to a rate of 220, diltiazem drip initiated to control rate. Diltiazem drip has currently been stopped (06/25-06/27) and he has been transitioned to PO Cardizem. Medications: Heparin drip Diltiazem 60 mg 4 times a day Lopressor 2.5 mg every 6 hours when necessary for heart rate greater than 100 (3) Creatinine elevation Status: Acute Plan: Patient with creatinine elevation to 1.9 on 06/26/16 which has since resolved with IV fluid resuscitation. Patient with hematuria upon Lakhani placement, likely traumatic placement. Strict I's/O's with Lakhani catheter Continue to monitor (4) Hypertension Status: Chronic Plan: Patient with chronic HTN Pt has been hypotensive and required pressors from 06/23 until 06/24, BP currently stable. Hold home Irbesartan-HCTZ (300-12.5) with conversion to Losartan 100mg daily and HCTZ 12.5mg daily Cardizem 60mg QID Bumex 1 mg daily Losartan 100 mg daily (5) Restless leg syndrome Status: Chronic Plan: Patient with reported restless leg syndrome -Hold Ropinirole for now (6) Nutrition, metabolism, and development symptoms Status: Acute Plan: Fluids: Currently none, monitor I/Os Diet: NPO as patient is intubated. Tube feeds with Jevity at goal with rate of 50 ml/hr. Electrolytes: WNL, continue to monitor DVT: Heparin drip Prophylaxis: Protonix 40 mg IV daily, DuoNeb's every 6 hours when necessary for shortness of breath/wheezing, hydroxyzine 25 mg daily at bedtime when necessary for insomnia (Held) Problem Qualifiers (1) Alcohol withdrawal: Qualified Code: F10.231 - Alcohol withdrawal, with delirium (2) Hypertension: Qualified Code: I10 - Essential hypertension Swapnil Barrera MD R1 Jun 29, 2016 11:56
[2016-06-29 15:34] LABS: APTT (PATIENT) 44.7 SEC (24.3-30.1)
[2016-06-29] MEDS: DEXMEDETOMIDINE INJ 200 MCG in SODIUM CHLORIDE 0.9% INJ 50 ML IV SCH ×2 (15:48→20:42)
[2016-06-29] MEDS: DEXMEDETOMIDINE INJ 1,000 MCG in SODIUM CHLOR 0.9% 250 ML INJ 250 ML IV SCH (23:06)
[2016-06-30] VITALS (18 sets, daily range): BP systolic 100–129; BP diastolic 70–87; PULSE 9–105; RESP 14–22; TEMP 97.5–99.7; O2SAT 93–100
[2016-06-30] MEDS: RESP: ALBUTEROL 2.5 MG/IPRATROPIUM 0.5 MG NEB (SCH) NEB ×4 (03:04→19:54)
[2016-06-30] MEDS: CHLORHEXIDINE GLUCONATE 2 % 1 PACK (2 CLOTHS) TOP SCH (04:00)
[2016-06-30] MEDS: PROPOFOL 1000 MG/100 ML INJ 100 ML IV SCH ×5 (04:08→20:40)
[2016-06-30 04:58] LABS: AUTOMATED NEUTROPHIL # 4.6 TH/MM3 (1.8-7.7); BASOPHIL % 0.5 % (0.0-2.0); EOSINOPHIL # 0.2 TH/MM3 (0-0.4); EOSINOPHIL % 3.5 % (0.0-4.0); HEMATOCRIT 36.5 % (39.0-51.0); HEMO FLAGS DIFF FINAL; LYMPH % 9.8 % (9.0-44.0); LYMPHOCYTE # 0.6 TH/MM3 (1.0-4.8); MEAN CELL VOLUME 89.9 FL (80.0-100.0); MEAN CORPUSCULAR HEMOGLOBIN 30.5 PG (27.0-34.0); MEAN CORPUSCULAR HGB CONC 33.9 % (32.0-36.0); MONO % 11.9 % (0.0-8.0); NEUT % 74.3 % (16.0-70.0); PLATELET COUNT 167 TH/MM3 (150-450); RED BLOOD COUNT 4.06 MIL/MM3 (4.50-5.90); RED CELL DISTRIBUTION WIDTH 13.5 % (11.6-17.2); WHITE BLOOD COUNT 6.2 TH/MM3 (4.0-11.0)
[2016-06-30 05:11] LABS: BICARBONATE 35.1 MEQ/L (21.0-32.0); POTASSIUM 3.8 MEQ/L (3.5-5.1)
[2016-06-30 05:22] LABS: APTT (PATIENT) 49.2 SEC (24.3-30.1); PROTHROMBIN TIME - PATIENT 11.4 SEC (9.8-11.6)
[2016-06-30] MEDS: INSULIN NovoLIN REGULAR SUPPLEMENTAL SCALE SQ SCH ×4 (06:01→20:35)
[2016-06-30] MEDS: HEPARIN-D5W INJ 250 ML IV SCH ×2 (06:24→17:31)
[2016-06-30] MEDS: THIAMINE HCL 100 MG TAB PO SCH (07:38)
[2016-06-30] MEDS: PANTOPRAZOLE SODIUM 40 MG VIAL IV SCH (07:38)
[2016-06-30] MEDS: DILTIAZEM HCL 60 MG TAB PO SCH ×4 (07:38→20:35)
[2016-06-30] MEDS: SENNOSIDES SYRUP 8.8 MG/5 ML CUP PO SCH (07:39)
[2016-06-30] MEDS: DOCUSATE SODIUM 100 MG/10 ML UDC PO SCH ×2 (07:39→20:35)
[2016-06-30] MEDS: LOSARTAN 50 MG TAB PO SCH (07:39)
[2016-06-30] MEDS: BUMETANIDE INJ 1 MG/4 ML VIAL IV PUSH SCH (07:39)
[2016-06-30] MEDS: ASPIRIN 81 MG CHEW TAB PO SCH (07:40)
--- NOTE | 2016-06-30 07:48 | HHI.FPPN ---
Subjective Remarks Patient remains intubated and sedated with Precedex drip. Patient has been having increased respiratory secretions per nursing staff with one episode during exam this morning. Patient has shown improvement with neurological status and HR since the Precedex drip was initiated. Critical Care will plan for CPAP trials/extubation pending clinical course today per report. (Swapnil Barrera MD R1) Objective Vitals Vital Signs Date Time Temp Pulse Resp B/P Pulse Ox O2 Delivery O2 Flow Rate FiO2 06/30/16 06:00 93 06/30/16 04:22 95 40 06/30/16 04:00 40 06/30/16 04:00 95 06/30/16 04:00 99.7 95 15 129/87 95 06/30/16 02:09 97 40 06/30/16 02:00 81 06/30/16 00:00 98.7 87 14 120/81 96 06/30/16 00:00 87 06/30/16 00:00 40 06/29/16 22:00 86 06/29/16 21:14 98 40 06/29/16 20:00 98.4 81 14 123/78 94 06/29/16 20:00 81 06/29/16 20:00 40 06/29/16 18:00 117 06/29/16 17:02 97 40 06/29/16 16:00 40 06/29/16 16:00 98.3 104 22 108/72 96 06/29/16 16:00 117 06/29/16 14:00 98.2 87 20 127/87 98 06/29/16 14:00 117 06/29/16 12:00 117 06/29/16 12:00 40 06/29/16 11:33 97 40 06/29/16 10:00 113 06/29/16 08:21 95 40 06/29/16 08:00 98.0 108 22 126/80 96 06/29/16 08:00 40 06/29/16 08:00 113 I/O 06/29/16 06/29/16 06/29/16 06/30/16 06/30/16 06/30/16 07:00 15:00 23:00 07:00 15:00 23:00 Intake Total 826 ml 793 ml 1562 ml 646 ml Output Total 250 ml 1100 ml 475 ml 150 ml Balance 576 ml -307 ml 1087 ml 496 ml IV Total 492 ml 436 ml 957 ml 432 ml Tube Feeding 334 ml 357 ml 485 ml 214 ml Other 120 ml Output Urine Total 250 ml 1100 ml 475 ml 150 ml Tube Feeding Residual Discard 0 ml # Bowel Movements 0 0 0 (Swapnil Barrera MD R1) Result Diagram: 06/30/1642906/30/16429 Objective Remarks GENERAL: 61 y/o CM lying in bed, in no acute cardiopulmonary distress. SKIN: Warm and dry. CARDIOVASCULAR: Tachycardic to 90s in atrial fibrillation. RESPIRATORY: Currently intubated. Increased coarse breath sounds BL with yellow/ green respiratory secretions per ET tube suction. GASTROINTESTINAL: Abdomen slightly distended likely secondary to constipation. + BS. MUSCULOSKELETAL: Extremities without cyanosis. Mild edema to BL hands. UROGENITAL: Patient with lakhani catheter in place. No signs of hemorrhage at site of insertion. NEUROLOGICAL: Patient currently intubated and sedated. (Swapnil Barrera MD R1) Date of Insertion: Jun 22, 2016 Line: Central Venous Catheter Side: Right Location: Internal, Jugular (Swapnil Barrera MD R1) A/P Assessment and Plan Mr. Guevara is a 61 y/o CM with a PMHx of HTN and alcohol abuse presenting from the [facility] with an elevated, irregular heart rate found to have atrial flutter. He is s/p cardiac ablation and currently in sinus rhythm. Currently withdrawing from chronic alcohol use, on the CIWA protocol. Discharge Planning Unclear given patient's current clinical state. Discussed with Dr. Abreu, Dr. Pizarro (Swapnil Barrera MD R1) Attending Attestation Pt. examined and case discussed with resident physicians I have read the above note and agree with the assessment/plan as discussed with me I was involved in all medical decision making for this patient Shashank Abreu MD (Shashank Abreu MD) Problem List: (1) Alcohol withdrawal Status: Acute Plan: Medical team paged for HALICAT at approximately 0745 on 06/23/15 due to agitation. Per nursing report patient had been agitated and altered throughout the night with CIWA scores up to 25. The patient does have an extensive history of alcohol use with up to 3/4 drinks per day. He also has an extensive smoking history. Patient transferred to ICU. Garment Sorter consulted, appreciate recommendations Patient intubated, then self extubated despite Midazolam and fentanyl infusion. Patient reintubated on 06/25 due to flash pulmonary edema with desaturation. Continue to monitor respiratory status Ativan per [facility] protocol Currently on Diprivan, fentanyl, and Precedex drips Per staff, critical care will plan for CPAP trials and eventual extubation pending clinical course CXR 06/29: Stable consolidation of L lower lobe. New area of consolidation in R upper lobe Team to discuss with Critical Care possibility of PNA vs atelectasis (2) Atrial flutter with rapid ventricular response Status: Acute Plan: Patient presenting from clinic with atrial fibrillation with rate into the 150s, found to be in atrial flutter. Patient was then ablated, however presented with atrial fibrillation with RVR to a rate of 220. HR currently elevated to the 130s. Cardiology consulted, appreciate recommendations and intervention Patient status post successful ablation on 06/23, currently on a heparin drip and in sinus rhythm Echo: Normal cavity size and wall thickness. Systolic function mildly reduced with EF of 35-40%, however study was limited due to markedly tachycardia. Wall motion normal. Patient converted to atrial fibrillation with RVR on 06/25 to a rate of 220, diltiazem drip initiated to control rate. Diltiazem drip has currently been stopped (06/25-06/27) and he has been transitioned to PO Cardizem. Medications: Heparin drip Diltiazem 60 mg 4 times a day Lopressor 2.5 mg every 6 hours when necessary for heart rate greater than 100 ASA 81mg daily (3) Creatinine elevation Status: Acute Plan: Patient with creatinine elevation to 1.9 on 06/26/16 which has since resolved with IV fluid resuscitation. Patient with hematuria upon Lakhani placement, likely traumatic placement. Strict I's/O's with Lakhani catheter Continue to monitor (4) Hypertension Status: Chronic Plan: Patient with chronic HTN Pt has been hypotensive and required pressors from 06/23 until 06/24, BP currently stable. Hold home Irbesartan-HCTZ (300-12.5) with conversion to Losartan 100mg daily and HCTZ 12.5mg daily Cardizem 60mg QID Bumex 1 mg daily Losartan 100 mg daily (5) Restless leg syndrome Status: Chronic Plan: Patient with reported restless leg syndrome -Hold Ropinirole for now (6) Nutrition, metabolism, and development symptoms Status: Acute Plan: Fluids: Currently none, monitor I/Os Diet: NPO as patient is intubated. Tube feeds with Jevity at goal with rate of 50 ml/hr. Electrolytes: WNL, continue to monitor DVT: Heparin drip Prophylaxis: Protonix 40 mg IV daily, DuoNeb's every 6 hours when necessary for shortness of breath/wheezing, hydroxyzine 25 mg daily at bedtime when necessary for insomnia (Held) Constipation: Senna daily and Colace BID, Monitor stool output (Swapnil Barrera MD R1) Problem Qualifiers (1) Alcohol withdrawal: Qualified Code: F10.231 - Alcohol withdrawal, with delirium (2) Hypertension: Qualified Code: I10 - Essential hypertension Swapnil Barrera MD R1 Jun 30, 2016 07:48 Shashank Abreu MD Jun 30, 2016 09:54
[2016-06-30] MEDS: fentaNYL 2,500 MCG/NS 250 ML IV SCH ×2 (08:06→17:19)
--- NOTE | 2016-06-30 08:24 | HHI.CCPN ---
Subjective Remarks/Hospital Course On 06/21 ,Mr. Guevara presented with a PMHx of HTN presenting from the [facility] with an elevated, irregular heart rate. He is a patient of Dr. Irwin Rodriguez, who sent this patient from clinic. In clinic, he had a heart rate in the 150s and was instructed to go to the ED for further evaluation. Upon arriving to the ED ,the patient was found to have atrial flutter on twelve-lead EKG with a rate 151 with 2-1 conduction. He denied any chest pain, prior arrhythmia, thyroid disorder, or heart disease. He reported his last EKG was approximately 8 years ago before his eye surgery s/p accident. The patient has a significant alcohol and smoking history, but denies any illicit drugs. He states that he is at his baseline except for 3 episodes of nonbloody diarrhea that have all occurred over this morning. The patient was admitted to the hospital, and placed on CIWA protocol, Cardizem infusion and was scheduled for ablation per interventional cardiology. Early this a.m. the patient became significantly more confused, difficult to control a Hallicat at was called, and the patient was transferred to ICU for further management. Subjective 06/23: Afebrile. Since admission to the ICU yesterday, the patient was placed initially on Precedex infusion for agitation/delirium, in addition to CIWA protocol. The patient subsequently required intubation. Later the afternoon the patient became hypotensive requiring vasopressor support of Levophed which was weaned off during the night. The patient converted to A. fib flutter heart rate 150s and Cardizem infusion was reinitiated. Systolic blood pressure low 100's. The patient continues on Versed low-dose and fentanyl infusions for ventilator synchrony. Plan today for cardiac ablation with Dr. Ponce. 06/24: The patient underwent successful RF ablation for atrial flutter, patient currently remains sinus rhythm sinus tach. The patient underwent CPAP trials however self extubated. Immediately upon self extubation the patient stated " I havent had a drink in 3 days, I need a drink" .The patient's maintain an O2 sat greater than 92% on Ventimask at 50% currently. The patient continues to be confused and agitated than what appears to be delirium tremens , Precedex infusion begun with Ativan PRN . Family present at bedside with patient. The patient noted to be confused, combative, remains in 4 point restraints. Will initiate Coumadin pharmacy dosing, with overlap of heparin until therapeutic INR today. CIWA protocol initiated. 06/25: The patient remain on Precedex infusion throughout the night, with supplementation per [facility] protocol and rested comfortably without agitation, in normal sinus rhythm. During the night he received Lasix 20 mg IV and diuresed greater than 1 L. At approximately 1400, the patient went into A. fib RVR with a rate of 220, and extremely dyspneic with audibly expiratory wheezing. Cardizem bolus 20 mg 2 doses was given. The patient was placed on a Cardizem infusion at 10 mg per hour. The heart rate decreased from 80-100, but rhythm atrial fibrillation. The patient continued to have respiratory distress, tachypnea with a rate in the 40s50s. An ABG was obtained showing a very large A-a gradient, and a PaO2 of 77 on 100% nonrebreather after 40 mg of Lasix diuresis and a DuoNeb treatment. Emergent intubation was required, family at bedside, discussed extensively with and updated her on the the patient's current condition. The patient was reintubated. He continues on a heparin infusion propofol infusion for ventilator synchrony. 06/26:Tmax 100.6. Patient's rhythm atrial fibrillation with a rate 90-109, Cardizem 12 mg/hour. The patient continues on a heparin infusion at this time. Patient was noted to have flash pulmonary edema episode of A. fib RVR which required intubation. Repeat chest x-ray this a.m. still shows pulmonary edema, the patient was diuresed approximately 2 L yesterday, he continues on a PEEP of 10. Patient remains sedated on a propofol and fentanyl infusion for ventilator synchrony. Will initiate tube feeds today. 06/27 Patient is sedated with Diprivan, Fentnayl and intubated. Tmax 100.6. On Heparin and Cardizem drips. On SIMV with FIO2 80%, PEEP: 10. 06/28 No acute events overnight. Remains sedated and intubated. Afebrile. Off Cardizem drip . On ACV with PEEP: 10 and FIO2 40%. T:100.3 at midnight. 06/29 Patient remains sedated and intubated. Afebrile. Remains on Heparin drip. 06/30 Patient remains sedated and intubated. Did not tolerate CPAP trials yesterday. T: 99.7 at 4am. On Heparin drip. Objective Vital Signs Date Time Temp Pulse Resp B/P Pulse Ox O2 Delivery O2 Flow Rate FiO2 06/30/16 06:00 93 06/30/16 04:22 95 40 06/30/16 04:00 99.7 15 129/87 Intake and Output 06/29/16 06/29/16 06/30/16 08:00 16:00 00:00 Intake Total 826 ml 793 ml 1562 ml Output Total 250 ml 1100 ml 475 ml Balance 576 ml -307 ml 1087 ml Result Diagram: 06/30/16 0430 06/30/16 0430 Other Results Laboratory Tests Test 06/29/16 06/30/16 15:00 04:30 Activated Partial 44.7 SEC 49.2 SEC Thromboplast Time White Blood Count 6.2 TH/MM3 Red Blood Count 4.06 MIL/MM3 Hemoglobin 12.4 GM/DL Hematocrit 36.5 % Mean Corpuscular Volume 89.9 FL Mean Corpuscular Hemoglobin 30.5 PG Mean Corpuscular Hemoglobin 33.9 % Concent Red Cell Distribution Width 13.5 % Platelet Count 167 TH/MM3 Mean Platelet Volume 9.4 FL Neutrophils (%) (Auto) 74.3 % Lymphocytes (%) (Auto) 9.8 % Monocytes (%) (Auto) 11.9 % Eosinophils (%) (Auto) 3.5 % Basophils (%) (Auto) 0.5 % Neutrophils # (Auto) 4.6 TH/MM3 Lymphocytes # (Auto) 0.6 TH/MM3 Monocytes # (Auto) 0.7 TH/MM3 Eosinophils # (Auto) 0.2 TH/MM3 Basophils # (Auto) 0.0 TH/MM3 CBC Comment DIFF FINAL Differential Comment Prothrombin Time 11.4 SEC Prothromb Time International 1.0 RATIO Ratio Sodium Level 142 MEQ/L Potassium Level 3.8 MEQ/L Chloride Level 102 MEQ/L Carbon Dioxide Level 35.1 MEQ/L Anion Gap 5 MEQ/L Blood Urea Nitrogen 17 MG/DL Creatinine 0.91 MG/DL Estimat Glomerular Filtration 84 ML/MIN Rate Random Glucose 153 MG/DL Calcium Level 8.9 MG/DL Imaging Last Impressions Chest X-Ray 06/29/16 0000 Signed Impressions: Service Date/Time: Wednesday, June 29, 2016 10:15 - CONCLUSION: Stable consolidation left lower lobe. New area of consolidation in the right upper lobe. Alexandr Bernal MD Objective Remarks GENERAL: Well-nourished well-developed male intubated and sedated. SKIN: Warm and dry. HEAD: Atraumatic. Normocephalic. EYES: Pupils equal and round. No scleral icterus. No injection or drainage. ENT: No nasal bleeding or discharge. Mucous membranes pink and moist. NECK: Trachea midline. No JVD. Orally intubated CARDIOVASCULAR: Tachycardic, Nl S1, S2, no murmurs. RESPIRATORY: No accessory muscle use. Clear to auscultation. Breath sounds equal bilaterally. GASTROINTESTINAL: Abdomen soft, non-tender, nondistended. No guarding. MUSCULOSKELETAL: Extremities without clubbing, cyanosis, or edema. No obvious deformities. NEUROLOGICAL:RASS-2. On propofol and fentanyl infusions intubated and sedated. Date of Insertion: Jun 22, 2016 Line: Central Venous Catheter Side: Right Location: Internal, Jugular A/P Assessment and Plan Plan by systems: Neurologic: Delirium tremens Alcohol abuse Encephalopathy Alcohol withdrawal Restless leg syndrome On Diprivan and Fentanyl infusion for sedation. Daily sedation vacation Precedex drip to facilitate with weaning trials. Neurochecks per ICU protocol Continue with Thiamine , MVI, Folic acid Respiratory: Tobacco abuse VDRF Continue with vent support keep sat >92%., Bronchodilators, ICU vent bundle. SBT daily as farzana Cardiovascular: Atrial fibrillation with RVR 06/25 Cardiomegaly Monitor HR and BP keep MAP>65mmHg On PO Cardizem 60mg QID On Heparin infusion- monitor PTT Cardiology following- Dr. Bautista 06/24 S/P RF cardiac ablation 06/21 Echo showed EF 35-40% Renal: SHAWNA- resolved Monitor renal function, I/O's, electrolytes replacement per protocol. Continue with Bumex 1mg IV daily FEN/GI: Continue TF-Jevity 1.5 with goal rate 50ml/hr Zofran IV for nausea Protonix IV 40 mg/day Bowel regimen Heme/ID: Monitor CBC Transfuse for hemoglobin less than 7 Monitor PTT per heparin protocol Monitor for signs of infections ( Fever, WBC) check sputum cx and place on empiric abx ( Zosyn) Endocrine: Glucose monitoring per ICU protocol Low-dose regimen -- SSI Prophylaxis: GI Prophylaxis Protonix IV 40 mg/day DVT Prophylaxis -- SCDs Heparin infusion Lines: Peripheral IVs 2. Central line right IJ 06/22 CCT 30 mins Adrienne Suh MD Jun 30, 2016 08:24
[2016-06-30] MEDS: SODIUM CHLORIDE 0.9% FLUSH 10 ML FLUSH IV FLUSH SCH ×2 (09:00→20:35)
[2016-06-30] MEDS: PIPERACIL-TAZO 4.5 GM PREMIX 100 ML IV SCH ×3 (10:01→20:36)
[2016-06-30] MEDS: DEXMEDETOMIDINE INJ 1,000 MCG in SODIUM CHLOR 0.9% 250 ML INJ 250 ML IV SCH ×2 (11:32→17:19)
[2016-07-01] VITALS (18 sets, daily range): BP systolic 95–148; BP diastolic 45–85; PULSE 82–120; RESP 11–22; TEMP 98.4–100.4; O2SAT 92–99
[2016-07-01] MEDS: DEXMEDETOMIDINE INJ 1,000 MCG in SODIUM CHLOR 0.9% 250 ML INJ 250 ML IV SCH ×3 (00:50→13:32)
[2016-07-01] MEDS: PROPOFOL 1000 MG/100 ML INJ 100 ML IV SCH ×4 (00:51→11:52)
[2016-07-01] MEDS: RESP: ALBUTEROL 2.5 MG/IPRATROPIUM 0.5 MG NEB (SCH) NEB ×4 (03:08→21:32)
[2016-07-01] MEDS: PIPERACIL-TAZO 4.5 GM PREMIX 100 ML IV SCH ×4 (03:26→20:22)
[2016-07-01] MEDS: fentaNYL 2,500 MCG/NS 250 ML IV SCH ×2 (03:26→12:57)
[2016-07-01] MEDS: INSULIN NovoLIN REGULAR SUPPLEMENTAL SCALE SQ SCH ×4 (05:51→22:00)
[2016-07-01 05:58] LABS: AUTOMATED NEUTROPHIL # 5.1 TH/MM3 (1.8-7.7); BASOPHIL % 0.6 % (0.0-2.0); EOSINOPHIL # 0.1 TH/MM3 (0-0.4); EOSINOPHIL % 1.3 % (0.0-4.0); HEMATOCRIT 32.9 % (39.0-51.0); HEMO FLAGS DIFF FINAL; LYMPH % 6.7 % (9.0-44.0); LYMPHOCYTE # 0.4 TH/MM3 (1.0-4.8); MEAN CELL VOLUME 87.7 FL (80.0-100.0); MEAN CORPUSCULAR HEMOGLOBIN 30.8 PG (27.0-34.0); MEAN CORPUSCULAR HGB CONC 35.1 % (32.0-36.0); MONO % 10.6 % (0.0-8.0); NEUT % 80.8 % (16.0-70.0); PLATELET COUNT 182 TH/MM3 (150-450); RED BLOOD COUNT 3.75 MIL/MM3 (4.50-5.90); RED CELL DISTRIBUTION WIDTH 13.5 % (11.6-17.2); WHITE BLOOD COUNT 6.3 TH/MM3 (4.0-11.0)
[2016-07-01 06:14] LABS: APTT (PATIENT) 52.8 SEC (24.3-30.1)
[2016-07-01 06:22] LABS: BICARBONATE 34.5 MEQ/L (21.0-32.0); POTASSIUM 3.6 MEQ/L (3.5-5.1)
[2016-07-01] MEDS: HEPARIN-D5W INJ 250 ML IV SCH ×2 (07:49→20:22)
[2016-07-01] MEDS: DOCUSATE SODIUM 100 MG/10 ML UDC PO SCH ×2 (09:00→21:00)
[2016-07-01] MEDS: PANTOPRAZOLE SODIUM 40 MG VIAL IV SCH (09:00)
[2016-07-01] MEDS: SODIUM CHLORIDE 0.9% FLUSH 10 ML FLUSH IV FLUSH SCH ×2 (09:00→20:25)
[2016-07-01] MEDS: THIAMINE HCL 100 MG TAB PO SCH (09:00)
[2016-07-01] MEDS: SENNOSIDES SYRUP 8.8 MG/5 ML CUP PO SCH (09:00)
[2016-07-01] MEDS ORDERED: GLUCAGON 1 MG/ML VIAL OTHER PRN (09:15)
[2016-07-01] MEDS ORDERED: DEXTROSE 50% IN WATER 50 ML VIAL(D50) IV PUSH PRN (09:15)
--- NOTE | 2016-07-01 09:17 | HHI.CCPN ---
Subjective Remarks/Hospital Course On 06/21 ,Mr. Guevara presented with a PMHx of HTN presenting from the [facility] with an elevated, irregular heart rate. He is a patient of Dr. Irwin Rodriguez, who sent this patient from clinic. In clinic, he had a heart rate in the 150s and was instructed to go to the ED for further evaluation. Upon arriving to the ED ,the patient was found to have atrial flutter on twelve-lead EKG with a rate 151 with 2-1 conduction. He denied any chest pain, prior arrhythmia, thyroid disorder, or heart disease. He reported his last EKG was approximately 8 years ago before his eye surgery s/p accident. The patient has a significant alcohol and smoking history, but denies any illicit drugs. He states that he is at his baseline except for 3 episodes of nonbloody diarrhea that have all occurred over this morning. The patient was admitted to the hospital, and placed on CIWA protocol, Cardizem infusion and was scheduled for ablation per interventional cardiology. Early this a.m. the patient became significantly more confused, difficult to control a Hallicat at was called, and the patient was transferred to ICU for further management. Subjective 06/23: Afebrile. Since admission to the ICU yesterday, the patient was placed initially on Precedex infusion for agitation/delirium, in addition to CIWA protocol. The patient subsequently required intubation. Later the afternoon the patient became hypotensive requiring vasopressor support of Levophed which was weaned off during the night. The patient converted to A. fib flutter heart rate 150s and Cardizem infusion was reinitiated. Systolic blood pressure low 100's. The patient continues on Versed low-dose and fentanyl infusions for ventilator synchrony. Plan today for cardiac ablation with Dr. Ponce. 06/24: The patient underwent successful RF ablation for atrial flutter, patient currently remains sinus rhythm sinus tach. The patient underwent CPAP trials however self extubated. Immediately upon self extubation the patient stated " I havent had a drink in 3 days, I need a drink" .The patient's maintain an O2 sat greater than 92% on Ventimask at 50% currently. The patient continues to be confused and agitated than what appears to be delirium tremens , Precedex infusion begun with Ativan PRN . Family present at bedside with patient. The patient noted to be confused, combative, remains in 4 point restraints. Will initiate Coumadin pharmacy dosing, with overlap of heparin until therapeutic INR today. CIWA protocol initiated. 06/25: The patient remain on Precedex infusion throughout the night, with supplementation per [facility] protocol and rested comfortably without agitation, in normal sinus rhythm. During the night he received Lasix 20 mg IV and diuresed greater than 1 L. At approximately 1400, the patient went into A. fib RVR with a rate of 220, and extremely dyspneic with audibly expiratory wheezing. Cardizem bolus 20 mg 2 doses was given. The patient was placed on a Cardizem infusion at 10 mg per hour. The heart rate decreased from 80-100, but rhythm atrial fibrillation. The patient continued to have respiratory distress, tachypnea with a rate in the 40s50s. An ABG was obtained showing a very large A-a gradient, and a PaO2 of 77 on 100% nonrebreather after 40 mg of Lasix diuresis and a DuoNeb treatment. Emergent intubation was required, family at bedside, discussed extensively with and updated her on the the patient's current condition. The patient was reintubated. He continues on a heparin infusion propofol infusion for ventilator synchrony. 06/26:Tmax 100.6. Patient's rhythm atrial fibrillation with a rate 90-109, Cardizem 12 mg/hour. The patient continues on a heparin infusion at this time. Patient was noted to have flash pulmonary edema episode of A. fib RVR which required intubation. Repeat chest x-ray this a.m. still shows pulmonary edema, the patient was diuresed approximately 2 L yesterday, he continues on a PEEP of 10. Patient remains sedated on a propofol and fentanyl infusion for ventilator synchrony. Will initiate tube feeds today. 06/27 Patient is sedated with Diprivan, Fentnayl and intubated. Tmax 100.6. On Heparin and Cardizem drips. On SIMV with FIO2 80%, PEEP: 10. 06/28 No acute events overnight. Remains sedated and intubated. Afebrile. Off Cardizem drip . On ACV with PEEP: 10 and FIO2 40%. T:100.3 at midnight. 06/29 Patient remains sedated and intubated. Afebrile. Remains on Heparin drip. 06/30 Patient remains sedated and intubated. Did not tolerate CPAP trials yesterday. T: 99.7 at 4am. On Heparin drip. 07/01 No acute events overnight intubated and sedated. Had low grade fever with T : 100.4 at 4 am. Objective Vital Signs Date Time Temp Pulse Resp B/P Pulse Ox O2 Delivery O2 Flow Rate FiO2 07/01/16 07:40 45 07/01/16 07:40 98 07/01/16 06:00 95 07/01/16 04:00 100.4 18 111/74 Intake and Output 06/30/16 06/30/16 07/01/16 08:00 16:00 00:00 Intake Total 646 ml 1189 ml 1142 ml Output Total 150 ml 450 ml Balance 496 ml 1189 ml 692 ml Result Diagram: 07/01/16 0535 07/01/16 0535 Other Results Laboratory Tests Test 07/01/16 05:35 White Blood Count 6.3 TH/MM3 Red Blood Count 3.75 MIL/MM3 Hemoglobin 11.5 GM/DL Hematocrit 32.9 % Mean Corpuscular Volume 87.7 FL Mean Corpuscular Hemoglobin 30.8 PG Mean Corpuscular Hemoglobin 35.1 % Concent Red Cell Distribution Width 13.5 % Platelet Count 182 TH/MM3 Mean Platelet Volume 9.2 FL Neutrophils (%) (Auto) 80.8 % Lymphocytes (%) (Auto) 6.7 % Monocytes (%) (Auto) 10.6 % Eosinophils (%) (Auto) 1.3 % Basophils (%) (Auto) 0.6 % Neutrophils # (Auto) 5.1 TH/MM3 Lymphocytes # (Auto) 0.4 TH/MM3 Monocytes # (Auto) 0.7 TH/MM3 Eosinophils # (Auto) 0.1 TH/MM3 Basophils # (Auto) 0.0 TH/MM3 CBC Comment DIFF FINAL Differential Comment Activated Partial 52.8 SEC Thromboplast Time Sodium Level 137 MEQ/L Potassium Level 3.6 MEQ/L Chloride Level 98 MEQ/L Carbon Dioxide Level 34.5 MEQ/L Anion Gap 5 MEQ/L Blood Urea Nitrogen 17 MG/DL Creatinine 1.05 MG/DL Estimat Glomerular Filtration 72 ML/MIN Rate Random Glucose 280 MG/DL Calcium Level 8.5 MG/DL Imaging Last Impressions Chest X-Ray 06/29/16 0000 Signed Impressions: Service Date/Time: Wednesday, June 29, 2016 10:15 - CONCLUSION: Stable consolidation left lower lobe. New area of consolidation in the right upper lobe. Alexandr Bernal MD Objective Remarks GENERAL: Well-nourished well-developed male intubated and sedated. SKIN: Warm and dry. HEAD: Atraumatic. Normocephalic. EYES: Pupils equal and round. No scleral icterus. No injection or drainage. ENT: No nasal bleeding or discharge. Mucous membranes pink and moist. NECK: Trachea midline. No JVD. Orally intubated CARDIOVASCULAR: Tachycardic, Nl S1, S2, no murmurs. RESPIRATORY: No accessory muscle use. Clear to auscultation. Breath sounds equal bilaterally. GASTROINTESTINAL: Abdomen soft, non-tender, nondistended. No guarding. MUSCULOSKELETAL: Extremities without clubbing, cyanosis, or edema. No obvious deformities. NEUROLOGICAL:RASS-2. On propofol and fentanyl infusions intubated and sedated. Date of Insertion: Jun 22, 2016 Line: Central Venous Catheter Side: Right Location: Internal, Jugular A/P Assessment and Plan Plan by systems: Neurologic: Delirium tremens Alcohol abuse Encephalopathy Alcohol withdrawal Restless leg syndrome On Diprivan , Fentanyl infusion for sedation. Daily sedation vacation Precedex drip to facilitate with weaning trials. Neurochecks per ICU protocol Continue with Thiamine , MVI, Folic acid Check CT brain r/o acute process Respiratory: Tobacco abuse VDRF Continue with vent support keep sat >92%., Bronchodilators, ICU vent bundle. SBT daily as farzana Cardiovascular: Atrial fibrillation with RVR 06/25 Cardiomegaly Monitor HR and BP keep MAP>65mmHg On PO Cardizem 60mg QID On Heparin infusion- monitor PTT Cardiology following- Dr. Bautista 06/24 S/P RF cardiac ablation 06/21 Echo showed EF 35-40% Renal: SHAWNA- resolved Monitor renal function, I/O's, electrolytes replacement per protocol. Continue with Bumex 1mg IV daily FEN/GI: Continue TF-Jevity 1.5@ 50ml/hr Zofran IV for nausea Protonix IV 40 mg/day Bowel regimen Heme/ID: Monitor CBC Transfuse for hemoglobin less than 7 Monitor PTT per heparin protocol Continue with abx ( Zosyn) Monitor for signs of infections ( Fever, WBC) followup on sputum cx Endocrine: Increase SSI to medium scale for glycemic control Prophylaxis: GI Prophylaxis Protonix IV 40 mg/day DVT Prophylaxis -- SCDs Heparin infusion Lines: Peripheral IVs 2. Central line right IJ 06/22 Spoke to patient's and sister updated them on his condition all questions answered. CCT 30 mins Adrienne Suh MD Jul 01, 2016 09:16
[2016-07-01] MEDS: ASPIRIN 81 MG CHEW TAB PO SCH (10:38)
[2016-07-01] MEDS: LOSARTAN 50 MG TAB PO SCH (10:40)
[2016-07-01] MEDS: BUMETANIDE INJ 1 MG/4 ML VIAL IV PUSH SCH ×2 (10:40→20:23)
[2016-07-01] MEDS: DILTIAZEM HCL 60 MG TAB PO SCH ×3 (11:52→20:23)
--- NOTE | 2016-07-01 12:31 | HHI.FPPN ---
Subjective Remarks Patient seen and examined this morning. No acute events overnight. Temperature up to 100.4 degrees overnight. Patient intubated and sedated with Precedex drip. Patient continues to not tolerate CPAP trials. Critical care will plan for head CT to rule out any acute process at this time. Objective Vitals Vital Signs Date Time Temp Pulse Resp B/P Pulse Ox O2 Delivery O2 Flow Rate FiO2 07/01/16 12:00 118 07/01/16 12:00 45 07/01/16 10:00 118 07/01/16 08:00 98.4 95 20 136/85 96 07/01/16 08:00 118 07/01/16 08:00 45 07/01/16 07:40 45 07/01/16 07:40 98 45 07/01/16 06:00 95 07/01/16 04:00 92 40 07/01/16 04:00 100.4 102 18 111/74 96 07/01/16 04:00 102 07/01/16 04:00 40 07/01/16 02:00 108 07/01/16 00:03 98 40 07/01/16 00:00 82 07/01/16 00:00 40 06/30/16 22:00 105 06/30/16 20:00 40 06/30/16 20:00 90 06/30/16 20:00 97.5 90 17 100/70 100 06/30/16 19:54 94 40 06/30/16 18:00 93 06/30/16 16:00 93 06/30/16 16:00 40 06/30/16 16:00 98.5 93 18 113/76 95 06/30/16 15:52 97 45 06/30/16 14:00 93 I/O 06/30/16 06/30/16 06/30/16 07/01/16 07/01/16 07/01/16 07:00 15:00 23:00 07:00 15:00 23:00 Intake Total 646 ml 1189 ml 1142 ml 1393 ml Output Total 150 ml 450 ml 550 ml Balance 496 ml 1189 ml 692 ml 843 ml IV Total 432 ml 721 ml 686 ml 909 ml Tube Feeding 214 ml 468 ml 306 ml 384 ml Other 150 ml 100 ml Output Urine Total 150 ml 450 ml 550 ml # Bowel Movements 0 0 0 Result Diagram: 07/01/16 0535 07/01/16 0535 Objective Remarks GENERAL: 61 y/o CM lying in bed, in no acute cardiopulmonary distress. SKIN: Warm and dry. CARDIOVASCULAR: Tachycardic to 100s in atrial fibrillation. RESPIRATORY: Currently intubated. Increased coarse breath sounds BL with yellow/ green respiratory secretions per ET tube suction. Secretions have decreased from prior exam. GASTROINTESTINAL: Abdomen slightly distended likely secondary to constipation. + BS. MUSCULOSKELETAL: Extremities without cyanosis. Mild edema to BL hands. UROGENITAL: Patient with lakhani catheter in place with approximately 1.4L in reservoir. No signs of hemorrhage at site of insertion. NEUROLOGICAL: Patient currently intubated and sedated. Date of Insertion: Jun 22, 2016 Line: Central Venous Catheter Side: Right Location: Internal, Jugular A/P Assessment and Plan Mr. Guevara is a 61 y/o CM with a PMHx of HTN and alcohol abuse presenting from the [facility] with an elevated, irregular heart rate found to have atrial flutter. He is s/p cardiac ablation and currently in sinus rhythm. Currently withdrawing from chronic alcohol use, on the CIWA protocol while intubated and sedated. Discharge Planning Unclear given patient's current clinical state. Discussed with Dr. Abreu, Dr. Pizarro Problem List: (1) Alcohol withdrawal Status: Acute Plan: Medical team paged for HALICAT at approximately 0745 on 06/23/15 due to agitation. Per nursing report patient had been agitated and altered throughout the night with CIWA scores up to 25. The patient does have an extensive history of alcohol use with up to 3/4 drinks per day. He also has an extensive smoking history. Patient transferred to ICU. Sock Drier consulted, appreciate recommendations Patient intubated, then self extubated despite Midazolam and fentanyl infusion. Patient reintubated on 06/25 due to flash pulmonary edema with desaturation. Continue to monitor respiratory status Ativan per CIWA protocol Currently on Diprivan, fentanyl, and Precedex drips Per staff, critical care will plan for CPAP trials and eventual extubation pending clinical course (2) Ventilator associated pneumonia Status: Acute Plan: Patient with recent temperature up to 100.4 as well as increased respiratory secretions who is currently intubated. Chest x-ray 06/29: Stable consolidation left lower lobe, new area of consolidation in the right upper lobe. Exam: Coarse breath sounds bilaterally with yellow/[place] nurse for secretions per ET tube suction. Patient currently intubated. Sputum culture: Moraxella catarrhalis Medications: Zosyn (06/30 ) (3) Atrial flutter with rapid ventricular response Status: Acute Plan: Patient presenting from clinic with atrial fibrillation with rate into the 150s, found to be in atrial flutter. Patient was then ablated, however presented with atrial fibrillation with RVR to a rate of 220. HR currently elevated to the 130s. Cardiology consulted, appreciate recommendations and intervention Patient status post successful ablation on 06/23, currently on a heparin drip and in sinus rhythm Echo: Normal cavity size and wall thickness. Systolic function mildly reduced with EF of 35-40%, however study was limited due to markedly tachycardia. Wall motion normal. Patient converted to atrial fibrillation with RVR on 06/25 to a rate of 220, diltiazem drip initiated to control rate. Diltiazem drip has currently been stopped (06/25-06/27) and he has been transitioned to PO Cardizem. Medications: Heparin drip Diltiazem 60 mg 4 times a day Lopressor 2.5 mg every 6 hours when necessary for heart rate greater than 100 ASA 81mg daily (4) Creatinine elevation Status: Acute Plan: Patient with creatinine elevation to 1.9 on 06/26/16 which has since resolved with IV fluid resuscitation. Patient with hematuria upon Lakhani placement, likely traumatic placement. Strict I's/O's with Lakhani catheter Continue to monitor (5) Hypertension Status: Chronic Plan: Patient with chronic HTN Pt has been hypotensive and required pressors from 06/23 until 06/24, BP currently stable. Hold home Irbesartan-HCTZ (300-12.5) with conversion to Losartan 100mg daily and HCTZ 12.5mg daily Cardizem 60mg QID Bumex 1 mg daily Losartan 100 mg daily (6) Restless leg syndrome Status: Chronic Plan: Patient with reported restless leg syndrome -Hold Ropinirole for now (7) Nutrition, metabolism, and development symptoms Status: Acute Plan: Fluids: Currently none, monitor I/Os Diet: NPO as patient is intubated. Tube feeds with Jevity at goal with rate of 50 ml/hr. Electrolytes: WNL, continue to monitor DVT: Heparin drip Prophylaxis: Protonix 40 mg IV daily, DuoNeb's every 6 hours when necessary for shortness of breath/wheezing, hydroxyzine 25 mg daily at bedtime when necessary for insomnia (Held) Constipation: Senna daily and Colace BID, Monitor stool output Problem Qualifiers (1) Alcohol withdrawal: Qualified Code: F10.231 - Alcohol withdrawal, with delirium (2) Hypertension: Qualified Code: I10 - Essential hypertension Swapnil Barrera MD R1 Jul 01, 2016 12:31
[2016-07-01 17:07] LABS: BLOOD GAS BASE EXCESS 5.8 mmol/L (-2-2); BLOOD GAS CARBOXYHEMOGLOBIN 1.7 % (0-4); BLOOD GAS HCO3 30 mmol/L (22-26); BLOOD GAS METHEMOGLOBIN 1.1 % (0-2); BLOOD GAS O2 HGB SATURATION 90 % (90-100); BLOOD GAS OXYGEN CONTENT 16.5 Vol % (12.0-20.0); BLOOD GAS PCO2 49 mmHg (38-42); BLOOD GAS PO2 67 mmHg (61-120); TEMP CORR TO 98.6
[2016-07-01 17:08] LABS: CRITICAL VALUE NO; DRAW SITE RT RADIAL; FIO2 45 %; NUMBER OF ARTERIAL PUNCTURES 2; OXYGEN DEVICE VENT; STAT NO; ULNAR PULSE PRESENT
[2016-07-01] MEDS ORDERED: DEXMEDETOMIDINE INJ 200 MCG in SODIUM CHLORIDE 0.9% INJ 50 ML IV SCH (17:15)
[2016-07-01] MEDS: CHLORHEXIDINE GLUCONATE 2 % 1 PACK (2 CLOTHS) TOP SCH (19:49)
[2016-07-01] MEDS: QUEtiapine FUMARATE 25 MG TAB PO SCH (20:23)
[2016-07-01] MEDS: LORazepam 2 MG/ML VIAL IV PUSH PRN (20:24)
[2016-07-01] MEDS: SODIUM CHLORIDE 0.9% FLUSH 10 ML FLUSH IV FLUSH PRN (20:25)
[2016-07-01] MEDS ORDERED: EPINEPHrine HCL (1:10,000) 1 MG/10 ML SYRINGE ONE (20:36)
--- NOTE | 2016-07-01 21:08 | RADRPT ---
EXAM DATE/TIME: 07/01/2016 20:54 [facility] COMPARISON: No previous studies available for comparison. INDICATIONS : Altered mental status. RADIATION DOSE: 51.66 CTDIvol (mGy) MEDICAL HISTORY : Hypertension. Cardiovascular disease SURGICAL HISTORY : None. ENCOUNTER: Subsequent ACUITY: 2 days PAIN SCALE: Non-responsive LOCATION: cranial TECHNIQUE: Multiple contiguous axial images were obtained of the head. Using automated exposure control and adj ustment of the mA and/or kV according to patient size, radiation dose was kept as low as reasonably a chievable to obtain optimal diagnostic quality images. FINDINGS: CEREBRUM: The ventricles are normal for age. No evidence of midline shift, mass lesion, hemorrhage or acute in farction. No extra-axial fluid collections are seen. POSTERIOR FOSSA: The cerebellum and brainstem are intact. The 4th ventricle is midline. The cerebellopontine angle i s unremarkable. EXTRACRANIAL: The visualized portion of the orbits is intact. Fluid throughout the paranasal sinuses. SKULL: The calvaria is intact. No evidence of skull fracture. CONCLUSION: No acute intracranial abnormality. Bilateral paranasal sinusitis. Mason Noe MD on July 01, 2016 at 21:04 Board Certified Radiologist. This report was verified electronically.
[2016-07-02] VITALS (20 sets, daily range): BP systolic 104–155; BP diastolic 64–90; PULSE 82–127; RESP 11–32; TEMP 97.3–98.7; O2SAT 92–99
[2016-07-02] MEDS: MIDAZOLAM 100 MG/ML INJ 100 ML IV SCH ×2 (01:12→09:55)
[2016-07-02] MEDS: RESP: ALBUTEROL 2.5 MG/IPRATROPIUM 0.5 MG NEB (SCH) NEB ×5 (03:07→23:22)
[2016-07-02] MEDS: INSULIN NovoLIN REGULAR SUPPLEMENTAL SCALE SQ SCH ×4 (04:00→22:00)
[2016-07-02] MEDS: CHLORHEXIDINE GLUCONATE 2 % 1 PACK (2 CLOTHS) TOP SCH (04:00)
[2016-07-02] MEDS: PIPERACIL-TAZO 4.5 GM PREMIX 100 ML IV SCH ×4 (04:11→21:10)
[2016-07-02 04:12] LABS: AUTOMATED NEUTROPHIL # 5.1 TH/MM3 (1.8-7.7); BASOPHIL # 0.1 TH/MM3 (0-0.2); EOSINOPHIL # 0.2 TH/MM3 (0-0.4); EOSINOPHIL % 2.3 % (0.0-4.0); HEMO FLAGS DIFF FINAL; LYMPH % 11.6 % (9.0-44.0); LYMPHOCYTE # 0.8 TH/MM3 (1.0-4.8); MEAN CORPUSCULAR HEMOGLOBIN 30.3 PG (27.0-34.0); MEAN CORPUSCULAR HGB CONC 34.4 % (32.0-36.0); MONO % 8.9 % (0.0-8.0); NEUT % 76.2 % (16.0-70.0); PLATELET COUNT 193 TH/MM3 (150-450); RED BLOOD COUNT 3.86 MIL/MM3 (4.50-5.90); RED CELL DISTRIBUTION WIDTH 13.8 % (11.6-17.2); WHITE BLOOD COUNT 6.6 TH/MM3 (4.0-11.0)
[2016-07-02 04:23] LABS: APTT (PATIENT) 47.7 SEC (24.3-30.1)
[2016-07-02 04:28] LABS: BICARBONATE 36.9 MEQ/L (21.0-32.0); MAGNESIUM 2.4 MG/DL (1.5-2.5); POTASSIUM 3.6 MEQ/L (3.5-5.1)
[2016-07-02] MEDS: DEXMEDETOMIDINE INJ 1,000 MCG in SODIUM CHLOR 0.9% 250 ML INJ 240 ML IV SCH ×2 (06:25→13:57)
--- NOTE | 2016-07-02 08:23 | HHI.CCPN ---
Subjective Remarks/Hospital Course On 06/21 ,Mr. Guevara presented with a PMHx of HTN presenting from the [facility] with an elevated, irregular heart rate. He is a patient of Dr. Irwin Rodriguez, who sent this patient from clinic. In clinic, he had a heart rate in the 150s and was instructed to go to the ED for further evaluation. Upon arriving to the ED ,the patient was found to have atrial flutter on twelve-lead EKG with a rate 151 with 2-1 conduction. He denied any chest pain, prior arrhythmia, thyroid disorder, or heart disease. He reported his last EKG was approximately 8 years ago before his eye surgery s/p accident. The patient has a significant alcohol and smoking history, but denies any illicit drugs. He states that he is at his baseline except for 3 episodes of nonbloody diarrhea that have all occurred over this morning. The patient was admitted to the hospital, and placed on CIWA protocol, Cardizem infusion and was scheduled for ablation per interventional cardiology. Early this a.m. the patient became significantly more confused, difficult to control a Hallicat at was called, and the patient was transferred to ICU for further management. Subjective 06/23: Afebrile. Since admission to the ICU yesterday, the patient was placed initially on Precedex infusion for agitation/delirium, in addition to CIWA protocol. The patient subsequently required intubation. Later the afternoon the patient became hypotensive requiring vasopressor support of Levophed which was weaned off during the night. The patient converted to A. fib flutter heart rate 150s and Cardizem infusion was reinitiated. Systolic blood pressure low 100's. The patient continues on Versed low-dose and fentanyl infusions for ventilator synchrony. Plan today for cardiac ablation with Dr. Ponce. 06/24: The patient underwent successful RF ablation for atrial flutter, patient currently remains sinus rhythm sinus tach. The patient underwent CPAP trials however self extubated. Immediately upon self extubation the patient stated " I havent had a drink in 3 days, I need a drink" .The patient's maintain an O2 sat greater than 92% on Ventimask at 50% currently. The patient continues to be confused and agitated than what appears to be delirium tremens , Precedex infusion begun with Ativan PRN . Family present at bedside with patient. The patient noted to be confused, combative, remains in 4 point restraints. Will initiate Coumadin pharmacy dosing, with overlap of heparin until therapeutic INR today. CIWA protocol initiated. 06/25: The patient remain on Precedex infusion throughout the night, with supplementation per [facility] protocol and rested comfortably without agitation, in normal sinus rhythm. During the night he received Lasix 20 mg IV and diuresed greater than 1 L. At approximately 1400, the patient went into A. fib RVR with a rate of 220, and extremely dyspneic with audibly expiratory wheezing. Cardizem bolus 20 mg 2 doses was given. The patient was placed on a Cardizem infusion at 10 mg per hour. The heart rate decreased from 80-100, but rhythm atrial fibrillation. The patient continued to have respiratory distress, tachypnea with a rate in the 40s50s. An ABG was obtained showing a very large A-a gradient, and a PaO2 of 77 on 100% nonrebreather after 40 mg of Lasix diuresis and a DuoNeb treatment. Emergent intubation was required, family at bedside, discussed extensively with and updated her on the the patient's current condition. The patient was reintubated. He continues on a heparin infusion propofol infusion for ventilator synchrony. 06/26:Tmax 100.6. Patient's rhythm atrial fibrillation with a rate 90-109, Cardizem 12 mg/hour. The patient continues on a heparin infusion at this time. Patient was noted to have flash pulmonary edema episode of A. fib RVR which required intubation. Repeat chest x-ray this a.m. still shows pulmonary edema, the patient was diuresed approximately 2 L yesterday, he continues on a PEEP of 10. Patient remains sedated on a propofol and fentanyl infusion for ventilator synchrony. Will initiate tube feeds today. 06/27 Patient is sedated with Diprivan, Fentnayl and intubated. Tmax 100.6. On Heparin and Cardizem drips. On SIMV with FIO2 80%, PEEP: 10. 06/28 No acute events overnight. Remains sedated and intubated. Afebrile. Off Cardizem drip . On ACV with PEEP: 10 and FIO2 40%. T:100.3 at midnight. 06/29 Patient remains sedated and intubated. Afebrile. Remains on Heparin drip. 06/30 Patient remains sedated and intubated. Did not tolerate CPAP trials yesterday. T: 99.7 at 4am. On Heparin drip. 07/01 No acute events overnight intubated and sedated. Had low grade fever with T : 100.4 at 4 am. 07/02 Patient is sedated with Fentanyl, Versed in addition he is on Precedex drip. He gets very agitated , restless, tachypneic and tachycardic when sedation is being weaned off. Objective Vital Signs Date Time Temp Pulse Resp B/P Pulse Ox O2 Delivery O2 Flow Rate FiO2 07/02/16 06:00 87 07/02/16 04:12 94 45 07/02/16 04:00 97.3 14 155/84 Intake and Output 07/01/16 07/01/16 07/02/16 08:00 16:00 00:00 Intake Total 1393 ml 1881 ml 741 ml Output Total 550 ml 2100 ml 1200 ml Balance 843 ml -219 ml -459 ml Result Diagram: 07/02/16 0400 07/02/16 0400 Other Results Laboratory Tests Test 07/01/16 07/02/16 16:56 04:00 Blood Gas Puncture Site RT RADIAL Blood Gas Patient Temperature 98.6 Blood Gas HCO3 30 mmol/L Blood Gas Base Excess 5.8 mmol/L Blood Gas Oxygen Saturation 90 % Arterial Blood pH 7.41 Arterial Blood Partial 49 mmHg Pressure CO2 Arterial Blood Partial 67 mmHg Pressure O2 Arterial Blood Oxygen Content 16.5 Vol % Arterial Blood 1.7 % Carboxyhemoglobin Arterial Blood Methemoglobin 1.1 % Blood Gas Hemoglobin 13.0 G/DL Oxygen Delivery Device VENT Blood Gas Ventilator Setting CPAP 10/5 Blood Gas Inspired Oxygen 45 % White Blood Count 6.6 TH/MM3 Red Blood Count 3.86 MIL/MM3 Hemoglobin 11.7 GM/DL Hematocrit 34.0 % Mean Corpuscular Volume 88.0 FL Mean Corpuscular Hemoglobin 30.3 PG Mean Corpuscular Hemoglobin 34.4 % Concent Red Cell Distribution Width 13.8 % Platelet Count 193 TH/MM3 Mean Platelet Volume 9.0 FL Neutrophils (%) (Auto) 76.2 % Lymphocytes (%) (Auto) 11.6 % Monocytes (%) (Auto) 8.9 % Eosinophils (%) (Auto) 2.3 % Basophils (%) (Auto) 1.0 % Neutrophils # (Auto) 5.1 TH/MM3 Lymphocytes # (Auto) 0.8 TH/MM3 Monocytes # (Auto) 0.6 TH/MM3 Eosinophils # (Auto) 0.2 TH/MM3 Basophils # (Auto) 0.1 TH/MM3 CBC Comment DIFF FINAL Differential Comment Activated Partial 47.7 SEC Thromboplast Time Sodium Level 141 MEQ/L Potassium Level 3.6 MEQ/L Chloride Level 99 MEQ/L Carbon Dioxide Level 36.9 MEQ/L Anion Gap 5 MEQ/L Blood Urea Nitrogen 14 MG/DL Creatinine 0.94 MG/DL Estimat Glomerular Filtration 81 ML/MIN Rate Random Glucose 143 MG/DL Calcium Level 8.4 MG/DL Phosphorus Level 3.8 MG/DL Magnesium Level 2.4 MG/DL Imaging Last Impressions Head CT 07/01/16 0000 Signed Impressions: Service Date/Time: Friday, July 01, 2016 20:54 - CONCLUSION: No acute intracranial abnormality. Bilateral paranasal sinusitis. Mason Noe MD Chest X-Ray 06/29/16 0000 Signed Impressions: Service Date/Time: Wednesday, June 29, 2016 10:15 - CONCLUSION: Stable consolidation left lower lobe. New area of consolidation in the right upper lobe. Alexandr Bernal MD Objective Remarks GENERAL: Well-nourished well-developed male intubated and sedated. SKIN: Warm and dry. HEAD: Atraumatic. Normocephalic. EYES: Pupils equal and round. No scleral icterus. No injection or drainage. ENT: No nasal bleeding or discharge. Mucous membranes pink and moist. NECK: Trachea midline. No JVD. Orally intubated CARDIOVASCULAR: Tachycardic, Nl S1, S2, no murmurs. RESPIRATORY: No accessory muscle use. Clear to auscultation. Breath sounds equal bilaterally. GASTROINTESTINAL: Abdomen soft, non-tender, nondistended. No guarding. MUSCULOSKELETAL: Extremities without clubbing, cyanosis, or edema. No obvious deformities. NEUROLOGICAL:RASS-2. On propofol and fentanyl infusions intubated and sedated. Date of Insertion: Jun 22, 2016 Line: Central Venous Catheter Side: Right Location: Internal, Jugular A/P Assessment and Plan Plan by systems: Neurologic: Delirium tremens Alcohol abuse Encephalopathy Alcohol withdrawal Restless leg syndrome On Versed , Fentanyl infusion for sedation. Daily sedation vacation Precedex drip to facilitate with weaning trials. Continue with Seroquel 25mg BID. Neurochecks per ICU protocol Continue with Thiamine , MVI, Folic acid CT brain 07/01: No acute intracranial abnormalities. Respiratory: Tobacco abuse VDRF Continue with vent support keep sat >92%., Bronchodilators, ICU vent bundle. SBT daily as farzana Discussed with patient's and sister if gets extubated there is chance patient might require intubation. Cardiovascular: Atrial fibrillation with RVR 06/25 Cardiomegaly Monitor HR and BP keep MAP>65mmHg On PO Cardizem 60mg QID On Heparin infusion- monitor PTT Cardiology following- Dr. Bautista 06/24 S/P RF cardiac ablation 06/21 Echo showed EF 35-40% Renal: SHAWNA- resolved Monitor renal function, I/O's, electrolytes replacement per protocol. Continue with Bumex 1mg IV BID FEN/GI: Continue TF-Jevity 1.5@ 50ml/hr Zofran IV for nausea Protonix IV 40 mg/day Bowel regimen Heme/ID: Monitor CBC Transfuse for hemoglobin less than 7 Monitor PTT per heparin protocol Continue with abx ( Zosyn) Monitor for signs of infections ( Fever, WBC)f 06/30 sputum cx: Moraxella Catarrhalis Endocrine: On SSI(medium scale) for glycemic control Prophylaxis: GI Prophylaxis Protonix IV 40 mg/day DVT Prophylaxis -- SCDs Heparin infusion Lines: Peripheral IVs 2. Central line right IJ 06/22 Spoke to patient's and sister updated them on his condition today CCT 30 mins Adrienne Suh MD Jul 02, 2016 08:23 Adrienne Suh MD Jul 02, 2016 08:23
[2016-07-02] MEDS: SODIUM CHLORIDE 0.9% FLUSH 10 ML FLUSH IV FLUSH SCH ×2 (09:00→21:10)
[2016-07-02] MEDS: BUMETANIDE INJ 1 MG/4 ML VIAL IV PUSH SCH ×2 (09:54→16:15)
[2016-07-02] MEDS: SENNOSIDES SYRUP 8.8 MG/5 ML CUP PO SCH (09:54)
[2016-07-02] MEDS: PANTOPRAZOLE SODIUM 40 MG VIAL IV SCH (09:54)
[2016-07-02] MEDS: DOCUSATE SODIUM 100 MG/10 ML UDC PO SCH ×2 (09:54→21:10)
[2016-07-02] MEDS: LOSARTAN 50 MG TAB PO SCH (09:55)
[2016-07-02] MEDS: ASPIRIN 81 MG CHEW TAB PO SCH (09:55)
[2016-07-02] MEDS: QUEtiapine FUMARATE 25 MG TAB PO SCH ×2 (09:55→21:10)
[2016-07-02] MEDS: DILTIAZEM HCL 60 MG TAB PO SCH ×4 (09:55→21:10)
[2016-07-02] MEDS: THIAMINE HCL 100 MG TAB PO SCH (09:55)
[2016-07-02] MEDS: fentaNYL 2,500 MCG/NS 250 ML IV SCH (09:56)
[2016-07-02] MEDS: HEPARIN-D5W INJ 250 ML IV SCH ×2 (10:32→23:36)
--- NOTE | 2016-07-02 11:58 | HHI.FPPN ---
Subjective Remarks Patient seen and examined this morning. No acute events overnight and VSS. Patient is intubated and currently undergoing CPAP trail. Per nursing, this trail has been his best over the last three days and has lasted approximately 30 minutes. He continues to be in atrial fibrillation with his currently heart rate in the 110s. His and son are at the bedside and have multiple questions on his condition and why we cannot extubate him. I thoroughly explained that due to his prior self extubation and subsequent re-intubation the medical staff is trying to be very cautious in managing his breathing. All other questions were answered and voiced understanding was give by the and son. (Swapnil Barrera MD R1) Objective Vitals Vital Signs Date Time Temp Pulse Resp B/P Pulse Ox O2 Delivery O2 Flow Rate FiO2 07/02/16 10:25 45 07/02/16 08:16 95 45 07/02/16 06:00 87 07/02/16 04:12 94 45 07/02/16 04:00 97.3 89 14 155/84 94 07/02/16 04:00 45 07/02/16 04:00 88 07/02/16 02:00 85 07/02/16 01:07 98 45 07/02/16 00:00 98.7 89 11 146/73 98 07/02/16 00:00 88 07/02/16 00:00 45 07/01/16 22:00 91 07/01/16 20:50 98 100 07/01/16 20:00 98.6 86 11 148/72 98 07/01/16 20:00 45 07/01/16 20:00 88 07/01/16 19:28 96 45 07/01/16 18:00 112 07/01/16 16:31 99 45 07/01/16 16:00 118 07/01/16 16:00 98.6 109 21 110/71 95 07/01/16 16:00 45 07/01/16 14:00 118 07/01/16 12:45 95 45 07/01/16 12:00 118 07/01/16 12:00 99.2 120 22 95/45 96 07/01/16 12:00 45 I/O 07/01/16 07/01/16 07/01/16 07/02/16 07/02/16 07/02/16 07:00 15:00 23:00 07:00 15:00 23:00 Intake Total 1393 ml 1881 ml 741 ml 986 ml Output Total 550 ml 2100 ml 1200 ml 250 ml Balance 843 ml -219 ml -459 ml 736 ml Intake Oral 0 ml 0 ml IV Total 909 ml 1315 ml 621 ml 728 ml Tube Feeding 384 ml 366 ml 0 ml 258 ml Other 100 ml 200 ml 120 ml Output Urine Total 550 ml 2100 ml 1200 ml 250 ml Stool Total 0 ml 0 ml # Bowel Movements 0 (Swapnil Barrera MD R1) Result Diagram: 07/02/160 07/02/16399 Objective Remarks GENERAL: 61 y/o CM lying in bed, in no acute cardiopulmonary distress. SKIN: Warm and dry. CARDIOVASCULAR: Tachycardic to 110s in atrial fibrillation. RESPIRATORY: Currently intubated. Increased coarse breath sounds BL currently undergoing CPAP trial. GASTROINTESTINAL: Abdomen slightly distended likely secondary to constipation. + BS. MUSCULOSKELETAL: Extremities without cyanosis. Mild edema to BL hands. UROGENITAL: Patient with lakhani catheter in place with approximately 1L in reservoir. No signs of hemorrhage at site of insertion. NEUROLOGICAL: Patient currently intubated and on Precedex drip. (Swapnil Barrera MD R1) Date of Insertion: Jun 22, 2016 Line: Central Venous Catheter Side: Right Location: Internal, Jugular (Swapnil Barrera MD R1) A/P Assessment and Plan Mr. Guevara is a 61 y/o CM with a PMHx of HTN and alcohol abuse presenting from the [facility] with an elevated, irregular heart rate found to have atrial flutter. He is s/p cardiac ablation and currently in sinus rhythm. Currently withdrawing from chronic alcohol use, on the CIWA protocol while intubated and sedated. Discharge Planning Unclear given patient's current clinical state. Discussed with Dr. Thor Garcia (Swapnil Barrera MD R1) Attending Attestation Pt. examined and case discussed with resident physicians I have read the above note and agree with the assessment/plan as discussed with me I was involved in all medical decision making for this patient Shashank Abreu MD (Shashank Abreu MD) Problem List: (1) Alcohol withdrawal Status: Acute Plan: Medical team paged for HALICAT at approximately 0745 on 06/23/15 due to agitation. Per nursing report patient had been agitated and altered throughout the night with CIWA scores up to 25. The patient does have an extensive history of alcohol use with up to 3/4 drinks per day. He also has an extensive smoking history. Patient transferred to ICU. Hand Lacer consulted, appreciate recommendations Patient intubated, then self extubated despite Midazolam and fentanyl infusion. Patient reintubated on 06/25 due to flash pulmonary edema with desaturation. Continue to monitor respiratory status Ativan per CIKY protocol Currently on Diprivan, fentanyl, and Precedex drips Per staff, critical care will plan for CPAP trials and eventual extubation pending clinical course (2) Ventilator associated pneumonia Status: Acute Plan: Patient with recent temperature up to 100.4 on 07/01/16 as well as increased respiratory secretions who is currently intubated. Chest x-ray 06/29: Stable consolidation left lower lobe, new area of consolidation in the right upper lobe. Exam: Coarse breath sounds bilaterally with yellow/[place] nurse for secretions per ET tube suction on 06/30-07/01. Sputum culture 06/30: Moraxella catarrhalis Medications: Zosyn (06/30 ) (3) Atrial flutter with rapid ventricular response Status: Acute Plan: Patient presenting from clinic with atrial fibrillation with rate into the 150s, found to be in atrial flutter. Patient was then ablated, however presented with atrial fibrillation with RVR to a rate of 220. HR currently elevated to the 130s. Cardiology consulted, appreciate recommendations and intervention Patient status post successful ablation on 06/23, currently on a heparin drip and in sinus rhythm Echo: Normal cavity size and wall thickness. Systolic function mildly reduced with EF of 35-40%, however study was limited due to markedly tachycardia. Wall motion normal. Patient converted to atrial fibrillation with RVR on 06/25 to a rate of 220, diltiazem drip initiated to control rate. Diltiazem drip has currently been stopped (06/25-06/27) and he has been transitioned to PO Cardizem. Medications: Heparin drip Cardizem 60 mg 4 times a day Lopressor 2.5 mg every 6 hours when necessary for heart rate greater than 100 ASA 81mg daily (4) Creatinine elevation Status: Acute Plan: Patient with creatinine elevation to 1.9 on 06/26/16 which has since resolved with IV fluid resuscitation. Patient with hematuria upon Lakhani placement, likely traumatic placement. Strict I's/O's with Lakhani catheter Continue to monitor (5) Hypertension Status: Chronic Plan: Patient with chronic HTN Pt has been hypotensive and required pressors from 06/23 until 06/24, BP currently stable. Hold home Irbesartan-HCTZ (300-12.5) with conversion to Losartan 100mg daily and HCTZ 12.5mg daily Cardizem 60mg QID Bumex 1 mg daily Losartan 100 mg daily (6) Restless leg syndrome Status: Chronic Plan: Patient with reported restless leg syndrome -Hold Ropinirole for now (7) Nutrition, metabolism, and development symptoms Status: Acute Plan: Fluids: Currently none, monitor I/Os Diet: NPO as patient is intubated. Tube feeds with Jevity at goal with rate of 50 ml/hr. Electrolytes: WNL, continue to monitor DVT: Heparin drip Prophylaxis: Protonix 40 mg IV daily, DuoNeb's every 6 hours when necessary for shortness of breath/wheezing, hydroxyzine 25 mg daily at bedtime when necessary for insomnia (Held) Constipation: Senna daily and Colace BID, Monitor stool output (Swapnil Barrera MD R1) Problem Qualifiers (1) Alcohol withdrawal: Qualified Code: F10.231 - Alcohol withdrawal, with delirium (2) Hypertension: Qualified Code: I10 - Essential hypertension Swapnil Barrera MD R1 Jul 02, 2016 11:58 Shashank Abreu MD Jul 02, 2016 18:29
[2016-07-02 12:41] LABS: BLOOD GAS BASE EXCESS 8.6 mmol/L (-2-2); BLOOD GAS CARBOXYHEMOGLOBIN 1.6 % (0-4); BLOOD GAS HCO3 33 mmol/L (22-26); BLOOD GAS METHEMOGLOBIN 1.2 % (0-2); BLOOD GAS O2 HGB SATURATION 93 % (90-100); BLOOD GAS OXYGEN CONTENT 15.9 Vol % (12.0-20.0); BLOOD GAS PCO2 46 mmHg (38-42); BLOOD GAS PO2 76 mmHg (61-120); BLOOD GAS TOTAL HGB 12.2 G/DL (12.0-16.0); TEMP CORR TO 98.6
[2016-07-02 12:42] LABS: CRITICAL VALUE NO; DRAW SITE LT RADIAL; FIO2 40 %; NUMBER OF ARTERIAL PUNCTURES 1; OXYGEN DEVICE VENTILATOR; ULNAR PULSE Y; VENT SETTINGS CPAP 5 PS10
[2016-07-02 12:43] LABS: STAT YES
[2016-07-02] MEDS ORDERED: RESP: ALBUTEROL 2.5 MG/IPRATROPIUM 0.5 MG NEB (PRN) NEB (12:45)
[2016-07-02] MEDS: HALOPERIDOL LACTATE 5 MG/ML AMP IM PRN (13:39)
[2016-07-02] MEDS ORDERED: DILTIAZEM HCL 25 MG/5 ML VIAL ONE (13:46)
[2016-07-02] MEDS ORDERED: HALOPERIDOL LACTATE 5 MG/ML AMP IV PUSH ONE (14:00)
[2016-07-02] MEDS ORDERED: DILTIAZEM HCL 25 MG/5 ML VIAL IV ONE (14:00)
[2016-07-02] MEDS ORDERED: BUMETANIDE INJ 1 MG/4 ML VIAL IV PUSH ONE (14:00)
--- NOTE | 2016-07-02 14:15 | RADRPT ---
EXAM DATE/TIME: 07/02/2016 12:19 [facility] COMPARISON: CHEST SINGLE AP, June 29, 2016, 10:15. INDICATIONS : Shortness of breath. MEDICAL HISTORY : Hypertension. SURGICAL HISTORY : None. ENCOUNTER: Initial ACUITY: 1 day PAIN SCORE: Non-responsive. LOCATION: Bilateral chest FINDINGS: The ET tube and NG tube are well placed. The heart size is enlarged. There are diffuse increased in terstitial markings. There is hazy density identified at the right base. There is a right internal jugular central line in good position. CONCLUSION: 1. Cardiomegaly with increased interstitial markings likely representing edema and possible CHF. 2. Hazy density at the right base. Some degree of right effusion needs to be considered. Edy Johnson MD on July 02, 2016 at 14:11 Board Certified Radiologist. This report was verified electronically.
[2016-07-02] MEDS ORDERED: methylPREDNISolone SOD SUCC 125 MG/2 ML VIAL ONE ×2 (15:28→16:00)
[2016-07-02] MEDS ORDERED: DILTIAZEM INJ 125 MG in SODIUM CHLORIDE 0.9% INJ 100 ML IV SCH (15:30)
[2016-07-02] MEDS ORDERED: PROPOFOL 1000 MG/100 ML INJ 100 ML ONE (15:35)
[2016-07-02] MEDS: methylPREDNISolone SOD SUCC 40 MG/1 ML VIAL IV PUSH SCH ×2 (16:00→21:10)
[2016-07-02] MEDS ORDERED: methylPREDNISolone SOD SUCC 125 MG/2 ML VIAL IV PUSH ONE (16:15)
[2016-07-02] MEDS ORDERED: ETOMIDATE 40 MG/20 ML VIAL ONE (16:34)
[2016-07-02 18:05] LABS: BLOOD GAS BASE EXCESS 9.7 mmol/L (-2-2); BLOOD GAS CARBOXYHEMOGLOBIN 1.6 % (0-4); BLOOD GAS HCO3 34 mmol/L (22-26); BLOOD GAS METHEMOGLOBIN 1.2 % (0-2); BLOOD GAS O2 HGB SATURATION 93 % (90-100); BLOOD GAS OXYGEN CONTENT 15.5 Vol % (12.0-20.0); BLOOD GAS PCO2 50 mmHg (38-42); BLOOD GAS PO2 82 mmHg (61-120); BLOOD GAS TOTAL HGB 11.8 G/DL (12.0-16.0); CRITICAL VALUE NO; DRAW SITE RT RADIAL; FIO2 45 %; NUMBER OF ARTERIAL PUNCTURES 1; OXYGEN DEVICE VENTILATOR; STAT NO; TEMP CORR TO 98.6; ULNAR PULSE Y; VENT SETTINGS ACPVRC/R14/VT550/P45
--- NOTE | 2016-07-02 18:07 | RADRPT ---
EXAM DATE/TIME: 07/02/2016 17:10 [facility] COMPARISON: CHEST SINGLE AP, July 02, 2016, 12:19. INDICATIONS : Post intubation. MEDICAL HISTORY : None. SURGICAL HISTORY : None. ENCOUNTER: Subsequent ACUITY: 3 days PAIN SCORE: Non-responsive. LOCATION: Bilateral chest FINDINGS: Endotracheal tube tip is well above the burak. Right internal jugular catheter tip projects over th e proximal superior vena cava. Consolidative opacities in the left lower lung with loss of delineati on of the left hemidiaphragm similar to prior. Hazy opacities in the right lung base are slightly im proved. CONCLUSION: ET tube in good position. Left lower lobe consolidation, stable. Alexandr Bernal MD on July 02, 2016 at 18:04 Board Certified Radiologist. This report was verified electronically.
[2016-07-02] MEDS: PROPOFOL 1000 MG/100 ML INJ 100 ML IV SCH ×3 (18:51→23:35)
[2016-07-03] VITALS (18 sets, daily range): BP systolic 86–140; BP diastolic 56–75; PULSE 83–146; RESP 14–22; TEMP 98–99.7; O2SAT 88–98
[2016-07-03] MEDS: PIPERACIL-TAZO 4.5 GM PREMIX 100 ML IV SCH ×4 (02:25→20:27)
[2016-07-03] MEDS: fentaNYL DRIP 250 ML IV SCH ×3 (02:26→21:45)
[2016-07-03] MEDS: PROPOFOL 1000 MG/100 ML INJ 100 ML IV SCH ×6 (02:26→21:45)
[2016-07-03] MEDS: RESP: ALBUTEROL 2.5 MG/IPRATROPIUM 0.5 MG NEB (SCH) NEB ×7 (03:09→23:31)
[2016-07-03] MEDS: CHLORHEXIDINE GLUCONATE 2 % 1 PACK (2 CLOTHS) TOP SCH (04:00)
[2016-07-03] MEDS: INSULIN NovoLIN REGULAR SUPPLEMENTAL SCALE SQ SCH ×4 (04:02→21:43)
[2016-07-03 04:30] LABS: AUTOMATED NEUTROPHIL # 7.8 TH/MM3 (1.8-7.7); BASOPHIL % 0.1 % (0.0-2.0); EOSINOPHIL % 0.1 % (0.0-4.0); HEMATOCRIT 33.2 % (39.0-51.0); HEMO FLAGS DIFF FINAL; LYMPH % 4.6 % (9.0-44.0); LYMPHOCYTE # 0.4 TH/MM3 (1.0-4.8); MEAN CELL VOLUME 88.3 FL (80.0-100.0); MEAN CORPUSCULAR HEMOGLOBIN 29.3 PG (27.0-34.0); MEAN CORPUSCULAR HGB CONC 33.2 % (32.0-36.0); MONO % 2.1 % (0.0-8.0); NEUT % 93.1 % (16.0-70.0); PLATELET COUNT 207 TH/MM3 (150-450); RED BLOOD COUNT 3.76 MIL/MM3 (4.50-5.90); RED CELL DISTRIBUTION WIDTH 13.6 % (11.6-17.2); WHITE BLOOD COUNT 8.4 TH/MM3 (4.0-11.0)
[2016-07-03] MEDS: methylPREDNISolone SOD SUCC 40 MG/1 ML VIAL IV PUSH SCH ×3 (05:04→21:45)
[2016-07-03 05:06] LABS: BICARBONATE 36.2 MEQ/L (21.0-32.0); POTASSIUM 3.6 MEQ/L (3.5-5.1)
[2016-07-03 05:20] LABS: APTT (PATIENT) 98.2 SEC (24.3-30.1)
--- NOTE | 2016-07-03 07:21 | HHI.CCPN ---
Subjective Remarks/Hospital Course On 06/21 ,Mr. Guevara presented with a PMHx of HTN presenting from the [facility] with an elevated, irregular heart rate. He is a patient of Dr. Irwin Rodriguez, who sent this patient from clinic. In clinic, he had a heart rate in the 150s and was instructed to go to the ED for further evaluation. Upon arriving to the ED ,the patient was found to have atrial flutter on twelve-lead EKG with a rate 151 with 2-1 conduction. He denied any chest pain, prior arrhythmia, thyroid disorder, or heart disease. He reported his last EKG was approximately 8 years ago before his eye surgery s/p accident. The patient has a significant alcohol and smoking history, but denies any illicit drugs. He states that he is at his baseline except for 3 episodes of nonbloody diarrhea that have all occurred over this morning. The patient was admitted to the hospital, and placed on CIWA protocol, Cardizem infusion and was scheduled for ablation per interventional cardiology. Early this a.m. the patient became significantly more confused, difficult to control a Hallicat at was called, and the patient was transferred to ICU for further management. Subjective 06/23: Afebrile. Since admission to the ICU yesterday, the patient was placed initially on Precedex infusion for agitation/delirium, in addition to CIWA protocol. The patient subsequently required intubation. Later the afternoon the patient became hypotensive requiring vasopressor support of Levophed which was weaned off during the night. The patient converted to A. fib flutter heart rate 150s and Cardizem infusion was reinitiated. Systolic blood pressure low 100's. The patient continues on Versed low-dose and fentanyl infusions for ventilator synchrony. Plan today for cardiac ablation with Dr. Ponce. 06/24: The patient underwent successful RF ablation for atrial flutter, patient currently remains sinus rhythm sinus tach. The patient underwent CPAP trials however self extubated. Immediately upon self extubation the patient stated " I havent had a drink in 3 days, I need a drink" .The patient's maintain an O2 sat greater than 92% on Ventimask at 50% currently. The patient continues to be confused and agitated than what appears to be delirium tremens , Precedex infusion begun with Ativan PRN . Family present at bedside with patient. The patient noted to be confused, combative, remains in 4 point restraints. Will initiate Coumadin pharmacy dosing, with overlap of heparin until therapeutic INR today. CIWA protocol initiated. 06/25: The patient remain on Precedex infusion throughout the night, with supplementation per [facility] protocol and rested comfortably without agitation, in normal sinus rhythm. During the night he received Lasix 20 mg IV and diuresed greater than 1 L. At approximately 1400, the patient went into A. fib RVR with a rate of 220, and extremely dyspneic with audibly expiratory wheezing. Cardizem bolus 20 mg 2 doses was given. The patient was placed on a Cardizem infusion at 10 mg per hour. The heart rate decreased from 80-100, but rhythm atrial fibrillation. The patient continued to have respiratory distress, tachypnea with a rate in the 40s50s. An ABG was obtained showing a very large A-a gradient, and a PaO2 of 77 on 100% nonrebreather after 40 mg of Lasix diuresis and a DuoNeb treatment. Emergent intubation was required, family at bedside, discussed extensively with and updated her on the the patient's current condition. The patient was reintubated. He continues on a heparin infusion propofol infusion for ventilator synchrony. 06/26:Tmax 100.6. Patient's rhythm atrial fibrillation with a rate 90-109, Cardizem 12 mg/hour. The patient continues on a heparin infusion at this time. Patient was noted to have flash pulmonary edema episode of A. fib RVR which required intubation. Repeat chest x-ray this a.m. still shows pulmonary edema, the patient was diuresed approximately 2 L yesterday, he continues on a PEEP of 10. Patient remains sedated on a propofol and fentanyl infusion for ventilator synchrony. Will initiate tube feeds today. 06/27 Patient is sedated with Diprivan, Fentnayl and intubated. Tmax 100.6. On Heparin and Cardizem drips. On SIMV with FIO2 80%, PEEP: 10. 06/28 No acute events overnight. Remains sedated and intubated. Afebrile. Off Cardizem drip . On ACV with PEEP: 10 and FIO2 40%. T:100.3 at midnight. 06/29 Patient remains sedated and intubated. Afebrile. Remains on Heparin drip. 06/30 Patient remains sedated and intubated. Did not tolerate CPAP trials yesterday. T: 99.7 at 4am. On Heparin drip. 07/01 No acute events overnight intubated and sedated. Had low grade fever with T : 100.4 at 4 am. 07/02 Patient is sedated with Fentanyl, Versed in addition he is on Precedex drip. He gets very agitated , restless, tachypneic and tachycardic when sedation is being weaned off. 07/03 Patient was extubated yesterday however several hrs later he became tachypneic, tachycardic and hypertensive he was subsequently intubated and now sedated with Diprivan and Fentanyl. T 99.7 at midnight. Objective Vital Signs Date Time Temp Pulse Resp B/P Pulse Ox O2 Delivery O2 Flow Rate FiO2 07/03/16 06:00 98 07/03/16 04:10 94 55 07/03/16 04:00 99.5 16 140/75 07/02/16 13:00 Nasal Cannula 6.00 Intake and Output 07/02/16 07/02/16 07/03/16 08:00 16:00 00:00 Intake Total 986 ml 900 ml 743 ml Output Total 250 ml 803 ml 875 ml Balance 736 ml 97 ml -132 ml Result Diagram: 07/03/16 0400 07/03/16 0400 Other Results Laboratory Tests Test 07/02/16 07/02/16 07/02/16 07/03/16 12:15 17:45 19:45 04:00 Blood Gas Puncture Site LT RADIAL RT RADIAL Blood Gas Patient Temperature 98.6 98.6 Blood Gas HCO3 33 mmol/L 34 mmol/L Blood Gas Base Excess 8.6 mmol/L 9.7 mmol/L Blood Gas Oxygen Saturation 93 % 93 % Arterial Blood pH 7.47 7.45 Arterial Blood Partial 46 mmHg 50 mmHg Pressure CO2 Arterial Blood Partial 76 mmHg 82 mmHg Pressure O2 Arterial Blood Oxygen Content 15.9 Vol % 15.5 Vol % Arterial Blood 1.6 % 1.6 % Carboxyhemoglobin Arterial Blood Methemoglobin 1.2 % 1.2 % Blood Gas Hemoglobin 12.2 G/DL 11.8 G/DL Oxygen Delivery Device VENTILATOR VENTILATOR Blood Gas Ventilator Setting CPAP 5 PS10 ACPVRC/R14/VT550/P45 Blood Gas Inspired Oxygen 40 % 45 % Potassium Level 3.8 MEQ/L 3.6 MEQ/L White Blood Count 8.4 TH/MM3 Red Blood Count 3.76 MIL/MM3 Hemoglobin 11.0 GM/DL Hematocrit 33.2 % Mean Corpuscular Volume 88.3 FL Mean Corpuscular Hemoglobin 29.3 PG Mean Corpuscular Hemoglobin 33.2 % Concent Red Cell Distribution Width 13.6 % Platelet Count 207 TH/MM3 Mean Platelet Volume 9.3 FL Neutrophils (%) (Auto) 93.1 % Lymphocytes (%) (Auto) 4.6 % Monocytes (%) (Auto) 2.1 % Eosinophils (%) (Auto) 0.1 % Basophils (%) (Auto) 0.1 % Neutrophils # (Auto) 7.8 TH/MM3 Lymphocytes # (Auto) 0.4 TH/MM3 Monocytes # (Auto) 0.2 TH/MM3 Eosinophils # (Auto) 0.0 TH/MM3 Basophils # (Auto) 0.0 TH/MM3 CBC Comment DIFF FINAL Differential Comment Activated Partial 98.2 SEC Thromboplast Time Sodium Level 138 MEQ/L Chloride Level 93 MEQ/L Carbon Dioxide Level 36.2 MEQ/L Anion Gap 9 MEQ/L Blood Urea Nitrogen 17 MG/DL Creatinine 1.13 MG/DL Estimat Glomerular Filtration 66 ML/MIN Rate Random Glucose 252 MG/DL Calcium Level 8.6 MG/DL Imaging Last Impressions Chest X-Ray 07/02/16 0000 Signed Impressions: Service Date/Time: Saturday, July 02, 2016 17:10 - CONCLUSION: ET tube in good position. Left lower lobe consolidation, stable. Alexandr Bernal MD Head CT 07/01/16 0000 Signed Impressions: Service Date/Time: Friday, July 01, 2016 20:54 - CONCLUSION: No acute intracranial abnormality. Bilateral paranasal sinusitis. Mason Noe MD Objective Remarks GENERAL: Well-nourished well-developed male intubated and sedated. SKIN: Warm and dry. HEAD: Atraumatic. Normocephalic. EYES: Pupils equal and round. No scleral icterus. No injection or drainage. ENT: No nasal bleeding or discharge. Mucous membranes pink and moist. NECK: Trachea midline. No JVD. Orally intubated CARDIOVASCULAR: Tachycardic, Nl S1, S2, no murmurs. RESPIRATORY: No accessory muscle use. Clear to auscultation. Breath sounds equal bilaterally. GASTROINTESTINAL: Abdomen soft, non-tender, nondistended. No guarding. MUSCULOSKELETAL: Extremities without clubbing, cyanosis, or edema. No obvious deformities. NEUROLOGICAL:RASS-2. On propofol and fentanyl infusions intubated and sedated. Date of Insertion: Jun 22, 2016 Line: Central Venous Catheter Side: Right Location: Internal, Jugular A/P Assessment and Plan Plan by systems: Neurologic: Delirium tremens Alcohol abuse Encephalopathy Alcohol withdrawal Restless leg syndrome On Diprivan , Fentanyl infusion for sedation. Daily sedation vacation Precedex drip to facilitate with weaning trials. Continue with Seroquel 25mg BID. Neurochecks per ICU protocol Continue with Thiamine , MVI, Folic acid CT brain 07/01: No acute intracranial abnormalities. Check EEG, neuro- Dr. Spaulding will get MRI brain discussed with neuro. Respiratory: Tobacco abuse VDRF- reintubated 07/02 On PRVC/AC RR 14, TV 550, PEEP: 5, IT: 1.0, FIO2 55%, Decrease FIO2 45% Continue with vent support keep sat >92%., Bronchodilators, ICU vent bundle. SBT daily as farzana Patient was reintubated twice and he might require trach discussed with patient' s family. Cardiovascular: Atrial fibrillation with RVR 06/25 Cardiomegaly Monitor HR and BP keep MAP>65mmHg On PO Cardizem 60mg QID On Heparin infusion- monitor PTT Cardiology following- Dr. Bautista 06/24 S/P RF cardiac ablation 06/21 Echo showed EF 35-40% Renal: SHAWNA- resolved Monitor renal function, I/O's, electrolytes replacement per protocol. Decrease Bumex 1mg IV daily FEN/GI: Continue TF-Jevity 1.5@ 50ml/hr Zofran IV for nausea Protonix IV 40 mg/day Bowel regimen Heme/ID: Monitor CBC Transfuse for hemoglobin less than 7 Monitor PTT per heparin protocol Continue with abx ( Zosyn) Monitor for signs of infections ( Fever, WBC) 06/30 sputum cx: Moraxella Catarrhalis Check C-diff PCR Endocrine: On SSI(medium scale) for glycemic control Prophylaxis: GI Prophylaxis Protonix IV 40 mg/day DVT Prophylaxis -- SCDs Heparin infusion Lines: Peripheral IVs 2. Central line right IJ 06/22 Spoke to patient's and sister updated them on his condition yesterday CCT 30 mins Adrienne Suh MD Jul 03, 2016 07:21
[2016-07-03] MEDS: BUMETANIDE INJ 1 MG/4 ML VIAL IV PUSH SCH (08:37)
[2016-07-03] MEDS: PANTOPRAZOLE SODIUM 40 MG VIAL IV SCH (08:37)
[2016-07-03] MEDS: THIAMINE HCL 100 MG TAB PO SCH (08:37)
[2016-07-03] MEDS: QUEtiapine FUMARATE 25 MG TAB PO SCH ×2 (08:37→20:26)
[2016-07-03] MEDS: DILTIAZEM HCL 60 MG TAB PO SCH ×4 (08:37→21:23)
[2016-07-03] MEDS: ASPIRIN 81 MG CHEW TAB PO SCH (08:37)
[2016-07-03] MEDS: LOSARTAN 50 MG TAB PO SCH (08:38)
[2016-07-03] MEDS: SODIUM CHLORIDE 0.9% FLUSH 10 ML FLUSH IV FLUSH SCH ×2 (08:39→20:27)
[2016-07-03] MEDS: SENNOSIDES SYRUP 8.8 MG/5 ML CUP PO SCH (08:39)
--- NOTE | 2016-07-03 08:39 | HHI.FPPN ---
Subjective Remarks Patient seen and examined this morning. Yesterday afternoon patient was extubated after CPAP trial was completed. However after approximately 2 hours, he was re-intubated due to severe agitation, tachycardia to the 150-170s, and tachypnea with desaturations. This morning he is intubated and sedated. Neurology has been consulted to rule out any neurological process. EEG and MRI are scheduled for later today. Per nursing staff, Critical Care will discuss the possibility of tracheostomy with patient's family as patient has failed multiple extubations. Objective Vitals Vital Signs Date Time Temp Pulse Resp B/P Pulse Ox O2 Delivery O2 Flow Rate FiO2 07/03/16 06:00 98 07/03/16 04:10 94 55 07/03/16 04:00 55 07/03/16 04:00 118 07/03/16 04:00 99.5 118 16 140/75 98 07/03/16 02:00 108 07/03/16 01:09 93 55 07/03/16 00:00 99.7 83 15 108/70 93 07/03/16 00:00 45 07/03/16 00:00 104 07/02/16 22:05 94 45 07/02/16 22:00 86 07/02/16 20:00 82 07/02/16 20:00 45 07/02/16 20:00 98.6 82 15 107/68 99 07/02/16 19:40 98 45 07/02/16 18:00 82 07/02/16 17:00 45 07/02/16 16:45 96 45 07/02/16 16:00 119 07/02/16 16:00 98.2 119 26 137/82 92 07/02/16 14:00 127 07/02/16 13:00 92 Nasal Cannula 6.00 07/02/16 12:00 97.9 119 32 104/64 94 07/02/16 12:00 119 07/02/16 11:53 96 40 07/02/16 10:25 45 07/02/16 10:00 90 I/O 07/02/16 07/02/16 07/02/16 07/03/16 07/03/16 07/03/16 07:00 15:00 23:00 07:00 15:00 23:00 Intake Total 986 ml 900 ml 743 ml 977 ml Output Total 250 ml 803 ml 875 ml 600 ml Balance 736 ml 97 ml -132 ml 377 ml Intake Oral 0 ml IV Total 728 ml 637 ml 743 ml 681 ml Tube Feeding 258 ml 63 ml 256 ml Other 200 ml 40 ml Output Urine Total 250 ml 800 ml 875 ml 600 ml Stool Total 0 ml 3 ml # Bowel Movements 1 Result Diagram: 07/03/1639907/03/16399 Objective Remarks GENERAL: 61 y/o CM lying in bed, in no acute cardiopulmonary distress. SKIN: Warm and dry. CARDIOVASCULAR: Tachycardic to 120s in atrial fibrillation. RESPIRATORY: Currently intubated. Improved breath sounds bilaterally without CRW. Currently saturating 99%. GASTROINTESTINAL: Abdomen slightly distended likely secondary to constipation. + BS. MUSCULOSKELETAL: Extremities without cyanosis. Mild edema to BL hands. UROGENITAL: Patient with lakhani catheter in place with approximately 200mL in reservoir. No signs of hemorrhage at site of insertion. NEUROLOGICAL: Patient currently intubated, sedated, and on Precedex drip. Date of Insertion: Jun 22, 2016 Line: Central Venous Catheter Side: Right Location: Internal, Jugular A/P Assessment and Plan Mr. Guevara is a 61 y/o CM with a PMHx of HTN and alcohol abuse presenting from the [facility] with an elevated, irregular heart rate found to have atrial flutter. He is s/p cardiac ablation and currently in sinus rhythm. Currently withdrawing from chronic alcohol use, on the CIWA protocol while intubated and sedated. Discharge Planning Unclear given patient's current clinical state. Discussed with Dr. Abreu, Dr. Mcrae Problem List: (1) Alcohol withdrawal Status: Acute Plan: Medical team paged for HALICAT at approximately 0745 on 06/23/15 due to agitation. Per nursing report patient had been agitated and altered throughout the night with CIWA scores up to 25. The patient does have an extensive history of alcohol use with up to 3/4 drinks per day. He also has an extensive smoking history. Patient transferred to ICU. Shrink Pit Operator consulted, appreciate recommendations Patient intubated, then self extubated despite Midazolam and fentanyl infusion. Patient reintubated on 06/25 due to flash pulmonary edema with desaturation. Patient extubated on 07/02, however was subsequently re-intubated as he became severely aggressive, tachycardic, and tachypneic with desaturations. Continue to monitor respiratory status Ativan per CIWV protocol Currently on Diprivan, fentanyl, and Precedex drips Critical care will discuss possible tracheostomy with family as the patient has failed multiple extubation trials Neurology consulted, appreciate recommendations * EEG and MRI scheduled for today (2) Ventilator associated pneumonia Status: Acute Plan: Patient with recent temperature up to 100.4 on 07/01/16 as well as increased respiratory secretions who is currently intubated. Chest x-ray 06/29: Stable consolidation left lower lobe, new area of consolidation in the right upper lobe. Chest x-ray 07/02 at 1200: Cardiomegaly with increased interstitial markings likely representing edema and possible CHF. Hazy density at R base, an effusion needs to be considered. Chest x-ray 07/02 at 1700: ET tube in good position. L lower lobe consolidation stable. Exam: Coarse breath sounds bilaterally with yellow/[place] nurse for secretions per ET tube suction on 06/30-07/01. Current exams improved. Sputum culture 06/30: Moraxella catarrhalis Medications: Zosyn (06/30 ) (3) Atrial flutter with rapid ventricular response Status: Acute Plan: Patient presenting from clinic with atrial fibrillation with rate into the 150s, found to be in atrial flutter. Patient was then ablated, however presented with atrial fibrillation with RVR to a rate of 220. HR currently elevated to the 130s. Cardiology consulted, appreciate recommendations and intervention Patient status post successful ablation on 06/23, currently on a heparin drip and in sinus rhythm Echo: Normal cavity size and wall thickness. Systolic function mildly reduced with EF of 35-40%, however study was limited due to markedly tachycardia. Wall motion normal. Patient converted to atrial fibrillation with RVR on 06/25 to a rate of 220, diltiazem drip initiated to control rate. Diltiazem drip has currently been stopped (06/25-06/27) and he has been transitioned to PO Cardizem. Medications: Heparin drip Cardizem 60 mg 4 times a day Lopressor 2.5 mg every 6 hours when necessary for heart rate greater than 100 ASA 81mg daily (4) Creatinine elevation Status: Acute Plan: Patient with creatinine elevation to 1.9 on 06/26/16 which has since resolved with IV fluid resuscitation. Patient with hematuria upon Lakhani placement, likely traumatic placement. Strict I's/O's with Lakhani catheter Continue to monitor (5) Hypertension Status: Chronic Plan: Patient with chronic HTN Pt has been hypotensive and required pressors from 06/23 until 06/24, BP currently stable. Hold home Irbesartan-HCTZ (300-12.5) with conversion to Losartan 100mg daily and HCTZ 12.5mg daily Cardizem 60mg QID Bumex 1 mg daily Losartan 100 mg daily (6) Restless leg syndrome Status: Chronic Plan: Patient with reported restless leg syndrome -Hold Ropinirole for now (7) Nutrition, metabolism, and development symptoms Status: Acute Plan: Fluids: Currently none, monitor I/Os Diet: NPO as patient is intubated. Tube feeds with Jevity currently at 30 ml/ hr. Electrolytes: WNL, continue to monitor DVT: Heparin drip Prophylaxis: Protonix 40 mg IV daily, DuoNeb's every 6 hours when necessary for shortness of breath/wheezing, hydroxyzine 25 mg daily at bedtime when necessary for insomnia (Held) Constipation: Senna daily and Colace BID, Monitor stool output Problem Qualifiers (1) Alcohol withdrawal: Qualified Code: F10.231 - Alcohol withdrawal, with delirium (2) Hypertension: Qualified Code: I10 - Essential hypertension Swapnil Barrera MD R1 Jul 03, 2016 08:39
--- NOTE | 2016-07-03 09:46 | MB ---
cc: CHEIKH SPAULDING M.D. DATE OF CONSULTATION: 07/03/2016 HISTORY OF PRESENT ILLNESS He is a 51-year-old with history of persistent agitation and inability to be extubated. He was admitted on 06/21 with history of irregular heart rate, atrial fibrillation, hypertension and alcohol abuse. Apparently, he drinks heavily and attempts to extubate him has been unsuccessful in multiple occasions. The patient becomes agitated and somewhat aggressive. PAST MEDICAL HISTORY The medical history also includes: 1. Restless leg syndrome. 2. Lower back degenerative spine disease and apparent chronic back pain. MEDICATION Currently he is on Diprivan and fentanyl. When sedation is weaned off the patient is agitated. EXAMINATION He was intubated and upon somatosensory stimulation he looked at me but did not really follow commands to me. His eyes were open and he appeared awake and he has muscle tone and moves all four extremities grossly equally. He withdrew to the somatosensory stimulation, mildly. His reflexes were present and symmetrical 1-2+ at the knees, 1+ at the elbows, trace at the ankles. Plantar responses probably flexor bilaterally. ANCILLARY DATA He had a CT brain two days ago showing no acute abnormality, sinusitis. He has had daily labs. Today WBC 8.4, hemoglobin 11.0, platelets 207. Chemistry sodium, potassium normal. BUN, creatinine normal. Glucose 252 today. ASSESSMENT Metabolic encephalopathy. Alcoholism. Atrial fibrillation. Respiratory failure. Discussed with Dr. Suh. We will obtain an MRI of brain, rule out shower embolism, etc., as the patient has underlying atrial fibrillation. He is on heparin. An EEG is already ordered. I will request vitamin levels. Thank you for asking us to assist in his care. Cheikh Spaulding MD OFC/TLL /8:51 AM /9:34 AM
[2016-07-03 10:11] LABS: APTT (PATIENT) 45.8 SEC (24.3-30.1)
--- NOTE | 2016-07-03 10:43 | RADRPT ---
EXAM DATE/TIME: 07/03/2016 10:12 [facility] COMPARISON: No previous studies available for comparison. INDICATIONS : Encephalopathy. MEDICAL HISTORY : Hypertension. SURGICAL HISTORY : None. ENCOUNTER: Initial ACUITY: 1 day PAIN SCORE: 0/10 LOCATION: cranial TECHNIQUE: Multiplanar, multisequence MRI of the brain was performed without contrast. FINDINGS: CEREBRUM: The ventricles are normal for age. No evidence of midline shift, mass lesion, hemorrhage or acute in farction. No extraaxial fluid collections are seen. The pituitary gland and suprasellar cistern are normal in configuration. WHITE MATTER: No significant signal abnormalities are seen in the white matter. POSTERIOR FOSSA: The cerebellum and brainstem are intact. The 4th ventricle is midline. The cerebellopontine angle is unremarkable. The cerebellar tonsils are normal in position. DIFFUSION IMAGING: No focal areas of restricted diffusion are seen. No evidence of acute infarction. EXTRACRANIAL: The visualized portions of the orbits are unremarkable. There is mucosal disease at the ethmoid, maxi llary, and sphenoid sinuses. CONCLUSION: 1. No intracranial abnormality is seen. 2. Sinus disease. Edy Johnson MD on July 03, 2016 at 10:37 Board Certified Radiologist. This report was verified electronically.
--- NOTE | 2016-07-03 12:34 | HHI.PR ---
Addendum to Inpatient Note Addendum Reason: Additional Documentation Additional Information Off Service Note Mr. Guevara is a 61 y/o M who presented on 06/21/16 and found to have atrial flutter. He was admitted and scheduled for ablation on 06/22/16, however due to his extensive alcohol abuse went in to delirium tremens from withdrawal. Medical team paged for HALICAT at approximately 06/23/15 due to withdrawal agitation. Per nursing report patient had been agitated and altered throughout the night with CIWA scores up to 25. Patient was then transferred to ICU, intubated, and controlled on a Precedex drip. While intubated he was taken for ablation on 06/23/16 without complication. He self extubated and subsequently re- intubated on 06/25/16 due to flash pulmonary edema and oxygen desaturations. Patient was then found to have ventilator associated pneumonia and is currently being treated with Zosyn. On 07/02/16 the patient successfully underwent CPAP trials and was extubated, however was again re-intubated due agitation, tachycardia, and tachypnea with desaturations. He currently is intubated, sedated, and on Precedex drip. Neurology has been consulted and EEG with MRI are pending (CT negative for acute process). Critical care will discuss the possibility of tracheostomy with family as patient has failed multiple extubation trials. Swapnil Barrera MD R1 Jul 03, 2016 12:33
[2016-07-03 16:26] LABS: APTT (PATIENT) 92.4 SEC (24.3-30.1)
[2016-07-03] MEDS: HEPARIN-D5W INJ 250 ML IV SCH (17:13)
[2016-07-03 17:27] LABS: APTT (PATIENT) 41.8 SEC (24.3-30.1)
--- NOTE | 2016-07-03 19:08 | MG ---
cc: CHEIKH SPAULDING M.D. Lab No: Date: 07/03/2016 Age: 61 Sex: M Race: REQUESTING: Dr. Suh. HISTORY: An EEG was obtained on this 61-year-old patient being evaluated for encephalopathy. The patient is intubated on Diprivan. OTHER MEDICATIONS: 1. Fentanyl. 2. Seroquel. 3. Insulin. DESCRIPTION OF THE RECORD: The EEG shows a mixture of low amplitude beta rhythms with some low to mid amplitude alpha activity and also theta rhythms. At times there is some mild asymmetry but this is not very consistent. The background seems to be reactive. Photic stimulation shows no distinct change. Hyperventilation was not performed. Later on the patient is clearly asleep and there is a lot of theta and more beta rhythms with a less reactive background. INTERPRETATION: Mildly abnormal EEG because of mild slowing intermittently suggesting a mild diffuse disturbance of cerebral function. No epileptiform features are present. Cheikh Spaulding MD LOCATED WITHIN [facility] /6:49 PM /7:03 PM
[2016-07-03] MEDS: HALOPERIDOL LACTATE 5 MG/ML AMP IM PRN (21:55)
[2016-07-03] MEDS: METOPROLOL TARTRATE 5 MG/5 ML VIAL IV PUSH PRN (22:15)
[2016-07-04] VITALS (18 sets, daily range): BP systolic 95–142; BP diastolic 64–94; PULSE 89–122; RESP 14–22; TEMP 97–98.4; O2SAT 91–98
[2016-07-04] MEDS: PROPOFOL 1000 MG/100 ML INJ 100 ML IV SCH ×6 (01:11→21:24)
[2016-07-04] MEDS: PIPERACIL-TAZO 4.5 GM PREMIX 100 ML IV SCH ×4 (02:21→20:04)
[2016-07-04] MEDS: RESP: ALBUTEROL 2.5 MG/IPRATROPIUM 0.5 MG NEB (SCH) NEB ×6 (03:19→23:37)
[2016-07-04] MEDS: INSULIN NovoLIN REGULAR SUPPLEMENTAL SCALE SQ SCH ×4 (03:55→20:22)
[2016-07-04] MEDS: CHLORHEXIDINE GLUCONATE 2 % 1 PACK (2 CLOTHS) TOP SCH (04:00)
[2016-07-04] MEDS: METOPROLOL TARTRATE 5 MG/5 ML VIAL IV PUSH PRN (04:30)
[2016-07-04] MEDS: HALOPERIDOL LACTATE 5 MG/ML AMP IM PRN ×2 (04:34→08:44)
[2016-07-04 05:17] LABS: AUTOMATED NEUTROPHIL # 9.2 TH/MM3 (1.8-7.7); BASOPHIL % 0.2 % (0.0-2.0); EOSINOPHIL % 0.1 % (0.0-4.0); HEMATOCRIT 32.1 % (39.0-51.0); LYMPH % 7.9 % (9.0-44.0); LYMPHOCYTE # 0.8 TH/MM3 (1.0-4.8); MEAN CELL VOLUME 88.7 FL (80.0-100.0); MEAN CORPUSCULAR HEMOGLOBIN 30.3 PG (27.0-34.0); MEAN CORPUSCULAR HGB CONC 34.2 % (32.0-36.0); MONO % 5.4 % (0.0-8.0); NEUT % 86.4 % (16.0-70.0); PLATELET COUNT 219 TH/MM3 (150-450); RED BLOOD COUNT 3.62 MIL/MM3 (4.50-5.90); RED CELL DISTRIBUTION WIDTH 13.2 % (11.6-17.2); WHITE BLOOD COUNT 10.7 TH/MM3 (4.0-11.0)
[2016-07-04 05:18] LABS: HEMO FLAGS AUTO DIFF
[2016-07-04 05:27] LABS: INTERNATIONAL NORMALIZED RATIO 1.1 RATIO; PROTHROMBIN TIME - PATIENT 12.6 SEC (9.8-11.6)
[2016-07-04 05:50] LABS: APTT (PATIENT) 90.2 SEC (24.3-30.1)
[2016-07-04 05:54] LABS: BICARBONATE 39.1 MEQ/L (21.0-32.0); POTASSIUM 3.9 MEQ/L (3.5-5.1)
[2016-07-04] MEDS: methylPREDNISolone SOD SUCC 40 MG/1 ML VIAL IV PUSH SCH ×2 (06:26→17:47)
[2016-07-04 06:57] LABS: BANDS 11 % (0-6); METAMYELOCYTES 1 % (0-1); MYELOCYTES 2 % (0-0); NEUTROPHIL # MANUAL DIFF 9.5 TH/MM3 (1.8-7.7); PLATELET ESTIMATE SMEAR NORMAL (NORMAL); PLATELET MORPHOLOGY NORMAL (NORMAL); POLYS (SEG NEUTROPHILS) 75 % (16-70); SCAN/DIFF FINAL DIFF MANUAL; WBC DIFF SAMPLE 100
[2016-07-04 07:03] LABS: APTT (PATIENT) 50.8 SEC (24.3-30.1)
[2016-07-04] MEDS: ASPIRIN 81 MG CHEW TAB PO SCH (07:57)
[2016-07-04] MEDS: THIAMINE HCL 100 MG TAB PO SCH (07:57)
[2016-07-04] MEDS: BUMETANIDE INJ 1 MG/4 ML VIAL IV PUSH SCH (07:58)
[2016-07-04] MEDS: DILTIAZEM HCL 60 MG TAB PO SCH ×4 (07:58→20:05)
[2016-07-04] MEDS: SENNOSIDES SYRUP 8.8 MG/5 ML CUP PO SCH (07:58)
[2016-07-04] MEDS: PANTOPRAZOLE SODIUM 40 MG VIAL IV SCH (07:59)
[2016-07-04] MEDS: LOSARTAN 50 MG TAB PO SCH (07:59)
[2016-07-04] MEDS: SODIUM CHLORIDE 0.9% FLUSH 10 ML FLUSH IV FLUSH SCH ×2 (08:31→20:05)
[2016-07-04] MEDS: QUEtiapine FUMARATE 25 MG TAB PO SCH ×2 (08:31→20:05)
--- NOTE | 2016-07-04 09:03 | HHI.CCPN ---
Subjective Remarks/Hospital Course On 06/21 ,Mr. Guevara presented with a PMHx of HTN presenting from the [facility] with an elevated, irregular heart rate. He is a patient of Dr. Irwin Rodriguez, who sent this patient from clinic. In clinic, he had a heart rate in the 150s and was instructed to go to the ED for further evaluation. Upon arriving to the ED ,the patient was found to have atrial flutter on twelve-lead EKG with a rate 151 with 2-1 conduction. He denied any chest pain, prior arrhythmia, thyroid disorder, or heart disease. He reported his last EKG was approximately 8 years ago before his eye surgery s/p accident. The patient has a significant alcohol and smoking history, but denies any illicit drugs. He states that he is at his baseline except for 3 episodes of nonbloody diarrhea that have all occurred over this morning. The patient was admitted to the hospital, and placed on CIWA protocol, Cardizem infusion and was scheduled for ablation per interventional cardiology. Early this a.m. the patient became significantly more confused, difficult to control a Hallicat at was called, and the patient was transferred to ICU for further management. Subjective 06/23: Afebrile. Since admission to the ICU yesterday, the patient was placed initially on Precedex infusion for agitation/delirium, in addition to CIWA protocol. The patient subsequently required intubation. Later the afternoon the patient became hypotensive requiring vasopressor support of Levophed which was weaned off during the night. The patient converted to A. fib flutter heart rate 150s and Cardizem infusion was reinitiated. Systolic blood pressure low 100's. The patient continues on Versed low-dose and fentanyl infusions for ventilator synchrony. Plan today for cardiac ablation with Dr. Ponce. 06/24: The patient underwent successful RF ablation for atrial flutter, patient currently remains sinus rhythm sinus tach. The patient underwent CPAP trials however self extubated. Immediately upon self extubation the patient stated " I havent had a drink in 3 days, I need a drink" .The patient's maintain an O2 sat greater than 92% on Ventimask at 50% currently. The patient continues to be confused and agitated than what appears to be delirium tremens , Precedex infusion begun with Ativan PRN . Family present at bedside with patient. The patient noted to be confused, combative, remains in 4 point restraints. Will initiate Coumadin pharmacy dosing, with overlap of heparin until therapeutic INR today. CIWA protocol initiated. 06/25: The patient remain on Precedex infusion throughout the night, with supplementation per [facility] protocol and rested comfortably without agitation, in normal sinus rhythm. During the night he received Lasix 20 mg IV and diuresed greater than 1 L. At approximately 1400, the patient went into A. fib RVR with a rate of 220, and extremely dyspneic with audibly expiratory wheezing. Cardizem bolus 20 mg 2 doses was given. The patient was placed on a Cardizem infusion at 10 mg per hour. The heart rate decreased from 80-100, but rhythm atrial fibrillation. The patient continued to have respiratory distress, tachypnea with a rate in the 40s50s. An ABG was obtained showing a very large A-a gradient, and a PaO2 of 77 on 100% nonrebreather after 40 mg of Lasix diuresis and a DuoNeb treatment. Emergent intubation was required, family at bedside, discussed extensively with and updated her on the the patient's current condition. The patient was reintubated. He continues on a heparin infusion propofol infusion for ventilator synchrony. 06/26:Tmax 100.6. Patient's rhythm atrial fibrillation with a rate 90-109, Cardizem 12 mg/hour. The patient continues on a heparin infusion at this time. Patient was noted to have flash pulmonary edema episode of A. fib RVR which required intubation. Repeat chest x-ray this a.m. still shows pulmonary edema, the patient was diuresed approximately 2 L yesterday, he continues on a PEEP of 10. Patient remains sedated on a propofol and fentanyl infusion for ventilator synchrony. Will initiate tube feeds today. 06/27 Patient is sedated with Diprivan, Fentnayl and intubated. Tmax 100.6. On Heparin and Cardizem drips. On SIMV with FIO2 80%, PEEP: 10. 06/28 No acute events overnight. Remains sedated and intubated. Afebrile. Off Cardizem drip . On ACV with PEEP: 10 and FIO2 40%. T:100.3 at midnight. 06/29 Patient remains sedated and intubated. Afebrile. Remains on Heparin drip. 06/30 Patient remains sedated and intubated. Did not tolerate CPAP trials yesterday. T: 99.7 at 4am. On Heparin drip. 07/01 No acute events overnight intubated and sedated. Had low grade fever with T : 100.4 at 4 am. 07/02 Patient is sedated with Fentanyl, Versed in addition he is on Precedex drip. He gets very agitated , restless, tachypneic and tachycardic when sedation is being weaned off. 07/03 Patient was extubated yesterday however several hrs later he became tachypneic, tachycardic and hypertensive he was subsequently intubated and now sedated with Diprivan and Fentanyl. T 99.7 at midnight. 07/04 Patient remains sedated with Diprivan and Fentanyl. MRI brain yesterday showed no acute findings. Afebrile. Objective Vital Signs Date Time Temp Pulse Resp B/P Pulse Ox O2 Delivery O2 Flow Rate FiO2 07/04/16 08:19 94 45 07/04/16 06:00 93 07/04/16 04:00 98.4 14 105/65 07/02/16 13:00 Nasal Cannula 6.00 Intake and Output 07/03/16 07/03/16 07/04/16 08:00 16:00 00:00 Intake Total 977 ml 938 ml 1121 ml Output Total 600 ml 700 ml 450 ml Balance 377 ml 238 ml 671 ml Result Diagram: 07/04/16 0405 07/04/16 0405 Other Results Laboratory Tests Test 07/03/16 07/03/16 07/03/16 07/04/16 15:15 15:30 16:50 04:05 Activated Partial 92.4 SEC 41.8 SEC 90.2 SEC Thromboplast Time Total Creatine Kinase 118 U/L Vitamin B12 Level 960 PG/ML Folate 12.8 NG/ML Thyroxine (T4) 8.0 MCG/DL Thyroid Stimulating Hormone 0.289 uIU/ML 3rd Gen White Blood Count 10.7 TH/MM3 Red Blood Count 3.62 MIL/MM3 Hemoglobin 11.0 GM/DL Hematocrit 32.1 % Mean Corpuscular Volume 88.7 FL Mean Corpuscular Hemoglobin 30.3 PG Mean Corpuscular Hemoglobin 34.2 % Concent Red Cell Distribution Width 13.2 % Platelet Count 219 TH/MM3 Mean Platelet Volume 9.7 FL Neutrophils (%) (Auto) 86.4 % Lymphocytes (%) (Auto) 7.9 % Monocytes (%) (Auto) 5.4 % Eosinophils (%) (Auto) 0.1 % Basophils (%) (Auto) 0.2 % Neutrophils # (Auto) 9.2 TH/MM3 Lymphocytes # (Auto) 0.8 TH/MM3 Monocytes # (Auto) 0.6 TH/MM3 Eosinophils # (Auto) 0.0 TH/MM3 Basophils # (Auto) 0.0 TH/MM3 CBC Comment AUTO DIFF Differential Total Cells 100 Counted Neutrophils % (Manual) 75 % Band Neutrophils % 11 % Lymphocytes % 5 % Monocytes % 6 % Neutrophils # (Manual) 9.5 TH/MM3 Metamyelocytes 1 % Myelocytes 2 % Differential Comment FINAL DIFF MANUAL Platelet Estimate NORMAL Platelet Morphology Comment NORMAL Red Cell Morphology Comment NORMAL Prothrombin Time 12.6 SEC Prothromb Time International 1.1 RATIO Ratio Sodium Level 136 MEQ/L Potassium Level 3.9 MEQ/L Chloride Level 92 MEQ/L Carbon Dioxide Level 39.1 MEQ/L Anion Gap 5 MEQ/L Blood Urea Nitrogen 27 MG/DL Creatinine 1.25 MG/DL Estimat Glomerular Filtration 59 ML/MIN Rate Random Glucose 365 MG/DL Calcium Level 8.5 MG/DL Test 07/04/16 05:55 Activated Partial 50.8 SEC Thromboplast Time Imaging Last Impressions Brain MRI 07/03/16 0000 Signed Impressions: Service Date/Time: Sunday, July 03, 2016 10:12 - CONCLUSION: 1. No intracranial abnormality is seen. 2. Sinus disease. Edy Johnson MD Chest X-Ray 07/02/16 0000 Signed Impressions: Service Date/Time: Saturday, July 02, 2016 17:10 - CONCLUSION: ET tube in good position. Left lower lobe consolidation, stable. Alexandr eBrnal MD Head CT 07/01/16 0000 Signed Impressions: Service Date/Time: Friday, July 01, 2016 20:54 - CONCLUSION: No acute intracranial abnormality. Bilateral paranasal sinusitis. Mason Noe MD Objective Remarks GENERAL: Well-nourished well-developed male intubated and sedated. SKIN: Warm and dry. HEAD: Atraumatic. Normocephalic. EYES: Pupils equal and round. No scleral icterus. No injection or drainage. ENT: No nasal bleeding or discharge. Mucous membranes pink and moist. NECK: Trachea midline. No JVD. Orally intubated CARDIOVASCULAR: Tachycardic, Nl S1, S2, no murmurs. RESPIRATORY: No accessory muscle use. Clear to auscultation. Breath sounds equal bilaterally. GASTROINTESTINAL: Abdomen soft, non-tender, nondistended. No guarding. MUSCULOSKELETAL: Extremities without clubbing, cyanosis, or edema. No obvious deformities. NEUROLOGICAL:RASS-2. On propofol and fentanyl infusions intubated and sedated. Date of Insertion: Jun 22, 2016 Line: Central Venous Catheter Side: Right Location: Internal, Jugular A/P Assessment and Plan Plan by systems: Neurologic: Delirium tremens Alcohol abuse Encephalopathy Alcohol withdrawal Restless leg syndrome On Diprivan , Fentanyl infusion for sedation. Daily sedation vacation Precedex drip to facilitate with weaning trials. Continue with Seroquel 25mg BID. Neurochecks per ICU protocol Continue with Thiamine , MVI, Folic acid CT brain 07/01: No acute intracranial abnormalities. MRI brain 07/03: No acute findings EEG 07/03 : No epileptiform features. Neuro- Dr. Spaulding Respiratory: Tobacco abuse VDRF- reintubated 07/02 On PRVC/AC RR 14, TV 550, PEEP: 5, IT: 1.0, FIO2 45%, Continue with vent support keep sat >92%., Bronchodilators, ICU vent bundle. SBT daily as farzana Decrease Solumederol 40mg Q12 Patient was reintubated twice and might require trach Cardiovascular: Atrial fibrillation with RVR 06/25 Cardiomegaly Monitor HR and BP keep MAP>65mmHg On PO Cardizem 60mg QID On Heparin infusion- monitor PTT Cardiology following- Dr. Bautista 06/24 S/P RF cardiac ablation 06/21 Echo showed EF 35-40% Renal: SHAWNA- resolved Monitor renal function, I/O's, electrolytes replacement per protocol. On Bumex 1mg IV daily FEN/GI: Continue TF-Jevity 1.5@ 50ml/hr Zofran IV for nausea Protonix IV 40 mg/day Bowel regimen Heme/ID: Monitor CBC Transfuse for hemoglobin less than 7 Monitor PTT per heparin protocol Continue with abx ( Zosyn) Monitor for signs of infections ( Fever, WBC) 06/30 sputum cx: Moraxella Catarrhalis, follow up on repeat sputum cx from 07/03 Check C-diff PCR Endocrine: On SSI(medium scale) for glycemic control, add Levemir 7u Q12 Prophylaxis: GI Prophylaxis Protonix IV 40 mg/day DVT Prophylaxis -- SCDs Heparin infusion Lines: Peripheral IVs 2. Central line right IJ 06/22 CCT 30 mins Adrienne Suh MD Jul 04, 2016 09:03
--- NOTE | 2016-07-04 10:04 | HHI.FPPN ---
Subjective Remarks 07/04: No acute events overnight. Afebrile. Intubated, with saturations 93% or higher overnight. PEEP 5. R14. O2 45%. Pulse 90-140s. Sedated on Proprofol and Fentanyl. Will open eyes to command. called to request update, was informed CPAP trial will again be performed today. Hospital Course Mr. Guevara is a 61 y/o M who presented on 06/21/16 and found to have atrial flutter. He was admitted and scheduled for ablation on 06/22/16, however due to his extensive alcohol abuse went in to delirium tremens from withdrawal. Medical team paged for HALICAT at approximately 06/23/15 due to withdrawal agitation. Was agitated and altered throughout the night with CIWA scores up to 25. Transferred to ICU, intubated, and controlled on a Precedex drip. While intubated, taken for ablation 06/23/16 without complication. Self-extubated and subsequently re-intubated on 06/25/16 due to flash pulmonary edema and oxygen desaturations. Then found to have ventilator associated pneumonia, currently being treated with Zosyn. On 07/02/16 the patient successfully underwent CPAP trials and was extubated, however, again re-intubated due agitation, tachycardia , and tachypnea with desaturations. Neurology consulted, EEG and MRI brain grossly negative. Critical care will discuss the possibility of tracheostomy with family as patient has failed multiple extubation trials. (Harika Diez MD R1) Objective Vitals Vital Signs Date Time Temp Pulse Resp B/P Pulse Ox O2 Delivery O2 Flow Rate FiO2 07/04/16 08:19 94 45 07/04/16 06:00 93 07/04/16 04:06 93 55 07/04/16 04:00 98.4 108 14 105/65 95 07/04/16 04:00 108 07/04/16 04:00 55 07/04/16 02:00 92 07/04/16 01:15 93 55 07/04/16 00:00 97.0 89 14 95/64 93 07/04/16 00:00 89 07/04/16 00:00 55 07/03/16 22:00 146 07/03/16 20:42 93 55 07/03/16 20:00 98.0 91 14 101/70 94 07/03/16 20:00 91 07/03/16 20:00 55 07/03/16 18:00 92 07/03/16 16:00 99.1 119 16 117/57 96 07/03/16 16:00 55 07/03/16 16:00 99 07/03/16 15:28 92 55 07/03/16 14:00 92 07/03/16 12:00 94 07/03/16 12:00 55 07/03/16 12:00 99.0 94 22 86/56 88 07/03/16 11:45 95 55 I/O 07/03/16 07/03/16 07/03/16 07/04/16 07/04/16 07/04/16 07:00 15:00 23:00 07:00 15:00 23:00 Intake Total 977 ml 938 ml 1121 ml 951 ml Output Total 600 ml 700 ml 450 ml 450 ml Balance 377 ml 238 ml 671 ml 501 ml IV Total 681 ml 540 ml 783 ml 621 ml Tube Feeding 256 ml 198 ml 338 ml 330 ml Other 40 ml 200 ml Output Urine Total 600 ml 700 ml 450 ml 450 ml # Bowel Movements 1 0 1 (Harika Diez MD R1) Result Diagram: 07/04/16 0405 07/04/16 0405 Imaging Last Impressions Brain MRI 07/03/16 0000 Signed Impressions: Service Date/Time: Sunday, July 03, 2016 10:12 - CONCLUSION: 1. No intracranial abnormality is seen. 2. Sinus disease. Edy Johnson MD Chest X-Ray 07/02/16 0000 Signed Impressions: Service Date/Time: Saturday, July 02, 2016 17:10 - CONCLUSION: ET tube in good position. Left lower lobe consolidation, stable. Alexandr Bernal MD Head CT 07/01/16 0000 Signed Impressions: Service Date/Time: Friday, July 01, 2016 20:54 - CONCLUSION: No acute intracranial abnormality. Bilateral paranasal sinusitis. Mason Noe MD Objective Remarks CONST: 61y/o CM lying in bed, in no acute distress DERM: Warm and dry CV: Tachycardic to 120s, irregularly irregular rhythm. No murmurs. RESP: Currently intubated. Anterior breath sounds equal bilaterally, no wheezing or rales GI: Abdomen slightly distended. Non-tender to palpation. +BS MSK: Extremities without cyanosis. Mild edema to bilateral hands. Lower extremities in SCDs : Lujan catheter in place. No signs of hemorrhage at site of insertion. NEURO: Intubated, sedated. Opens eyes to command, shake head "no" regarding pain . (Harika Diez MD R1) Urinary Catheter: Yes (Harika Diez MD R1) Date of Insertion: Jun 22, 2016 Line: Central Venous Catheter Side: Right Location: Internal, Jugular (Harika Diez MD R1) A/P Assessment and Plan 61 y/o CM with a PMHx of HTN and alcohol abuse presenting 06/21/16 with tachycardia to 150s, found to be in atrial flutter. Converted to afib with RVR s/p ablation, with hospital stay complicated by DTs, requiring intubatation and sedatation. Discharge Planning Unclear given patient's current clinical state. Discussed with Dr. Abreu, Dr. Mcrae (Harika Diez MD R1) Attending Attestation Patient seen and examined. Case reviewed and discussed with resident, RN, CCM. Agree with plan of care as discussed with me and documented in the resident note. (Steph Anders MD) Problem List: (1) Alcohol withdrawal Status: Acute Plan: HALICAT called 06/23/15 for agitation, overnight CIWA scores to 25. Extensive hx alcohol use with up to 3-4 drinks per day. Extensive smoking history. Transferred to ICU. Patient intubated, then self-extubated despite Midazolam and fentanyl infusion. Patient reintubated on 06/25 due to flash pulmonary edema with desaturation. Patient extubated on 07/02, however was subsequently re-intubated as he became severely aggressive, tachycardic, and tachypneic with desaturations. Building Tech consulted, appreciate recommendations Currently on Intubated, on Diprivan, Fentanyl drips --Attempt CPAP trial again today Continue to monitor respiratory status Ativan per CIWA protocol Critical care will discuss possible tracheostomy with family as the patient has failed multiple extubation trials Neurology consulted, appreciate recommendations * EEG (07/03): no epileptiform events, intermittent mild diffuse slowing suggestive of mild diffuse cerebral dysfunction * MRI brain (07/03): no intracranial process (2) Ventilator associated pneumonia Status: Resolved Plan: Sputum culture 06/30 growing Moraxella catarrhalis. Afebrile since 100.4 on 07/01/16 CXR 06/29: Stable consolidation LLL, new consolidation RUL. CXR 07/02: Stable LLL consolidation. Hazy density R base, consider effusion. ET tube in good position. Cardiomegaly, increased interstitial markings, suggestive edema, possible CHF. PLAN -Zosyn 4.5Gm q6h (06/30 ) -Intubated, continue to attempt CPAP trials, as tolerated (3) Atrial flutter with rapid ventricular response Status: Acute Plan: Presenting with atrial flutter with rate into the 150. Ablated 06/23 (Dr Ponce), subsequently presented with atrial fibrillation with RVR to 220s. Diltiazem drip initiated to control rates to 220, then stopped (06/25-06/27) and transitioned to PO Cardizem Cardiology consulted, appreciate recommendations and intervention, no longer following. ECHO: Study limited secondary to tachycardia, EF 35-40%, normal cavity size, wall thickness, wall motion. PLAN Improved rate control, currently in afib with rates of 120s Cardizem 60mg PO QID Lopressor 2.5 mg q6h PRN HR >100 ASA 81mg PO daily --Continue heparin drip per protocol (4) Creatinine elevation Status: Resolved Plan: No baseline creatinine. Cr to 1.9 06/26/16, since resolved with IV fluid resuscitation. Hematuria upon Lujan placement, likely traumatic placement. 07/05: Improved Cr 1.25 Strict I's/O's with Lujan catheter, trend BUN/Cr (5) Hypertension Status: Chronic Plan: Chronic. Hx hypotensive as well, required pressors from 06/23 until 06/24, BP currently stable. Hold home Irbesartan-HCTZ (300-12.5) Cardizem 60mg QID, as above Losartan 100 mg PO daily Bumex 1 mg daily (6) Restless leg syndrome Status: Chronic Plan: Reported. -Hold Ropinirole (7) Nutrition, metabolism, and development symptoms Status: Acute Plan: Fluids: Minimal- 5mL/hr. Diet: NPO as intubated. Tube feeds with Jevity currently at 30 ml/hr. Electrolytes: Bicarb increasing (39), Sugars increasing, continue to monitor DVT prophylaxis: SCDs,continue heparin drip GI prophylaxis: Protonix 40 mg IV daily while intubated, on steroids. Constipation: Senna daily, Colace BID (Harika Diez MD R1) Problem Qualifiers (1) Alcohol withdrawal: Qualified Code: F10.231 - Alcohol withdrawal, with delirium (2) Hypertension: Qualified Code: I10 - Essential hypertension Harika Diez MD R1 Jul 04, 2016 10:04 Steph Anders MD July 18, 2016 08:57
[2016-07-04] MEDS: INSULIN DETEMIR 100 UNITS/ML VIAL SQ SCH ×2 (10:35→20:05)
[2016-07-04] MEDS: LORazepam 2 MG/ML VIAL IV PUSH PRN ×2 (11:13→19:15)
--- NOTE | 2016-07-04 11:15 | HHI.PR ---
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 and eeg benign continue agrressive medical care, mvi and thiamine Subjective Subjective Comments No new neuro events reported Active Medications Current Medications Medications (Trade) Dose Ordered Sig/Krishan Route Start Time Stop Time Status Last Admin (Aspirin Chew) 81 mg DAILY PO 06/22/16 09:00 07/04/16 07:57 (Catapres) 0.1 mg Q6H PRN PO 06/21/16 14:45 (Heparin Inj) 5,000 units UNSCH PRN IV 06/21/16 21:30 Heparin Sodium (Porcine) 2500 units 2,500 units UNSCH PRN IV 06/21/16 21:30 06/28/16 00:14 (Heparin-D5W Inj) 250 ml @ 0 mls/hr TITRATE IV 06/21/16 15:30 07/03/16 17:13 (Cozaar) 100 mg DAILY PO 06/22/16 09:00 07/04/16 07:59 (NS Flush) 2 ml UNSCH PRN IV FLUSH 06/22/16 10:15 07/01/16 20:25 (NS Flush) 2 ml BID IV FLUSH 06/22/16 21:00 07/03/16 20:27 (Protonix Inj) 40 mg DAILY IV 06/23/16 09:00 07/04/16 07:59 Miscellaneous Information 1 Q361D XX 06/22/16 10:15 (Chlorhexidine 2% Cloth) Taper DAILY@04 TOP 06/23/16 04:00 06/19/17 03:59 06/27/16 04:00 Chlorhexidine Gluconate 3 pack 3 pack UNSCH PRN TOP 06/22/16 10:15 Potassium Chloride 100 ml @ 50 mls/hr Q2H PRN IV 06/22/16 10:15 06/26/16 10:51 (KCl 20 Meq Premix Inj) 100 ml @ 50 mls/hr Q2H PRN IV 06/22/16 10:15 Potassium Bicarb/ Potassium Chloride 50 meq 50 meq UNSCH PRN PO 06/22/16 10:15 Potassium Chloride 100 ml @ 25 mls/hr UNSCH PRN IV 06/22/16 10:15 Potassium Chloride 100 ml @ 50 mls/hr Q2H PRN IV 06/22/16 10:15 (Magnesium Sulfate Inj/NS Inj) 100 ml @ 50 mls/hr UNSCH PRN IV 06/22/16 10:15 Magnesium Oxide 800 mg 800 mg UNSCH PRN PO 06/22/16 10:15 (Magnesium Sulfate Inj/NS Inj) 100 ml @ 50 mls/hr UNSCH PRN IV 06/22/16 10:15 Potassium Phosphate 2000 mg 2,000 mg Q4H PRN PO 06/22/16 10:15 (Sodium Phosphate Inj/NS 250 ml Inj) 250 ml @ 42 mls/hr UNSCH PRN IV 06/22/16 10:15 Potassium Phosphate 2000 mg 2,000 mg UNSCH PRN PO/TUBE 06/22/16 10:15 (Potassium Phosphate Inj/NS 250 ml Inj) 260 ml @ 42 mls/hr UNSCH PRN IV 06/22/16 10:15 (Brethine Inj) 1 mg UNSCH PRN SQ 06/23/16 02:45 (Percocet 5-325 Mg) 1 tab Q4H PRN PO 06/23/16 18:00 (Percocet 5-325 Mg) 2 tab Q4H PRN PO 06/23/16 18:00 (Atropine Inj) 0.5 mg UNSCH PRN IV 06/23/16 18:00 (Reglan Inj) 10 mg Q4H PRN IV 06/23/16 18:00 Ondansetron HCl 4 mg 4 mg Q4H PRN IV 06/23/16 18:00 (Coumadin Consult Pharmacy) 0 ml @ 0 mls/hr UNSCH OTHER 06/24/16 11:45 (Romazicon Inj) 0.2 mg Q1M PRN IV PUSH 06/24/16 11:45 (Ativan) 1 mg Q4H PRN PO 06/24/16 11:45 (Ativan Inj) 1 mg Q4H PRN IV PUSH 06/24/16 11:45 06/28/16 06:35 (Ativan) 2 mg Q2H PRN PO 06/24/16 11:45 (Ativan Inj) 2 mg Q2H PRN IV PUSH 06/24/16 11:45 06/25/16 03:40 (Ativan Inj) 2 mg Q1H PRN IV PUSH 06/24/16 11:45 06/25/16 18:56 (Ativan Inj) 2 mg Q15M PRN IV PUSH 06/24/16 11:45 07/01/16 20:24 (Haldol Inj) 2 mg Q15M PRN IM 06/24/16 11:45 07/04/16 08:44 (Lopressor Inj) 2.5 mg Q6H PRN IV PUSH 06/24/16 12:00 07/04/16 04:30 (Vitamin B1) 100 mg DAILY PO 06/28/16 09:00 07/04/16 07:57 (Coumadin) 5 mg DAILY@16 PO 06/24/16 16:00 Hold (Senna Liq) 8.8 mg DAILY PO 06/27/16 09:00 07/04/16 07:58 Diltiazem HCl 60 mg 60 mg QID PO 06/27/16 09:00 07/04/16 07:58 (Zosyn 4.5 Gm Premix) 100 ml @ 200 mls/hr Q6H IV 06/30/16 09:00 07/04/16 07:56 (D50w (Vial) Inj) 25 ml UNSCH PRN IV PUSH 07/01/16 09:15 (Glucagon Inj) 1 mg UNSCH PRN OTHER 07/01/16 09:15 (NovoLIN R SUPPLEMENTAL SCALE) 1 Q6H SQ 07/01/16 10:00 07/04/16 08:44 Quetiapine Fumarate 25 mg 25 mg BID PO 07/01/16 21:00 07/04/16 08:31 Fentanyl Citrate 250 ml @ 0 mls/hr TITRATE IV 07/02/16 17:00 07/03/16 21:45 (Diprivan 1000 Mg/100ml Inj) 100 ml @ 0 mls/hr TITRATE IV 07/02/16 17:00 07/04/16 06:45 (Bumex Inj) 1 mg DAILY IV PUSH 07/03/16 09:00 07/04/16 07:58 (SoluMEDROL INJ) 40 mg Q12H IV PUSH 07/04/16 18:00 (Levemir Inj) 7 units Q12HR SQ 07/04/16 09:00 07/04/16 10:35 (Santyl Oint) 1 applic DAILY PRN TOPICAL 07/04/16 10:00 Allergies Allergies Coded Allergies No Known Allergies (Unverified06/21/16) Exam I&O / VS 07/03/16 07/03/16 07/04/16 15:00 23:00 07:00 Intake Total 938 ml 1121 ml 951 ml Output Total 700 ml 450 ml 450 ml Balance 238 ml 671 ml 501 ml IV Total 540 ml 783 ml 621 ml Tube Feeding 198 ml 338 ml 330 ml Other 200 ml Output Urine Total 700 ml 450 ml 450 ml # Bowel Movements 0 1 Vital Signs Date Time Temp Pulse Resp B/P Pulse Ox O2 Delivery O2 Flow Rate FiO2 07/04/16 08:19 94 45 07/04/16 06:00 93 07/04/16 04:06 93 55 07/04/16 04:00 98.4 108 14 105/65 95 07/04/16 04:00 108 07/04/16 04:00 55 07/04/16 02:00 92 07/04/16 01:15 93 55 07/04/16 00:00 97.0 89 14 95/64 93 07/04/16 00:00 89 07/04/16 00:00 55 07/03/16 22:00 146 07/03/16 20:42 93 55 07/03/16 20:00 98.0 91 14 101/70 94 07/03/16 20:00 91 07/03/16 20:00 55 07/03/16 18:00 92 07/03/16 16:00 99.1 119 16 117/57 96 07/03/16 16:00 55 07/03/16 16:00 99 07/03/16 15:28 92 55 07/03/16 14:00 92 07/03/16 12:00 94 07/03/16 12:00 55 07/03/16 12:00 99.0 94 22 86/56 88 07/03/16 11:45 95 55 Objective Radiology Results Last 48 hours Impressions Brain MRI 07/03/16 0000 Signed Impressions: Service Date/Time: Sunday, July 03, 2016 10:12 - CONCLUSION: 1. No intracranial abnormality is seen. 2. Sinus disease. Edy Johnson MD Micro and Labs Laboratory Tests Test 07/03/16 07/03/16 07/03/16 07/04/16 15:15 15:30 16:50 04:05 Activated Partial 92.4 41.8 90.2 Thromboplast Time Total Creatine Kinase 118 Vitamin B12 Level 960 Folate 12.8 Thyroxine (T4) 8.0 Thyroid Stimulating Hormone 0.289 3rd Gen White Blood Count 10.7 Red Blood Count 3.62 Hemoglobin 11.0 Hematocrit 32.1 Mean Corpuscular Volume 88.7 Mean Corpuscular Hemoglobin 30.3 Mean Corpuscular Hemoglobin 34.2 Concent Red Cell Distribution Width 13.2 Platelet Count 219 Mean Platelet Volume 9.7 Neutrophils (%) (Auto) 86.4 Lymphocytes (%) (Auto) 7.9 Monocytes (%) (Auto) 5.4 Eosinophils (%) (Auto) 0.1 Basophils (%) (Auto) 0.2 Neutrophils # (Auto) 9.2 Lymphocytes # (Auto) 0.8 Monocytes # (Auto) 0.6 Eosinophils # (Auto) 0.0 Basophils # (Auto) 0.0 CBC Comment AUTO DIFF Differential Total Cells 100 Counted Neutrophils % (Manual) 75 Band Neutrophils % 11 Lymphocytes % 5 Monocytes % 6 Neutrophils # (Manual) 9.5 Metamyelocytes 1 Myelocytes 2 Differential Comment FINAL DIFF MANUAL Platelet Estimate NORMAL Platelet Morphology Comment NORMAL Red Cell Morphology Comment NORMAL Prothrombin Time 12.6 Prothromb Time International 1.1 Ratio Sodium Level 136 Potassium Level 3.9 Chloride Level 92 Carbon Dioxide Level 39.1 Anion Gap 5 Blood Urea Nitrogen 27 Creatinine 1.25 Estimat Glomerular Filtration 59 Rate Random Glucose 365 Calcium Level 8.5 Test 07/04/16 05:55 Activated Partial 50.8 Thromboplast Time Date/Time Procedure Status Source Growth 07/03/16 14:00 Gram Stain - Final Resulted Sputum Endotracheal 07/03/16 14:00 Sputum Culture Resulted Sputum Endotracheal Pending Channing Spaulding MD Jul 04, 2016 11:15
[2016-07-04] MEDS: HEPARIN-D5W INJ 250 ML IV SCH (11:47)
[2016-07-04 15:43] LABS: C. DIFF EPI 027 PRESUMPTIVE NEGATIVE (NEGATIVE); C. DIFF TOXIN PCR NEGATIVE (NEGATIVE)
[2016-07-05] VITALS (19 sets, daily range): BP systolic 110–137; BP diastolic 64–85; PULSE 92–169; RESP 14–15; TEMP 96.7–99; O2SAT 85–99
[2016-07-05] MEDS: PROPOFOL 1000 MG/100 ML INJ 100 ML IV SCH ×7 (00:13→22:27)
[2016-07-05] MEDS: HEPARIN-D5W INJ 250 ML IV SCH ×2 (01:35→16:22)
[2016-07-05] MEDS: PIPERACIL-TAZO 4.5 GM PREMIX 100 ML IV SCH ×4 (02:53→20:24)
[2016-07-05] MEDS: RESP: ALBUTEROL 2.5 MG/IPRATROPIUM 0.5 MG NEB (SCH) NEB ×6 (03:09→23:40)
[2016-07-05] MEDS: LORazepam 2 MG/ML VIAL IV PUSH PRN ×3 (03:14→13:02)
[2016-07-05 03:29] LABS: AUTOMATED NEUTROPHIL # 7.9 TH/MM3 (1.8-7.7); BASOPHIL % 0.5 % (0.0-2.0); HEMATOCRIT 32.7 % (39.0-51.0); LYMPH % 5.8 % (9.0-44.0); LYMPHOCYTE # 0.5 TH/MM3 (1.0-4.8); MEAN CELL VOLUME 88.2 FL (80.0-100.0); MEAN CORPUSCULAR HEMOGLOBIN 30.6 PG (27.0-34.0); MEAN CORPUSCULAR HGB CONC 34.7 % (32.0-36.0); MONO % 7.5 % (0.0-8.0); NEUT % 86.2 % (16.0-70.0); PLATELET COUNT 236 TH/MM3 (150-450); RED BLOOD COUNT 3.71 MIL/MM3 (4.50-5.90); RED CELL DISTRIBUTION WIDTH 13.2 % (11.6-17.2); WHITE BLOOD COUNT 9.1 TH/MM3 (4.0-11.0)
[2016-07-05 03:30] LABS: HEMO FLAGS AUTO DIFF
[2016-07-05 03:40] LABS: APTT (PATIENT) 50.2 SEC (24.3-30.1)
[2016-07-05 03:57] LABS: POTASSIUM 4.1 MEQ/L (3.5-5.1)
[2016-07-05] MEDS: CHLORHEXIDINE GLUCONATE 2 % 1 PACK (2 CLOTHS) TOP SCH (04:00)
[2016-07-05] MEDS: INSULIN NovoLIN REGULAR SUPPLEMENTAL SCALE SQ SCH ×4 (04:00→20:24)
[2016-07-05 04:06] LABS: SCAN/DIFF AUTO DIFF CONFIRMED
[2016-07-05] MEDS: methylPREDNISolone SOD SUCC 40 MG/1 ML VIAL IV PUSH SCH (04:09)
[2016-07-05] MEDS: fentaNYL DRIP 250 ML IV SCH ×2 (06:30→16:20)
[2016-07-05] MEDS: COLLAGENASE OINT 30 GM TUBE TOPICAL PRN (07:20)
[2016-07-05] MEDS: DILTIAZEM HCL 60 MG TAB PO SCH ×4 (08:18→20:24)
[2016-07-05] MEDS: THIAMINE HCL 100 MG TAB PO SCH (08:18)
[2016-07-05] MEDS: LOSARTAN 50 MG TAB PO SCH (08:19)
[2016-07-05] MEDS: PANTOPRAZOLE SODIUM 40 MG VIAL IV SCH (08:19)
[2016-07-05] MEDS: ASPIRIN 81 MG CHEW TAB PO SCH (08:19)
[2016-07-05] MEDS: BUMETANIDE INJ 1 MG/4 ML VIAL IV PUSH SCH (08:20)
[2016-07-05] MEDS: QUEtiapine FUMARATE 25 MG TAB PO SCH ×2 (08:20→20:24)
[2016-07-05] MEDS: INSULIN DETEMIR 100 UNITS/ML VIAL SQ SCH ×3 (08:20→20:24)
--- NOTE | 2016-07-05 08:30 | HHI.CCPN ---
Subjective Remarks/Hospital Course On 06/21 ,Mr. Guevara presented with a PMHx of HTN presenting from the [facility] with an elevated, irregular heart rate. He is a patient of Dr. Irwin Rodriguez, who sent this patient from clinic. In clinic, he had a heart rate in the 150s and was instructed to go to the ED for further evaluation. Upon arriving to the ED ,the patient was found to have atrial flutter on twelve-lead EKG with a rate 151 with 2-1 conduction. He denied any chest pain, prior arrhythmia, thyroid disorder, or heart disease. He reported his last EKG was approximately 8 years ago before his eye surgery s/p accident. The patient has a significant alcohol and smoking history, but denies any illicit drugs. He states that he is at his baseline except for 3 episodes of nonbloody diarrhea that have all occurred over this morning. The patient was admitted to the hospital, and placed on CIWA protocol, Cardizem infusion and was scheduled for ablation per interventional cardiology. Early this a.m. the patient became significantly more confused, difficult to control a Hallicat at was called, and the patient was transferred to ICU for further management. Subjective 06/23: Afebrile. Since admission to the ICU yesterday, the patient was placed initially on Precedex infusion for agitation/delirium, in addition to CIWA protocol. The patient subsequently required intubation. Later the afternoon the patient became hypotensive requiring vasopressor support of Levophed which was weaned off during the night. The patient converted to A. fib flutter heart rate 150s and Cardizem infusion was reinitiated. Systolic blood pressure low 100's. The patient continues on Versed low-dose and fentanyl infusions for ventilator synchrony. Plan today for cardiac ablation with Dr. Ponce. 06/24: The patient underwent successful RF ablation for atrial flutter, patient currently remains sinus rhythm sinus tach. The patient underwent CPAP trials however self extubated. Immediately upon self extubation the patient stated " I havent had a drink in 3 days, I need a drink" .The patient's maintain an O2 sat greater than 92% on Ventimask at 50% currently. The patient continues to be confused and agitated than what appears to be delirium tremens , Precedex infusion begun with Ativan PRN . Family present at bedside with patient. The patient noted to be confused, combative, remains in 4 point restraints. Will initiate Coumadin pharmacy dosing, with overlap of heparin until therapeutic INR today. CIWA protocol initiated. 06/25: The patient remain on Precedex infusion throughout the night, with supplementation per [facility] protocol and rested comfortably without agitation, in normal sinus rhythm. During the night he received Lasix 20 mg IV and diuresed greater than 1 L. At approximately 1400, the patient went into A. fib RVR with a rate of 220, and extremely dyspneic with audibly expiratory wheezing. Cardizem bolus 20 mg 2 doses was given. The patient was placed on a Cardizem infusion at 10 mg per hour. The heart rate decreased from 80-100, but rhythm atrial fibrillation. The patient continued to have respiratory distress, tachypnea with a rate in the 40s50s. An ABG was obtained showing a very large A-a gradient, and a PaO2 of 77 on 100% nonrebreather after 40 mg of Lasix diuresis and a DuoNeb treatment. Emergent intubation was required, family at bedside, discussed extensively with and updated her on the the patient's current condition. The patient was reintubated. He continues on a heparin infusion propofol infusion for ventilator synchrony. 06/26:Tmax 100.6. Patient's rhythm atrial fibrillation with a rate 90-109, Cardizem 12 mg/hour. The patient continues on a heparin infusion at this time. Patient was noted to have flash pulmonary edema episode of A. fib RVR which required intubation. Repeat chest x-ray this a.m. still shows pulmonary edema, the patient was diuresed approximately 2 L yesterday, he continues on a PEEP of 10. Patient remains sedated on a propofol and fentanyl infusion for ventilator synchrony. Will initiate tube feeds today. 06/27 Patient is sedated with Diprivan, Fentnayl and intubated. Tmax 100.6. On Heparin and Cardizem drips. On SIMV with FIO2 80%, PEEP: 10. 06/28 No acute events overnight. Remains sedated and intubated. Afebrile. Off Cardizem drip . On ACV with PEEP: 10 and FIO2 40%. T:100.3 at midnight. 06/29 Patient remains sedated and intubated. Afebrile. Remains on Heparin drip. 06/30 Patient remains sedated and intubated. Did not tolerate CPAP trials yesterday. T: 99.7 at 4am. On Heparin drip. 07/01 No acute events overnight intubated and sedated. Had low grade fever with T : 100.4 at 4 am. 07/02 Patient is sedated with Fentanyl, Versed in addition he is on Precedex drip. He gets very agitated , restless, tachypneic and tachycardic when sedation is being weaned off. 07/03 Patient was extubated yesterday however several hrs later he became tachypneic, tachycardic and hypertensive he was subsequently intubated and now sedated with Diprivan and Fentanyl. T 99.7 at midnight. 07/04 Patient remains sedated with Diprivan and Fentanyl. MRI brain yesterday showed no acute findings. Afebrile. 07/05 No acute events overnight. Afebrile. Sedated and intubated. Patient gets agitated and restless on CPAP and when sedation is being weaned. Objective Vital Signs Date Time Temp Pulse Resp B/P Pulse Ox O2 Delivery O2 Flow Rate FiO2 07/05/16 07:36 93 45 07/05/16 06:00 102 07/05/16 04:00 98.4 14 117/64 07/02/16 13:00 Nasal Cannula 6.00 Intake and Output 07/04/16 07/04/16 07/05/16 08:00 16:00 00:00 Intake Total 951 ml 1420 ml 1752 ml Output Total 450 ml 900 ml 772 ml Balance 501 ml 520 ml 980 ml Result Diagram: 07/05/16 0305 07/05/16 0305 Other Results Laboratory Tests Test 07/04/16 07/04/16 07/05/16 10:30 21:45 03:05 Stool C. difficile Toxin (PCR) NEGATIVE Stl C. difficile Toxin PRESUMPTIVE Epiderm 027 NEGATIVE Ammonia LESS THAN 10 MCMOL/L White Blood Count 9.1 TH/MM3 Red Blood Count 3.71 MIL/MM3 Hemoglobin 11.3 GM/DL Hematocrit 32.7 % Mean Corpuscular Volume 88.2 FL Mean Corpuscular Hemoglobin 30.6 PG Mean Corpuscular Hemoglobin 34.7 % Concent Red Cell Distribution Width 13.2 % Platelet Count 236 TH/MM3 Mean Platelet Volume 9.0 FL Neutrophils (%) (Auto) 86.2 % Lymphocytes (%) (Auto) 5.8 % Monocytes (%) (Auto) 7.5 % Eosinophils (%) (Auto) 0.0 % Basophils (%) (Auto) 0.5 % Neutrophils # (Auto) 7.9 TH/MM3 Lymphocytes # (Auto) 0.5 TH/MM3 Monocytes # (Auto) 0.7 TH/MM3 Eosinophils # (Auto) 0.0 TH/MM3 Basophils # (Auto) 0.0 TH/MM3 CBC Comment AUTO DIFF Differential Comment AUTO DIFF CONFIRMED Activated Partial 50.2 SEC Thromboplast Time Sodium Level 139 MEQ/L Potassium Level 4.1 MEQ/L Chloride Level 95 MEQ/L Carbon Dioxide Level 38.0 MEQ/L Anion Gap 6 MEQ/L Blood Urea Nitrogen 27 MG/DL Creatinine 1.13 MG/DL Estimat Glomerular Filtration 66 ML/MIN Rate Random Glucose 323 MG/DL Calcium Level 8.3 MG/DL Imaging Last Impressions Brain MRI 07/03/16 0000 Signed Impressions: Service Date/Time: Sunday, July 03, 2016 10:12 - CONCLUSION: 1. No intracranial abnormality is seen. 2. Sinus disease. Edy Johnson MD Chest X-Ray 07/02/16 0000 Signed Impressions: Service Date/Time: Saturday, July 02, 2016 17:10 - CONCLUSION: ET tube in good position. Left lower lobe consolidation, stable. Alexandr Bernal MD Head CT 07/01/16 0000 Signed Impressions: Service Date/Time: Friday, July 01, 2016 20:54 - CONCLUSION: No acute intracranial abnormality. Bilateral paranasal sinusitis. Mason Noe MD Objective Remarks GENERAL: Well-nourished well-developed male intubated and sedated. SKIN: Warm and dry. HEAD: Atraumatic. Normocephalic. EYES: Pupils equal and round. No scleral icterus. No injection or drainage. ENT: No nasal bleeding or discharge. Mucous membranes pink and moist. NECK: Trachea midline. No JVD. Orally intubated CARDIOVASCULAR: Tachycardic, Nl S1, S2, no murmurs. RESPIRATORY: No accessory muscle use. Clear to auscultation. Breath sounds equal bilaterally. GASTROINTESTINAL: Abdomen soft, non-tender, nondistended. No guarding. MUSCULOSKELETAL: Extremities without clubbing, cyanosis, or edema. No obvious deformities. NEUROLOGICAL:RASS-2. On propofol and fentanyl infusions intubated and sedated. Date of Insertion: Jun 22, 2016 Line: Central Venous Catheter Side: Right Location: Internal, Jugular A/P Assessment and Plan Plan by systems: Neurologic: Delirium tremens Alcohol abuse Encephalopathy Alcohol withdrawal Restless leg syndrome On Diprivan , Fentanyl infusion for sedation. Daily sedation vacation Precedex drip to facilitate with weaning trials. Continue with Seroquel 25mg BID. Neurochecks per ICU protocol Continue with Thiamine , MVI, Folic acid CT brain 07/01: No acute intracranial abnormalities. MRI brain 07/03: No acute findings EEG 07/03 : No epileptiform features. Neuro- Dr. Spaulding Respiratory: Tobacco abuse VDRF- reintubated 07/02 On PRVC/AC RR 14, TV 450, PEEP: 5, IT: 1.0, FIO2 45%, Continue with vent support keep sat >92%., Bronchodilators, ICU vent bundle. SBT daily as farzana Decrease Solumederol 40mg daily Patient was reintubated twice and might require trach Cardiovascular: Atrial fibrillation with RVR 06/25 Cardiomegaly Monitor HR and BP keep MAP>65mmHg On PO Cardizem 60mg QID On Heparin infusion- monitor PTT Cardiology following- Dr. Bautista 06/24 S/P RF cardiac ablation 06/21 Echo showed EF 35-40% Renal: SHAWNA- resolved Monitor renal function, I/O's, electrolytes replacement per protocol. On Bumex 1mg IV daily FEN/GI: Continue TF-Jevity 1.5@ 50ml/hr Zofran IV for nausea Protonix IV 40 mg/day Bowel regimen Heme/ID: Monitor CBC Transfuse for hemoglobin less than 7 Monitor PTT per heparin protocol Continue with abx ( Zosyn) Monitor for signs of infections ( Fever, WBC) 06/30 sputum cx: Moraxella Catarrhalis, repeat sputum cx from 07/03: No growth C-diff PCR negative Endocrine: On SSI(medium scale) for glycemic control, increase Levemir 10u Q12 Prophylaxis: GI Prophylaxis Protonix IV 40 mg/day DVT Prophylaxis -- SCDs Heparin infusion Lines: Peripheral IVs 2. Central line right IJ 06/22 CCT 30 mins Adrienne Suh MD Jul 05, 2016 08:30
[2016-07-05] MEDS ORDERED: ALTEPLASE RECOMBINANT 2 MG VIAL INTRACATH ONE (08:45)
[2016-07-05] MEDS: SODIUM CHLORIDE 0.9% FLUSH 10 ML FLUSH IV FLUSH SCH ×2 (09:00→20:24)
[2016-07-05] MEDS: SENNOSIDES SYRUP 8.8 MG/5 ML CUP PO SCH (09:00)
[2016-07-05 09:32] LABS: BLOOD GAS CARBOXYHEMOGLOBIN 1.3 % (0-4); BLOOD GAS HCO3 34 mmol/L (22-26); BLOOD GAS O2 HGB SATURATION 92 % (90-100); BLOOD GAS OXYGEN CONTENT 17.3 Vol % (12.0-20.0); BLOOD GAS PCO2 53 mmHg (38-42); BLOOD GAS PO2 75 mmHg (61-120); BLOOD GAS TOTAL HGB 13.3 G/DL (12.0-16.0); TEMP CORR TO 98.6
[2016-07-05 09:33] LABS: CRITICAL VALUE YES; OXYGEN DEVICE VENTILATOR
[2016-07-05 09:34] LABS: DRAW SITE LT RADIAL; FIO2 45 %; NUMBER OF ARTERIAL PUNCTURES 1; STAT NO; ULNAR PULSE PRESENT; VENT SETTINGS 14/550/PEEP5
--- NOTE | 2016-07-05 09:48 | HHI.FPPN ---
Subjective Remarks 07/05: No acute events overnight. Afebrile. Remains intubated and sedated. Failed CPAP trial yesterday, was very aggressive, kicking and attempting to bite nurses. Does not open eyes to command today. Continued tachycardia 100- 120s. Saturations 94%+ overnight. Vent settings unchanged from yesterday: PEEP 5. R14. O2 45%. Will attempt another CPAP trial again today. Insulin added yesterday for hyperglycemia secondary to steroids/critical illness. Hospital Course Mr. Guevara is a 61 y/o M who presented on 06/21/16 and found to have atrial flutter. He was admitted and scheduled for ablation on 06/22/16, however due to his extensive alcohol abuse went in to delirium tremens from withdrawal. Medical team paged for HALICAT at approximately 06/23/15 due to withdrawal agitation. Was agitated and altered throughout the night with CIWA scores up to 25. Transferred to ICU, intubated, and controlled on a Precedex drip. While intubated, taken for ablation 06/23/16 without complication. Self-extubated and subsequently re-intubated on 06/25/16 due to flash pulmonary edema and oxygen desaturations. Then found to have ventilator associated pneumonia, currently being treated with Zosyn. On 07/02/16 the patient successfully underwent CPAP trials and was extubated, however, again re-intubated due agitation, tachycardia , and tachypnea with desaturations. Neurology consulted, EEG and MRI brain grossly negative. Critical care will discuss the possibility of tracheostomy with family as patient has failed multiple extubation trials. (Harika Diez MD R1) Objective Vitals Vital Signs Date Time Temp Pulse Resp B/P Pulse Ox O2 Delivery O2 Flow Rate FiO2 07/05/16 07:36 93 45 07/05/16 06:00 102 07/05/16 04:39 97 45 07/05/16 04:00 98.4 118 14 117/64 92 07/05/16 04:00 117 07/05/16 04:00 45 07/05/16 02:00 99 07/05/16 00:06 94 45 07/05/16 00:00 98.2 92 14 114/70 94 07/05/16 00:00 45 07/05/16 00:00 114 07/04/16 22:00 112 07/04/16 20:00 45 07/04/16 20:00 98.4 90 17 120/80 91 07/04/16 20:00 90 07/04/16 19:21 94 45 07/04/16 18:00 120 07/04/16 16:00 97.1 104 18 121/80 98 07/04/16 16:00 45 07/04/16 16:00 91 07/04/16 15:53 89 07/04/16 15:48 92 45 07/04/16 12:00 98.1 99 16 125/68 96 07/04/16 12:00 99 07/04/16 12:00 45 07/04/16 11:43 94 45 07/04/16 10:00 122 I/O 07/04/16 07/04/16 07/04/16 07/05/16 07/05/16 07/05/16 07:00 15:00 23:00 07:00 15:00 23:00 Intake Total 951 ml 3172 ml 819 ml Output Total 450 ml 1672 ml 210 ml Balance 501 ml 1500 ml 609 ml IV Total 621 ml 1795 ml 443 ml Tube Feeding 330 ml 1137 ml 376 ml Other 240 ml Output Urine Total 450 ml 1650 ml 210 ml Stool Total 2 ml 0 ml Gastric Drainage Total 20 ml # Bowel Movements 1 3 (Harika Diez MD R1) Result Diagram: 07/05/16 0305 07/05/16 0305 Imaging Last Impressions Brain MRI 07/03/16 0000 Signed Impressions: Service Date/Time: Sunday, July 03, 2016 10:12 - CONCLUSION: 1. No intracranial abnormality is seen. 2. Sinus disease. Edy Johnson MD Chest X-Ray 07/02/16 0000 Signed Impressions: Service Date/Time: Saturday, July 02, 2016 17:10 - CONCLUSION: ET tube in good position. Left lower lobe consolidation, stable. Alexandr Bernal MD Head CT 07/01/16 0000 Signed Impressions: Service Date/Time: Friday, July 01, 2016 20:54 - CONCLUSION: No acute intracranial abnormality. Bilateral paranasal sinusitis. Mason Noe MD Objective Remarks CONST: 61y/o CM lying in bed, in no acute distress. Intubated, sedated. DERM: Warm and dry. Decubitus ulcer with granulated tissue, not weeping, R buttock. CV: Tachycardic to 120s, irregularly irregular rhythm. No murmurs. RESP: Currently intubated. Anterior breath sounds equal bilaterally, no wheezing or rales GI: Abdomen slightly distended. Non-tender to palpation. +BS : Lujan catheter in place draining 100mL concentrated yellow urine. Significant scrotal edema, improving MSK: Extremities without cyanosis. Significant edema of upper extremities, hands. Lower extremities in SCDs NEURO: Intubated, sedated. Does not open eyes to command. (Harika Diez MD R1 ) Date of Insertion: Jun 22, 2016 Line: Central Venous Catheter Side: Right Location: Internal, Jugular (Harika Diez MD R1) A/P Assessment and Plan 61 y/o CM with a PMHx of HTN and alcohol abuse presenting 06/21/16 with tachycardia to 150s, found to be in atrial flutter. Converted to afib with RVR s/p ablation, with hospital stay complicated by DTs, requiring intubation and sedation. Discharge Planning Unclear given patient's current clinical state. (Harika Diez MD R1) Attending Attestation Patient seen and examined. Case reviewed and discussed with resident, RN, CCM. Agree with plan of care as discussed with me and documented in the resident note. (Steph Anders MD) Problem List: (1) Alcohol withdrawal Status: Acute Plan: HALICAT called 06/23/15 for agitation, overnight CIWA scores to 25. Extensive hx alcohol use with up to 3-4 drinks per day. Extensive smoking history. Transferred to ICU. Patient intubated, then self-extubated despite Midazolam and fentanyl infusion. Patient reintubated on 06/25 due to flash pulmonary edema with desaturation. Patient extubated on 07/02, however was subsequently re-intubated as he became severely aggressive, tachycardic, and tachypneic with desaturations. Lot Attendant consulted, appreciate recommendations Currently on Intubated, on Diprivan, Fentanyl drips - Vent support to keep sat >92%, Bronchodilators, ICU vent bundle --Attempt CPAP trial again today Ativan per CIWA protocol Critical care will discuss possible tracheostomy with family as the patient has failed multiple extubation trials Neurology consulted, appreciate recommendations -EEG (07/03): no epileptiform events, intermittent mild diffuse slowing suggestive of mild diffuse cerebral dysfunction -MRI brain (07/03): no intracranial process (2) Ventilator associated pneumonia Status: Resolved Plan: Sputum culture 06/30 growing Moraxella catarrhalis. Afebrile since 100.4 on 07/01/16 CXR 06/29: Stable consolidation LLL, new consolidation RUL. CXR 07/02: Stable LLL consolidation. Hazy density R base, consider effusion. ET tube in good position. Cardiomegaly, increased interstitial markings, suggestive edema, possible CHF. PLAN -Zosyn 4.5Gm q6h (06/30 ) Day 5 of antibiotics -Intubated, continue to attempt CPAP trials, as tolerated -Solumedrol 40mg daily (3) Atrial flutter with rapid ventricular response Status: Acute Plan: Presenting with atrial flutter with rate into the 150. Ablated 06/23 (Dr Ponce), subsequently presented with atrial fibrillation with RVR to 220s. Diltiazem drip initiated to control rates to 220, then stopped (06/25-06/27) and transitioned to PO Cardizem Cardiology consulted, appreciate recommendations and intervention, no longer following. ECHO: Study limited secondary to tachycardia, EF 35-40%, normal cavity size, wall thickness, wall motion. PLAN -Improved rate control, but currently still in afib with rates of 120s Cardizem 60mg PO QID Lopressor 2.5 mg q6h PRN HR >100 ASA 81mg PO daily --Continue heparin drip per protocol, monitor PTT (4) Hypertension Status: Chronic Plan: Chronic. Hx hypotensive as well, required pressors from 06/23 until 06/24, BP currently stable. Hold home Irbesartan-HCTZ (300-12.5) Cardizem 60mg QID, as above Losartan 100 mg PO daily Bumex 1 mg daily (5) Creatinine elevation Status: Resolved Plan: No baseline creatinine. Cr to 1.9 06/26/16, since resolved with IV fluid resuscitation. Hematuria upon Lujan placement, likely traumatic placement. 07/05: Improved Cr 1.25 Strict I's/O's with Lujan catheter, trend BUN/Cr - On Bumex 1g daily (6) Restless leg syndrome Status: Chronic Plan: Reported. -Hold Ropinirole (7) Hyperglycemia Status: Acute Plan: Secondary to steroids, critical illness. -Levemir 10 units SQ BID -MSSI -Accu-check ACHS (8) Nutrition, metabolism, and development symptoms Status: Acute Plan: Fluids: No fluids running at present, fluids per medications and feeds, monitor hydration status. Diet: NPO as intubated. Tube feeds with Jevity currently at 30 ml/hr. Electrolytes: CO2 elevated thought secondary hypoventilation, continue to monitor DVT prophylaxis: SCDs,continue heparin drip GI prophylaxis: Protonix 40 mg IV daily while intubated, on steroids. Constipation: Senna daily, Colace BID Discussed with Dr. Anders (Harika Diez MD R1) Problem Qualifiers (1) Alcohol withdrawal: Qualified Code: F10.231 - Alcohol withdrawal, with delirium (2) Hypertension: Qualified Code: I10 - Essential hypertension Harika Diez MD R1 Jul 05, 2016 09:48 Steph Anders MD July 18, 2016 08:57
[2016-07-05] MEDS: LORazepam 2 MG TAB PO PRN (13:08)
[2016-07-05] MEDS: cloNIDine HCL 0.1 MG TAB PO PRN (13:09)
[2016-07-05] MEDS: oxyCODONE/ACETAMINOPHEN 5 MG/325 MG TAB PO PRN (13:23)
[2016-07-06] VITALS (19 sets, daily range): BP systolic 93–142; BP diastolic 56–81; PULSE 86–152; RESP 14–15; TEMP 98.2–99.7; O2SAT 92–97
[2016-07-06] MEDS: PROPOFOL 1000 MG/100 ML INJ 100 ML IV SCH ×8 (01:42→23:15)
[2016-07-06] MEDS: LORazepam 2 MG/ML VIAL IV PUSH PRN ×2 (01:42→20:42)
[2016-07-06] MEDS: PIPERACIL-TAZO 4.5 GM PREMIX 100 ML IV SCH ×4 (02:57→20:12)
[2016-07-06] MEDS: RESP: ALBUTEROL 2.5 MG/IPRATROPIUM 0.5 MG NEB (SCH) NEB ×4 (03:11→15:12)
[2016-07-06] MEDS: fentaNYL DRIP 250 ML IV SCH ×2 (03:22→15:00)
--- NOTE | 2016-07-06 03:49 | RADRPT ---
EXAM DATE/TIME: 07/06/2016 02:31 [facility] COMPARISON: CHEST SINGLE AP, July 02, 2016, 17:10. INDICATIONS : Short of breath. MEDICAL HISTORY : None. SURGICAL HISTORY : None. ENCOUNTER: Subsequent ACUITY: 1 week PAIN SCORE: Non-responsive. LOCATION: Bilateral chest FINDINGS: The support devices remain in place. There are bibasilar infiltrates. The heart size is enlarged but stable. There is no pneumothorax. The bony structures are stable. No significant change compared to t prior study. CONCLUSION: No significant interval change. Shashank Ramos MD on July 06, 2016 at 3:47 Board Certified Radiologist. This report was verified electronically.
[2016-07-06] MEDS: INSULIN NovoLIN REGULAR SUPPLEMENTAL SCALE SQ SCH ×4 (04:00→22:00)
[2016-07-06] MEDS: CHLORHEXIDINE GLUCONATE 2 % 1 PACK (2 CLOTHS) TOP SCH (04:00)
[2016-07-06 05:21] LABS: APTT (PATIENT) 52.6 SEC (24.3-30.1); INTERNATIONAL NORMALIZED RATIO 1.1 RATIO; PROTHROMBIN TIME - PATIENT 12.4 SEC (9.8-11.6)
[2016-07-06 05:27] LABS: AUTOMATED NEUTROPHIL # 6.3 TH/MM3 (1.8-7.7); BASOPHIL % 0.2 % (0.0-2.0); EOSINOPHIL # 0.1 TH/MM3 (0-0.4); EOSINOPHIL % 1.8 % (0.0-4.0); HEMATOCRIT 33.4 % (39.0-51.0); LYMPH % 13.9 % (9.0-44.0); LYMPHOCYTE # 1.1 TH/MM3 (1.0-4.8); MEAN CELL VOLUME 88.7 FL (80.0-100.0); MEAN CORPUSCULAR HGB CONC 33.9 % (32.0-36.0); MONO % 7.6 % (0.0-8.0); NEUT % 76.5 % (16.0-70.0); PLATELET COUNT 220 TH/MM3 (150-450); RED BLOOD COUNT 3.76 MIL/MM3 (4.50-5.90); RED CELL DISTRIBUTION WIDTH 13.6 % (11.6-17.2); WHITE BLOOD COUNT 8.2 TH/MM3 (4.0-11.0)
[2016-07-06 05:30] LABS: BICARBONATE 38.6 MEQ/L (21.0-32.0); POTASSIUM 3.7 MEQ/L (3.5-5.1)
[2016-07-06 05:36] LABS: HEMO FLAGS AUTO DIFF
[2016-07-06 07:11] LABS: BANDS 7 % (0-6); EOSINOPHILS 1 % (0-4); METAMYELOCYTES 2 % (0-1); NEUTROPHIL # MANUAL DIFF 6.9 TH/MM3 (1.8-7.7); POLYS (SEG NEUTROPHILS) 75 % (16-70); WBC DIFF SAMPLE 100
[2016-07-06 07:12] LABS: PLATELET ESTIMATE SMEAR NORMAL (NORMAL); PLATELET MORPHOLOGY NORMAL (NORMAL); SCAN/DIFF FINAL DIFF MANUAL
[2016-07-06] MEDS: SENNOSIDES SYRUP 8.8 MG/5 ML CUP PO SCH (09:00)
[2016-07-06] MEDS: DILTIAZEM HCL 60 MG TAB PO SCH ×4 (09:00→20:12)
[2016-07-06] MEDS: BUMETANIDE INJ 1 MG/4 ML VIAL IV PUSH SCH (09:55)
[2016-07-06] MEDS: PANTOPRAZOLE SODIUM 40 MG VIAL IV SCH (09:55)
[2016-07-06] MEDS: methylPREDNISolone SOD SUCC 40 MG/1 ML VIAL IV PUSH SCH (09:55)
[2016-07-06] MEDS: QUEtiapine FUMARATE 25 MG TAB PO SCH ×2 (09:56→20:12)
[2016-07-06] MEDS: INSULIN DETEMIR 100 UNITS/ML VIAL SQ SCH ×3 (09:56→20:12)
[2016-07-06] MEDS: THIAMINE HCL 100 MG TAB PO SCH (09:56)
[2016-07-06] MEDS: ASPIRIN 81 MG CHEW TAB PO SCH (09:57)
[2016-07-06] MEDS: SODIUM CHLORIDE 0.9% FLUSH 10 ML FLUSH IV FLUSH SCH ×2 (09:57→20:42)
[2016-07-06] MEDS: LOSARTAN 50 MG TAB PO SCH (09:57)
[2016-07-06] MEDS: HEPARIN-D5W INJ 250 ML IV SCH (10:26)
--- NOTE | 2016-07-06 10:53 | HHI.PR ---
Review/Management Daily Summary 07/04 very much stable follows simple commands receiving coordinator and moves feet on request mri and eeg benign continue agrressive medical care, mvi and thiamine 07/06 remains intubated on sedation spoke with rn this am may need trach monitor neuro Subjective Subjective Comments No seizure or neuro changes reported Active Medications Current Medications Medications (Trade) Dose Ordered Sig/Krishan Route Start Time Stop Time Status Last Admin (Aspirin Chew) 81 mg DAILY PO 06/22/16 09:00 07/06/16 09:57 (Catapres) 0.1 mg Q6H PRN PO 06/21/16 14:45 07/05/16 13:09 (Heparin Inj) 5,000 units UNSCH PRN IV 06/21/16 21:30 Heparin Sodium (Porcine) 2500 units 2,500 units UNSCH PRN IV 06/21/16 21:30 06/28/16 00:14 (Heparin-D5W Inj) 250 ml @ 0 mls/hr TITRATE IV 06/21/16 15:30 07/06/16 10:26 (Cozaar) 100 mg DAILY PO 06/22/16 09:00 07/06/16 09:57 (NS Flush) 2 ml UNSCH PRN IV FLUSH 06/22/16 10:15 07/01/16 20:25 (NS Flush) 2 ml BID IV FLUSH 06/22/16 21:00 07/06/16 09:57 (Protonix Inj) 40 mg DAILY IV 06/23/16 09:00 07/06/16 09:55 Miscellaneous Information 1 Q361D XX 06/22/16 10:15 (Chlorhexidine 2% Cloth) Taper DAILY@04 TOP 06/23/16 04:00 06/19/17 03:59 07/06/16 04:00 Chlorhexidine Gluconate 3 pack 3 pack UNSCH PRN TOP 06/22/16 10:15 Potassium Chloride 100 ml @ 50 mls/hr Q2H PRN IV 06/22/16 10:15 06/26/16 10:51 (KCl 20 Meq Premix Inj) 100 ml @ 50 mls/hr Q2H PRN IV 06/22/16 10:15 Potassium Bicarb/ Potassium Chloride 50 meq 50 meq UNSCH PRN PO 06/22/16 10:15 Potassium Chloride 100 ml @ 25 mls/hr UNSCH PRN IV 06/22/16 10:15 Potassium Chloride 100 ml @ 50 mls/hr Q2H PRN IV 06/22/16 10:15 (Magnesium Sulfate Inj/NS Inj) 100 ml @ 50 mls/hr UNSCH PRN IV 06/22/16 10:15 Magnesium Oxide 800 mg 800 mg UNSCH PRN PO 06/22/16 10:15 (Magnesium Sulfate Inj/NS Inj) 100 ml @ 50 mls/hr UNSCH PRN IV 06/22/16 10:15 Potassium Phosphate 2000 mg 2,000 mg Q4H PRN PO 06/22/16 10:15 (Sodium Phosphate Inj/NS 250 ml Inj) 250 ml @ 42 mls/hr UNSCH PRN IV 06/22/16 10:15 Potassium Phosphate 2000 mg 2,000 mg UNSCH PRN PO/TUBE 06/22/16 10:15 (Potassium Phosphate Inj/NS 250 ml Inj) 260 ml @ 42 mls/hr UNSCH PRN IV 06/22/16 10:15 (Brethine Inj) 1 mg UNSCH PRN SQ 06/23/16 02:45 (Percocet 5-325 Mg) 1 tab Q4H PRN PO 06/23/16 18:00 (Percocet 5-325 Mg) 2 tab Q4H PRN PO 06/23/16 18:00 07/05/16 13:23 (Atropine Inj) 0.5 mg UNSCH PRN IV 06/23/16 18:00 (Reglan Inj) 10 mg Q4H PRN IV 06/23/16 18:00 Ondansetron HCl 4 mg 4 mg Q4H PRN IV 06/23/16 18:00 (Coumadin Consult Pharmacy) 0 ml @ 0 mls/hr UNSCH OTHER 06/24/16 11:45 (Romazicon Inj) 0.2 mg Q1M PRN IV PUSH 06/24/16 11:45 (Ativan) 1 mg Q4H PRN PO 06/24/16 11:45 (Ativan Inj) 1 mg Q4H PRN IV PUSH 06/24/16 11:45 07/04/16 19:15 (Ativan) 2 mg Q2H PRN PO 06/24/16 11:45 07/05/16 13:08 (Ativan Inj) 2 mg Q2H PRN IV PUSH 06/24/16 11:45 06/25/16 03:40 (Ativan Inj) 2 mg Q1H PRN IV PUSH 06/24/16 11:45 07/06/16 01:42 (Ativan Inj) 2 mg Q15M PRN IV PUSH 06/24/16 11:45 07/05/16 07:20 (Haldol Inj) 2 mg Q15M PRN IM 06/24/16 11:45 07/04/16 08:44 (Lopressor Inj) 2.5 mg Q6H PRN IV PUSH 06/24/16 12:00 07/04/16 04:30 (Vitamin B1) 100 mg DAILY PO 06/28/16 09:00 07/06/16 09:56 (Coumadin) 5 mg DAILY@16 PO 06/24/16 16:00 Hold (Senna Liq) 8.8 mg DAILY PO 06/27/16 09:00 07/04/16 07:58 Diltiazem HCl 60 mg 60 mg QID PO 06/27/16 09:00 07/05/16 20:24 (Zosyn 4.5 Gm Premix) 100 ml @ 200 mls/hr Q6H IV 06/30/16 09:00 07/06/16 09:55 (D50w (Vial) Inj) 25 ml UNSCH PRN IV PUSH 07/01/16 09:15 (Glucagon Inj) 1 mg UNSCH PRN OTHER 07/01/16 09:15 (NovoLIN R SUPPLEMENTAL SCALE) 1 Q6H SQ 07/01/16 10:00 07/06/16 09:58 Quetiapine Fumarate 25 mg 25 mg BID PO 07/01/16 21:00 07/06/16 09:56 Fentanyl Citrate 250 ml @ 0 mls/hr TITRATE IV 07/02/16 17:00 07/06/16 03:22 (Diprivan 1000 Mg/100ml Inj) 100 ml @ 0 mls/hr TITRATE IV 07/02/16 17:00 07/06/16 10:24 (Bumex Inj) 1 mg DAILY IV PUSH 07/03/16 09:00 07/06/16 09:55 (Santyl Oint) 1 applic DAILY PRN TOPICAL 07/04/16 10:00 07/05/16 07:20 (SoluMEDROL INJ) 40 mg DAILY IV PUSH 07/06/16 09:00 07/06/16 09:55 (Levemir Inj) 10 units Q12HR SQ 07/05/16 09:00 07/06/16 09:56 Allergies Allergies Coded Allergies No Known Allergies (Unverified06/21/16) Exam I&O / VS 07/05/16 07/05/16 07/06/16 15:00 23:00 07:00 Intake Total 1641 ml 1141 ml 1053 ml Output Total 150 ml 2250 ml 601 ml Balance 1491 ml -1109 ml 452 ml IV Total 871 ml 729 ml 705 ml Tube Feeding 430 ml 412 ml 348 ml Other 340 ml Output Urine Total 150 ml 2250 ml 600 ml Stool Total 0 ml 1 ml # Bowel Movements 2 Vital Signs Date Time Temp Pulse Resp B/P Pulse Ox O2 Delivery O2 Flow Rate FiO2 07/06/16 07:44 97 45 07/06/16 06:00 109 07/06/16 04:02 96 45 07/06/16 04:00 107 07/06/16 04:00 45 07/06/16 04:00 98.2 107 14 109/67 96 07/06/16 02:00 86 07/06/16 00:00 45 07/06/16 00:00 98.4 98 14 136/81 96 07/06/16 00:00 98 07/05/16 23:56 96 45 07/05/16 22:00 93 07/05/16 20:00 45 07/05/16 20:00 94 07/05/16 20:00 99.0 94 14 130/83 85 07/05/16 19:31 95 45 07/05/16 18:00 103 07/05/16 16:00 45 07/05/16 16:00 106 07/05/16 16:00 97.7 106 15 110/67 93 07/05/16 15:55 93 45 07/05/16 14:00 119 07/05/16 12:04 93 45 07/05/16 12:00 96.7 146 15 111/85 99 07/05/16 12:00 146 07/05/16 12:00 45 Objective Micro and Labs Laboratory Tests Test 07/06/16 04:55 White Blood Count 8.2 Red Blood Count 3.76 Hemoglobin 11.3 Hematocrit 33.4 Mean Corpuscular Volume 88.7 Mean Corpuscular Hemoglobin 30.0 Mean Corpuscular Hemoglobin 33.9 Concent Red Cell Distribution Width 13.6 Platelet Count 220 Mean Platelet Volume 9.5 Neutrophils (%) (Auto) 76.5 Lymphocytes (%) (Auto) 13.9 Monocytes (%) (Auto) 7.6 Eosinophils (%) (Auto) 1.8 Basophils (%) (Auto) 0.2 Neutrophils # (Auto) 6.3 Lymphocytes # (Auto) 1.1 Monocytes # (Auto) 0.6 Eosinophils # (Auto) 0.1 Basophils # (Auto) 0.0 CBC Comment AUTO DIFF Differential Total Cells 100 Counted Neutrophils % (Manual) 75 Band Neutrophils % 7 Lymphocytes % 11 Monocytes % 4 Eosinophils % 1 Neutrophils # (Manual) 6.9 Metamyelocytes 2 Differential Comment FINAL DIFF MANUAL Atypical Lymphocytes Platelet Estimate NORMAL Platelet Morphology Comment NORMAL Red Cell Morphology Comment NORMAL Prothrombin Time 12.4 Prothromb Time International 1.1 Ratio Activated Partial 52.6 Thromboplast Time Sodium Level 140 Potassium Level 3.7 Chloride Level 96 Carbon Dioxide Level 38.6 Anion Gap 5 Blood Urea Nitrogen 31 Creatinine 1.25 Estimat Glomerular Filtration 59 Rate Random Glucose 261 Calcium Level 8.4 Date/Time Procedure Status Source Growth 07/03/16 14:00 Gram Stain - Final Complete Sputum Endotracheal 07/03/16 14:00 Sputum Culture - Final Complete Sputum Endotracheal NO GROWTH IN 48 HOURS. Channing Spaulding MD Jul 06, 2016 10:53
[2016-07-06] MEDS ORDERED: DIGOXIN 0.5 MG/2 ML VIAL IV PUSH ONE ×2 (12:00→16:00)
--- NOTE | 2016-07-06 14:44 | HHI.CCPN ---
Subjective Remarks/Hospital Course On 06/21 ,Mr. Guevara presented with a PMHx of HTN presenting from the [facility] with an elevated, irregular heart rate. He is a patient of Dr. Irwin Rodriguez, who sent this patient from clinic. In clinic, he had a heart rate in the 150s and was instructed to go to the ED for further evaluation. Upon arriving to the ED ,the patient was found to have atrial flutter on twelve-lead EKG with a rate 151 with 2-1 conduction. He denied any chest pain, prior arrhythmia, thyroid disorder, or heart disease. He reported his last EKG was approximately 8 years ago before his eye surgery s/p accident. The patient has a significant alcohol and smoking history, but denies any illicit drugs. He states that he is at his baseline except for 3 episodes of nonbloody diarrhea that have all occurred over this morning. The patient was admitted to the hospital, and placed on CIWA protocol, Cardizem infusion and was scheduled for ablation per interventional cardiology. Early this a.m. the patient became significantly more confused, difficult to control a Hallicat at was called, and the patient was transferred to ICU for further management. Subjective 06/23: Afebrile. Since admission to the ICU yesterday, the patient was placed initially on Precedex infusion for agitation/delirium, in addition to CIWA protocol. The patient subsequently required intubation. Later the afternoon the patient became hypotensive requiring vasopressor support of Levophed which was weaned off during the night. The patient converted to A. fib flutter heart rate 150s and Cardizem infusion was reinitiated. Systolic blood pressure low 100's. The patient continues on Versed low-dose and fentanyl infusions for ventilator synchrony. Plan today for cardiac ablation with Dr. Ponce. 06/24: The patient underwent successful RF ablation for atrial flutter, patient currently remains sinus rhythm sinus tach. The patient underwent CPAP trials however self extubated. Immediately upon self extubation the patient stated " I havent had a drink in 3 days, I need a drink" .The patient's maintain an O2 sat greater than 92% on Ventimask at 50% currently. The patient continues to be confused and agitated than what appears to be delirium tremens , Precedex infusion begun with Ativan PRN . Family present at bedside with patient. The patient noted to be confused, combative, remains in 4 point restraints. Will initiate Coumadin pharmacy dosing, with overlap of heparin until therapeutic INR today. CIWA protocol initiated. 06/25: The patient remain on Precedex infusion throughout the night, with supplementation per [facility] protocol and rested comfortably without agitation, in normal sinus rhythm. During the night he received Lasix 20 mg IV and diuresed greater than 1 L. At approximately 1400, the patient went into A. fib RVR with a rate of 220, and extremely dyspneic with audibly expiratory wheezing. Cardizem bolus 20 mg 2 doses was given. The patient was placed on a Cardizem infusion at 10 mg per hour. The heart rate decreased from 80-100, but rhythm atrial fibrillation. The patient continued to have respiratory distress, tachypnea with a rate in the 40s50s. An ABG was obtained showing a very large A-a gradient, and a PaO2 of 77 on 100% nonrebreather after 40 mg of Lasix diuresis and a DuoNeb treatment. Emergent intubation was required, family at bedside, discussed extensively with and updated her on the the patient's current condition. The patient was reintubated. He continues on a heparin infusion propofol infusion for ventilator synchrony. 06/26:Tmax 100.6. Patient's rhythm atrial fibrillation with a rate 90-109, Cardizem 12 mg/hour. The patient continues on a heparin infusion at this time. Patient was noted to have flash pulmonary edema episode of A. fib RVR which required intubation. Repeat chest x-ray this a.m. still shows pulmonary edema, the patient was diuresed approximately 2 L yesterday, he continues on a PEEP of 10. Patient remains sedated on a propofol and fentanyl infusion for ventilator synchrony. Will initiate tube feeds today. 06/27 Patient is sedated with Diprivan, Fentnayl and intubated. Tmax 100.6. On Heparin and Cardizem drips. On SIMV with FIO2 80%, PEEP: 10. 06/28 No acute events overnight. Remains sedated and intubated. Afebrile. Off Cardizem drip . On ACV with PEEP: 10 and FIO2 40%. T:100.3 at midnight. 06/29 Patient remains sedated and intubated. Afebrile. Remains on Heparin drip. 06/30 Patient remains sedated and intubated. Did not tolerate CPAP trials yesterday. T: 99.7 at 4am. On Heparin drip. 07/01 No acute events overnight intubated and sedated. Had low grade fever with T : 100.4 at 4 am. 07/02 Patient is sedated with Fentanyl, Versed in addition he is on Precedex drip. He gets very agitated , restless, tachypneic and tachycardic when sedation is being weaned off. 07/03 Patient was extubated yesterday however several hrs later he became tachypneic, tachycardic and hypertensive he was subsequently intubated and now sedated with Diprivan and Fentanyl. T 99.7 at midnight. 07/04 Patient remains sedated with Diprivan and Fentanyl. MRI brain yesterday showed no acute findings. Afebrile. 07/05 No acute events overnight. Afebrile. Sedated and intubated. Patient gets agitated and restless on CPAP and when sedation is being weaned. 07/06: Remains sedated, orally intubated on mechanical ventilation. Gets agitated on lightening sedation. Elevated fingerstick glucoses in the 400 range. Hematuria noted. Remains in A. fib with RVR. Given digoxin 0.5 mg IV earlier awaiting cardiology call back. Objective Vital Signs Date Time Temp Pulse Resp B/P Pulse Ox O2 Delivery O2 Flow Rate FiO2 07/06/16 12:00 129 07/06/16 12:00 98.9 15 93/56 92 07/06/16 12:00 45 07/02/16 13:00 Nasal Cannula 6.00 Intake and Output 07/05/16 07/05/16 07/06/16 08:00 16:00 00:00 Intake Total 819 ml 1641 ml 1141 ml Output Total 210 ml 1150 ml 1250 ml Balance 609 ml 491 ml -109 ml Result Diagram: 07/06/16 0455 07/06/16 0455 Other Results Laboratory Tests Test 07/06/16 04:55 White Blood Count 8.2 TH/MM3 Red Blood Count 3.76 MIL/MM3 Hemoglobin 11.3 GM/DL Hematocrit 33.4 % Mean Corpuscular Volume 88.7 FL Mean Corpuscular Hemoglobin 30.0 PG Mean Corpuscular Hemoglobin 33.9 % Concent Red Cell Distribution Width 13.6 % Platelet Count 220 TH/MM3 Mean Platelet Volume 9.5 FL Neutrophils (%) (Auto) 76.5 % Lymphocytes (%) (Auto) 13.9 % Monocytes (%) (Auto) 7.6 % Eosinophils (%) (Auto) 1.8 % Basophils (%) (Auto) 0.2 % Neutrophils # (Auto) 6.3 TH/MM3 Lymphocytes # (Auto) 1.1 TH/MM3 Monocytes # (Auto) 0.6 TH/MM3 Eosinophils # (Auto) 0.1 TH/MM3 Basophils # (Auto) 0.0 TH/MM3 CBC Comment AUTO DIFF Differential Total Cells 100 Counted Neutrophils % (Manual) 75 % Band Neutrophils % 7 % Lymphocytes % 11 % Monocytes % 4 % Eosinophils % 1 % Neutrophils # (Manual) 6.9 TH/MM3 Metamyelocytes 2 % Differential Comment FINAL DIFF MANUAL Atypical Lymphocytes % Platelet Estimate NORMAL Platelet Morphology Comment NORMAL Red Cell Morphology Comment NORMAL Prothrombin Time 12.4 SEC Prothromb Time International 1.1 RATIO Ratio Activated Partial 52.6 SEC Thromboplast Time Sodium Level 140 MEQ/L Potassium Level 3.7 MEQ/L Chloride Level 96 MEQ/L Carbon Dioxide Level 38.6 MEQ/L Anion Gap 5 MEQ/L Blood Urea Nitrogen 31 MG/DL Creatinine 1.25 MG/DL Estimat Glomerular Filtration 59 ML/MIN Rate Random Glucose 261 MG/DL Calcium Level 8.4 MG/DL Imaging Last Impressions Brain MRI 07/03/16 0000 Signed Impressions: Service Date/Time: Sunday, July 03, 2016 10:12 - CONCLUSION: 1. No intracranial abnormality is seen. 2. Sinus disease. Edy Johnson MD Chest X-Ray 07/02/16 0000 Signed Impressions: Service Date/Time: Saturday, July 02, 2016 17:10 - CONCLUSION: ET tube in good position. Left lower lobe consolidation, stable. Alexandr Bernal MD Head CT 07/01/16 0000 Signed Impressions: Service Date/Time: Friday, July 01, 2016 20:54 - CONCLUSION: No acute intracranial abnormality. Bilateral paranasal sinusitis. Mason Noe MD Objective Remarks GENERAL: Well-nourished well-developed male intubated and sedated. SKIN: Warm and dry. HEAD: Atraumatic. Normocephalic. EYES: Pupils equal and round. No scleral icterus. No injection or drainage. ENT: No nasal bleeding or discharge. Mucous membranes pink and moist. NECK: Trachea midline. No JVD. Orally intubated CARDIOVASCULAR: Tachycardic, Nl S1, S2, no murmurs. RESPIRATORY: No accessory muscle use. Clear to auscultation. Breath sounds equal bilaterally. GASTROINTESTINAL: Abdomen soft, non-tender, nondistended. No guarding. MUSCULOSKELETAL: Extremities without clubbing, cyanosis, or edema. No obvious deformities. NEUROLOGICAL:RASS-2. On propofol and fentanyl infusions intubated and sedated. Date of Insertion: Jun 22, 2016 Line: Central Venous Catheter Side: Right Location: Internal, Jugular A/P Assessment and Plan Plan by systems: Neurologic: Delirium tremens Alcohol abuse Encephalopathy Alcohol withdrawal Restless leg syndrome On Diprivan , Fentanyl infusion for sedation. Daily sedation vacation Precedex drip to facilitate with weaning trials. Continue with Seroquel 25mg BID. Added Librium 50 mg every 12 hourly via OG tube on 07/06. Neurochecks per ICU protocol Continue with Thiamine , MVI, Folic acid CT brain 07/01: No acute intracranial abnormalities. MRI brain 07/03: No acute findings EEG 07/03 : No epileptiform features. Neuro- Dr. Spaulding Respiratory: Tobacco abuse VDRF- reintubated 07/02 On PRVC/AC RR 14, TV 450, PEEP: 5, IT: 1.0, FIO2 45%, Continue with vent support keep sat >92%., Bronchodilators, ICU vent bundle. SBT daily as farzana Solumederol 40mg daily Patient was reintubated twice and might require trach Cardiovascular: Atrial fibrillation with RVR 06/25 Cardiomegaly Monitor HR and BP keep MAP>65mmHg On PO Cardizem 60mg QID. Cardizem drip on hold. Given digoxin 0.5 mg IV 1 dose. Cardiology paged awaiting call back for deciding further management. On Heparin infusion- monitor PTT Cardiology following- Dr. Bautista 06/24 S/P RF cardiac ablation 06/21 Echo showed EF 35-40% Renal: SHAWNA- resolved Monitor renal function, I/O's, electrolytes replacement per protocol. On Bumex 1mg IV daily FEN/GI: Continue TF-Jevity 1.5@ 50ml/hr Zofran IV for nausea Protonix IV 40 mg/day Bowel regimen Heme/ID: Monitor CBC Transfuse for hemoglobin less than 7 Monitor PTT per heparin protocol Continue with abx ( Zosyn) Monitor for signs of infections ( Fever, WBC) 06/30 sputum cx: Moraxella Catarrhalis, repeat sputum cx from 07/03: No growth C-diff PCR negative Endocrine: On SSI(medium scale) for glycemic control, increase Levemir 25u Q12 Prophylaxis: GI Prophylaxis Protonix IV 40 mg/day DVT Prophylaxis -- SCDs Heparin infusion Lines: Peripheral IVs 2. Central line right IJ 06/22 D/w Family Medicine service. CCT 30 mins Foster Looney MD Jul 06, 2016 14:44
[2016-07-06] MEDS: chlordiazePOXIDE 25 MG CAP PO SCH ×2 (15:01→20:12)
[2016-07-06] MEDS ORDERED: ALTEPLASE RECOMBINANT 2 MG VIAL INTRACATH PRN (16:30)
[2016-07-06] MEDS ORDERED: DILTIAZEM HCL 25 MG/5 ML VIAL IVP ONE (17:15)
[2016-07-06] MEDS ORDERED: DILTIAZEM HCL 25 MG/5 ML VIAL IVP PRN (17:45)
[2016-07-06] MEDS: DILTIAZEM INJ 125 MG in SODIUM CHLORIDE 0.9% INJ 100 ML IV SCH (17:51)
--- NOTE | 2016-07-06 18:25 | HHI.FPPN ---
Subjective Remarks Patient seen and examined this am. Discussed with RN and CCM at the bedside Overnight, HR 120s. Remains sedated and intubated. Hematuria noted in lakhani this am. Objective Vitals Vital Signs Date Time Temp Pulse Resp B/P Pulse Ox O2 Delivery O2 Flow Rate FiO2 07/06/16 16:00 45 07/06/16 16:00 98.8 152 14 103/58 94 07/06/16 16:00 152 07/06/16 15:13 96 45 07/06/16 14:00 123 07/06/16 12:00 129 07/06/16 12:00 98.9 129 15 93/56 92 07/06/16 12:00 45 07/06/16 11:22 95 45 07/06/16 10:00 118 07/06/16 08:00 99.1 120 14 95/58 96 07/06/16 08:00 120 07/06/16 08:00 45 07/06/16 07:44 97 45 07/06/16 06:00 109 07/06/16 04:02 96 45 07/06/16 04:00 107 07/06/16 04:00 45 07/06/16 04:00 98.2 107 14 109/67 96 07/06/16 02:00 86 07/06/16 00:00 45 07/06/16 00:00 98.4 98 14 136/81 96 07/06/16 00:00 98 07/05/16 23:56 96 45 07/05/16 22:00 93 07/05/16 20:00 45 07/05/16 20:00 94 07/05/16 20:00 99.0 94 14 130/83 85 07/05/16 19:31 95 45 07/05/16 18:00 103 I/O 07/05/16 07/05/16 07/05/16 07/06/16 07/06/16 07/06/16 06:59 14:59 22:59 06:59 14:59 22:59 Intake Total 819 ml 1641 ml 1141 ml 1053 ml 1055 ml Output Total 210 ml 150 ml 2250 ml 601 ml 650 ml Balance 609 ml 1491 ml -1109 ml 452 ml 405 ml IV Total 443 ml 871 ml 729 ml 705 ml 671 ml Tube Feeding 376 ml 430 ml 412 ml 348 ml 384 ml Other 340 ml Output Urine Total 210 ml 150 ml 2250 ml 600 ml 650 ml Stool Total 0 ml 0 ml 1 ml # Bowel Movements 2 2 Result Diagram: 07/06/165 07/06/16 0455 Imaging Last Impressions Chest X-Ray 07/06/16 0600 Signed Impressions: Service Date/Time: Wednesday, July 06, 2016 02:31 - CONCLUSION: No significant interval change. Shashank Ramos MD Brain MRI 07/03/16 0000 Signed Impressions: Service Date/Time: Sunday, July 03, 2016 10:12 - CONCLUSION: 1. No intracranial abnormality is seen. 2. Sinus disease. Edy Johnson MD Head CT 07/01/16 0000 Signed Impressions: Service Date/Time: Friday, July 01, 2016 20:54 - CONCLUSION: No acute intracranial abnormality. Bilateral paranasal sinusitis. Mason Noe MD Objective Remarks CONST: 61y/o CM lying in bed. Intubated, sedated. HEENT: NCAT. DERM: Warm and dry. Decubitus ulcer with mild necrosis, not weeping, R buttock. NECK: R IJ present. +elevated JVP. CV: Tachycardic to 120s, irregularly irregular rhythm. No audible murmurs. RESP: Currently intubated. Anterior breath sounds equal bilaterally, diminished. No wheezing. GI: Abdomen slightly distended. Soft. Non-tender to palpation. +BS x 4. : Lakhani catheter in place to gravity with blood-tinged cloudy urine. Scrotal edema stable. MSK: Extremities without cyanosis. 2+ edema of upper extremities, hands. Lower extremities in SCDs, [place]. 1-2+ DP pulses bilaterally. NEURO: Intubated, sedated. Does not open eyes to command. Urinary Catheter: Yes Assessment to: Continue Lakhani insert reason: Measure Accurate Output Date of Insertion: Jul 05, 2016 Vascular Central Line Catheter: Yes Assessment to: Continue Date of Insertion: Jun 22, 2016 Line: Central Venous Catheter Side: Right Location: Internal, Jugular A/P Assessment and Plan 61 y/o CM with a PMHx of HTN and alcohol abuse presenting 06/21/16 with tachycardia to 150s, found to be in atrial flutter. Converted to afib with RVR s/p ablation, with hospital stay complicated by DTs, requiring intubation and sedation. Discharge Planning Unclear given patient's current clinical state. Patient remains in critical condition. Problem List: (1) Alcohol withdrawal Status: Acute Plan: SHARIF called 06/23/15 for agitation, overnight CIWA scores to 25. Extensive hx alcohol use with up to 3-4 drinks per day. Extensive smoking history. Transferred to ICU. Patient intubated, then self-extubated despite Midazolam and fentanyl infusion. Patient reintubated on 06/25 due to flash pulmonary edema with desaturation. Patient extubated on 07/02, however was subsequently re-intubated as he became severely aggressive, tachycardic, and tachypneic with desaturations. Laundry Supervisor consulted, appreciate recommendations Currently on Intubated, on Diprivan, Fentanyl drips -- Vent support to keep sat >92%, Bronchodilators, ICU vent bundle --CPAP trials Ativan per CIWA protocol, will add Librium today for long-acting component for agitation Discussion of possible tracheostomy with family as the patient has failed multiple extubation trials Neurology consulted, appreciate recommendations -EEG (07/03): no epileptiform events, intermittent mild diffuse slowing suggestive of mild diffuse cerebral dysfunction -MRI brain (07/03): no intracranial process (2) Ventilator associated pneumonia Status: Acute Plan: Sputum culture 06/30 growing Moraxella catarrhalis. Afebrile since 100.4 on 07/01/16 CXR 06/29: Stable consolidation LLL, new consolidation RUL. CXR 07/02: Stable LLL consolidation. Hazy density R base, consider effusion. ET tube in good position. Cardiomegaly, increased interstitial markings, suggestive edema, possible CHF. PLAN - Zosyn 4.5Gm q6h (06/30 ) Day 6/7 of antibiotics - Intubated, continue to attempt CPAP trials, as tolerated - Repeat sputum culture NGTD x 48 hours. -Solumedrol 40mg daily (3) Atrial flutter with rapid ventricular response Status: Acute Plan: Presented with atrial flutter with rate into the 150s, not responsive to rate control attempts with medication. Ablated 06/23 (Dr Ponce), subsequently presented with atrial fibrillation with RVR to 220s. Diltiazem drip initiated to control rates to 220, then stopped (06/25-06/27) and transitioned to PO Cardizem Cardiology consulted, appreciate recommendations and intervention. IV Digoxin initiated. ECHO: Study limited secondary to tachycardia, EF 35-40%, normal cavity size, wall thickness, wall motion. PLAN -Improved rate control, but currently still in afib with rates of 120s Cardizem 60mg PO QID Lopressor 2.5 mg q6h PRN HR >100 ASA 81mg PO daily --Discontinue heparin drip 2/2 hematuria. -- Initiate Digoxin for rate control (4) Hypertension Status: Chronic Plan: Chronic. Hx hypotensive as well, required pressors from 06/23 until 06/24, BP currently stable. Hold home Irbesartan-HCTZ (300-12.5) Cardizem 60mg QID, as above Losartan 100 mg PO daily Bumex 1 mg daily (5) Creatinine elevation Status: Acute Plan: No baseline creatinine. Cr to 1.9 06/26/16, since resolved with IV fluid resuscitation. 07/05: Improved Cr 1.25 Strict I's/O's with Lakhani catheter, trend BUN/Cr - On Bumex 1g daily (6) Restless leg syndrome Status: Chronic Plan: Reported. -Hold Ropinirole (7) Hyperglycemia Status: Acute Plan: Secondary to steroids, critical illness. -Levemir increased to 25 units Subcutaneous BID -MSSI -Accu-check ACHS (8) Nutrition, metabolism, and development symptoms Status: Acute Plan: Fluids: No fluids running at present, fluids per medications and feeds, monitor hydration status. Diet: NPO as intubated. Tube feeds with Jevity which will be transition to Glucerna given hyperglycemia Electrolytes: CO2 elevated thought secondary hypoventilation, continue to monitor DVT prophylaxis: SCDs, discontinue heparin drip 2/2 hematuria GI prophylaxis: Protonix 40 mg IV daily while intubated, on steroids. Constipation: Senna daily, Colace BID Discussed with Dr. Looney Problem Qualifiers (1) Alcohol withdrawal: Qualified Code: F10.231 - Alcohol withdrawal, with delirium (2) Hypertension: Qualified Code: I10 - Essential hypertension Steph Anders MD Jul 06, 2016 18:22
[2016-07-07] VITALS (17 sets, daily range): BP systolic 93–110; BP diastolic 52–73; PULSE 75–105; RESP 14; TEMP 97.3–99.2; O2SAT 91–97
[2016-07-07] MEDS: fentaNYL DRIP 250 ML IV SCH ×3 (02:13→22:29)
[2016-07-07] MEDS: PIPERACIL-TAZO 4.5 GM PREMIX 100 ML IV SCH ×4 (02:15→20:19)
[2016-07-07] MEDS: PROPOFOL 1000 MG/100 ML INJ 100 ML IV SCH ×6 (02:51→21:38)
[2016-07-07] MEDS: DILTIAZEM INJ 125 MG in SODIUM CHLORIDE 0.9% INJ 100 ML IV SCH ×2 (02:51→15:37)
[2016-07-07] MEDS: CHLORHEXIDINE GLUCONATE 2 % 1 PACK (2 CLOTHS) TOP SCH ×2 (04:00→23:10)
[2016-07-07] MEDS: INSULIN NovoLIN REGULAR SUPPLEMENTAL SCALE SQ SCH ×4 (04:00→22:00)
[2016-07-07] MEDS: LORazepam 2 MG/ML VIAL IV PUSH PRN ×2 (05:13→09:40)
[2016-07-07 05:42] LABS: AUTOMATED NEUTROPHIL # 9.8 TH/MM3 (1.8-7.7); BASOPHIL % 0.2 % (0.0-2.0); EOSINOPHIL # 0.1 TH/MM3 (0-0.4); EOSINOPHIL % 1.2 % (0.0-4.0); HEMATOCRIT 34.2 % (39.0-51.0); LYMPH % 8.3 % (9.0-44.0); MEAN CELL VOLUME 89.3 FL (80.0-100.0); MEAN CORPUSCULAR HEMOGLOBIN 29.8 PG (27.0-34.0); MEAN CORPUSCULAR HGB CONC 33.3 % (32.0-36.0); MONO % 5.8 % (0.0-8.0); NEUT % 84.5 % (16.0-70.0); PLATELET COUNT 234 TH/MM3 (150-450); RED BLOOD COUNT 3.83 MIL/MM3 (4.50-5.90); RED CELL DISTRIBUTION WIDTH 13.5 % (11.6-17.2); WHITE BLOOD COUNT 11.6 TH/MM3 (4.0-11.0)
[2016-07-07 05:45] LABS: HEMO FLAGS AUTO DIFF
[2016-07-07 06:00] LABS: APTT (PATIENT) 22.3 SEC (24.3-30.1)
[2016-07-07 06:16] LABS: ALKALINE PHOSPHATASE 31 U/L (45-117); ALT (GPT) 30 U/L (12-78); ANION GAP 2 MEQ/L (5-15); AST (GOT) 16 U/L (15-37); BLOOD UREA NITROGEN 35 MG/DL (7-18); CHLORIDE 97 MEQ/L (98-107); GLOMERULAR FILTRATION RATE 69 ML/MIN (>89); POTASSIUM 4.2 MEQ/L (3.5-5.1); SODIUM (NA) 140 MEQ/L (136-145); TOTAL BILIRUBIN ADULT 0.3 MG/DL (0.2-1.0)
[2016-07-07 08:24] LABS: BANDS 9 % (0-6); EOSINOPHILS 1 % (0-4); MYELOCYTES 4 % (0-0); POLYS (SEG NEUTROPHILS) 73 % (16-70); WBC DIFF SAMPLE 100
[2016-07-07 08:25] LABS: PLATELET ESTIMATE SMEAR NORMAL (NORMAL); PLATELET MORPHOLOGY NORMAL (NORMAL); SCAN/DIFF FINAL DIFF MANUAL
[2016-07-07] MEDS: INSULIN DETEMIR 100 UNITS/ML VIAL SQ SCH ×2 (09:38→20:19)
[2016-07-07] MEDS: PANTOPRAZOLE SODIUM 40 MG VIAL IV SCH (09:40)
[2016-07-07] MEDS: SENNOSIDES SYRUP 8.8 MG/5 ML CUP PO SCH (09:40)
[2016-07-07] MEDS: BUMETANIDE INJ 1 MG/4 ML VIAL IV PUSH SCH ×2 (09:40→20:20)
[2016-07-07] MEDS: methylPREDNISolone SOD SUCC 40 MG/1 ML VIAL IV PUSH SCH (09:40)
[2016-07-07] MEDS: THIAMINE HCL 100 MG TAB PO SCH (09:41)
[2016-07-07] MEDS: LOSARTAN 50 MG TAB PO SCH (09:41)
[2016-07-07] MEDS: DILTIAZEM HCL 60 MG TAB PO SCH ×4 (09:41→20:20)
[2016-07-07] MEDS: ASPIRIN 81 MG CHEW TAB PO SCH (09:41)
[2016-07-07] MEDS: chlordiazePOXIDE 25 MG CAP PO SCH ×2 (09:41→20:20)
[2016-07-07] MEDS: QUEtiapine FUMARATE 25 MG TAB PO SCH ×2 (09:41→20:20)
[2016-07-07] MEDS: SODIUM CHLORIDE 0.9% FLUSH 10 ML FLUSH IV FLUSH SCH ×2 (09:42→21:39)
--- NOTE | 2016-07-07 11:13 | HHI.CCPN ---
Subjective Remarks/Hospital Course On 06/21 ,Mr. Guevara presented with a PMHx of HTN presenting from the [facility] with an elevated, irregular heart rate. He is a patient of Dr. Irwin Rodriguez, who sent this patient from clinic. In clinic, he had a heart rate in the 150s and was instructed to go to the ED for further evaluation. Upon arriving to the ED ,the patient was found to have atrial flutter on twelve-lead EKG with a rate 151 with 2-1 conduction. He denied any chest pain, prior arrhythmia, thyroid disorder, or heart disease. He reported his last EKG was approximately 8 years ago before his eye surgery s/p accident. The patient has a significant alcohol and smoking history, but denies any illicit drugs. He states that he is at his baseline except for 3 episodes of nonbloody diarrhea that have all occurred over this morning. The patient was admitted to the hospital, and placed on CIWA protocol, Cardizem infusion and was scheduled for ablation per interventional cardiology. Early this a.m. the patient became significantly more confused, difficult to control a Hallicat at was called, and the patient was transferred to ICU for further management. Subjective 06/23: Afebrile. Since admission to the ICU yesterday, the patient was placed initially on Precedex infusion for agitation/delirium, in addition to CIWA protocol. The patient subsequently required intubation. Later the afternoon the patient became hypotensive requiring vasopressor support of Levophed which was weaned off during the night. The patient converted to A. fib flutter heart rate 150s and Cardizem infusion was reinitiated. Systolic blood pressure low 100's. The patient continues on Versed low-dose and fentanyl infusions for ventilator synchrony. Plan today for cardiac ablation with Dr. Ponce. 06/24: The patient underwent successful RF ablation for atrial flutter, patient currently remains sinus rhythm sinus tach. The patient underwent CPAP trials however self extubated. Immediately upon self extubation the patient stated " I havent had a drink in 3 days, I need a drink" .The patient's maintain an O2 sat greater than 92% on Ventimask at 50% currently. The patient continues to be confused and agitated than what appears to be delirium tremens , Precedex infusion begun with Ativan PRN . Family present at bedside with patient. The patient noted to be confused, combative, remains in 4 point restraints. Will initiate Coumadin pharmacy dosing, with overlap of heparin until therapeutic INR today. CIWA protocol initiated. 06/25: The patient remain on Precedex infusion throughout the night, with supplementation per [facility] protocol and rested comfortably without agitation, in normal sinus rhythm. During the night he received Lasix 20 mg IV and diuresed greater than 1 L. At approximately 1400, the patient went into A. fib RVR with a rate of 220, and extremely dyspneic with audibly expiratory wheezing. Cardizem bolus 20 mg 2 doses was given. The patient was placed on a Cardizem infusion at 10 mg per hour. The heart rate decreased from 80-100, but rhythm atrial fibrillation. The patient continued to have respiratory distress, tachypnea with a rate in the 40s50s. An ABG was obtained showing a very large A-a gradient, and a PaO2 of 77 on 100% nonrebreather after 40 mg of Lasix diuresis and a DuoNeb treatment. Emergent intubation was required, family at bedside, discussed extensively with and updated her on the the patient's current condition. The patient was reintubated. He continues on a heparin infusion propofol infusion for ventilator synchrony. 06/26:Tmax 100.6. Patient's rhythm atrial fibrillation with a rate 90-109, Cardizem 12 mg/hour. The patient continues on a heparin infusion at this time. Patient was noted to have flash pulmonary edema episode of A. fib RVR which required intubation. Repeat chest x-ray this a.m. still shows pulmonary edema, the patient was diuresed approximately 2 L yesterday, he continues on a PEEP of 10. Patient remains sedated on a propofol and fentanyl infusion for ventilator synchrony. Will initiate tube feeds today. 06/27 Patient is sedated with Diprivan, Fentnayl and intubated. Tmax 100.6. On Heparin and Cardizem drips. On SIMV with FIO2 80%, PEEP: 10. 06/28 No acute events overnight. Remains sedated and intubated. Afebrile. Off Cardizem drip . On ACV with PEEP: 10 and FIO2 40%. T:100.3 at midnight. 06/29 Patient remains sedated and intubated. Afebrile. Remains on Heparin drip. 06/30 Patient remains sedated and intubated. Did not tolerate CPAP trials yesterday. T: 99.7 at 4am. On Heparin drip. 07/01 No acute events overnight intubated and sedated. Had low grade fever with T : 100.4 at 4 am. 07/02 Patient is sedated with Fentanyl, Versed in addition he is on Precedex drip. He gets very agitated , restless, tachypneic and tachycardic when sedation is being weaned off. 07/03 Patient was extubated yesterday however several hrs later he became tachypneic, tachycardic and hypertensive he was subsequently intubated and now sedated with Diprivan and Fentanyl. T 99.7 at midnight. 07/04 Patient remains sedated with Diprivan and Fentanyl. MRI brain yesterday showed no acute findings. Afebrile. 07/05 No acute events overnight. Afebrile. Sedated and intubated. Patient gets agitated and restless on CPAP and when sedation is being weaned. 07/06: Remains sedated, orally intubated on mechanical ventilation. Gets agitated on lightening sedation. Elevated fingerstick glucoses in the 400 range. Hematuria noted. Remains in A. fib with RVR. Given digoxin 0.5 mg IV earlier awaiting cardiology call back. 07/07: No acute events overnight. Patient remains sedated and intubated on mechanical ventilation. Afib with RVR s/p Digoxin bolus x2 yesterday afternoon. Cardizem increased to 10/hr with HR currently in 80s. Objective Vital Signs Date Time Temp Pulse Resp B/P Pulse Ox O2 Delivery O2 Flow Rate FiO2 07/07/16 08:25 95 45 07/07/16 06:00 86 07/07/16 04:00 98.8 14 93/65 Intake and Output 07/06/16 07/06/16 07/07/16 08:00 16:00 00:00 Intake Total 1053 ml 1155 ml 950 ml Output Total 601 ml 650 ml 550 ml Balance 452 ml 505 ml 400 ml Result Diagram: 07/07/16 0435 07/07/16 0435 Imaging Last Impressions Brain MRI 07/03/16 0000 Signed Impressions: Service Date/Time: Sunday, July 03, 2016 10:12 - CONCLUSION: 1. No intracranial abnormality is seen. 2. Sinus disease. Edy Johnson MD Chest X-Ray 07/02/16 0000 Signed Impressions: Service Date/Time: Saturday, July 02, 2016 17:10 - CONCLUSION: ET tube in good position. Left lower lobe consolidation, stable. Alexandr Bernal MD Head CT 07/01/16 0000 Signed Impressions: Service Date/Time: Friday, July 01, 2016 20:54 - CONCLUSION: No acute intracranial abnormality. Bilateral paranasal sinusitis. Mason Noe MD Objective Remarks GENERAL: Well-nourished well-developed male intubated and sedated. SKIN: Warm and dry. HEAD: Atraumatic. Normocephalic. EYES: Pupils equal and round. No scleral icterus. No injection or drainage. ENT: No nasal bleeding or discharge. Mucous membranes pink and moist. NECK: Trachea midline. No JVD. Orally intubated CARDIOVASCULAR: irregular rate, irregular rhythm. S1, S2, no murmurs. RESPIRATORY: Coarse upper respiratory sounds, otherwisde clear to auscultation. Breath sounds equal bilaterally. GASTROINTESTINAL: Abdomen soft, non-tender, nondistended. No guarding. MUSCULOSKELETAL: Extremities without clubbing, cyanosis, or edema. No obvious deformities. NEUROLOGICAL:RASS-2. On propofol and fentanyl infusions intubated and sedated. Urinary Catheter: Yes Assessment to: Continue Date of Insertion: Jul 05, 2016 Vascular Central Line Catheter: Yes Assessment to: Continue Date of Insertion: Jun 22, 2016 Line: Central Venous Catheter Side: Right Location: Internal, Jugular A/P Assessment and Plan Plan by systems: Neurologic: Delirium tremens Alcohol abuse Encephalopathy Alcohol withdrawal Restless leg syndrome On Diprivan , Fentanyl infusion for sedation. Daily sedation vacation Precedex drip to facilitate with weaning trials. Continue with Seroquel 25mg BID. Librium 50 mg every 12 hourly via OG tube on 07/06. Neurochecks per ICU protocol Continue with Thiamine , MVI, Folic acid CT brain 07/01: No acute intracranial abnormalities. MRI brain 07/03: No acute findings EEG 07/03 : No epileptiform features. Neuro- Dr. Spaulding Respiratory: Tobacco abuse VDRF- reintubated 07/02 On PRVC/AC RR 14, TV 550, PEEP: 5, IT: 1.0, FIO2 45%, Continue with vent support keep sat >92%., Bronchodilators, ICU vent bundle. SBT daily as farzana Solumederol 40mg daily Patient was reintubated twice and might require trach R sided effusion, IR US guided thoracentesis ordered Cardiovascular: Atrial fibrillation with RVR 06/25 Cardiomegaly Monitor HR and BP keep MAP>65mmHg On PO Cardizem 60mg QID. Cardizem drip at 10/hr. Given digoxin 0.5mg x2 07/06. On Heparin infusion held on 07/06 due to hematuria Cardiology following- Dr. Bautista, Dr. Miller, Consulted Dr. Casillas on 07/06 for continued A. fib with RVR with difficulty to control 06/24 S/P RF cardiac ablation 06/21 Echo showed EF 35-40% Renal: SHAWNA- resolved Monitor renal function, I/O's, electrolytes replacement per protocol. On Bumex 1mg IV BID FEN/GI: Continue TF-Jevity 1.5@ 50ml/hr Zofran IV for nausea Protonix IV 40 mg/day Bowel regimen with Dignishield Heme/ID: Monitor CBC Transfuse for hemoglobin less than 7 Monitor PTT per heparin protocol Continue with abx ( Zosyn) Monitor for signs of infections ( Fever, WBC) 06/30 sputum cx: Moraxella Catarrhalis, repeat sputum cx from 07/03: No growth C-diff PCR negative Endocrine: On SSI(medium scale) for glycemic control, increase Levemir 25u Q12 Prophylaxis: GI Prophylaxis Protonix IV 40 mg/day DVT Prophylaxis -- SCDs Heparin infusion Lines: Peripheral IVs 2. Central line right IJ 06/22 Addendum: Patient seen and examined earlier. Discussed findings, assessment and plan with Dr. Barrera as above. D/W Dr. Abreu Addendum: Discussed with Dr. Miller from cardiology. He recommends anticoagulation with heparin followed by cardioversion. Patient was sent to IR for a right sided thoracentesis however on reviewing under CT guidance patient has significant atelectasis and very small effusions hence thoracentesis not performed and patient sent back to the ICU. We'll initiate heparin for full anticoagulation now and attempt cardioversion tomorrow followed by amiodarone and successfully cardioverted to attempt keeping in sinus rhythm . Swapnil Barrera MD R1 Jul 07, 2016 11:13 Foster Looney MD Jul 07, 2016 17:14
[2016-07-07] MEDS ORDERED: BUMETANIDE INJ 1 MG/4 ML VIAL IV PUSH ONE (12:00)
--- NOTE | 2016-07-07 12:18 | HHI.FPPN ---
Subjective Remarks Case discussed with Dr. Barrera, Dr. Looney, and bedside RN. No acute events overnight. Patient remains sedated and intubated. (Ildefonso Tavares MD R2) Objective Vitals Vital Signs Date Time Temp Pulse Resp B/P Pulse Ox O2 Delivery O2 Flow Rate FiO2 07/07/16 11:24 92 45 07/07/16 10:00 105 07/07/16 08:25 95 45 07/07/16 08:00 98.6 79 14 96/52 96 07/07/16 08:00 79 07/07/16 08:00 45 07/07/16 06:00 86 07/07/16 04:19 97 45 07/07/16 04:00 98.8 86 14 93/65 94 07/07/16 04:00 45 07/07/16 04:00 79 07/07/16 02:00 84 07/07/16 00:00 94 07/07/16 00:00 98.9 94 14 110/58 96 07/07/16 00:00 45 07/06/16 23:55 96 45 07/06/16 23:00 97 07/06/16 22:00 104 07/06/16 20:00 45 07/06/16 20:00 127 07/06/16 20:00 99.7 127 14 142/77 92 07/06/16 19:24 95 45 07/06/16 18:00 96 07/06/16 16:00 45 07/06/16 16:00 98.8 152 14 103/58 94 07/06/16 16:00 152 07/06/16 15:13 96 45 07/06/16 14:00 123 I/O 07/06/16 07/06/16 07/06/16 07/07/16 07/07/16 07/07/16 06:59 14:59 22:59 06:59 14:59 22:59 Intake Total 1053 ml 1055 ml 1050 ml 763 ml Output Total 601 ml 650 ml 550 ml 625 ml Balance 452 ml 405 ml 500 ml 138 ml IV Total 705 ml 671 ml 598 ml 461 ml Tube Feeding 348 ml 384 ml 402 ml 302 ml Other 50 ml Output Urine Total 600 ml 650 ml 550 ml 525 ml Stool Total 1 ml 100 ml # Bowel Movements 2 (Ildefonso Tavares MD R2) Result Diagram: 07/07/1643407/07/16434 Objective Remarks CONST: 61y/o CM lying in bed. Intubated, sedated. HEENT: NCAT. DERM: Warm and dry. Decubitus ulcer with mild necrosis, not weeping, R buttock. NECK: R IJ present. +elevated JVP. CV: Tachycardic, irregularly irregular rhythm. No audible murmurs. RESP: Currently intubated. Anterior breath sounds equal bilaterally, diminished. No wheezing. GI: Abdomen slightly distended. Soft. Non-tender to palpation. +BS x 4. : Lujan catheter in place to gravity with blood-tinged cloudy urine. Scrotal edema stable. MSK: Extremities without cyanosis. 2+ edema of upper extremities, hands. Lower extremities in SCDs, [place]. 1-2+ DP pulses bilaterally. NEURO: Intubated, sedated. Does not open eyes to command. (Ildefonso Tavares MD R2) Date of Insertion: Jul 05, 2016 (Ildefonso Tavares MD R2) Date of Insertion: Jun 22, 2016 Line: Central Venous Catheter Side: Right Location: Internal, Jugular (Ildefonso Tavares MD R2) A/P Assessment and Plan 61 y/o CM with a PMHx of HTN and alcohol abuse presenting 06/21/16 with tachycardia to 150s, found to be in atrial flutter. Converted to afib with RVR s/p ablation, with hospital stay complicated by DTs, requiring intubation and sedation. Discharge Planning Unclear given patient's current clinical state. Patient remains in critical condition. (Ildefonso Tavares MD R2) Attending Attestation Pt. examined and case discussed with resident physicians I have read the above note and agree with the assessment/plan as discussed with me I was involved in all medical decision making for this patient Shashank Abreu MD (Shashank Abreu MD) Problem List: (1) Alcohol withdrawal Status: Acute Plan: Fur Polisher consulted, appreciate recommendations Currently Intubated, on Diprivan, Fentanyl drips -- Vent support to keep sat >92%, Bronchodilators, ICU vent bundle --CPAP trials Ativan per CIWA protocol Discussion of possible tracheostomy with family as the patient has failed multiple extubation trials -Librium 50 mg every 12 hourly via OG tube on 07/06. Neurochecks per ICU protocol Neurology consulted -EEG (07/03): no epileptiform events, intermittent mild diffuse slowing suggestive of mild diffuse cerebral dysfunction -MRI brain (07/03): no intracranial process (2) Ventilator associated pneumonia Status: Acute Plan: Sputum culture 06/30 growing Moraxella catarrhalis. PLAN - Zosyn 4.5Gm q6h (06/30 ) Day 6/7 of antibiotics - Intubated, continue to attempt CPAP trials, as tolerated - Repeat sputum culture NGTD x 48 hours. -Solumedrol 40mg daily Imaging: CXR 06/29: Stable consolidation LLL, new consolidation RUL. CXR 07/02: Stable LLL consolidation. Hazy density R base, consider effusion. ET tube in good position. Cardiomegaly, increased interstitial markings, suggestive edema, possible CHF. Chest x-ray 07/05: No interval change (3) Atrial flutter with rapid ventricular response Status: Acute Plan: Ablated 06/23 (Dr Ponce), subsequently presented with atrial fibrillation with RVR Diltiazem drip initiated to control rates, then stopped (06/25-06/27) and transitioned to PO Cardizem Cardiology consulted. IV Digoxin initiated. ECHO: Study limited secondary to tachycardia, EF 35-40%, normal cavity size, wall thickness, wall motion. PLAN -Improved rate control Cardizem 60mg PO QID Lopressor 2.5 mg q6h PRN HR >100 ASA 81mg PO daily --Continue Digoxin for rate control per critical care/cardiology --Discontinue heparin drip 2/2 hematuria. (4) Hypertension Status: Chronic Plan: Chronic. Hx hypotensive as well, required pressors from 06/23 until 06/24, BP currently stable. Hold home Irbesartan-HCTZ (300-12.5) Cardizem 60mg QID, as above Losartan 100 mg PO daily Bumex 1 mg daily (5) Creatinine elevation Status: Resolved Plan: Resolved at this time. Continue to monitor .Strict I's/O's with Lujan catheter, trend BUN/Cr - On Bumex 1g daily (6) Restless leg syndrome Status: Chronic Plan: Reported. -Hold Ropinirole (7) Hyperglycemia Status: Acute Plan: -Levemir increased to 25 units Subcutaneous BID -MSSI -Accu-check ACHS (8) Nutrition, metabolism, and development symptoms Status: Acute Plan: Fluids: No fluids running at present, fluids per medications and feeds, monitor hydration status. Diet: NPO as intubated. Tube feeds with Jevity which will be transition to Glucerna given hyperglycemia Electrolytes: CO2 elevated thought secondary hypoventilation, continue to monitor DVT prophylaxis: SCDs, discontinue heparin drip 2/2 hematuria GI prophylaxis: Protonix 40 mg IV daily while intubated, on steroids. Constipation: Senna daily, Colace BID Discussed with Dr. Looney (Ildefonso Tavares MD R2) Problem Qualifiers (1) Alcohol withdrawal: Qualified Code: F10.231 - Alcohol withdrawal, with delirium (2) Hypertension: Qualified Code: I10 - Essential hypertension Ildefonso Tavares MD R2 Jul 07, 2016 12:18 Shashank Abreu MD Jul 07, 2016 14:28
[2016-07-07] MEDS: COLLAGENASE OINT 30 GM TUBE TOPICAL PRN (14:15)
[2016-07-07] MEDS: DEXMEDETOMIDINE INJ 200 MCG in SODIUM CHLORIDE 0.9% INJ 50 ML IV SCH (14:37)
--- NOTE | 2016-07-07 16:01 | MB ---
cc: FAIZA STRATTON MD, HANSCY M.D. DATE OF CONSULTATION: 07/07/2016 REASON FOR CONSULTATION Atrial fibrillation with biventricular response. HISTORY OF PRESENT ILLNESS Mr. Guevara is a 61-year-old gentleman that was previously admitted since June 21, 2016. During hospitalization he had developed alcohol withdrawal. The reason for admission at the beginning was atrial flutter with biventricular response. The patient was intubated, put on mechanical ventilation. During hospitalization heart rate was very difficult to control. Atrial flutter ablation was performed and it was successful. Subsequently, the patient was sent to the intensive care unit. It was very difficult apparently to extubate the patient. He developed possible infection. Currently he has right pleural effusion. He has developed atrial fibrillation with biventricular response. I had been discussing the case over the past two days over the phone with Dr. Stratton. The chart was reviewed. The patient was evaluated. ALLERGIES None. MEDICATIONS Currently he is on: 1. Precedex. 2. Cardizem IV. 3. Fentanyl. 4. Heparin. 5. Magnesium sulfate. 6. Potassium. 7. Propofol. 8. Coumadin. 9. Albuterol inhaler p.r.n. 10. Aspirin. 11. Bumex. 12. Clonidine p.r.n. 13. Digoxin. 14. Cardizem 60 mg p.o. q.i.d. 15. Lorazepam. 16. Cozaar. 17. Methylprednisone. 18. Percocet. 19. Protonix. 20. Senna. REVIEW OF SYSTEMS A review of systems cannot be performed. The patient is on mechanical ventilation. PHYSICAL EXAMINATION VITAL SIGNS: Sedated on mechanical ventilation. His blood pressure is 96/52, pulse 79 to around 90, respiratory rate maintained by ventilator. LUNGS: Decreased right ___ ventilation. CARDIOVASCULAR: S1-S2, irregular. ABDOMEN: Soft. No mass. EXTREMITIES: With no edema. ELECTROCARDIOGRAM The last one was on the 24 of June. Current telemetry shows atrial fibrillation with adequate response. ASSESSMENT AND RECOMMENDATION I had a long conversation with Dr. Stratton and I did speak to the nurse also. The gentleman's ablation was for atrial flutter. Currently he is in atrial fibrillation. Apparently, the heart rate is controlled with medication. The gentleman is on Coumadin but the INR is only 1.1. The gentleman is on Cardizem IV ___. There was a conversation about the possibility of amiodarone. Because of the pulmonary issue and difficulty to intubate, I would wait on the amiodarone until post extubation. I do understand there was a failed extubation. If necessary and if the heart rate cannot be controlled, cardioversion should be attempted. The atrial fibrillation may be byproduct of the infection and the acute illness and the respiratory issue also. As mentioned before if heart rate cannot be controlled should proceed with cardioversion for rate control. Management ___ illness is important. Also the patient has right pleural effusion, will need a thoracentesis. Continue further management by critical care. I will be available as mentioned before on a p.r.n. basis. His condition is of care. MD MELA Mustafa/TLL /12:26 PM /3:20 PM
--- NOTE | 2016-07-07 17:10 | RADRPT ---
EXAM DATE/TIME: 07/07/2016 16:20 [facility] COMPARISON: No previous studies available for comparison. INDICATIONS : Evaluate for fluid. RADIATION DOSE: 25.14 CTDIvol (mGy) MEDICAL HISTORY : Hypertension. Cardiovascular disease SURGICAL HISTORY : None. ENCOUNTER: Initial ACUITY: 1 day PAIN SCALE: Non-responsive LOCATION: chest TECHNIQUE: Volumetric scanning of the chest was performed. Using automated exposure control and adjustment of t he mA and/or kV according to patient size, radiation dose was kept as low as reasonably achievable to obtain optimal diagnostic quality images. FINDINGS: There is respiratory motion artifact. LUNGS: There is atelectasis within both lower lobes, more severe in the right lower lobe with volume loss of most of the lobe. Respiratory motion artifact is present. No pneumothorax or definite consolidation is visualized. PLEURAE: There are very small bilateral pleural effusions with possible mild pleural thickening posteriorly in the mid hemithorax. MEDIASTINUM: The heart and great vessels demonstrate no acute abnormality. Mild coronary artery calcification is p resent and there is mild atherosclerotic disease of aorta. There are nonenlarged calcified left hilar lymph nodes. There is no mediastinal or hilar lymphadenopathy. AXILLAE: Within normal limits. No lymphadenopathy. MUSCULOSKELETAL: There are degenerative changes of the thoracic spine. No lytic or blastic lesion is seen. MISCELLANEOUS: The visualized upper abdominal organs demonstrate no acute abnormality. Spleen is mildly enlarged alvaro suring 15.6 cm in length. There is a 7 mm low-density lesion in the right liver. It has density measu rements characteristic of a cyst. Nasogastric tube is present and distal tip is in the distal stomach . Endotracheal tube is also present. CONCLUSION: 1. The patient was initially scheduled for right therapeutic thoracentesis. However, most of the abno rmality visualized on chest x-ray is secondary to lower lobe atelectasis. There is only a very small pleural effusion present bilaterally. 2. Mild splenomegaly. Edy Emerson MD on July 07, 2016 at 17:05 Board Certified Radiologist. This report was verified electronically.
[2016-07-07] MEDS: HEPARIN-D5W INJ 250 ML IV SCH (18:12)
[2016-07-08] VITALS (25 sets, daily range): BP systolic 74–113; BP diastolic 47–69; PULSE 55–140; RESP 14; TEMP 97.1–98.4; O2SAT 92–99
[2016-07-08 00:21] LABS: APTT (PATIENT) 28.8 SEC (24.3-30.1)
[2016-07-08] MEDS: PROPOFOL 1000 MG/100 ML INJ 100 ML IV SCH ×3 (02:24→18:16)
[2016-07-08] MEDS: PIPERACIL-TAZO 4.5 GM PREMIX 100 ML IV SCH ×4 (02:24→19:58)
[2016-07-08] MEDS: INSULIN NovoLIN REGULAR SUPPLEMENTAL SCALE SQ SCH ×4 (03:15→20:35)
[2016-07-08 06:18] LABS: APTT (PATIENT) 39.4 SEC (24.3-30.1); INTERNATIONAL NORMALIZED RATIO 1.1 RATIO; PROTHROMBIN TIME - PATIENT 12.1 SEC (9.8-11.6)
[2016-07-08] MEDS: fentaNYL DRIP 250 ML IV SCH ×2 (08:53→19:56)
[2016-07-08] MEDS: PANTOPRAZOLE SODIUM 40 MG VIAL IV SCH (08:57)
[2016-07-08] MEDS: SENNOSIDES SYRUP 8.8 MG/5 ML CUP PO SCH (08:58)
[2016-07-08] MEDS: BUMETANIDE INJ 1 MG/4 ML VIAL IV PUSH SCH ×2 (08:59→19:58)
[2016-07-08] MEDS: LOSARTAN 50 MG TAB PO SCH (08:59)
[2016-07-08] MEDS: chlordiazePOXIDE 25 MG CAP PO SCH ×2 (08:59→20:35)
[2016-07-08] MEDS: methylPREDNISolone SOD SUCC 40 MG/1 ML VIAL IV PUSH SCH (09:00)
[2016-07-08] MEDS: INSULIN DETEMIR 100 UNITS/ML VIAL SQ SCH ×2 (09:00→19:58)
[2016-07-08] MEDS: THIAMINE HCL 100 MG TAB PO SCH (09:01)
[2016-07-08] MEDS: QUEtiapine FUMARATE 25 MG TAB PO SCH ×2 (09:01→20:35)
[2016-07-08] MEDS: ASPIRIN 81 MG CHEW TAB PO SCH (09:01)
[2016-07-08] MEDS: SODIUM CHLORIDE 0.9% FLUSH 10 ML FLUSH IV FLUSH SCH ×2 (09:01→20:35)
[2016-07-08] MEDS: DILTIAZEM HCL 60 MG TAB PO SCH ×4 (09:01→20:35)
[2016-07-08] MEDS: METOPROLOL TARTRATE 5 MG/5 ML VIAL IV PUSH PRN (13:21)
[2016-07-08 13:58] LABS: APTT (PATIENT) 33.4 SEC (24.3-30.1)
[2016-07-08] MEDS: HEPARIN-D5W INJ 250 ML IV SCH (14:26)
[2016-07-08] MEDS: HEPARIN SODIUM - IV 10,000 UNITS/10 ML VIAL IV PRN (14:28)
--- NOTE | 2016-07-08 15:14 | HHI.FPPN ---
Subjective Remarks Case discussed with nurse at bedside. Planning on Undergoing cardioversion later this afternoon. Intubated and sedated. Objective Vitals Vital Signs Date Time Temp Pulse Resp B/P Pulse Ox O2 Delivery O2 Flow Rate FiO2 07/08/16 14:00 98 07/08/16 13:00 140 07/08/16 12:00 45 07/08/16 12:00 97.8 94 94/63 93 07/08/16 12:00 94 07/08/16 11:47 93 45 07/08/16 10:00 91 07/08/16 08:24 99 45 07/08/16 08:00 98.4 92 95/63 94 07/08/16 08:00 45 07/08/16 08:00 92 07/08/16 06:00 88 07/08/16 04:43 94 45 07/08/16 04:00 45 07/08/16 04:00 97.5 101 91/62 95 07/08/16 04:00 101 07/08/16 02:00 90 07/08/16 01:47 95 45 07/08/16 00:00 97.1 94 113/69 94 07/08/16 00:00 94 07/08/16 00:00 45 07/07/16 22:00 86 07/07/16 20:35 94 45 07/07/16 20:00 97.3 75 95/62 93 07/07/16 20:00 45 07/07/16 20:00 75 07/07/16 18:00 79 07/07/16 16:00 99.2 79 14 109/73 94 07/07/16 16:00 45 07/07/16 16:00 79 07/07/16 15:40 96 45 I/O 07/07/16 07/07/16 07/07/16 07/08/16 07/08/16 07/08/16 07:00 15:00 23:00 07:00 15:00 23:00 Intake Total 763 ml 1031 ml 913 ml 645 ml 1018 ml Output Total 625 ml 1600 ml 1500 ml 650 ml 1250 ml Balance 138 ml -569 ml -587 ml -5 ml -232 ml Intake Oral 0 ml 0 ml 0 ml IV Total 461 ml 630 ml 592 ml 346 ml 547 ml Tube Feeding 302 ml 401 ml 321 ml 299 ml 471 ml Output Urine Total 525 ml 1450 ml 1500 ml 650 ml 1100 ml Stool Total 100 ml 150 ml 150 ml Result Diagram: 07/07/1643407/07/16434 Objective Remarks CONST: 61y/o CM lying in bed. Intubated, sedated. HEENT: NCAT. DERM: Warm and dry. Decubitus ulcer with mild necrosis, not weeping, R buttock. NECK: R IJ present. +elevated JVP. CV: Tachycardic, irregularly irregular rhythm. No audible murmurs. RESP: Currently intubated. Anterior breath sounds equal bilaterally, diminished. No wheezing. GI: Abdomen slightly distended. Soft. Non-tender to palpation. +BS x 4. : Lujan catheter in place to gravity with blood-tinged cloudy urine. Scrotal edema stable. MSK: Extremities without cyanosis. 2+ edema of upper extremities, hands. Lower extremities in SCDs, Unaboots. 1-2+ DP pulses bilaterally. NEURO: Intubated, sedated. Does not open eyes to command. Date of Insertion: Jul 05, 2016 Date of Insertion: Jun 22, 2016 Line: Central Venous Catheter Side: Right Location: Internal, Jugular A/P Assessment and Plan 61 y/o CM with a PMHx of HTN and alcohol abuse presenting 06/21/16 with tachycardia to 150s, found to be in atrial flutter. Converted to afib with RVR s/p ablation, with hospital stay complicated by DTs, requiring intubation and sedation. Discharge Planning Unclear given patient's current clinical state. Patient remains in critical condition. Problem List: (1) Alcohol withdrawal Status: Acute Plan: Metal Hanging Helper consulted, appreciate recommendations Currently Intubated, on Diprivan, Fentanyl drips -- Vent support to keep sat >92%, Bronchodilators, ICU vent bundle --CPAP trials Ativan per [facility]KS protocol Discussion of possible tracheostomy with family as the patient has failed multiple extubation trials -Librium 50 mg every 12 hourly via OG tube on 07/06. Neurochecks per ICU protocol Neurology consulted -EEG (07/03): no epileptiform events, intermittent mild diffuse slowing suggestive of mild diffuse cerebral dysfunction -MRI brain (07/03): no intracranial process (2) Ventilator associated pneumonia Status: Acute Plan: Sputum culture 06/30 growing Moraxella catarrhalis. PLAN - Zosyn 4.5Gm q6h (06/30 ) Day 6/7 of antibiotics - Intubated, continue to attempt CPAP trials, as tolerated - Repeat sputum culture NGTD x 48 hours. -Solumedrol 40mg daily Imaging: CXR 06/29: Stable consolidation LLL, new consolidation RUL. CXR 07/02: Stable LLL consolidation. Hazy density R base, consider effusion. ET tube in good position. Cardiomegaly, increased interstitial markings, suggestive edema, possible CHF. Chest x-ray 07/05: No interval change (3) Atrial flutter with rapid ventricular response Status: Acute Plan: Ablated 06/23 (Dr Ponce), subsequently presented with atrial fibrillation with RVR Diltiazem drip initiated to control rates, then stopped (06/25-06/27) and transitioned to PO Cardizem Cardiology consulted. IV Digoxin initiated. ECHO: Study limited secondary to tachycardia, EF 35-40%, normal cavity size, wall thickness, wall motion. PLAN -Improved rate control Cardizem 60mg PO QID Lopressor 2.5 mg q6h PRN HR >100 ASA 81mg PO daily --Continue Digoxin for rate control per critical care/cardiology --Discontinue heparin drip 2/2 hematuria. (4) Hypertension Status: Chronic Plan: Chronic. Hx hypotensive as well, required pressors from 06/23 until 06/24, BP currently stable. Hold home Irbesartan-HCTZ (300-12.5) Cardizem 60mg QID, as above Losartan 100 mg PO daily Bumex 1 mg daily (5) Creatinine elevation Status: Resolved Plan: Resolved at this time. Continue to monitor .Strict I's/O's with Lujan catheter, trend BUN/Cr - On Bumex 1g daily (6) Restless leg syndrome Status: Chronic Plan: Reported. -Hold Ropinirole (7) Hyperglycemia Status: Acute Plan: -Levemir increased to 25 units Subcutaneous BID -MSSI -Accu-check ACHS (8) Nutrition, metabolism, and development symptoms Status: Acute Plan: Fluids: No fluids running at present, fluids per medications and feeds, monitor hydration status. Diet: NPO as intubated. Tube feeds with Jevity which will be transition to Glucerna given hyperglycemia Electrolytes: CO2 elevated thought secondary hypoventilation, continue to monitor DVT prophylaxis: SCDs, discontinue heparin drip 2/2 hematuria GI prophylaxis: Protonix 40 mg IV daily while intubated, on steroids. Constipation: Senna daily, Colace BID Discussed with Dr. Looney Problem Qualifiers (1) Alcohol withdrawal: Qualified Code: F10.231 - Alcohol withdrawal, with delirium (2) Hypertension: Qualified Code: I10 - Essential hypertension Ildefonso Tavares MD R2 Jul 08, 2016 15:14
--- NOTE | 2016-07-08 16:24 | HHI.CCPN ---
Subjective Remarks/Hospital Course On 06/21 ,Mr. Guevara presented with a PMHx of HTN presenting from the [facility] with an elevated, irregular heart rate. He is a patient of Dr. Irwin Rodriguez, who sent this patient from clinic. In clinic, he had a heart rate in the 150s and was instructed to go to the ED for further evaluation. Upon arriving to the ED ,the patient was found to have atrial flutter on twelve-lead EKG with a rate 151 with 2-1 conduction. He denied any chest pain, prior arrhythmia, thyroid disorder, or heart disease. He reported his last EKG was approximately 8 years ago before his eye surgery s/p accident. The patient has a significant alcohol and smoking history, but denies any illicit drugs. He states that he is at his baseline except for 3 episodes of nonbloody diarrhea that have all occurred over this morning. The patient was admitted to the hospital, and placed on CIWA protocol, Cardizem infusion and was scheduled for ablation per interventional cardiology. Early this a.m. the patient became significantly more confused, difficult to control a Hallicat at was called, and the patient was transferred to ICU for further management. Subjective 06/23: Afebrile. Since admission to the ICU yesterday, the patient was placed initially on Precedex infusion for agitation/delirium, in addition to CIWA protocol. The patient subsequently required intubation. Later the afternoon the patient became hypotensive requiring vasopressor support of Levophed which was weaned off during the night. The patient converted to A. fib flutter heart rate 150s and Cardizem infusion was reinitiated. Systolic blood pressure low 100's. The patient continues on Versed low-dose and fentanyl infusions for ventilator synchrony. Plan today for cardiac ablation with Dr. Ponce. 06/24: The patient underwent successful RF ablation for atrial flutter, patient currently remains sinus rhythm sinus tach. The patient underwent CPAP trials however self extubated. Immediately upon self extubation the patient stated " I havent had a drink in 3 days, I need a drink" .The patient's maintain an O2 sat greater than 92% on Ventimask at 50% currently. The patient continues to be confused and agitated than what appears to be delirium tremens , Precedex infusion begun with Ativan PRN . Family present at bedside with patient. The patient noted to be confused, combative, remains in 4 point restraints. Will initiate Coumadin pharmacy dosing, with overlap of heparin until therapeutic INR today. CIWA protocol initiated. 06/25: The patient remain on Precedex infusion throughout the night, with supplementation per [facility] protocol and rested comfortably without agitation, in normal sinus rhythm. During the night he received Lasix 20 mg IV and diuresed greater than 1 L. At approximately 1400, the patient went into A. fib RVR with a rate of 220, and extremely dyspneic with audibly expiratory wheezing. Cardizem bolus 20 mg 2 doses was given. The patient was placed on a Cardizem infusion at 10 mg per hour. The heart rate decreased from 80-100, but rhythm atrial fibrillation. The patient continued to have respiratory distress, tachypnea with a rate in the 40s50s. An ABG was obtained showing a very large A-a gradient, and a PaO2 of 77 on 100% nonrebreather after 40 mg of Lasix diuresis and a DuoNeb treatment. Emergent intubation was required, family at bedside, discussed extensively with and updated her on the the patient's current condition. The patient was reintubated. He continues on a heparin infusion propofol infusion for ventilator synchrony. 06/26:Tmax 100.6. Patient's rhythm atrial fibrillation with a rate 90-109, Cardizem 12 mg/hour. The patient continues on a heparin infusion at this time. Patient was noted to have flash pulmonary edema episode of A. fib RVR which required intubation. Repeat chest x-ray this a.m. still shows pulmonary edema, the patient was diuresed approximately 2 L yesterday, he continues on a PEEP of 10. Patient remains sedated on a propofol and fentanyl infusion for ventilator synchrony. Will initiate tube feeds today. 06/27 Patient is sedated with Diprivan, Fentnayl and intubated. Tmax 100.6. On Heparin and Cardizem drips. On SIMV with FIO2 80%, PEEP: 10. 06/28 No acute events overnight. Remains sedated and intubated. Afebrile. Off Cardizem drip . On ACV with PEEP: 10 and FIO2 40%. T:100.3 at midnight. 06/29 Patient remains sedated and intubated. Afebrile. Remains on Heparin drip. 06/30 Patient remains sedated and intubated. Did not tolerate CPAP trials yesterday. T: 99.7 at 4am. On Heparin drip. 07/01 No acute events overnight intubated and sedated. Had low grade fever with T : 100.4 at 4 am. 07/02 Patient is sedated with Fentanyl, Versed in addition he is on Precedex drip. He gets very agitated , restless, tachypneic and tachycardic when sedation is being weaned off. 07/03 Patient was extubated yesterday however several hrs later he became tachypneic, tachycardic and hypertensive he was subsequently intubated and now sedated with Diprivan and Fentanyl. T 99.7 at midnight. 07/04 Patient remains sedated with Diprivan and Fentanyl. MRI brain yesterday showed no acute findings. Afebrile. 07/05 No acute events overnight. Afebrile. Sedated and intubated. Patient gets agitated and restless on CPAP and when sedation is being weaned. 07/06: Remains sedated, orally intubated on mechanical ventilation. Gets agitated on lightening sedation. Elevated fingerstick glucoses in the 400 range. Hematuria noted. Remains in A. fib with RVR. Given digoxin 0.5 mg IV earlier awaiting cardiology call back. 07/07: No acute events overnight. Patient remains sedated and intubated on mechanical ventilation. Afib with RVR s/p Digoxin bolus x2 yesterday afternoon. Cardizem increased to 10/hr with HR currently in 80s. 07/08: Remains sedated, orally intubated on mechanical ventilation. On heparin for anticoagulation. Setting up for cardioversion followed by amiodarone drip if he converts. Objective Vital Signs Date Time Temp Pulse Resp B/P Pulse Ox O2 Delivery O2 Flow Rate FiO2 07/08/16 14:00 98 07/08/16 12:00 45 07/08/16 12:00 97.8 94/63 93 07/07/16 16:00 14 Intake and Output 07/07/16 07/07/16 07/08/16 08:00 16:00 00:00 Intake Total 763 ml 1031 ml 913 ml Output Total 625 ml 1600 ml 1500 ml Balance 138 ml -569 ml -587 ml Result Diagram: 07/07/16 0435 07/07/16 0435 Imaging Last Impressions Brain MRI 07/03/16 0000 Signed Impressions: Service Date/Time: Sunday, July 03, 2016 10:12 - CONCLUSION: 1. No intracranial abnormality is seen. 2. Sinus disease. Edy Johnson MD Chest X-Ray 07/02/16 0000 Signed Impressions: Service Date/Time: Saturday, July 02, 2016 17:10 - CONCLUSION: ET tube in good position. Left lower lobe consolidation, stable. Alexandr Bernal MD Head CT 07/01/16 0000 Signed Impressions: Service Date/Time: Friday, July 01, 2016 20:54 - CONCLUSION: No acute intracranial abnormality. Bilateral paranasal sinusitis. Mason Noe MD Objective Remarks GENERAL: Well-nourished well-developed male intubated and sedated. SKIN: Warm and dry. HEAD: Atraumatic. Normocephalic. EYES: Pupils equal and round. No scleral icterus. No injection or drainage. ENT: No nasal bleeding or discharge. Mucous membranes pink and moist. NECK: Trachea midline. No JVD. Orally intubated CARDIOVASCULAR: irregular rate, irregular rhythm. S1, S2, no murmurs. RESPIRATORY: Coarse upper respiratory sounds, otherwisde clear to auscultation. Breath sounds equal bilaterally. GASTROINTESTINAL: Abdomen soft, non-tender, nondistended. No guarding. MUSCULOSKELETAL: Extremities without clubbing, cyanosis, or edema. No obvious deformities. NEUROLOGICAL:RASS-2. On propofol and fentanyl infusions intubated and sedated. Date of Insertion: Jul 05, 2016 Date of Insertion: Jun 22, 2016 Line: Central Venous Catheter Side: Right Location: Internal, Jugular A/P Assessment and Plan Plan by systems: Neurologic: Delirium tremens Alcohol abuse Encephalopathy Alcohol withdrawal Restless leg syndrome On Diprivan , Fentanyl infusion for sedation. Daily sedation vacation Precedex drip to facilitate with weaning trials. Continue with Seroquel 25mg BID. Librium 50 mg every 12 hourly via OG tube on 07/06. Neurochecks per ICU protocol Continue with Thiamine , MVI, Folic acid CT brain 07/01: No acute intracranial abnormalities. MRI brain 07/03: No acute findings EEG 07/03 : No epileptiform features. Neuro- Dr. Spaulding Respiratory: Tobacco abuse VDRF- reintubated 07/02 On PRVC/AC RR 14, TV 550, PEEP: 8, IT: 1.0, FIO2 45%, Continue with vent support keep sat >92%., Bronchodilators, ICU vent bundle. SBT daily as farzana Solumederol 40mg daily Patient was reintubated twice and might require trach CT chest for thoracentesis 07/07 revealed very minimal effusion bilaterally and predominantly atelectasis involving right lower lobe. No thoracentesis performed. PEEP increased to +8 on 07/08 Cardiovascular: Atrial fibrillation with RVR 06/25 Cardiomegaly Monitor HR and BP keep MAP>65mmHg On PO Cardizem 60mg QID. Cardizem drip as needed. Given digoxin 0.5mg x2 . On Heparin infusion held on 07/06 due to hematuria Cardiology following- Dr. Bautista, Dr. Miller, Consulted Dr. Casillas on 07/06 for continued A. fib with RVR with difficulty to control 06/24 S/P RF cardiac ablation 06/21 Echo showed EF 35-40% Discussed with Dr. Miller from cardiology on 07/07. He recommends anticoagulation with heparin followed by cardioversion. Planning on cardioversion now and if he converts will initiate amiodarone drip. Renal: SHAWNA- resolved Monitor renal function, I/O's, electrolytes replacement per protocol. On Bumex 1mg IV BID FEN/GI: Continue TF-Jevity 1.5@ 50ml/hr Zofran IV for nausea Protonix IV 40 mg/day Bowel regimen with Dignishield Heme/ID: Monitor CBC Transfuse for hemoglobin less than 7 Monitor PTT per heparin protocol Continue with abx ( Zosyn) Monitor for signs of infections ( Fever, WBC) 06/30 sputum cx: Moraxella Catarrhalis, repeat sputum cx from 07/03: No growth C-diff PCR negative Endocrine: On SSI(medium scale) for glycemic control, increase Levemir 25u Q12 Prophylaxis: GI Prophylaxis Protonix IV 40 mg/day DVT Prophylaxis -- SCDs Heparin infusion Lines: Peripheral IVs 2. Central line right IJ 06/22 Condition critical Time spent on critical care excluding procedures: 30 minutes Foster Looney MD Jul 08, 2016 16:24
[2016-07-08] MEDS ORDERED: MIDAZOLAM HCL 5 MG/ML VIAL (1 ML) IV PUSH ONE (16:30)
[2016-07-08] MEDS ORDERED: AMIODARONE INJ 900 MG in D5W 500 ML (EXCEL BAG) 482 ML IV SCH (16:30)
[2016-07-08] MEDS ORDERED: AMIODARONE INJ 150 MG in DEXTROSE 5% IN WATER 100ML INJ 97 ML IV ONE ×2 (16:30)
[2016-07-08] MEDS: AMIODARONE INJ 450 MG in DEXTROSE 5% IN WATE(EXCEL) INJ 241 ML IV SCH ×2 (17:30)
--- NOTE | 2016-07-08 17:54 | PD.PROCEDR ---
Procedure Note Procedure Procedure: Cardioversion Preoperative diagnosis: Recurrent A. fib with RVR Postop diagnosis: Same Sedation: Propofol/fentanyl drips. Versed 5 mg IV 1 dose Description: After ensuring adequate sedation and analgesia, patient was cardioverted with 70 J synchronized DC shock 1 with which he converted from atrial fibrillation to sinus rhythm. He was on anticoagulation with heparin. Amiodarone bolus followed by drip per protocol was ordered to attempt to keep him in sinus rhythm. Patient tolerated procedure well with no immediate complications noted. Of note patient was on mechanical ventilation during the procedure. Foster Looney MD Jul 08, 2016 17:54
[2016-07-08 20:11] LABS: BICARBONATE 37.9 MEQ/L (21.0-32.0); MAGNESIUM 2.6 MG/DL (1.5-2.5); POTASSIUM 4.4 MEQ/L (3.5-5.1)
[2016-07-08 20:12] LABS: APTT (PATIENT) 35.9 SEC (24.3-30.1)
[2016-07-08] MEDS: CHLORHEXIDINE GLUCONATE 2 % 1 PACK (2 CLOTHS) TOP SCH (20:36)
[2016-07-09] VITALS (23 sets, daily range): BP systolic 107–152; BP diastolic 62–86; PULSE 53–77; RESP 14–21; TEMP 96.9–99.3; O2SAT 93–98
[2016-07-09] MEDS: PROPOFOL 1000 MG/100 ML INJ 100 ML IV SCH ×3 (01:42→09:03)
[2016-07-09] MEDS: AMIODARONE INJ 450 MG in DEXTROSE 5% IN WATE(EXCEL) INJ 241 ML IV SCH ×4 (01:43→19:47)
[2016-07-09] MEDS: INSULIN NovoLIN REGULAR SUPPLEMENTAL SCALE SQ SCH ×4 (03:16→22:00)
[2016-07-09] MEDS: PIPERACIL-TAZO 4.5 GM PREMIX 100 ML IV SCH ×4 (03:16→19:45)
[2016-07-09 03:45] LABS: AUTOMATED NEUTROPHIL # 12.4 TH/MM3 (1.8-7.7); BASOPHIL % 0.1 % (0.0-2.0); EOSINOPHIL # 0.2 TH/MM3 (0-0.4); EOSINOPHIL % 1.2 % (0.0-4.0); HEMATOCRIT 33.3 % (39.0-51.0); LYMPH % 6.7 % (9.0-44.0); MEAN CELL VOLUME 89.4 FL (80.0-100.0); MEAN CORPUSCULAR HEMOGLOBIN 29.7 PG (27.0-34.0); MEAN CORPUSCULAR HGB CONC 33.2 % (32.0-36.0); MONO % 4.7 % (0.0-8.0); NEUT % 87.3 % (16.0-70.0); PLATELET COUNT 215 TH/MM3 (150-450); RED BLOOD COUNT 3.72 MIL/MM3 (4.50-5.90); RED CELL DISTRIBUTION WIDTH 13.8 % (11.6-17.2); WHITE BLOOD COUNT 14.2 TH/MM3 (4.0-11.0)
[2016-07-09 03:56] LABS: HEMO FLAGS AUTO DIFF
[2016-07-09 04:16] LABS: ALT (GPT) 26 U/L (12-78); ANION GAP 6 MEQ/L (5-15); AST (GOT) 16 U/L (15-37); BICARBONATE 39.2 MEQ/L (21.0-32.0); BLOOD UREA NITROGEN 45 MG/DL (7-18); CHLORIDE 95 MEQ/L (98-107); GLOMERULAR FILTRATION RATE 66 ML/MIN (>89); POTASSIUM 3.9 MEQ/L (3.5-5.1); SODIUM (NA) 140 MEQ/L (136-145)
[2016-07-09 04:18] LABS: ALKALINE PHOSPHATASE 34 U/L (45-117); TOTAL BILIRUBIN ADULT 0.2 MG/DL (0.2-1.0)
[2016-07-09 05:03] LABS: BANDS 5 % (0-6); EOSINOPHILS 2 % (0-4); METAMYELOCYTES 1 % (0-1); MYELOCYTES 2 % (0-0); NEUTROPHIL # MANUAL DIFF 12.9 TH/MM3 (1.8-7.7); POLYS (SEG NEUTROPHILS) 83 % (16-70); WBC DIFF SAMPLE 100
[2016-07-09 05:05] LABS: PLATELET ESTIMATE SMEAR NORMAL (NORMAL); PLATELET MORPHOLOGY NORMAL (NORMAL); SCAN/DIFF FINAL DIFF MANUAL
[2016-07-09] MEDS: BUMETANIDE INJ 1 MG/4 ML VIAL IV PUSH SCH ×2 (07:55→19:45)
[2016-07-09] MEDS: ASPIRIN 81 MG CHEW TAB PO SCH (07:55)
[2016-07-09] MEDS: SENNOSIDES SYRUP 8.8 MG/5 ML CUP PO SCH (07:55)
[2016-07-09] MEDS: methylPREDNISolone SOD SUCC 40 MG/1 ML VIAL IV PUSH SCH (07:55)
[2016-07-09] MEDS: INSULIN DETEMIR 100 UNITS/ML VIAL SQ SCH ×2 (07:55→19:46)
[2016-07-09] MEDS: chlordiazePOXIDE 25 MG CAP PO SCH ×2 (07:56→19:45)
[2016-07-09] MEDS: PANTOPRAZOLE SODIUM 40 MG VIAL IV SCH (07:56)
[2016-07-09] MEDS: LOSARTAN 50 MG TAB PO SCH (07:56)
[2016-07-09] MEDS: SODIUM CHLORIDE 0.9% FLUSH 10 ML FLUSH IV FLUSH SCH ×2 (07:56→19:46)
[2016-07-09] MEDS: QUEtiapine FUMARATE 25 MG TAB PO SCH ×2 (07:56→19:45)
[2016-07-09] MEDS: THIAMINE HCL 100 MG TAB PO SCH (07:57)
[2016-07-09] MEDS: DILTIAZEM HCL 60 MG TAB PO SCH ×4 (07:57→19:46)
[2016-07-09] MEDS: DEXMEDETOMIDINE INJ 200 MCG in SODIUM CHLORIDE 0.9% INJ 50 ML IV SCH (09:04)
--- NOTE | 2016-07-09 09:13 | HHI.FPPN ---
Subjective Remarks Patient seen and examined this am. S/P cardioversion yesterday from a-flutter to sinus. Then placed on amiodarone drip per protocol. Worsening leukocytosis this am. Case discussed with nurse, plan to wean sedation and CPAP trials today around 10am. Possible trache placement on Monday if needed. (Bibi Alejandre MD R3) Objective Vitals Vital Signs Date Time Temp Pulse Resp B/P Pulse Ox O2 Delivery O2 Flow Rate FiO2 07/09/16 08:14 96 40 07/09/16 06:00 55 07/09/16 04:03 97 40 07/09/16 04:00 54 07/09/16 04:00 40 07/09/16 03:00 96.9 55 14 107/62 95 07/09/16 02:00 61 07/09/16 00:32 98 45 07/09/16 00:00 59 07/09/16 00:00 45 07/08/16 23:00 97.3 56 14 98/58 96 07/08/16 22:00 55 07/08/16 20:12 96 45 07/08/16 20:00 45 07/08/16 20:00 75 07/08/16 19:00 98.3 75 14 103/66 94 07/08/16 18:00 70 95/55 93 07/08/16 18:00 70 07/08/16 18:00 45 07/08/16 17:30 71 93/54 95 07/08/16 17:00 71 80/47 93 07/08/16 16:48 92 45 07/08/16 16:45 68 80/47 93 07/08/16 16:30 106 74/52 92 07/08/16 16:00 105 07/08/16 16:00 45 07/08/16 16:00 97.4 105 95/55 93 07/08/16 14:00 98 07/08/16 13:00 140 07/08/16 12:00 45 07/08/16 12:00 97.8 94 94/63 93 07/08/16 12:00 94 07/08/16 11:47 93 45 07/08/16 10:00 91 I/O 07/08/16 07/08/16 07/08/16 07/09/16 07/09/16 07/09/16 07:00 15:00 23:00 07:00 15:00 23:00 Intake Total 645 ml 1018 ml 720 ml 862 ml Output Total 650 ml 1250 ml 900 ml 550 ml Balance -5 ml -232 ml -180 ml 312 ml Intake Oral 0 ml 0 ml 0 ml 0 ml IV Total 346 ml 547 ml 380 ml 524 ml Tube Feeding 299 ml 471 ml 340 ml 338 ml Output Urine Total 650 ml 1100 ml 900 ml 550 ml Stool Total 150 ml (Bibi Alejandre MD R3) Result Diagram: 07/09/16 0300 07/09/16 0300 Objective Remarks CONST: 61y/o CM lying in bed. Intubated, sedated. HEENT: NCAT. DERM: Warm and dry. Decubitus ulcer with mild necrosis, not weeping, R buttock. NECK: R IJ present. +elevated JVP. CV: Tachycardic, irregularly irregular rhythm. No audible murmurs. RESP: Currently intubated. Anterior breath sounds equal bilaterally, diminished. No wheezing. GI: Abdomen slightly distended. Soft. Non-tender to palpation. +BS x 4. : Lujan catheter in place to gravity with blood-tinged cloudy urine. Scrotal edema stable. MSK: Extremities without cyanosis. 2+ edema of upper extremities, hands. Lower extremities in SCDs, Unaboots. 1-2+ DP pulses bilaterally. NEURO: Intubated, sedated. Does not open eyes to command. (Bibi Alejandre MD R3) Date of Insertion: Jul 05, 2016 (Bibi Alejandre MD R3) Date of Insertion: Jun 22, 2016 Line: Central Venous Catheter Side: Right Location: Internal, Jugular (Bibi Alejandre MD R3) A/P Assessment and Plan 61 y/o CM with a PMHx of HTN and alcohol abuse presenting 06/21/16 with tachycardia to 150s, found to be in atrial flutter. Converted to afib with RVR s/p ablation, with hospital stay complicated by DTs, requiring intubation and sedation. Discharge Planning Unclear given patient's current clinical state. Patient remains in critical condition. (Bibi Alejandre MD R3) Attending Attestation Patient examined and case discussed with resident physicians I have read the above note and agree with the assessment/plan as discussed with me I was involved in all medical decision making for this patient Shashank Abreu M.D. (Shashank Abreu MD) Problem List: (1) Alcohol withdrawal Status: Acute Plan: Signal Helper consulted, appreciate recommendations Currently Intubated, on Diprivan, Fentanyl drips -- Vent support to keep sat >92%, Bronchodilators, ICU vent bundle -- CPAP trials TODAY Ativan per [facility] protocol Discussion of possible tracheostomy with family as the patient has failed multiple extubation trials -Librium 50 mg every 12 hourly via OG tube on 07/06. Neurochecks per ICU protocol Neurology consulted -EEG (07/03): no epileptiform events, intermittent mild diffuse slowing suggestive of mild diffuse cerebral dysfunction -MRI brain (07/03): no intracranial process (2) Ventilator associated pneumonia Status: Acute Plan: Sputum culture 06/30 growing Moraxella catarrhalis. PLAN - Zosyn 4.5Gm q6h ( ), initially anticipated 7 day course, due to worsening leukocytosis today will continue - Intubated, continue to attempt CPAP trials, as tolerated - Repeat sputum culture NGTD x 48 hours. -Solumedrol 40mg daily Imaging: CXR 06/29: Stable consolidation LLL, new consolidation RUL. CXR 07/02: Stable LLL consolidation. Hazy density R base, consider effusion. ET tube in good position. Cardiomegaly, increased interstitial markings, suggestive edema, possible CHF. Chest x-ray 07/05: No interval change History Sputum culture 06/30 moraxella (3) Atrial flutter with rapid ventricular response Status: Acute Plan: S/p Cardioversion 07/08, on amiodarone drip, now in sinus rhythm Dr. Kris griffith is following/managing PLAN Cardizem 60mg PO QID Lopressor 2.5 mg q6h PRN HR >100 ASA 81mg PO daily - Heparin IV per protocol History --Discontinue heparin drip 2/ hematuria. - ECHO: Study limited secondary to tachycardia, EF 35-40%, normal cavity size, wall thickness, wall motion. - Ablated 06/23 (Dr Ponce), subsequently presented with atrial fibrillation with RVR (4) Hypertension Status: Chronic Plan: Currently hypotension . Hold home Irbesartan-HCTZ (300-12.5) Cardizem 60mg QID, as above (with precautions to hold for hypotension) Losartan 100 mg PO daily Bumex 1 mg daily (5) Creatinine elevation Status: Resolved Plan: Resolved at this time. .Strict I's/O's with Lujan catheter, trend BUN/Cr - On Bumex 1g daily (6) Restless leg syndrome Status: Chronic Plan: Reported. -Hold Ropinirole (7) Hyperglycemia Status: Acute Plan: -Levemir increased to 25 units Subcutaneous BID -MSSI -Accu-check ACHS (8) Nutrition, metabolism, and development symptoms Status: Acute Plan: Fluids: No fluids running at present, fluids per medications and feeds, monitor hydration status. Diet: NPO as intubated. Tube feeds with Glucerna (given hyperglycemia) DVT prophylaxis: SCDs, discontinue heparin drip 2/2 hematuria GI prophylaxis: Protonix 40 mg IV daily while intubated, on steroids. Constipation: Senna daily, Colace BID Discussed with Dr. Abreu & Dr. Altman Case also discussed with nurse (Bibi Alejandre MD R3) Problem Qualifiers (1) Alcohol withdrawal: Qualified Code: F10.231 - Alcohol withdrawal, with delirium (2) Hypertension: Qualified Code: I10 - Essential hypertension Bibi Alejandre MD R3 Jul 09, 2016 09:13 Shashank Abreu MD Jul 09, 2016 11:04
[2016-07-09 10:20] LABS: APTT (PATIENT) 44.5 SEC (24.3-30.1)
--- NOTE | 2016-07-09 11:28 | HHI.CCPN ---
Subjective Remarks/Hospital Course On 06/21 ,Mr. Guevara presented with a PMHx of HTN presenting from the [facility] with an elevated, irregular heart rate. He is a patient of Dr. Irwin Rodriguez, who sent this patient from clinic. In clinic, he had a heart rate in the 150s and was instructed to go to the ED for further evaluation. Upon arriving to the ED ,the patient was found to have atrial flutter on twelve-lead EKG with a rate 151 with 2-1 conduction. He denied any chest pain, prior arrhythmia, thyroid disorder, or heart disease. He reported his last EKG was approximately 8 years ago before his eye surgery s/p accident. The patient has a significant alcohol and smoking history, but denies any illicit drugs. He states that he is at his baseline except for 3 episodes of nonbloody diarrhea that have all occurred over this morning. The patient was admitted to the hospital, and placed on CIWA protocol, Cardizem infusion and was scheduled for ablation per interventional cardiology. Early this a.m. the patient became significantly more confused, difficult to control a Hallicat at was called, and the patient was transferred to ICU for further management. Subjective 06/23: Afebrile. Since admission to the ICU yesterday, the patient was placed initially on Precedex infusion for agitation/delirium, in addition to CIWA protocol. The patient subsequently required intubation. Later the afternoon the patient became hypotensive requiring vasopressor support of Levophed which was weaned off during the night. The patient converted to A. fib flutter heart rate 150s and Cardizem infusion was reinitiated. Systolic blood pressure low 100's. The patient continues on Versed low-dose and fentanyl infusions for ventilator synchrony. Plan today for cardiac ablation with Dr. Ponce. 06/24: The patient underwent successful RF ablation for atrial flutter, patient currently remains sinus rhythm sinus tach. The patient underwent CPAP trials however self extubated. Immediately upon self extubation the patient stated " I havent had a drink in 3 days, I need a drink" .The patient's maintain an O2 sat greater than 92% on Ventimask at 50% currently. The patient continues to be confused and agitated than what appears to be delirium tremens , Precedex infusion begun with Ativan PRN . Family present at bedside with patient. The patient noted to be confused, combative, remains in 4 point restraints. Will initiate Coumadin pharmacy dosing, with overlap of heparin until therapeutic INR today. CIWA protocol initiated. 06/25: The patient remain on Precedex infusion throughout the night, with supplementation per [facility] protocol and rested comfortably without agitation, in normal sinus rhythm. During the night he received Lasix 20 mg IV and diuresed greater than 1 L. At approximately 1400, the patient went into A. fib RVR with a rate of 220, and extremely dyspneic with audibly expiratory wheezing. Cardizem bolus 20 mg 2 doses was given. The patient was placed on a Cardizem infusion at 10 mg per hour. The heart rate decreased from 80-100, but rhythm atrial fibrillation. The patient continued to have respiratory distress, tachypnea with a rate in the 40s50s. An ABG was obtained showing a very large A-a gradient, and a PaO2 of 77 on 100% nonrebreather after 40 mg of Lasix diuresis and a DuoNeb treatment. Emergent intubation was required, family at bedside, discussed extensively with and updated her on the the patient's current condition. The patient was reintubated. He continues on a heparin infusion propofol infusion for ventilator synchrony. 06/26:Tmax 100.6. Patient's rhythm atrial fibrillation with a rate 90-109, Cardizem 12 mg/hour. The patient continues on a heparin infusion at this time. Patient was noted to have flash pulmonary edema episode of A. fib RVR which required intubation. Repeat chest x-ray this a.m. still shows pulmonary edema, the patient was diuresed approximately 2 L yesterday, he continues on a PEEP of 10. Patient remains sedated on a propofol and fentanyl infusion for ventilator synchrony. Will initiate tube feeds today. 06/27 Patient is sedated with Diprivan, Fentnayl and intubated. Tmax 100.6. On Heparin and Cardizem drips. On SIMV with FIO2 80%, PEEP: 10. 06/28 No acute events overnight. Remains sedated and intubated. Afebrile. Off Cardizem drip . On ACV with PEEP: 10 and FIO2 40%. T:100.3 at midnight. 06/29 Patient remains sedated and intubated. Afebrile. Remains on Heparin drip. 06/30 Patient remains sedated and intubated. Did not tolerate CPAP trials yesterday. T: 99.7 at 4am. On Heparin drip. 07/01 No acute events overnight intubated and sedated. Had low grade fever with T : 100.4 at 4 am. 07/02 Patient is sedated with Fentanyl, Versed in addition he is on Precedex drip. He gets very agitated , restless, tachypneic and tachycardic when sedation is being weaned off. 07/03 Patient was extubated yesterday however several hrs later he became tachypneic, tachycardic and hypertensive he was subsequently intubated and now sedated with Diprivan and Fentanyl. T 99.7 at midnight. 07/04 Patient remains sedated with Diprivan and Fentanyl. MRI brain yesterday showed no acute findings. Afebrile. 07/05 No acute events overnight. Afebrile. Sedated and intubated. Patient gets agitated and restless on CPAP and when sedation is being weaned. 07/06: Remains sedated, orally intubated on mechanical ventilation. Gets agitated on lightening sedation. Elevated fingerstick glucoses in the 400 range. Hematuria noted. Remains in A. fib with RVR. Given digoxin 0.5 mg IV earlier awaiting cardiology call back. 07/07: No acute events overnight. Patient remains sedated and intubated on mechanical ventilation. Afib with RVR s/p Digoxin bolus x2 yesterday afternoon. Cardizem increased to 10/hr with HR currently in 80s. 07/08: Remains sedated, orally intubated on mechanical ventilation. On heparin for anticoagulation. Setting up for cardioversion followed by amiodarone drip if he converts. 07/09: Remains sedated, orally intubated on mechanical ventilation. Successfully cardioverted with 70 J 1 yesterday and was started on amiodarone drip. Remains in sinus rhythm. Objective Vital Signs Date Time Temp Pulse Resp B/P Pulse Ox O2 Delivery O2 Flow Rate FiO2 07/09/16 08:14 96 40 07/09/16 06:00 55 07/09/16 03:00 96.9 14 107/62 Intake and Output 07/08/16 07/08/16 07/09/16 08:00 16:00 00:00 Intake Total 645 ml 1018 ml 720 ml Output Total 650 ml 1250 ml 900 ml Balance -5 ml -232 ml -180 ml Result Diagram: 07/09/16 0300 07/09/16 0300 Imaging Last Impressions Brain MRI 07/03/16 0000 Signed Impressions: Service Date/Time: Sunday, July 03, 2016 10:12 - CONCLUSION: 1. No intracranial abnormality is seen. 2. Sinus disease. Edy Johnson MD Chest X-Ray 07/02/16 0000 Signed Impressions: Service Date/Time: Saturday, July 02, 2016 17:10 - CONCLUSION: ET tube in good position. Left lower lobe consolidation, stable. Alexandr Bernal MD Head CT 07/01/16 0000 Signed Impressions: Service Date/Time: Friday, July 01, 2016 20:54 - CONCLUSION: No acute intracranial abnormality. Bilateral paranasal sinusitis. Mason Noe MD Objective Remarks GENERAL: Well-nourished well-developed male intubated and sedated. SKIN: Warm and dry. HEAD: Atraumatic. Normocephalic. EYES: Pupils equal and round. No scleral icterus. No injection or drainage. ENT: No nasal bleeding or discharge. Mucous membranes pink and moist. NECK: Trachea midline. No JVD. Orally intubated CARDIOVASCULAR: irregular rate, irregular rhythm. S1, S2, no murmurs. RESPIRATORY: Coarse upper respiratory sounds, otherwisde clear to auscultation. Breath sounds equal bilaterally. GASTROINTESTINAL: Abdomen soft, non-tender, nondistended. No guarding. MUSCULOSKELETAL: Extremities without clubbing, cyanosis, or edema. No obvious deformities. NEUROLOGICAL:RASS-2. On propofol and fentanyl infusions intubated and sedated. Date of Insertion: Jul 05, 2016 Date of Insertion: Jun 22, 2016 Line: Central Venous Catheter Side: Right Location: Internal, Jugular A/P Assessment and Plan Plan by systems: Neurologic: Delirium tremens Alcohol abuse Encephalopathy Alcohol withdrawal Restless leg syndrome On Diprivan , Fentanyl infusion for sedation. Daily sedation vacation Precedex drip to facilitate with weaning trials. Continue with Seroquel 25mg BID. Librium 50 mg every 12 hourly via OG tube on 07/06. Neurochecks per ICU protocol Continue with Thiamine , MVI, Folic acid CT brain 07/01: No acute intracranial abnormalities. MRI brain 07/03: No acute findings EEG 07/03 : No epileptiform features. Neuro- Dr. Spaulding Respiratory: Tobacco abuse VDRF- reintubated 07/02 On PRVC/AC RR 14, TV 550, PEEP: 8, IT: 1.0, FIO2 45%, Continue with vent support keep sat >92%., Bronchodilators, ICU vent bundle. SBT daily as farzana Solumederol 40mg daily Patient was reintubated twice and might require trach CT chest for thoracentesis 07/07 revealed very minimal effusion bilaterally and predominantly atelectasis involving right lower lobe. No thoracentesis performed. PEEP increased to +8 on 07/08 Cardiovascular: Atrial fibrillation with RVR 06/25 Cardiomegaly Monitor HR and BP keep MAP>65mmHg On PO Cardizem 60mg QID. Cardizem drip as needed. Given digoxin 0.5mg x2 . On Heparin infusion held on 07/06 due to hematuria Cardiology following- Dr. Bautista, Dr. Miller, Consulted Dr. Casillas on 07/06 for continued A. fib with RVR with difficulty to control 06/24 S/P RF cardiac ablation 06/21 Echo showed EF 35-40% Discussed with Dr. Miller from cardiology on 07/07. He recommends anticoagulation with heparin followed by cardioversion. Successfully cardioverted on 07/09 and subsequently was placed on an amiodarone drip per protocol. Renal: SHAWNA- resolved Monitor renal function, I/O's, electrolytes replacement per protocol. On Bumex 1mg IV BID FEN/GI: Continue TF-Jevity 1.5@ 50ml/hr Zofran IV for nausea Protonix IV 40 mg/day Bowel regimen with Dignishield Heme/ID: Monitor CBC Transfuse for hemoglobin less than 7 Monitor PTT per heparin protocol Continue with abx ( Zosyn) Monitor for signs of infections ( Fever, WBC) 06/30 sputum cx: Moraxella Catarrhalis, repeat sputum cx from 07/03: No growth C-diff PCR negative Endocrine: On SSI(medium scale) for glycemic control, Levemir 25u Q12 Prophylaxis: GI Prophylaxis Protonix IV 40 mg/day DVT Prophylaxis -- SCDs Heparin infusion Lines: Peripheral IVs 2. Central line right IJ 06/22 Condition critical Time spent on critical care excluding procedures: 30 minutes Foster Looney MD Jul 09, 2016 11:28
[2016-07-09] MEDS: HEPARIN-D5W INJ 250 ML IV SCH (12:14)
[2016-07-09] MEDS: cloNIDine HCL 0.1 MG TAB PO PRN (12:39)
[2016-07-09] MEDS: LORazepam 2 MG TAB PO PRN ×2 (16:59→17:08)
[2016-07-09] MEDS: HALOPERIDOL LACTATE 5 MG/ML AMP IM PRN ×2 (17:00→19:47)
[2016-07-09 17:18] LABS: APTT (PATIENT) 38.5 SEC (24.3-30.1)
[2016-07-10] VITALS (15 sets, daily range): BP systolic 126–190; BP diastolic 62–89; PULSE 69–88; RESP 10–22; TEMP 98–99.7; O2SAT 80–97
[2016-07-10 00:45] LABS: APTT (PATIENT) 40.6 SEC (24.3-30.1)
[2016-07-10] MEDS: PIPERACIL-TAZO 4.5 GM PREMIX 100 ML IV SCH ×4 (01:51→20:20)
[2016-07-10] MEDS: HALOPERIDOL LACTATE 5 MG/ML AMP IM PRN ×4 (01:52→23:44)
[2016-07-10] MEDS: CHLORHEXIDINE GLUCONATE 2 % 1 PACK (2 CLOTHS) TOP SCH (04:00)
[2016-07-10] MEDS: INSULIN NovoLIN REGULAR SUPPLEMENTAL SCALE SQ SCH ×4 (04:00→20:35)
--- NOTE | 2016-07-10 04:35 | RADRPT ---
EXAM DATE/TIME: 07/10/2016 03:20 [place] COMPARISON: CT THORAX W/O CONTRAST, July 07, 2016, 16:20. CHEST SINGLE AP, July 06, 2016, 2:31. INDICATIONS : Shortness of breath, possible pulmonary disease. MEDICAL HISTORY : None. SURGICAL HISTORY : None. ENCOUNTER: Subsequent ACUITY: 2 weeks PAIN SCORE: Non-responsive. LOCATION: Bilateral chest FINDINGS: Improving bibasilar consolidation, now very mild and mainly just on the left. No large effusion seen. No pneumothorax. Heart size stable, upper limits of normal. Endotracheal tube tip is 4.6 cm above the burak. There is a nasogastric tube coursing into the stoma ch. CONCLUSION: Resolving effusions and bibasilar consolidation. Edy Juarez MD on July 10, 2016 at 4:32 Board Certified Radiologist. This report was verified electronically.
[2016-07-10] MEDS: AMIODARONE INJ 450 MG in DEXTROSE 5% IN WATE(EXCEL) INJ 241 ML IV SCH ×4 (06:42→20:20)
[2016-07-10] MEDS: HEPARIN-D5W INJ 250 ML IV SCH ×2 (06:43→21:59)
[2016-07-10 08:20] LABS: APTT (PATIENT) 31.5 SEC (24.3-30.1)
[2016-07-10] MEDS: DILTIAZEM HCL 60 MG TAB PO SCH ×4 (09:00→20:20)
[2016-07-10] MEDS: THIAMINE HCL 100 MG TAB PO SCH (09:00)
[2016-07-10] MEDS: chlordiazePOXIDE 25 MG CAP PO SCH ×2 (09:00→20:20)
[2016-07-10] MEDS: ASPIRIN 81 MG CHEW TAB PO SCH (09:00)
[2016-07-10] MEDS: SODIUM CHLORIDE 0.9% FLUSH 10 ML FLUSH IV FLUSH SCH ×2 (09:00→20:20)
[2016-07-10] MEDS: BUMETANIDE INJ 1 MG/4 ML VIAL IV PUSH SCH ×2 (09:00→20:19)
[2016-07-10] MEDS: SENNOSIDES SYRUP 8.8 MG/5 ML CUP PO SCH (09:00)
[2016-07-10] MEDS: INSULIN DETEMIR 100 UNITS/ML VIAL SQ SCH ×2 (09:00→20:34)
[2016-07-10] MEDS: LOSARTAN 50 MG TAB PO SCH (09:00)
[2016-07-10] MEDS: QUEtiapine FUMARATE 25 MG TAB PO SCH ×2 (09:00→20:20)
[2016-07-10] MEDS: PANTOPRAZOLE SODIUM 40 MG VIAL IV SCH (09:00)
[2016-07-10] MEDS: methylPREDNISolone SOD SUCC 40 MG/1 ML VIAL IV PUSH SCH (09:00)
--- NOTE | 2016-07-10 11:36 | HHI.CCPN ---
Subjective Remarks/Hospital Course On 06/21 ,Mr. Guevara presented with a PMHx of HTN presenting from the [facility] with an elevated, irregular heart rate. He is a patient of Dr. Irwin Rodriguez, who sent this patient from clinic. In clinic, he had a heart rate in the 150s and was instructed to go to the ED for further evaluation. Upon arriving to the ED ,the patient was found to have atrial flutter on twelve-lead EKG with a rate 151 with 2-1 conduction. He denied any chest pain, prior arrhythmia, thyroid disorder, or heart disease. He reported his last EKG was approximately 8 years ago before his eye surgery s/p accident. The patient has a significant alcohol and smoking history, but denies any illicit drugs. He states that he is at his baseline except for 3 episodes of nonbloody diarrhea that have all occurred over this morning. The patient was admitted to the hospital, and placed on CIWA protocol, Cardizem infusion and was scheduled for ablation per interventional cardiology. Early this a.m. the patient became significantly more confused, difficult to control a Hallicat at was called, and the patient was transferred to ICU for further management. Subjective 06/23: Afebrile. Since admission to the ICU yesterday, the patient was placed initially on Precedex infusion for agitation/delirium, in addition to CIWA protocol. The patient subsequently required intubation. Later the afternoon the patient became hypotensive requiring vasopressor support of Levophed which was weaned off during the night. The patient converted to A. fib flutter heart rate 150s and Cardizem infusion was reinitiated. Systolic blood pressure low 100's. The patient continues on Versed low-dose and fentanyl infusions for ventilator synchrony. Plan today for cardiac ablation with Dr. Ponce. 06/24: The patient underwent successful RF ablation for atrial flutter, patient currently remains sinus rhythm sinus tach. The patient underwent CPAP trials however self extubated. Immediately upon self extubation the patient stated " I havent had a drink in 3 days, I need a drink" .The patient's maintain an O2 sat greater than 92% on Ventimask at 50% currently. The patient continues to be confused and agitated than what appears to be delirium tremens , Precedex infusion begun with Ativan PRN . Family present at bedside with patient. The patient noted to be confused, combative, remains in 4 point restraints. Will initiate Coumadin pharmacy dosing, with overlap of heparin until therapeutic INR today. CIWA protocol initiated. 06/25: The patient remain on Precedex infusion throughout the night, with supplementation per [facility] protocol and rested comfortably without agitation, in normal sinus rhythm. During the night he received Lasix 20 mg IV and diuresed greater than 1 L. At approximately 1400, the patient went into A. fib RVR with a rate of 220, and extremely dyspneic with audibly expiratory wheezing. Cardizem bolus 20 mg 2 doses was given. The patient was placed on a Cardizem infusion at 10 mg per hour. The heart rate decreased from 80-100, but rhythm atrial fibrillation. The patient continued to have respiratory distress, tachypnea with a rate in the 40s50s. An ABG was obtained showing a very large A-a gradient, and a PaO2 of 77 on 100% nonrebreather after 40 mg of Lasix diuresis and a DuoNeb treatment. Emergent intubation was required, family at bedside, discussed extensively with and updated her on the the patient's current condition. The patient was reintubated. He continues on a heparin infusion propofol infusion for ventilator synchrony. 06/26:Tmax 100.6. Patient's rhythm atrial fibrillation with a rate 90-109, Cardizem 12 mg/hour. The patient continues on a heparin infusion at this time. Patient was noted to have flash pulmonary edema episode of A. fib RVR which required intubation. Repeat chest x-ray this a.m. still shows pulmonary edema, the patient was diuresed approximately 2 L yesterday, he continues on a PEEP of 10. Patient remains sedated on a propofol and fentanyl infusion for ventilator synchrony. Will initiate tube feeds today. 06/27 Patient is sedated with Diprivan, Fentnayl and intubated. Tmax 100.6. On Heparin and Cardizem drips. On SIMV with FIO2 80%, PEEP: 10. 06/28 No acute events overnight. Remains sedated and intubated. Afebrile. Off Cardizem drip . On ACV with PEEP: 10 and FIO2 40%. T:100.3 at midnight. 06/29 Patient remains sedated and intubated. Afebrile. Remains on Heparin drip. 06/30 Patient remains sedated and intubated. Did not tolerate CPAP trials yesterday. T: 99.7 at 4am. On Heparin drip. 07/01 No acute events overnight intubated and sedated. Had low grade fever with T : 100.4 at 4 am. 07/02 Patient is sedated with Fentanyl, Versed in addition he is on Precedex drip. He gets very agitated , restless, tachypneic and tachycardic when sedation is being weaned off. 07/03 Patient was extubated yesterday however several hrs later he became tachypneic, tachycardic and hypertensive he was subsequently intubated and now sedated with Diprivan and Fentanyl. T 99.7 at midnight. 07/04 Patient remains sedated with Diprivan and Fentanyl. MRI brain yesterday showed no acute findings. Afebrile. 07/05 No acute events overnight. Afebrile. Sedated and intubated. Patient gets agitated and restless on CPAP and when sedation is being weaned. 07/06: Remains sedated, orally intubated on mechanical ventilation. Gets agitated on lightening sedation. Elevated fingerstick glucoses in the 400 range. Hematuria noted. Remains in A. fib with RVR. Given digoxin 0.5 mg IV earlier awaiting cardiology call back. 07/07: No acute events overnight. Patient remains sedated and intubated on mechanical ventilation. Afib with RVR s/p Digoxin bolus x2 yesterday afternoon. Cardizem increased to 10/hr with HR currently in 80s. 07/08: Remains sedated, orally intubated on mechanical ventilation. On heparin for anticoagulation. Setting up for cardioversion followed by amiodarone drip if he converts. 07/09: Remains sedated, orally intubated on mechanical ventilation. Successfully cardioverted with 70 J 1 yesterday and was started on amiodarone drip. Remains in sinus rhythm. 07/10: Off sedation overnight. Drowsy, arousable. Moves upper extremities. Was intubated on mechanical ventilation at the time of my evaluation this morning. Remains in sinus rhythm on amiodarone drip. Anticoagulated with heparin. Objective Vital Signs Date Time Temp Pulse Resp B/P Pulse Ox O2 Delivery O2 Flow Rate FiO2 07/10/16 10:00 76 07/10/16 08:40 40 07/10/16 08:23 96 07/10/16 04:00 99.1 19 162/89 Intake and Output 07/09/16 07/09/16 07/10/16 08:00 16:00 00:00 Intake Total 862 ml 757 ml 784 ml Output Total 550 ml 1150 ml 3700 ml Balance 312 ml -393 ml -2916 ml Result Diagram: 07/09/16 0300 07/09/16 0300 Other Results Laboratory Tests Test 07/09/16 07/10/16 07/10/16 16:30 00:18 07:22 Activated Partial 38.5 SEC 40.6 SEC 31.5 SEC Thromboplast Time Imaging Last Impressions Brain MRI 07/03/16 0000 Signed Impressions: Service Date/Time: Sunday, July 03, 2016 10:12 - CONCLUSION: 1. No intracranial abnormality is seen. 2. Sinus disease. Edy Johnson MD Chest X-Ray 07/02/16 0000 Signed Impressions: Service Date/Time: Saturday, July 02, 2016 17:10 - CONCLUSION: ET tube in good position. Left lower lobe consolidation, stable. Alexandr Bernal MD Head CT 07/01/16 0000 Signed Impressions: Service Date/Time: Friday, July 01, 2016 20:54 - CONCLUSION: No acute intracranial abnormality. Bilateral paranasal sinusitis. Mason Noe MD Objective Remarks GENERAL: Well-nourished well-developed male laying in bed, orally intubated on mechanical ventilation. SKIN: Warm and dry. HEAD: Atraumatic. Normocephalic. EYES: Pupils equal and round. No scleral icterus. No injection or drainage. ENT: No nasal bleeding or discharge. Mucous membranes pink and moist. NECK: Trachea midline. No JVD. Orally intubated CARDIOVASCULAR: irregular rate, irregular rhythm. S1, S2, no murmurs. RESPIRATORY: Orally intubated on mechanical ventilation, Breath sounds decreased at lung bases, scattered rhonchi, no wheezing GASTROINTESTINAL: Abdomen soft, non-tender, nondistended. No guarding. MUSCULOSKELETAL: Extremities without clubbing, cyanosis, or edema. No obvious deformities. NEUROLOGICAL: Off sedation, drowsy, arousable, moves all 4 extremity is, not following commands. Orally intubated on mechanical ventilation. Urinary Catheter: Yes Assessment to: Continue Date of Insertion: Jul 05, 2016 Date of Insertion: Jun 22, 2016 Line: Central Venous Catheter Side: Right Location: Internal, Jugular A/P Assessment and Plan Plan by systems: Neurologic: Delirium tremens Alcohol abuse Encephalopathy Alcohol withdrawal Restless leg syndrome Off Diprivan and fentanyl infusions since 07/09 night. Not requiring Precedex. Continue with Seroquel 25mg BID. Librium 50 mg every 12 hourly via OG tube started on 07/06-held a.m of 07/10. Neurochecks per ICU protocol Continue with Thiamine , MVI, Folic acid CT brain 07/01: No acute intracranial abnormalities. MRI brain 07/03: No acute findings EEG 07/03 : No epileptiform features. Neuro- Dr. Spaulding Respiratory: Tobacco abuse VDRF- reintubated 07/02 On PRVC/AC RR 14, TV 550, PEEP: 8, IT: 1.0, FIO2 45%, CT chest for thoracentesis 07/07 revealed very minimal effusion bilaterally and predominantly atelectasis involving right lower lobe. No thoracentesis performed. PEEP increased to +8 on 07/08 Continue with vent support keep sat >92%., Bronchodilators, ICU vent bundle. Initiated C Pap trial this morning, appears to be tolerating however has significant secretions. Solumederol 40mg daily Patient was reintubated twice and might require trach if he fails extubation again. Ordered extubation as he tolerated C Pap trial. Will observe closely following extubation. Cardiovascular: Atrial fibrillation with RVR 06/25 Cardiomegaly Monitor HR and BP keep MAP>65mmHg On PO Cardizem 60mg QID. Given digoxin 0.5mg x2 07/06. Off Cardizem drip. On Heparin infusion held on 07/06 due to hematuria and subsequently resumed Cardiology following- Dr. Bautista, Dr. Miller, Consulted Dr. Casillas on 07/06 for continued A. fib with RVR with difficulty to control 06/24 S/P RF cardiac ablation 06/21 Echo showed EF 35-40% Discussed with Dr. Miller from cardiology on 07/07. He recommends anticoagulation with heparin followed by cardioversion. Successfully cardioverted on 07/09 and subsequently was placed on an amiodarone drip per protocol. Renal: SHAWNA- resolved Monitor renal function, I/O's, electrolytes replacement per protocol. On Bumex 1mg IV BID FEN/GI: Continue TF-Jevity 1.5@ 50ml/hr Zofran IV for nausea Protonix IV 40 mg/day Bowel regimen with Dignishield Heme/ID: Monitor CBC Transfuse for hemoglobin less than 7 Monitor PTT per heparin protocol Continue with abx ( Zosyn) Monitor for signs of infections ( Fever, WBC) 06/30 sputum cx: Moraxella Catarrhalis, repeat sputum cx from 07/03: No growth C-diff PCR negative Endocrine: On SSI(medium scale) for glycemic control, Levemir 25u Q12 Prophylaxis: GI Prophylaxis Protonix IV 40 mg/day DVT Prophylaxis -- SCDs Heparin infusion Lines: Peripheral IVs 2. Central line right IJ 06/22-07/09(pt dislodged) Condition critical Time spent on critical care excluding procedures: 30 minutes Foster Looney MD Jul 10, 2016 11:36
--- NOTE | 2016-07-10 12:29 | HHI.FPPN ---
Subjective Remarks Currently extubated. Seen at bedside with Dr. Looney. Off sedation, but somewhat drowsy. Objective Vitals Vital Signs Date Time Temp Pulse Resp B/P Pulse Ox O2 Delivery O2 Flow Rate FiO2 07/10/16 10:00 76 07/10/16 08:40 40 07/10/16 08:36 98.7 85 19 154/72 93 07/10/16 08:23 96 40 07/10/16 06:00 86 07/10/16 04:00 99.1 78 19 162/89 96 07/10/16 04:00 78 07/10/16 04:00 40 07/10/16 03:47 97 40 07/10/16 02:00 73 07/10/16 00:00 99.0 69 10 126/62 95 07/10/16 00:00 69 07/10/16 00:00 40 07/09/16 23:10 93 40 07/09/16 22:00 77 07/09/16 20:05 94 40 07/09/16 20:00 99.3 64 21 149/78 94 07/09/16 20:00 40 07/09/16 20:00 64 07/09/16 18:00 70 07/09/16 16:00 68 07/09/16 16:00 40 07/09/16 15:38 98 40 07/09/16 15:00 98.2 68 17 152/78 94 07/09/16 14:00 74 I/O 07/09/16 07/09/16 07/09/16 07/10/16 07/10/16 07/10/16 07:00 15:00 23:00 07:00 15:00 23:00 Intake Total 862 ml 757 ml 784 ml 763 ml Output Total 550 ml 1150 ml 3700 ml 800 ml Balance 312 ml -393 ml -2916 ml -37 ml Intake Oral 0 ml 0 ml IV Total 524 ml 594 ml 424 ml 313 ml Tube Feeding 338 ml 103 ml 160 ml 330 ml Other 60 ml 200 ml 120 ml Output Urine Total 550 ml 1150 ml 3000 ml 750 ml Stool Total 700 ml 50 ml Result Diagram: 07/09/16 0300 07/09/16 0300 Imaging Last Impressions Chest X-Ray 07/10/16 0600 Signed Impressions: Service Date/Time: Sunday, July 10, 2016 03:20 - CONCLUSION: Resolving effusions and bibasilar consolidation. Edy Juarez MD Chest CT 07/07/16 1610 Signed Impressions: Service Date/Time: June 16:20 - CONCLUSION: 1. The patient was initially scheduled for right therapeutic thoracentesis. However, most of the abnormality visualized on chest x-ray is secondary to lower lobe atelectasis. There is only a very small pleural effusion present bilaterally. 2. Mild splenomegaly. Edy Emerson MD Brain MRI 07/03/16 0000 Signed Impressions: Service Date/Time: Sunday, July 03, 2016 10:12 - CONCLUSION: 1. No intracranial abnormality is seen. 2. Sinus disease. Edy Johnson MD Head CT 07/01/16 0000 Signed Impressions: Service Date/Time: Friday, July 01, 2016 20:54 - CONCLUSION: No acute intracranial abnormality. Bilateral paranasal sinusitis. Mason Noe MD Objective Remarks CONST: 61y/o CM lying in bed. Currently extubated HEENT: NCAT. DERM: Warm and dry. Decubitus ulcer with mild necrosis, not weeping, R buttock. NECK: R IJ present. +elevated JVP. CV: Tachycardic, irregularly irregular rhythm. No audible murmurs. RESP: Currently intubated. Anterior breath sounds equal bilaterally, diminished. No wheezing. GI: Abdomen slightly distended. Soft. Non-tender to palpation. +BS x 4. : Lujan catheter in place to gravity with blood-tinged cloudy urine. Scrotal edema stable. MSK: Extremities without cyanosis. 2+ edema of upper extremities, hands. Lower extremities in SCDs, Unaboots. 1-2+ DP pulses bilaterally. NEURO: Drowsy, arousable Date of Insertion: Jul 05, 2016 Date of Insertion: Jun 22, 2016 Line: Central Venous Catheter Side: Right Location: Internal, Jugular A/P Assessment and Plan 61 y/o CM with a PMHx of HTN and alcohol abuse presenting 06/21/16 with tachycardia to 150s, found to be in atrial flutter. Converted to afib with RVR s/p ablation, with hospital stay complicated by DTs, requiring intubation and sedation. Discharge Planning Unclear given patient's current clinical state. Patient remains in critical condition. Problem List: (1) Alcohol withdrawal Status: Acute Plan: Carry Out Clerk And Shelf Stocker consulted, appreciate recommendations Ativan per [facility] protocol Discussion of possible tracheostomy with family as the patient has failed multiple extubation trials -Librium 50 mg every 12 hourly via OG tube on 07/06. Neurochecks per ICU protocol Neurology consulted -EEG (07/03): no epileptiform events, intermittent mild diffuse slowing suggestive of mild diffuse cerebral dysfunction -MRI brain (07/03): no intracranial process (2) Ventilator associated pneumonia Status: Acute Plan: Sputum culture 06/30 growing Moraxella catarrhalis. PLAN - Zosyn 4.5Gm q6h ( ), initially anticipated 7 day course, due to worsening leukocytosis today will continue - Intubated, continue to attempt CPAP trials, as tolerated - Repeat sputum culture NGTD -Solumedrol 40mg daily Imaging: CXR 06/29: Stable consolidation LLL, new consolidation RUL. CXR 07/02: Stable LLL consolidation. Hazy density R base, consider effusion. ET tube in good position. Cardiomegaly, increased interstitial markings, suggestive edema, possible CHF. Chest x-ray 07/05: No interval change Chest x-ray: Resolving effusions and consolidation. History Sputum culture 06/30 moraxella (3) Atrial flutter with rapid ventricular response Status: Acute Plan: S/p Cardioversion 07/08, on amiodarone drip, now in sinus rhythm Dr. Kris griffith is following/managing PLAN Cardizem 60mg PO QID Lopressor 2.5 mg q6h PRN HR >100 ASA 81mg PO daily - Heparin IV per protocol History --Discontinue heparin drip / hematuria. - ECHO: Study limited secondary to tachycardia, EF 35-40%, normal cavity size, wall thickness, wall motion. - Ablated 06/23 (Dr Ponce), subsequently presented with atrial fibrillation with RVR (4) Hypertension Status: Chronic Plan: Currently hypotension . Hold home Irbesartan-HCTZ (300-12.5) Cardizem 60mg QID, as above (with precautions to hold for hypotension) Losartan 100 mg PO daily Bumex 1 mg daily (5) Creatinine elevation Status: Resolved Plan: Resolved at this time. .Strict I's/O's with Lujan catheter, trend BUN/Cr - On Bumex 1g daily (6) Restless leg syndrome Status: Chronic Plan: Reported. -Hold Ropinirole (7) Hyperglycemia Status: Acute Plan: -Levemir increased to 25 units Subcutaneous BID -MSSI -Accu-check ACHS (8) Nutrition, metabolism, and development symptoms Status: Acute Plan: Fluids: No fluids running at present, fluids per medications and feeds, monitor hydration status. Diet: NPO as intubated. Tube feeds with Glucerna (given hyperglycemia) DVT prophylaxis: SCDs, discontinue heparin drip 2/2 hematuria GI prophylaxis: Protonix 40 mg IV daily while intubated, on steroids. Constipation: Senna daily, Colace BID Discussed with Dr. Abreu & Dr. Altman Case also discussed with nurse Problem Qualifiers (1) Alcohol withdrawal: Qualified Code: F10.231 - Alcohol withdrawal, with delirium (2) Hypertension: Qualified Code: I10 - Essential hypertension Ildefonso Tavares MD R2 Jul 10, 2016 12:29
[2016-07-10] MEDS: RESP: ACETYLCYSTEINE 10% 30 ML NEB NEB SCH ×2 (16:00→23:30)
[2016-07-10 17:38] LABS: APTT (PATIENT) 85.8 SEC (24.3-30.1)
[2016-07-10] MEDS: RESP: ALBUTEROL 2.5 MG/IPRATROPIUM 0.5 MG NEB (SCH) NEB ×2 (20:14→23:20)
[2016-07-11] VITALS (13 sets, daily range): BP systolic 150–177; BP diastolic 79–88; PULSE 78–87; RESP 18–24; TEMP 98.3–100.1; O2SAT 94–98
[2016-07-11] MEDS: RESP: ALBUTEROL 2.5 MG/IPRATROPIUM 0.5 MG NEB (SCH) NEB ×5 (03:30→20:48)
[2016-07-11] MEDS: CHLORHEXIDINE GLUCONATE 2 % 1 PACK (2 CLOTHS) TOP SCH (04:00)
[2016-07-11] MEDS: INSULIN NovoLIN REGULAR SUPPLEMENTAL SCALE SQ SCH ×4 (04:00→21:21)
[2016-07-11] MEDS: PIPERACIL-TAZO 4.5 GM PREMIX 100 ML IV SCH ×4 (05:15→21:20)
--- NOTE | 2016-07-11 05:31 | RADRPT ---
EXAM DATE/TIME: 07/11/2016 04:41 [place] COMPARISON: CHEST SINGLE AP, July 10, 2016, 3:20. INDICATIONS : Shortness of breath, possible pulmonary disease. MEDICAL HISTORY : None. SURGICAL HISTORY : None. ENCOUNTER: Subsequent ACUITY: 2 weeks PAIN SCORE: Non-responsive. LOCATION: Bilateral chest FINDINGS: The cardiac silhouette is enlarged in transverse diameter. The lungs are free of acute parenchymal op acity. No effusions are identified. Osseous structures are intact. CONCLUSION: Cardiomegaly. No acute cardiopulmonary disease. Lul Glass MD on July 11, 2016 at 5:29 Board Certified Radiologist. This report was verified electronically.
[2016-07-11 06:50] LABS: APTT (PATIENT) 41.5 SEC (24.3-30.1)
[2016-07-11 07:04] LABS: EOSINOPHIL % 0.2 % (0.0-4.0); HEMATOCRIT 33.8 % (39.0-51.0); HEMO FLAGS DIFF FINAL; LYMPH % 4.4 % (9.0-44.0); LYMPHOCYTE # 0.5 TH/MM3 (1.0-4.8); MEAN CELL VOLUME 87.8 FL (80.0-100.0); MEAN CORPUSCULAR HEMOGLOBIN 28.9 PG (27.0-34.0); MEAN CORPUSCULAR HGB CONC 32.9 % (32.0-36.0); MONO % 5.7 % (0.0-8.0); NEUT % 89.7 % (16.0-70.0); PLATELET COUNT 202 TH/MM3 (150-450); RED BLOOD COUNT 3.85 MIL/MM3 (4.50-5.90); RED CELL DISTRIBUTION WIDTH 13.7 % (11.6-17.2); WHITE BLOOD COUNT 12.2 TH/MM3 (4.0-11.0)
[2016-07-11 07:28] LABS: ALKALINE PHOSPHATASE 45 U/L (45-117); ALT (GPT) 30 U/L (12-78); ANION GAP 10 MEQ/L (5-15); AST (GOT) 21 U/L (15-37); BICARBONATE 34.5 MEQ/L (21.0-32.0); BLOOD UREA NITROGEN 23 MG/DL (7-18); CHLORIDE 95 MEQ/L (98-107); GLOMERULAR FILTRATION RATE 72 ML/MIN (>89); POTASSIUM 3.2 MEQ/L (3.5-5.1); SODIUM (NA) 139 MEQ/L (136-145); TOTAL BILIRUBIN ADULT 0.7 MG/DL (0.2-1.0)
--- NOTE | 2016-07-11 07:40 | HHI.FPPN ---
Subjective Remarks Patient seen and examined this morning. Patient MAXIMUM TEMPERATURE 100.1. He is extubated on nasal cannula, 4 L. Sleepy but arouses and answers questions appropriately. On cardizem and heparin drip. Swallow eval scheduled for today. (Bibi Alejandre MD R3) Objective Vitals Vital Signs Date Time Temp Pulse Resp B/P Pulse Ox O2 Delivery O2 Flow Rate FiO2 07/11/16 06:00 86 07/11/16 04:07 97 Nasal Cannula 4.00 07/11/16 04:00 100.1 83 21 177/81 94 07/11/16 04:00 83 07/11/16 02:00 85 07/11/16 00:43 94 Simple Mask 6.00 07/11/16 00:00 99.9 85 20 159/81 96 07/11/16 00:00 85 07/10/16 22:00 86 07/10/16 20:30 95 Simple Mask 8.00 07/10/16 20:00 80 07/10/16 20:00 99.7 80 22 160/78 80 07/10/16 18:00 88 07/10/16 16:00 98.0 87 22 190/66 95 07/10/16 16:00 86 07/10/16 14:00 85 07/10/16 12:00 75 07/10/16 10:00 76 07/10/16 08:40 40 07/10/16 08:36 98.7 85 19 154/72 93 07/10/16 08:23 96 40 I/O 07/10/16 07/10/16 07/10/16 07/11/16 07/11/16 07/11/16 07:00 15:00 23:00 07:00 15:00 23:00 Intake Total 763 ml 347 ml 354 ml 214 ml Output Total 800 ml 2200 ml 2520 ml 575 ml Balance -37 ml -1853 ml -2166 ml -361 ml Intake Oral 0 ml IV Total 313 ml 277 ml 354 ml 214 ml Tube Feeding 330 ml 40 ml 0 ml Other 120 ml 30 ml 0 ml Output Urine Total 750 ml 2100 ml 2500 ml 550 ml Stool Total 50 ml 100 ml 20 ml 25 ml # Bowel Movements 1 1 (Bibi Alejandre MD R3) Result Diagram: 07/11/1621 07/11/16 0621 Imaging Last Impressions Chest X-Ray 07/11/16 0600 Signed Impressions: Service Date/Time: Monday, July 11, 2016 04:41 - CONCLUSION: Cardiomegaly. No acute cardiopulmonary disease. Lul Glass MD Chest CT 07/07/16 1610 Signed Impressions: Service Date/Time: June 16:20 - CONCLUSION: 1. The patient was initially scheduled for right therapeutic thoracentesis. However, most of the abnormality visualized on chest x-ray is secondary to lower lobe atelectasis. There is only a very small pleural effusion present bilaterally. 2. Mild splenomegaly. Edy Emerson MD Brain MRI 07/03/16 0000 Signed Impressions: Service Date/Time: Sunday, July 03, 2016 10:12 - CONCLUSION: 1. No intracranial abnormality is seen. 2. Sinus disease. Edy Johnson MD Head CT 07/01/16 0000 Signed Impressions: Service Date/Time: Friday, July 01, 2016 20:54 - CONCLUSION: No acute intracranial abnormality. Bilateral paranasal sinusitis. Mason Noe MD Objective Remarks CONST: 61y/o CM lying in bed. Currently extubated, nasal canula in place. HEENT: NCAT. DERM: Warm and dry. Decubitus ulcer with mild necrosis, not weeping, R buttock. NECK: R IJ present. +elevated JVP. CV: Regular rate and rhythm, appears to be in sinus. No audible murmurs. RESP: Currently intubated. Anterior breath sounds equal bilaterally, diminished. No wheezing. GI: Abdomen slightly distended. Soft. Non-tender to palpation. +BS x 4. : Lujan catheter in place to gravity with blood-tinged cloudy urine. Scrotal edema stable. MSK: Extremities without cyanosis. 2+ edema of upper extremities, hands. Lower extremities in SCDs, Unaboots. 1-2+ DP pulses bilaterally. NEURO: Drowsy, arousable (Bibi Alejandre MD R3) Date of Insertion: Jul 05, 2016 (Bibi Alejandre MD R3) Date of Insertion: Jun 22, 2016 Line: Central Venous Catheter Side: Right Location: Internal, Jugular (Bibi Alejandre MD R3) A/P Assessment and Plan 61 y/o CM with a PMHx of HTN and alcohol abuse presenting 06/21/16 with tachycardia to 150s, found to be in atrial flutter. Converted to afib with RVR s/p ablation, with hospital stay complicated by DTs, requiring intubation and sedation. Discharge Planning Unclear given patient's current clinical state. Patient remains in critical condition. Case discussed with patients nurse and Dr. Abreu (Bibi Alejandre MD R3) Attending Attestation Pt. examined and case discussed with resident physicians I have read the above note and agree with the assessment/plan as discussed with me I was involved in all medical decision making for this patient Shashank Abreu MD (Shashank Abreu MD) Problem List: (1) Alcohol withdrawal Status: Acute Plan: Exceptional Needs Teacher consulted, appreciate recommendations Ativan per [facility] protocol -Librium 50 mg every 12 hourly via OG tube on 07/06. Neurochecks per ICU protocol Neurology consulted -EEG (07/03): no epileptiform events, intermittent mild diffuse slowing suggestive of mild diffuse cerebral dysfunction -MRI brain (07/03): no intracranial process (2) Ventilator associated pneumonia Status: Acute Plan: PLAN - Zosyn 4.5Gm q6h (06/30 ), initially anticipated 7 day course, due to persistent leukocytosis, and now febrile - Intubated, continue to attempt CPAP trials, as tolerated - Repeat sputum culture NGTD - Solumedrol 40mg daily Imaging: Most recent chest x-ray 07/11: Cardiomegaly. No acute cardiopulmonary disease History Sputum culture 06/30 moraxella Repeat sputum : No growth 48 hours Repeat blood cultures 07/09: No growth to date UC 06/27 no growth in 48 hours (3) Atrial flutter with rapid ventricular response Status: Acute Plan: S/p Cardioversion 07/08 now in sinus rhythm Dr. Kris griffith is following/managing currently NPO PLAN Cardizem drip Lopressor 2.5 mg q6h PRN HR >100 - Heparin IV per protocol - Amiodarone drip running at 0 mls/hr History - ECHO: Study limited secondary to tachycardia, EF 35-40%, normal cavity size, wall thickness, wall motion. - Ablated 06/23 (Dr Ponce), subsequently presented with atrial fibrillation with RVR (4) Hypertension Status: Chronic Plan: Was recently hypotensive, currently hypertensive. Cardizem 60mg QID, as above (with precautions to hold for hypotension) Losartan 100 mg PO daily Bumex 1 mg daily (5) Creatinine elevation Status: Resolved Plan: Resolved at this time. .Strict I's/O's with Lujan catheter, trend BUN/Cr - On Bumex 1g daily (6) Restless leg syndrome Status: Chronic Plan: Reported. -Hold Ropinirole (7) Hyperglycemia Status: Acute Plan: -Levemir increased to 25 units Subcutaneous BID -MSSI -Accu-check ACHS (8) Nutrition, metabolism, and development symptoms Status: Acute Plan: Fluids: No fluids running at present, fluids per medications and feeds, monitor hydration status. Diet: NPO as intubated. Tube feeds with Glucerna (given hyperglycemia) DVT prophylaxis: SCDs, discontinue heparin drip 2/2 hematuria GI prophylaxis: Protonix 40 mg IV daily while intubated, on steroids. Constipation: Senna daily, Colace BID Discussed with Dr. Abreu & Dr. Altman Case also discussed with nurse (Bibi Alejandre MD R3) Problem Qualifiers (1) Alcohol withdrawal: Qualified Code: F10.231 - Alcohol withdrawal, with delirium (2) Hypertension: Qualified Code: I10 - Essential hypertension Bibi Alejandre MD R3 July 11, 2016 07:40 Shashank Abreu MD July 11, 2016 16:00
[2016-07-11] MEDS: RESP: ACETYLCYSTEINE 10% 30 ML NEB NEB SCH ×2 (08:00→16:00)
[2016-07-11] MEDS: PANTOPRAZOLE SODIUM 40 MG VIAL IV SCH (08:25)
[2016-07-11] MEDS: BUMETANIDE INJ 1 MG/4 ML VIAL IV PUSH SCH ×2 (08:25→21:20)
[2016-07-11] MEDS: DILTIAZEM INJ 125 MG in SODIUM CHLORIDE 0.9% INJ 100 ML IV SCH (08:25)
[2016-07-11] MEDS: methylPREDNISolone SOD SUCC 40 MG/1 ML VIAL IV PUSH SCH (08:25)
[2016-07-11] MEDS: POTASSIUM CHLOR 20 MEQ PREMIX 100 ML IV PRN ×4 (08:27→14:31)
[2016-07-11] MEDS: ASPIRIN 81 MG CHEW TAB PO SCH (09:00)
[2016-07-11] MEDS: SODIUM CHLORIDE 0.9% FLUSH 10 ML FLUSH IV FLUSH SCH ×2 (09:00→21:21)
[2016-07-11] MEDS: THIAMINE HCL 100 MG TAB PO SCH (09:00)
[2016-07-11] MEDS: DILTIAZEM HCL 60 MG TAB PO SCH ×4 (09:00→21:00)
[2016-07-11] MEDS: SENNOSIDES SYRUP 8.8 MG/5 ML CUP PO SCH (09:00)
[2016-07-11] MEDS: chlordiazePOXIDE 25 MG CAP PO SCH (09:00)
[2016-07-11] MEDS: LOSARTAN 50 MG TAB PO SCH (09:00)
[2016-07-11] MEDS: QUEtiapine FUMARATE 25 MG TAB PO SCH ×2 (09:00→21:00)
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
[2016-07-11] MEDS: ENOXAPARIN SODIUM 100 MG/ML SYRINGE SQ SCH (11:49)
[2016-07-11] MEDS: AMIODARONE INJ 450 MG in DEXTROSE 5% IN WATE(EXCEL) INJ 241 ML IV SCH ×2 (14:31)
[2016-07-11] MEDS ORDERED: chlordiazePOXIDE 25 MG CAP PO SCH (21:00)
[2016-07-11] MEDS: INSULIN DETEMIR 100 UNITS/ML VIAL SQ SCH (21:20)
[2016-07-12] VITALS (15 sets, daily range): BP systolic 137–165; BP diastolic 73–102; PULSE 78–161; RESP 13–31; TEMP 97.6–99.5; O2SAT 93–100
[2016-07-12] MEDS: RESP: ALBUTEROL 2.5 MG/IPRATROPIUM 0.5 MG NEB (SCH) NEB ×7 (00:19→23:57)
[2016-07-12] MEDS: RESP: ACETYLCYSTEINE 10% 30 ML NEB NEB SCH ×4 (00:19→23:57)
[2016-07-12] MEDS: ENOXAPARIN SODIUM 100 MG/ML SYRINGE SQ SCH ×3 (00:27→22:03)
[2016-07-12] MEDS: HALOPERIDOL LACTATE 5 MG/ML AMP IM PRN (01:07)
[2016-07-12] MEDS: SODIUM CHLORIDE 0.9% FLUSH 10 ML FLUSH IV FLUSH PRN (01:09)
[2016-07-12] MEDS: METOPROLOL TARTRATE 5 MG/5 ML VIAL IV PUSH PRN ×2 (01:12→06:45)
[2016-07-12] MEDS: AMIODARONE INJ 450 MG in DEXTROSE 5% IN WATE(EXCEL) INJ 241 ML IV SCH ×4 (01:56→20:45)
[2016-07-12] MEDS: DILTIAZEM INJ 125 MG in SODIUM CHLORIDE 0.9% INJ 100 ML IV SCH ×3 (01:56→22:04)
[2016-07-12] MEDS: LORazepam 2 MG/ML VIAL IV PUSH PRN ×2 (01:56→02:31)
[2016-07-12] MEDS: INSULIN NovoLIN REGULAR SUPPLEMENTAL SCALE SQ SCH ×4 (03:38→20:45)
[2016-07-12] MEDS: PIPERACIL-TAZO 4.5 GM PREMIX 100 ML IV SCH ×3 (03:38→15:59)
[2016-07-12] MEDS: CHLORHEXIDINE GLUCONATE 2 % 1 PACK (2 CLOTHS) TOP SCH (03:38)
[2016-07-12] MEDS ORDERED: DEXMEDETOMIDINE INJ 200 MCG in SODIUM CHLORIDE 0.9% INJ 50 ML IV SCH (06:00)
[2016-07-12 06:06] LABS: AUTOMATED NEUTROPHIL # 11.6 TH/MM3 (1.8-7.7); BASOPHIL % 0.2 % (0.0-2.0); EOSINOPHIL # 0.1 TH/MM3 (0-0.4); EOSINOPHIL % 0.5 % (0.0-4.0); HEMATOCRIT 34.5 % (39.0-51.0); HEMO FLAGS DIFF FINAL; LYMPH % 4.9 % (9.0-44.0); LYMPHOCYTE # 0.6 TH/MM3 (1.0-4.8); MEAN CELL VOLUME 86.8 FL (80.0-100.0); MEAN CORPUSCULAR HEMOGLOBIN 29.9 PG (27.0-34.0); MEAN CORPUSCULAR HGB CONC 34.5 % (32.0-36.0); MONO % 6.3 % (0.0-8.0); NEUT % 88.1 % (16.0-70.0); PLATELET COUNT 229 TH/MM3 (150-450); RED BLOOD COUNT 3.98 MIL/MM3 (4.50-5.90); RED CELL DISTRIBUTION WIDTH 13.9 % (11.6-17.2); WHITE BLOOD COUNT 13.2 TH/MM3 (4.0-11.0)
[2016-07-12 06:27] LABS: BICARBONATE 29.9 MEQ/L (21.0-32.0); POTASSIUM 3.3 MEQ/L (3.5-5.1)
[2016-07-12] MEDS: POTASSIUM CHLOR 20 MEQ PREMIX 100 ML IV PRN (06:41)
[2016-07-12] MEDS ORDERED: MIDAZOLAM HCL 5 MG/ML VIAL (1 ML) ONE (07:50)
[2016-07-12] MEDS: THIAMINE HCL 100 MG TAB PO SCH (09:00)
[2016-07-12] MEDS: LOSARTAN 50 MG TAB PO SCH (09:29)
[2016-07-12] MEDS: BUMETANIDE INJ 1 MG/4 ML VIAL IV PUSH SCH ×2 (09:29→20:45)
[2016-07-12] MEDS: methylPREDNISolone SOD SUCC 40 MG/1 ML VIAL IV PUSH SCH (09:29)
[2016-07-12] MEDS: DILTIAZEM HCL 60 MG TAB PO SCH ×4 (09:29→20:45)
[2016-07-12] MEDS: ASPIRIN 81 MG CHEW TAB PO SCH (09:29)
[2016-07-12] MEDS: SENNOSIDES SYRUP 8.8 MG/5 ML CUP PO SCH (09:29)
[2016-07-12] MEDS: QUEtiapine FUMARATE 25 MG TAB PO SCH ×2 (09:29→20:45)
[2016-07-12] MEDS: PANTOPRAZOLE SODIUM 40 MG VIAL IV SCH (09:30)
[2016-07-12] MEDS: SODIUM CHLORIDE 0.9% FLUSH 10 ML FLUSH IV FLUSH SCH ×2 (09:30→20:44)
--- NOTE | 2016-07-12 10:05 | HHI.FPPN ---
Subjective Remarks Spoke with , Dr. Looney, and bedside nurse. Remains confused. Answers appropriately to questions at times. Knows , and birthday. ROS limited secondary to confusion. Objective Vitals Vital Signs Date Time Temp Pulse Resp B/P Pulse Ox O2 Delivery O2 Flow Rate FiO2 07/12/16 08:20 100 4.00 07/12/16 07:39 100 Nasal Cannula 4.00 07/12/16 06:00 132 07/12/16 04:00 99.5 146 24 142/76 99 07/12/16 04:00 146 07/12/16 02:00 158 07/12/16 00:00 97.6 83 24 165/84 95 07/12/16 00:00 83 07/11/16 22:00 82 07/11/16 20:49 96 Nasal Cannula 4.00 07/11/16 20:00 78 07/11/16 20:00 98.3 78 24 157/86 98 07/11/16 16:00 98.8 80 21 150/79 97 07/11/16 12:00 99.0 87 18 170/88 94 I/O 07/11/16 07/11/16 07/11/16 07/12/16 07/12/16 07/12/16 07:00 15:00 23:00 07:00 15:00 23:00 Intake Total 214 ml 575 ml 386 ml 402 ml Output Total 575 ml 1400 ml 760 ml 1625 ml Balance -361 ml -825 ml -374 ml -1223 ml IV Total 214 ml 575 ml 386 ml 402 ml Output Urine Total 550 ml 1400 ml 600 ml 1600 ml Stool Total 25 ml 160 ml 25 ml # Bowel Movements 1 3 Result Diagram: 07/12/16 0535 07/12/16 0535 Objective Remarks CONST: 61y/o CM lying in bed. Currently extubated, nasal canula in place. HEENT: NCAT. DERM: Warm and dry. Decubitus ulcer with mild necrosis, not weeping, R buttock. NECK: R IJ present. +elevated JVP. CV: Regular rate and rhythm, appears to be in sinus. No audible murmurs. RESP: Currently intubated. Anterior breath sounds equal bilaterally, diminished. No wheezing. GI: Abdomen slightly distended. Soft. Non-tender to palpation. +BS x 4. : Lujan catheter in place to gravity with blood-tinged cloudy urine. Scrotal edema stable. MSK: Extremities without cyanosis. 2+ edema of upper extremities, hands. Lower extremities in SCDs, Unaboots. 1-2+ DP pulses bilaterally. NEURO: Drowsy, arousable Date of Insertion: Jul 05, 2016 Date of Insertion: Jun 22, 2016 Line: Central Venous Catheter Side: Right Location: Internal, Jugular A/P Assessment and Plan 61 y/o CM with a PMHx of HTN and alcohol abuse presenting 06/21/16 with tachycardia to 150s, found to be in atrial flutter. Converted to afib with RVR s/p ablation, with hospital stay complicated by DTs, requiring intubation and sedation. Currently extubated; in and out of A. Fib with RVR, s/p 2 cardioversion. Discharge Planning Unclear given patient's current clinical state. Patient remains in critical condition. 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 No acute cardiopulmonary disease History Sputum culture 06/30 moraxella Repeat sputum : No growth 48 hours Repeat blood cultures 07/09: No growth to date UC 06/27 no growth in 48 hours Antibiotics: - Zosyn 4.5Gm q6h ( ) (3) Atrial flutter with rapid ventricular response Status: Acute Plan: S/p Cardioversion x 2--> 07/08 and 07/12 now in sinus rhythm Dr. Kris griffith is following/managing currently NPO PLAN Cardizem drip Lopressor 2.5 mg q6h PRN HR >100 - Heparin IV per protocol - Amiodarone History - ECHO: Study limited secondary to tachycardia, EF 35-40%, normal cavity size, wall thickness, wall motion. - Ablated 06/23 (Dr Ponce), subsequently presented with atrial fibrillation with RVR (4) Hypertension Status: Chronic Plan: Cardizem 60mg QID, as above (with precautions to hold for hypotension) Losartan 100 mg PO daily Bumex 1 mg daily (5) Creatinine elevation Status: Resolved Plan: Resolved at this time. .Strict I's/O's with Lujan catheter, trend BUN/Cr - On Bumex 1g daily (6) Restless leg syndrome Status: Chronic Plan: Reported. -Hold Ropinirole (7) Hyperglycemia Status: Acute Plan: -Levemir increased to 25 units Subcutaneous BID -MSSI -Accu-check ACHS (8) Nutrition, metabolism, and development symptoms Status: Acute Plan: Fluids: No fluids running at present, fluids per medications and feeds, monitor hydration status. Diet: NPO, per speech therapy. Tube feeds with Glucerna (given hyperglycemia) DVT prophylaxis: SCDs, discontinue heparin drip 2/2 hematuria GI prophylaxis: Protonix 40 mg IV daily while intubated, on steroids. Constipation: Senna daily, Colace BID Problem Qualifiers (1) Alcohol withdrawal: Qualified Code: F10.231 - Alcohol withdrawal, with delirium (2) Hypertension: Qualified Code: I10 - Essential hypertension Ildefonso Tavares MD R2 July 12, 2016 10:05
[2016-07-12 12:38] LABS: BLOOD, URINE MOD (NEG); GLUCOSE,URINE NEG (NEG); KETONE, URINE NEG (NEG); MUCUS URINE FEW /lpf (OCC); NITRITE,URINE NEG (NEG); URINE COLOR YELLOW (YELLW/STRAW)
[2016-07-12 12:39] LABS: COMMENT (UR) CATH-CULT NOT IND; CULTURE IF INDICATED CATH CULTURE NOT IND
--- NOTE | 2016-07-12 19:07 | PD.PROCEDR ---
Procedure Note Procedure Procedure: Cardioversion Preoperative diagnosis: Recurrent A. fib with RVR Postop diagnosis: Same Sedation: FENTANYL 50 MCG IV X 1 DOSE Description: After ensuring adequate sedation and analgesia, patient was cardioverted with 70 J synchronized DC shock 1 with which he converted from atrial fibrillation to sinus rhythm. He was on anticoagulation with heparin. Amiodarone drip per protocol continued to attempt to keep him in sinus rhythm. Patient tolerated procedure well with no immediate complications noted. Informed Family medicine team and they will discuss further management with cardiology. Foster Looney MD July 12, 2016 19:07
[2016-07-12] MEDS: INSULIN DETEMIR 100 UNITS/ML VIAL SQ SCH (20:45)
[2016-07-13] VITALS (23 sets, daily range): BP systolic 135–165; BP diastolic 73–101; PULSE 84–104; RESP 19–43; TEMP 98.1–98.7; O2SAT 89–98
[2016-07-13] MEDS: RESP: ALBUTEROL 2.5 MG/IPRATROPIUM 0.5 MG NEB (SCH) NEB ×6 (03:48→23:10)
[2016-07-13] MEDS: INSULIN NovoLIN REGULAR SUPPLEMENTAL SCALE SQ SCH ×4 (04:00→22:00)
[2016-07-13] MEDS: CHLORHEXIDINE GLUCONATE 2 % 1 PACK (2 CLOTHS) TOP SCH (04:00)
[2016-07-13 05:21] LABS: AUTOMATED NEUTROPHIL # 11.4 TH/MM3 (1.8-7.7); BASOPHIL % 0.2 % (0.0-2.0); EOSINOPHIL % 0.2 % (0.0-4.0); HEMATOCRIT 34.5 % (39.0-51.0); HEMO FLAGS DIFF FINAL; LYMPH % 6.7 % (9.0-44.0); LYMPHOCYTE # 0.9 TH/MM3 (1.0-4.8); MEAN CELL VOLUME 87.1 FL (80.0-100.0); MEAN CORPUSCULAR HEMOGLOBIN 30.3 PG (27.0-34.0); MEAN CORPUSCULAR HGB CONC 34.8 % (32.0-36.0); MONO % 7.6 % (0.0-8.0); NEUT % 85.3 % (16.0-70.0); PLATELET COUNT 245 TH/MM3 (150-450); RED BLOOD COUNT 3.97 MIL/MM3 (4.50-5.90); RED CELL DISTRIBUTION WIDTH 14.1 % (11.6-17.2); WHITE BLOOD COUNT 13.3 TH/MM3 (4.0-11.0)
[2016-07-13 05:30] LABS: APTT (PATIENT) 33.6 SEC (24.3-30.1)
[2016-07-13] MEDS: DILTIAZEM INJ 125 MG in SODIUM CHLORIDE 0.9% INJ 100 ML IV SCH (05:47)
[2016-07-13 05:55] LABS: ALT (GPT) 27 U/L (12-78); ANION GAP 10 MEQ/L (5-15); AST (GOT) 14 U/L (15-37); BICARBONATE 28.1 MEQ/L (21.0-32.0); BLOOD UREA NITROGEN 16 MG/DL (7-18); CHLORIDE 103 MEQ/L (98-107); GLOMERULAR FILTRATION RATE 81 ML/MIN (>89); MAGNESIUM 2.1 MG/DL (1.5-2.5); POTASSIUM 3.3 MEQ/L (3.5-5.1); SODIUM (NA) 141 MEQ/L (136-145)
[2016-07-13 05:57] LABS: ALKALINE PHOSPHATASE 48 U/L (45-117); TOTAL BILIRUBIN ADULT 0.6 MG/DL (0.2-1.0)
[2016-07-13] MEDS: RESP: ACETYLCYSTEINE 10% 30 ML NEB NEB SCH ×3 (07:44→23:10)
[2016-07-13] MEDS: PANTOPRAZOLE SODIUM 40 MG VIAL IV SCH (08:04)
[2016-07-13] MEDS: methylPREDNISolone SOD SUCC 40 MG/1 ML VIAL IV PUSH SCH (08:04)
[2016-07-13] MEDS: BUMETANIDE INJ 1 MG/4 ML VIAL IV PUSH SCH ×2 (08:05→20:13)
[2016-07-13] MEDS: ASPIRIN 81 MG CHEW TAB PO SCH (08:06)
[2016-07-13] MEDS: LOSARTAN 50 MG TAB PO SCH (08:06)
[2016-07-13] MEDS: DILTIAZEM HCL 60 MG TAB PO SCH ×4 (08:06→20:13)
[2016-07-13] MEDS: THIAMINE HCL 100 MG TAB PO SCH (08:06)
[2016-07-13] MEDS: POTASSIUM CHLOR 20 MEQ PREMIX 100 ML IV PRN (08:07)
[2016-07-13] MEDS: QUEtiapine FUMARATE 25 MG TAB PO SCH (08:08)
[2016-07-13] MEDS: SODIUM CHLORIDE 0.9% FLUSH 10 ML FLUSH IV FLUSH SCH ×2 (08:08→20:35)
[2016-07-13] MEDS: SENNOSIDES SYRUP 8.8 MG/5 ML CUP PO SCH (08:08)
[2016-07-13] MEDS: COLLAGENASE OINT 30 GM TUBE TOPICAL SCH (08:10)
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
[2016-07-13] MEDS: AMIODARONE 200 MG TAB PO SCH ×2 (11:32→20:13)
[2016-07-13] MEDS: ENOXAPARIN SODIUM 100 MG/ML SYRINGE SQ SCH ×2 (11:33→22:38)
[2016-07-13] MEDS: INSULIN DETEMIR 100 UNITS/ML VIAL SQ SCH (20:34)
[2016-07-13] MEDS: oxyCODONE/ACETAMINOPHEN 5 MG/325 MG TAB PO PRN (22:37)
[2016-07-14] VITALS (21 sets, daily range): BP systolic 104–160; BP diastolic 63–97; PULSE 84–166; RESP 17–45; TEMP 97.6–98.6; O2SAT 80–100
[2016-07-14] MEDS: RESP: ALBUTEROL 2.5 MG/IPRATROPIUM 0.5 MG NEB (SCH) NEB ×4 (03:43→15:14)
[2016-07-14] MEDS: CHLORHEXIDINE GLUCONATE 2 % 1 PACK (2 CLOTHS) TOP SCH (03:54)
[2016-07-14] MEDS: INSULIN NovoLIN REGULAR SUPPLEMENTAL SCALE SQ SCH ×4 (03:57→21:15)
[2016-07-14 04:35] LABS: APTT (PATIENT) 33.3 SEC (24.3-30.1)
[2016-07-14 04:38] LABS: AUTOMATED NEUTROPHIL # 10.4 TH/MM3 (1.8-7.7); BASOPHIL % 0.3 % (0.0-2.0); EOSINOPHIL % 0.2 % (0.0-4.0); HEMATOCRIT 37.5 % (39.0-51.0); HEMO FLAGS DIFF FINAL; LYMPH % 8.2 % (9.0-44.0); MEAN CELL VOLUME 86.9 FL (80.0-100.0); MEAN CORPUSCULAR HEMOGLOBIN 29.9 PG (27.0-34.0); MEAN CORPUSCULAR HGB CONC 34.5 % (32.0-36.0); MONO % 8.4 % (0.0-8.0); NEUT % 82.9 % (16.0-70.0); PLATELET COUNT 308 TH/MM3 (150-450); RED BLOOD COUNT 4.32 MIL/MM3 (4.50-5.90); WHITE BLOOD COUNT 12.6 TH/MM3 (4.0-11.0)
[2016-07-14 04:42] LABS: ALKALINE PHOSPHATASE 51 U/L (45-117); ALT (GPT) 30 U/L (12-78); ANION GAP 10 MEQ/L (5-15); AST (GOT) 14 U/L (15-37); BICARBONATE 28.1 MEQ/L (21.0-32.0); BLOOD UREA NITROGEN 24 MG/DL (7-18); CHLORIDE 102 MEQ/L (98-107); GLOMERULAR FILTRATION RATE 57 ML/MIN (>89); POTASSIUM 3.7 MEQ/L (3.5-5.1); SODIUM (NA) 140 MEQ/L (136-145); TOTAL BILIRUBIN ADULT 0.6 MG/DL (0.2-1.0)
[2016-07-14] MEDS: METOPROLOL TARTRATE 5 MG/5 ML VIAL IV PUSH PRN (05:19)
[2016-07-14] MEDS: METOPROLOL TARTRATE 5 MG/5 ML VIAL IV PUSH SCH ×3 (06:15→06:25)
--- NOTE | 2016-07-14 07:22 | HHI.FPPN ---
Subjective Remarks Patient seen and examined this am. Overnight went into a-fib with RVR. Recieved metoprolol IV push x3. Did not control rate, started on cardizem drip. Patient knows where he is, he answers questions appropriately, but then also says non sensical words. He denies CP or difficulty breathing. Tolerating PO intake. Objective Vitals Vital Signs Date Time Temp Pulse Resp B/P Pulse Ox O2 Delivery O2 Flow Rate FiO2 07/14/16 06:00 105 07/14/16 06:00 105 23 129/97 96 07/14/16 05:00 129 07/14/16 05:00 129 23 137/93 95 07/14/16 04:00 98.4 89 31 151/92 96 07/14/16 04:00 89 07/14/16 03:00 93 07/14/16 03:00 93 29 160/84 95 07/14/16 02:00 84 07/14/16 02:00 84 17 148/83 97 07/14/16 01:00 86 29 146/83 93 07/14/16 01:00 86 07/14/16 00:00 88 07/14/16 00:00 98.2 88 27 152/93 97 07/13/16 23:00 85 07/13/16 23:00 85 31 135/83 97 07/13/16 22:00 95 35 147/77 93 07/13/16 22:00 95 07/13/16 21:00 101 07/13/16 21:00 101 39 165/86 95 07/13/16 20:26 94 Nasal Cannula 4.00 07/13/16 20:00 98.7 104 43 160/93 92 07/13/16 20:00 104 07/13/16 19:00 97 41 152/84 93 07/13/16 19:00 97 07/13/16 18:00 101 07/13/16 18:00 101 41 96 07/13/16 17:00 99 43 159/91 94 07/13/16 16:26 93 31 157/80 93 07/13/16 16:00 102 07/13/16 16:00 98.4 102 40 164/101 94 07/13/16 15:00 93 33 150/82 93 07/13/16 14:00 91 07/13/16 14:00 98.7 91 36 143/88 89 07/13/16 13:00 100 32 161/73 91 07/13/16 12:00 86 07/13/16 12:00 86 35 135/79 94 07/13/16 11:00 92 152/85 93 07/13/16 10:00 84 31 147/83 96 07/13/16 10:00 84 07/13/16 09:01 93 41 150/90 92 07/13/16 08:00 86 07/13/16 08:00 98.2 86 28 155/76 96 07/13/16 07:48 98 Nasal Cannula 4.00 I/O 07/13/16 07/13/16 07/13/16 07/14/16 07/14/16 07/14/16 07:00 15:00 23:00 07:00 15:00 23:00 Intake Total 316 ml 1124 ml Output Total 700 ml 1325 ml 600 ml 450 ml Balance -384 ml -201 ml -600 ml -450 ml Intake Oral 500 ml IV Total 316 ml 624 ml Output Urine Total 600 ml 1225 ml 600 ml 450 ml Stool Total 100 ml 100 ml Result Diagram: 07/14/16 0350 07/14/16 0350 Objective Remarks CONST: 61y/o CM lying in bed. nasal canula in place. No acute distress HEENT: NCAT. DERM: Warm and dry. Decubitus ulcer with mild necrosis, not weeping, R buttock. NECK: R IJ present. +elevated JVP. CV: Tachycardic rate, irregular rhythm. No audible murmurs. RESP: Currently intubated. Anterior breath sounds equal bilaterally, diminished. No wheezing. GI: Abdomen slightly distended. Soft. Non-tender to palpation. +BS x 4. MSK: Extremities without cyanosis. 2+ edema of upper extremities, hands. Lower extremities in SCDs, Unaboots. 1-2+ DP pulses bilaterally. NEURO: Awake and alert Date of Insertion: Jul 05, 2016 Date of Insertion: Jun 22, 2016 Line: Central Venous Catheter Side: Right Location: Internal, Jugular A/P Assessment and Plan 61 y/o CM with a PMHx of HTN and alcohol abuse presenting 06/21/16 with tachycardia to 150s, found to be in atrial flutter. Converted to afib with RVR s/p ablation, with hospital stay complicated by DTs, requiring intubation and sedation. Currently extubated; in and out of A. Fib with RVR, s/p 2 cardioversion. Currently in sinus rhythm. Possibly transferring out of the ICU on 07/14. Discharge Planning Unclear given patient's current clinical state. Currently patient require speech therapy at discharge. PT recommends physical therapy at rehabilitation. Problem List: (1) Atrial fibrillation Status: Acute Plan: S/p Cardioversion x 2--> 07/08 & 07/12. Patient now 07/14 back in afib with RVR. Started on Cardizem drip. Cards reconsulted. Dr. Ponce card is following PLAN Cardizem drip- restarted -Cardizem 60 mg 4 times a day by mouth Lopressor 2.5 mg q6h PRN HR >100 - Heparin IV per protocol - Per Dr. Ponce, Amiodarone 400 twice a day for 5 days (started 07/13), then 200 mg daily. Is currently on hold, unsure why but likely why patient back i a- fib. I will resume this 07/14. History - ECHO: Study limited secondary to tachycardia, EF 35-40%, normal cavity size, wall thickness, wall motion. - Ablated 06/23 (Dr Ponce), subsequently presented with atrial fibrillation with RVR (2) Delirium Status: Acute Plan: Patient seems to be waxing and waning from clarity to confusion. Likely delirious from medical conditions requiring ICU Haldol 2 mg IM when necessary agitation Seroquel 25 mg by mouth twice a day currently on hold Frequently reorient the patient (3) Hypertension Status: Chronic Plan: Cardizem 60mg QID, as above (with precautions to hold for hypotension) Losartan 100 mg PO daily Bumex 1 mg daily (4) Restless leg syndrome Status: Chronic Plan: Reported. -Hold Ropinirole (5) Hyperglycemia Status: Acute Plan: Likely related to tube feeds. Improving, fastig between 70-90. Will hold insulin. -Levemir 10 units HS---HOLD 07/14 -MSSI -Accu-check ACHS (6) Nutrition, metabolism, and development symptoms Status: Acute Plan: Fluids: HLIV Diet: Per speech, pure diet. Tolerating by mouth. DVT prophylaxis: SCDs GI prophylaxis: Protonix 40 mg IV daily while in ICU Constipation: Senna daily, Colace BID Problem Qualifiers (1) Atrial fibrillation: Qualified Code: I48.1 - Persistent atrial fibrillation (2) Hypertension: Qualified Code: I10 - Essential hypertension Bibi Alejandre MD R3 July 14, 2016 07:21
[2016-07-14] MEDS: RESP: ACETYLCYSTEINE 10% 30 ML NEB NEB SCH ×2 (07:31→15:14)
[2016-07-14] MEDS: methylPREDNISolone SOD SUCC 40 MG/1 ML VIAL IV PUSH SCH (08:21)
[2016-07-14] MEDS: THIAMINE HCL 100 MG TAB PO SCH (08:21)
[2016-07-14] MEDS: SENNOSIDES SYRUP 8.8 MG/5 ML CUP PO SCH (08:21)
[2016-07-14] MEDS: ASPIRIN 81 MG CHEW TAB PO SCH (08:22)
[2016-07-14] MEDS: BUMETANIDE INJ 1 MG/4 ML VIAL IV PUSH SCH ×2 (08:22→21:14)
[2016-07-14] MEDS: HALOPERIDOL LACTATE 5 MG/ML AMP IM PRN ×4 (08:22→23:09)
[2016-07-14] MEDS: DILTIAZEM HCL 60 MG TAB PO SCH ×4 (08:23→21:14)
[2016-07-14] MEDS: LOSARTAN 50 MG TAB PO SCH (08:23)
[2016-07-14] MEDS: oxyCODONE/ACETAMINOPHEN 5 MG/325 MG TAB PO PRN ×3 (08:23→21:18)
[2016-07-14] MEDS: PANTOPRAZOLE SODIUM 40 MG VIAL IV SCH (08:24)
[2016-07-14] MEDS: SODIUM CHLORIDE 0.9% FLUSH 10 ML FLUSH IV FLUSH SCH ×2 (08:24→21:16)
[2016-07-14] MEDS: COLLAGENASE OINT 30 GM TUBE TOPICAL SCH (08:25)
[2016-07-14] MEDS: DILTIAZEM INJ 125 MG in SODIUM CHLORIDE 0.9% INJ 100 ML IV SCH (08:35)
[2016-07-14] MEDS: AMIODARONE 200 MG TAB PO SCH ×2 (10:46→21:15)
[2016-07-14] MEDS: ENOXAPARIN SODIUM 100 MG/ML SYRINGE SQ SCH ×2 (11:51→21:15)
[2016-07-14] MEDS ORDERED: REMOVE OLD PATCH T-DERMAL SCH ×2 (12:15→21:00)
[2016-07-14] MEDS: REMOVE OLD NICODERM (NICOTINE) PATCH T-DERMAL SCH (12:15)
[2016-07-14] MEDS: NYSTATIN SUSP 500,000 U/5 ML CUP SWISH-SWAL SCH ×3 (12:41→21:15)
[2016-07-14] MEDS: NICOTINE 14 MG/24 HR PATCH T-DERMAL SCH (12:41)
[2016-07-15] VITALS (16 sets, daily range): BP systolic 95–134; BP diastolic 58–89; PULSE 69–111; RESP 17–26; TEMP 97.4–98.6; O2SAT 94–100
[2016-07-15] MEDS: DILTIAZEM INJ 125 MG in SODIUM CHLORIDE 0.9% INJ 100 ML IV SCH (01:06)
[2016-07-15] MEDS: HALOPERIDOL LACTATE 5 MG/ML AMP IM PRN ×3 (01:06→04:44)
[2016-07-15] MEDS: INSULIN NovoLIN REGULAR SUPPLEMENTAL SCALE SQ SCH ×4 (04:00→20:08)
[2016-07-15] MEDS: CHLORHEXIDINE GLUCONATE 2 % 1 PACK (2 CLOTHS) TOP SCH (04:00)
[2016-07-15] MEDS: NYSTATIN SUSP 500,000 U/5 ML CUP SWISH-SWAL SCH ×4 (08:09→19:54)
[2016-07-15] MEDS: NICOTINE 14 MG/24 HR PATCH T-DERMAL SCH (08:09)
[2016-07-15] MEDS: THIAMINE HCL 100 MG TAB PO SCH (08:09)
[2016-07-15] MEDS: SODIUM CHLORIDE 0.9% FLUSH 10 ML FLUSH IV FLUSH SCH ×2 (08:09→19:54)
[2016-07-15] MEDS: AMIODARONE 200 MG TAB PO SCH ×2 (08:10→19:54)
[2016-07-15] MEDS: methylPREDNISolone SOD SUCC 40 MG/1 ML VIAL IV PUSH SCH (08:10)
[2016-07-15] MEDS: PANTOPRAZOLE SODIUM 40 MG VIAL IV SCH (08:10)
[2016-07-15] MEDS: SENNOSIDES SYRUP 8.8 MG/5 ML CUP PO SCH (08:10)
[2016-07-15] MEDS: LOSARTAN 50 MG TAB PO SCH (08:10)
[2016-07-15] MEDS: ASPIRIN 81 MG CHEW TAB PO SCH (08:10)
[2016-07-15] MEDS: BUMETANIDE INJ 1 MG/4 ML VIAL IV PUSH SCH ×2 (08:10→19:53)
[2016-07-15] MEDS: DILTIAZEM HCL 60 MG TAB PO SCH ×4 (08:10→19:54)
[2016-07-15 09:41] LABS: APTT (PATIENT) 30.7 SEC (24.3-30.1)
[2016-07-15] MEDS: ENOXAPARIN SODIUM 100 MG/ML SYRINGE SQ SCH ×2 (11:00→19:58)
[2016-07-15] MEDS: COLLAGENASE OINT 30 GM TUBE TOPICAL SCH (11:00)
--- NOTE | 2016-07-15 11:31 | HHI.FPPN ---
Subjective Remarks Spoke with bedside nurse. The patient remained rate controlled overnight. Patient is more awake and alert this morning. at the bedside. He currently is answering questions appropriately and that is where he is. However , he also mumbles and is hard to understand. The is concerned he may get out of bed and would like a room close to the nurses station when transferred. Denies fever, chills, chest pain, nausea, vomiting. Objective Vitals Vital Signs Date Time Temp Pulse Resp B/P Pulse Ox O2 Delivery O2 Flow Rate FiO2 07/15/16 08:17 100 Nasal Cannula 4.00 07/15/16 06:00 69 07/15/16 04:00 93 07/15/16 04:00 97.9 93 22 123/77 97 07/15/16 02:00 74 07/15/16 00:00 76 07/15/16 00:00 97.4 76 21 95/58 96 07/14/16 22:00 96 07/14/16 20:00 98.6 87 25 106/63 96 07/14/16 20:00 87 07/14/16 20:00 98.6 87 25 106/63 96 07/14/16 19:55 96 Nasal Cannula 4.00 07/14/16 16:03 89 27 95 07/14/16 16:00 98.3 85 27 104/67 97 07/14/16 15:00 86 07/14/16 12:03 98.2 95 27 100 07/14/16 12:00 98.2 95 31 121/67 99 07/14/16 12:00 95 I/O 07/14/16 07/14/16 07/14/16 07/15/16 07/15/16 07/15/16 07:00 15:00 23:00 07:00 15:00 23:00 Intake Total 750 ml 80 ml 272 ml Output Total 450 ml 600 ml 225 ml 675 ml Balance -450 ml 150 ml -145 ml -403 ml Intake Oral 750 ml 240 ml IV Total 80 ml 32 ml Output Urine Total 450 ml 600 ml 225 ml 675 ml Stool Total 0 ml # Bowel Movements 0 1 Result Diagram: 07/14/16 0350 07/14/16 0350 Objective Remarks CONST: 61y/o CM lying in bed. nasal canula in place. No acute distress HEENT: NCAT. DERM: Warm and dry. Decubitus ulcer with mild necrosis, not weeping, R buttock. NECK: R IJ present. +elevated JVP. CV: Regular rate, irregular rhythm. No audible murmurs. RESP: Anterior breath sounds equal bilaterally, diminished. No wheezing. GI: Abdomen slightly distended. Soft. Non-tender to palpation. +BS x 4. MSK: Extremities without cyanosis. 2+ edema of upper extremities, hands. Lower extremities in SCDs, Unaboots. 1-2+ DP pulses bilaterally. NEURO: Awake and alert Date of Insertion: Jul 05, 2016 Date of Insertion: Jun 22, 2016 Line: Central Venous Catheter Side: Right Location: Internal, Jugular A/P Assessment and Plan 61 y/o CM with a PMHx of HTN and alcohol abuse presenting 06/21/16 with tachycardia to 150s, found to be in atrial flutter. Converted to afib with RVR s/p ablation, with hospital stay complicated by DTs, requiring intubation and sedation. Currently extubated; in and out of A. Fib with RVR, s/p 2 cardioversion. Currently rate controlled. Transferring out of ICU on 07/15 to [facility]. Discharge Planning Unclear given patient's current clinical state. Currently patient require speech therapy at discharge. PT recommends physical therapy at rehabilitation. Problem List: (1) Atrial fibrillation Status: Acute Plan: S/p Cardioversion x 2--> 07/08 & 07/12. Patient now 07/14 back in afib with RVR. Started on Cardizem drip. Cards reconsulted. Dr. Ponce card is following PLAN Cardizem drip- restarted -Cardizem 60 mg 4 times a day by mouth Lopressor 2.5 mg q6h PRN HR >100 - Heparin IV per protocol ; consider restarting Coumadin - Per Dr. Ponce, Amiodarone 400 twice a day for 5 days (started 07/13), then 200 mg daily. History - ECHO: Study limited secondary to tachycardia, EF 35-40%, normal cavity size, wall thickness, wall motion. - Ablated 06/23 (Dr Ponce), subsequently presented with atrial fibrillation with RVR (2) Delirium Status: Acute Plan: Patient seems to be waxing and waning from clarity to confusion. Likely delirious from medical conditions Haldol 2 mg IM when necessary agitation Seroquel 25 mg by mouth twice a day currently on hold Frequently reorient the patient Fall precautions. Room close to the nursing station. (3) Hypertension Status: Chronic Plan: Cardizem 60mg QID, as above Losartan 100 mg PO daily (with precautions to hold for hypotension) Bumex 1 mg daily (4) Restless leg syndrome Status: Chronic Plan: Reported. -Hold Ropinirole (5) Hyperglycemia Status: Acute Plan: -Levemir 10 units HS---HOLD 07/14 -MSSI -Accu-check ACHS (6) Nutrition, metabolism, and development symptoms Status: Acute Plan: Fluids: HLIV Diet: Per speech, pure diet. Tolerating by mouth. DVT prophylaxis: SCDs GI prophylaxis: Protonix 40 mg IV daily while in ICU Constipation: Senna daily, Colace BID Problem Qualifiers (1) Atrial fibrillation: Qualified Code: I48.1 - Persistent atrial fibrillation (2) Hypertension: Qualified Code: I10 - Essential hypertension Ildefonso Tavares MD R2 July 15, 2016 11:30
[2016-07-15] MEDS: REMOVE OLD NICODERM (NICOTINE) PATCH T-DERMAL SCH (19:55)
[2016-07-16] VITALS (16 sets, daily range): BP systolic 101–142; BP diastolic 58–95; PULSE 78–124; RESP 18–20; TEMP 97.6–98.4; O2SAT 93–97
[2016-07-16] MEDS: HALOPERIDOL LACTATE 5 MG/ML AMP IM PRN (01:27)
[2016-07-16] MEDS: INSULIN NovoLIN REGULAR SUPPLEMENTAL SCALE SQ SCH ×4 (03:58→22:00)
[2016-07-16] MEDS: CHLORHEXIDINE GLUCONATE 2 % 1 PACK (2 CLOTHS) TOP SCH (03:59)
[2016-07-16 07:42] LABS: AUTOMATED NEUTROPHIL # 7.6 TH/MM3 (1.8-7.7); BASOPHIL % 0.2 % (0.0-2.0); EOSINOPHIL % 0.4 % (0.0-4.0); HEMATOCRIT 36.4 % (39.0-51.0); HEMO FLAGS DIFF FINAL; LYMPH % 11.9 % (9.0-44.0); LYMPHOCYTE # 1.1 TH/MM3 (1.0-4.8); MEAN CELL VOLUME 86.3 FL (80.0-100.0); MEAN CORPUSCULAR HEMOGLOBIN 29.8 PG (27.0-34.0); MEAN CORPUSCULAR HGB CONC 34.5 % (32.0-36.0); NEUT % 80.5 % (16.0-70.0); PLATELET COUNT 240 TH/MM3 (150-450); RED BLOOD COUNT 4.21 MIL/MM3 (4.50-5.90); RED CELL DISTRIBUTION WIDTH 13.9 % (11.6-17.2); WHITE BLOOD COUNT 9.4 TH/MM3 (4.0-11.0)
[2016-07-16 08:15] LABS: ALKALINE PHOSPHATASE 45 U/L (45-117); ALT (GPT) 35 U/L (12-78); ANION GAP 10 MEQ/L (5-15); AST (GOT) 15 U/L (15-37); BICARBONATE 28.5 MEQ/L (21.0-32.0); BLOOD UREA NITROGEN 28 MG/DL (7-18); CHLORIDE 100 MEQ/L (98-107); GLOMERULAR FILTRATION RATE 71 ML/MIN (>89); POTASSIUM 3.7 MEQ/L (3.5-5.1); SODIUM (NA) 138 MEQ/L (136-145); TOTAL BILIRUBIN ADULT 0.6 MG/DL (0.2-1.0)
[2016-07-16] MEDS: COLLAGENASE OINT 30 GM TUBE TOPICAL SCH (09:00)
[2016-07-16] MEDS: LOSARTAN 50 MG TAB PO SCH (09:13)
[2016-07-16] MEDS: AMIODARONE 200 MG TAB PO SCH ×2 (09:13→20:04)
[2016-07-16] MEDS: DILTIAZEM HCL 60 MG TAB PO SCH ×5 (09:13→20:05)
[2016-07-16] MEDS: ASPIRIN 81 MG CHEW TAB PO SCH (09:13)
[2016-07-16] MEDS: THIAMINE HCL 100 MG TAB PO SCH (09:13)
[2016-07-16] MEDS: methylPREDNISolone SOD SUCC 40 MG/1 ML VIAL IV PUSH SCH (09:14)
[2016-07-16] MEDS: SENNOSIDES SYRUP 8.8 MG/5 ML CUP PO SCH (09:14)
[2016-07-16] MEDS: BUMETANIDE INJ 1 MG/4 ML VIAL IV PUSH SCH ×2 (09:14→20:04)
[2016-07-16] MEDS: PANTOPRAZOLE SODIUM 40 MG VIAL IV SCH (09:14)
[2016-07-16] MEDS: SODIUM CHLORIDE 0.9% FLUSH 10 ML FLUSH IV FLUSH SCH ×2 (09:14→20:05)
[2016-07-16] MEDS: NYSTATIN SUSP 500,000 U/5 ML CUP SWISH-SWAL SCH ×4 (09:15→20:00)
[2016-07-16] MEDS: NICOTINE 14 MG/24 HR PATCH T-DERMAL SCH (09:15)
--- NOTE | 2016-07-16 10:53 | HHI.FPPN ---
Subjective Remarks Patient states he is feeling better. at bedside. He continues to have periods of clarity and confusion. would like to see him getting out of bed to the chair more frequently. No chest pain, shortness of breath. No fever , chills. Objective Vitals Vital Signs Date Time Temp Pulse Resp B/P Pulse Ox O2 Delivery O2 Flow Rate FiO2 07/16/16 07:38 97.6 90 18 139/75 95 07/16/16 07:38 Room Air 07/16/16 05:57 84 07/16/16 05:00 82 07/16/16 04:00 98.0 87 18 134/87 95 07/16/16 04:00 Nasal Cannula 2.00 07/16/16 04:00 87 07/16/16 03:00 85 07/16/16 02:00 100 07/16/16 01:00 99 07/16/16 00:00 98.2 103 20 111/63 95 07/16/16 00:00 Nasal Cannula 2.00 07/16/16 00:00 103 07/15/16 23:00 99 07/15/16 22:00 101 07/15/16 21:00 100 07/15/16 20:00 Nasal Cannula 2.00 07/15/16 20:00 111 07/15/16 20:00 98.6 111 22 119/79 96 07/15/16 17:24 96 Nasal Cannula 2.00 07/15/16 16:00 97.8 81 17 119/72 96 07/15/16 16:00 100 07/15/16 13:30 94 07/15/16 13:00 98.3 88 17 116/69 94 07/15/16 12:00 98.0 100 26 119/76 98 07/15/16 12:00 100 I/O 07/15/16 07/15/16 07/15/16 07/16/16 07/16/16 07/16/16 07:00 15:00 23:00 07:00 15:00 23:00 Intake Total 272 ml 520 ml 530 ml Output Total 675 ml 750 ml 1400 ml Balance -403 ml -230 ml -870 ml Intake Oral 240 ml 480 ml 480 ml IV Total 32 ml 40 ml 50 ml Output Urine Total 675 ml 750 ml 1400 ml # Bowel Movements 1 1 1 Result Diagram: 07/16/16 0654 07/16/16 0654 Objective Remarks CONST: 61y/o CM lying in bed. nasal canula in place. No acute distress HEENT: NCAT. DERM: Warm and dry. Decubitus ulcer with mild necrosis, not weeping, R buttock. CV: Regular rate, irregular rhythm. No audible murmurs. RESP: Anterior breath sounds equal bilaterally, diminished. No wheezing. GI: Abdomen slightly distended. Soft. Non-tender to palpation. +BS x 4. MSK: Extremities without cyanosis. 2+ edema of upper extremities, hands. Lower extremities in SCDs, Unaboots. 1-2+ DP pulses bilaterally. NEURO: Awake and alert Date of Insertion: Jul 05, 2016 Date of Insertion: Jun 22, 2016 Line: Central Venous Catheter Side: Right Location: Internal, Jugular A/P Assessment and Plan 61 y/o CM with a PMHx of HTN and alcohol abuse presenting 06/21/16 with tachycardia to 150s, found to be in atrial flutter. Converted to afib with RVR s/p ablation, with hospital stay complicated by DTs, requiring intubation and sedation. Currently extubated; in and out of A. Fib with RVR, s/p 2 cardioversion. Currently rate controlled. Discharge Planning Unclear given patient's current clinical state. Currently patient require speech therapy at discharge. PT recommends physical therapy at rehabilitation. Problem List: (1) Atrial fibrillation Status: Acute Plan: S/p Cardioversion x 2--> 07/08 & 07/12. Patient now 07/14 back in afib with RVR. Started on Cardizem drip. Cards reconsulted. Dr. Ponce card is following PLAN Cardizem drip when necessary -Cardizem 60 mg 4 times a day by mouth Lopressor 2.5 mg q6h PRN HR >100 - Heparin IV per protocol ; consider restarting Coumadin - Per Dr. Ponce, Amiodarone 400 twice a day for 5 days (started 07/13), then 200 mg daily. History - ECHO: Study limited secondary to tachycardia, EF 35-40%, normal cavity size, wall thickness, wall motion. - Ablated 06/23 (Dr Ponce), subsequently presented with atrial fibrillation with RVR (2) Delirium Status: Acute Plan: Patient seems to be waxing and waning from clarity to confusion. Likely delirious from medical conditions Haldol 2 mg IM when necessary agitation Seroquel 25 mg by mouth twice a day currently on hold Frequently reorient the patient Fall precautions. Room close to the nursing station. (3) Hypertension Status: Chronic Plan: Cardizem 60mg QID, as above Losartan 100 mg PO daily (with precautions to hold for hypotension) Bumex 1 mg daily (4) Restless leg syndrome Status: Chronic Plan: Reported. -Hold Ropinirole (5) Hyperglycemia Status: Acute Plan: -Levemir 10 units HS---HOLD 07/14 -MSSI -Accu-check ACHS (6) Nutrition, metabolism, and development symptoms Status: Acute Plan: Fluids: HLIV Diet: Per speech, pure diet. Tolerating by mouth. DVT prophylaxis: SCDs GI prophylaxis: Protonix 40 mg IV daily while in ICU Constipation: Senna daily, Colace BID Problem Qualifiers (1) Atrial fibrillation: Qualified Code: I48.1 - Persistent atrial fibrillation (2) Hypertension: Qualified Code: I10 - Essential hypertension Ildefonso Tavares MD R2 July 16, 2016 10:53
[2016-07-16] MEDS: ENOXAPARIN SODIUM 100 MG/ML SYRINGE SQ SCH ×2 (11:57→23:06)
[2016-07-16] MEDS ORDERED: DILTIAZEM HCL 25 MG/5 ML VIAL IV PUSH ONE (13:00)
[2016-07-16 13:30] LABS: INTERNATIONAL NORMALIZED RATIO 1.2 RATIO; PROTHROMBIN TIME - PATIENT 13.4 SEC (9.8-11.6)
--- NOTE | 2016-07-16 14:13 | MB ---
cc: MORENO STONE M.D. DATE OF CONSULTATION: 07/16/2016 REASON FOR CONSULTATION: Atrial fibrillation with biventricular response. HISTORY OF PRESENT ILLNESS: Mr. Guevara is a 61-year-old gentleman history of atrial flutter, admitted on July 02, 2016 due to atrial flutter for ventricular response. During hospitalization developed alcohol withdrawal syndrome. He was in delirium tremens. He had to be intubated and put on mechanical ventilation. At that time heart rate was a difficult to control atrial flutter ablation was performed. Subsequently the patient spend at least three weeks and intensive care unit. He developed atrial fibrillation at that time with biventricular response. He was cardioverted on two occasion by treating engineer helper. Currently is on amiodarone, Cardizem IV and p.o. heart rate seen in the 120 to 130's. Sometimes reached 140 beats per minute. I was called for evaluation and management. The chart was reviewed. The patient was evaluated. ALLERGIES None. SOCIAL HISTORY The patient use to be a drinker, but not drinking since in the hospital. FAMILY HISTORY Noncontributory to his current medical condition. MEDICATIONS 1. He is on amiodarone 400 mg twice a day. 2. He is on Coumadin. 3. Cardizem on IV. 4. Cardizem 60 mg twice a day. 5. He is on allopurinol. 6. He is on Coumadin. REVIEW OF SYSTEMS The patient refers feeling better at this point, no vomiting. No fever. PHYSICAL EXAMINATION IN GENERAL: Alert fully oriented. The patient eating by myself. VITAL SIGNS: Blood pressure at bedside it was 122/62, pulse was around 130, respiratory rate 18. LUNGS: Ventilated. CARDIOVASCULAR SYSTEM: S1-S2 irregular tachycardia. ABDOMEN: Soft. No mass. EXTREMITIES: No edema. RADIOLOGIC: There is no recent electrocardiogram. Telemetry showed atrial fibrillation with biventricular response. LABORATORY DATA Hemoglobin this morning was 16.6, white blood cell 9.4, potassium 3.7, creatinine 1.06, sodium 138 of INR. Last INR was on 10/15/2079 was 1.1. ASSESSMENT AND RECOMMENDATIONS Mr. Guevara had atrial fibrillation with biventricular response. His heart rate needs to be controlled. He is on Cardizem, he is on amiodarone p.o. and he is also on Cardizem IV n.p.o.. I am going to give her IV bolus of Cardizem and increase the drip. I had a long conversation with the . This gentleman will need atrial fibrillation ablation. The risks, the nature and the benefit of the procedure are clearly stated to him and his which include pneumothorax, cardiac perforation, stroke and even . He understood and agreed to proceed. If heart rate is not controlled by Monday and patient is stable then I will proceed with ablation. Anticoagulation will be evaluated. MD MELA Mustafa/casie /12:07 PM /1:59 PM
[2016-07-16] MEDS: WARFARIN SOD 5 MG TAB PO SCH (17:42)
[2016-07-16] MEDS: oxyCODONE/ACETAMINOPHEN 5 MG/325 MG TAB PO PRN (20:04)
[2016-07-16] MEDS: REMOVE OLD NICODERM (NICOTINE) PATCH T-DERMAL SCH (20:05)
[2016-07-17] VITALS (17 sets, daily range): BP systolic 109–146; BP diastolic 65–88; PULSE 77–126; RESP 18–20; TEMP 97.8–98.4; O2SAT 93–99
[2016-07-17] MEDS: CHLORHEXIDINE GLUCONATE 2 % 1 PACK (2 CLOTHS) TOP SCH (03:54)
[2016-07-17] MEDS: INSULIN NovoLIN REGULAR SUPPLEMENTAL SCALE SQ SCH ×4 (03:54→20:44)
[2016-07-17 05:46] LABS: AUTOMATED NEUTROPHIL # 8.6 TH/MM3 (1.8-7.7); EOSINOPHIL % 0.2 % (0.0-4.0); HEMO FLAGS DIFF FINAL; LYMPH % 7.9 % (9.0-44.0); LYMPHOCYTE # 0.8 TH/MM3 (1.0-4.8); MEAN CELL VOLUME 86.1 FL (80.0-100.0); MEAN CORPUSCULAR HEMOGLOBIN 29.5 PG (27.0-34.0); MEAN CORPUSCULAR HGB CONC 34.3 % (32.0-36.0); NEUT % 83.9 % (16.0-70.0); PLATELET COUNT 269 TH/MM3 (150-450); RED CELL DISTRIBUTION WIDTH 14.2 % (11.6-17.2); WHITE BLOOD COUNT 10.2 TH/MM3 (4.0-11.0)
[2016-07-17 05:54] LABS: APTT (PATIENT) 27.1 SEC (24.3-30.1); INTERNATIONAL NORMALIZED RATIO 1.1 RATIO; PROTHROMBIN TIME - PATIENT 12.3 SEC (9.8-11.6)
[2016-07-17 06:04] LABS: ALKALINE PHOSPHATASE 45 U/L (45-117); ALT (GPT) 40 U/L (12-78); ANION GAP 8 MEQ/L (5-15); AST (GOT) 12 U/L (15-37); BICARBONATE 30.6 MEQ/L (21.0-32.0); BLOOD UREA NITROGEN 28 MG/DL (7-18); CHLORIDE 98 MEQ/L (98-107); GLOMERULAR FILTRATION RATE 67 ML/MIN (>89); MAGNESIUM 2.1 MG/DL (1.5-2.5); POTASSIUM 3.8 MEQ/L (3.5-5.1); SODIUM (NA) 137 MEQ/L (136-145); TOTAL BILIRUBIN ADULT 0.5 MG/DL (0.2-1.0)
[2016-07-17] MEDS: COLLAGENASE OINT 30 GM TUBE TOPICAL SCH (09:00)
[2016-07-17] MEDS: NICOTINE 14 MG/24 HR PATCH T-DERMAL SCH ×2 (09:00→09:23)
[2016-07-17] MEDS: DILTIAZEM HCL 60 MG TAB PO SCH ×2 (09:24→12:08)
[2016-07-17] MEDS: AMIODARONE 200 MG TAB PO SCH ×2 (09:24→20:39)
[2016-07-17] MEDS: NYSTATIN SUSP 500,000 U/5 ML CUP SWISH-SWAL SCH ×4 (09:25→20:40)
[2016-07-17] MEDS: THIAMINE HCL 100 MG TAB PO SCH (09:25)
[2016-07-17] MEDS: SENNOSIDES SYRUP 8.8 MG/5 ML CUP PO SCH (09:26)
[2016-07-17] MEDS: BUMETANIDE INJ 1 MG/4 ML VIAL IV PUSH SCH (09:26)
[2016-07-17] MEDS: LOSARTAN 50 MG TAB PO SCH (09:26)
[2016-07-17] MEDS: methylPREDNISolone SOD SUCC 40 MG/1 ML VIAL IV PUSH SCH (09:26)
[2016-07-17] MEDS: ASPIRIN 81 MG CHEW TAB PO SCH (09:26)
[2016-07-17] MEDS: PANTOPRAZOLE SODIUM 40 MG VIAL IV SCH (09:27)
[2016-07-17] MEDS: SODIUM CHLORIDE 0.9% FLUSH 10 ML FLUSH IV FLUSH SCH ×2 (09:27→20:39)
--- NOTE | 2016-07-17 10:10 | HHI.FPPN ---
Subjective Remarks Pt seen and examined this morning. AFVSS. Sitter and present in the room. Patient does well during the day when is present but at night trying to get out of bed, pull out Lujan, etc. Patient with chronic rash on back that PCP prescribed ketoconazole; has medication present and requests to give it to him. He has no chest pain, shortness of breath, palpitations, abdominal pain, nausea, or vomiting. He is tolerating a diet and working with PT. Objective Vitals Vital Signs Date Time Temp Pulse Resp B/P Pulse Ox O2 Delivery O2 Flow Rate FiO2 07/17/16 08:27 93 07/17/16 07:48 Room Air 07/17/16 07:48 97.8 84 18 127/80 94 07/17/16 06:00 94 07/17/16 05:00 89 07/17/16 04:00 82 07/17/16 03:59 98.4 82 18 122/80 99 07/17/16 03:59 Room Air 07/17/16 03:00 77 07/17/16 02:00 81 07/17/16 01:00 79 07/17/16 00:00 78 07/16/16 23:48 98.2 78 18 101/58 97 07/16/16 23:48 Room Air 07/16/16 23:00 100 07/16/16 22:00 99 07/16/16 21:46 21 07/16/16 21:00 111 07/16/16 20:00 Room Air 07/16/16 20:00 80 07/16/16 20:00 98.4 80 20 142/95 97 07/16/16 16:43 98.1 97 18 116/72 97 07/16/16 11:42 98.0 124 18 122/70 96 I/O 07/16/16 07/16/16 07/16/16 07/17/16 07/17/16 07/17/16 07:00 15:00 23:00 07:00 15:00 23:00 Intake Total 530 ml 1091 ml 580 ml Output Total 1400 ml 1800 ml 1400 ml Balance -870 ml -709 ml -820 ml Intake Oral 480 ml 960 ml 480 ml IV Total 50 ml 131 ml 100 ml Output Urine Total 1400 ml 1800 ml 1400 ml # Bowel Movements 1 3 1 Result Diagram: 07/17/1640707/17/16407 Objective Remarks GENERAL: WN, WD male sitting up in chair conversant and in NAD. SKIN: Warm and dry. Few raised, annular lesions on back with erythematous border and central clearing. HEENT: AT/NC. Pupils equal and round. MMM. HEART: Irregularly irregular rhythm, slightly tachycardic. No appreciable murmurs. LUNGS: CTAB without wheezes or crackles. ABDOMEN: Soft, NT, ND. EXTREMITIES: No LE edema. No calf tenderness. BACK/SACRUM: Sacral ulcer not visualized today; dressing place. : Lujan in place with gross hematuria. NEURO: Awake and alert. PSYCH: Appropriate mood and affect. Not responding to internal stimuli. Date of Insertion: Jul 05, 2016 Date of Insertion: Jun 22, 2016 Line: Central Venous Catheter Side: Right Location: Internal, Jugular A/P Assessment and Plan 61 y/o CM with a PMHx of HTN and alcohol abuse presenting 06/21/16 with tachycardia to 150s, found to be in atrial flutter. Converted to afib with RVR s/p ablation, with hospital stay complicated by DTs, requiring intubation and sedation. Currently extubated; in and out of A. Fib with RVR, s/p 2 cardioversion. Currently rate controlled; cardiology assisting with case. Discharge Planning Patient slowly improving but discharge unclear at this point as there are still acute issues present (atrial fibrillation with RVR despite maximum medical management). Patient will need rehab placement on discharge; case management assisting. Problem List: (1) Atrial fibrillation Status: Acute Plan: Patient continues to be in atrial fibrillation with RVR though rate improving today with HR 70-90s. He is s/p cardioversion x 2 (07/08 and 07/12). He went back into RVR on 07/14 and was started on Cardizem drip and cardiology was reconsulted. Continue Cardizem 60 mg QID; if continues to be in RVR Dr. Ponce will consider ablation. Continue amiodarone (400 mg PO BID x 5 days from 07/13-07/18 then 200 mg daily) - Lopressor 2.5 mg IV Q6H PRN HR>100 - CHADSVASc score of 1. Currently on therapeutic Lovenox bridging to Coumadin. INR 1.0 today - Echo with EF 35-40%, normal cavity size, wall thickness, wall motion (2) Delirium Status: Acute Plan: Resume Seroquel 25 mg PO BID. - Haldol 2 mg IM PRN - Sitter overnight (or when not present) - Frequent reorientation - Fall precautions (3) Respiratory failure Status: Resolved Plan: Patient intubated 06/23-07/10. - Change Bumex 1 mg IV BID to Lasix 40 mg PO daily since lungs are clear and patient fluid-overloaded - DuoNeb Q2H PRN - Patient had been on Solumedrol 40 mg IV from 07/06 until today. Will start PO prednisone taper * 40 mg PO daily x 3 days * 20 mg PO daily x 3 days * 10 mg PO daily x 3 days * 5 mg PO daily x 3 days - Incentive spirometer - Encouraged getting up to chair (4) Hypertension Status: Chronic Plan: BP stable. - Continue Cardizem (as above) and Losartan 100 mg PO daily (5) Hyperglycemia Status: Acute Plan: Likely from steroids which are being tapered. SSI per protocol. (6) Tinea corporis Status: Acute Plan: Ketoconazole 5% cream BID. (7) Restless leg syndrome Status: Chronic Plan: Reported. - Hold Ropinirole (8) Nutrition, metabolism, and development symptoms Status: Acute Plan: Fluids: Tolerating PO Electrolytes: WNL Nutrition: Heart healthy diet. Pure per ST rec DVT prophylaxis: SCDs dw Dr. Torres Problem Qualifiers (1) Atrial fibrillation: Qualified Code: I48.1 - Persistent atrial fibrillation (2) Hypertension: Qualified Code: I10 - Essential hypertension Sammi Altman MD July 17, 2016 10:10
[2016-07-17] MEDS ORDERED: ONDANSETRON HCL 4 MG/2 ML VIAL IV PUSH PRN (11:00)
[2016-07-17] MEDS ORDERED: PATIENT OWN MEDICATION TOPICAL SCH (12:00)
[2016-07-17] MEDS: ENOXAPARIN SODIUM 100 MG/ML SYRINGE SQ SCH ×2 (12:09→21:19)
--- NOTE | 2016-07-17 16:13 | HHI.PR ---
Subjective Remarks Feeling better Objective Vital Signs Date Time Temp Pulse Resp B/P Pulse Ox O2 Delivery O2 Flow Rate FiO2 07/17/16 15:27 97.8 79 18 109/65 95 07/17/16 12:41 97.9 92 18 146/88 96 07/17/16 08:27 93 07/17/16 07:48 Room Air 07/17/16 07:48 97.8 84 18 127/80 94 07/17/16 06:00 94 07/17/16 05:00 89 07/17/16 04:00 82 07/17/16 03:59 98.4 82 18 122/80 99 07/17/16 03:59 Room Air 07/17/16 03:00 77 07/17/16 02:00 81 07/17/16 01:00 79 07/17/16 00:00 78 07/16/16 23:48 98.2 78 18 101/58 97 07/16/16 23:48 Room Air 07/16/16 23:00 100 07/16/16 22:00 99 07/16/16 21:46 21 07/16/16 21:00 111 07/16/16 20:00 Room Air 07/16/16 20:00 80 07/16/16 20:00 98.4 80 20 142/95 97 07/16/16 16:43 98.1 97 18 116/72 97 I/O 07/16/16 07/16/16 07/16/16 07/17/16 07/17/16 07/17/16 07:00 15:00 23:00 07:00 15:00 23:00 Intake Total 530 ml 1091 ml 580 ml Output Total 1400 ml 1800 ml 1400 ml Balance -870 ml -709 ml -820 ml Intake Oral 480 ml 960 ml 480 ml IV Total 50 ml 131 ml 100 ml Output Urine Total 1400 ml 1800 ml 1400 ml # Bowel Movements 1 3 1 Result Diagram: 07/17/1640707/17/16407 Imaging Alert, fully oriented lungs: ventilated Heart: S1, S2 regular Abdomen: soft, no mass Ext: no edema Last Impressions Chest X-Ray 07/11/16 0600 Signed Impressions: Service Date/Time: Monday, July 11, 2016 04:41 - CONCLUSION: Cardiomegaly. No acute cardiopulmonary disease. Lul Glass MD Chest CT 07/07/16 1610 Signed Impressions: Service Date/Time: June 16:20 - CONCLUSION: 1. The patient was initially scheduled for right therapeutic thoracentesis. However, most of the abnormality visualized on chest x-ray is secondary to lower lobe atelectasis. There is only a very small pleural effusion present bilaterally. 2. Mild splenomegaly. Edy Emerson MD Brain MRI 07/03/16 0000 Signed Impressions: Service Date/Time: Sunday, July 03, 2016 10:12 - CONCLUSION: 1. No intracranial abnormality is seen. 2. Sinus disease. Edy Johnson MD Head CT 07/01/16 0000 Signed Impressions: Service Date/Time: Friday, July 01, 2016 20:54 - CONCLUSION: No acute intracranial abnormality. Bilateral paranasal sinusitis. Mason Noe MD Current Medications Medications (Trade) Dose Ordered Sig/Krishan Route Start Time Stop Time Status Last Admin (Aspirin Chew) 81 mg DAILY PO 06/22/16 09:00 07/17/16 09:26 (Catapres) 0.1 mg Q6H PRN PO 06/21/16 14:45 07/09/16 12:39 (Cozaar) 100 mg DAILY PO 06/22/16 09:00 07/17/16 09:26 (NS Flush) 2 ml UNSCH PRN IV FLUSH 06/22/16 10:15 07/12/16 01:09 (NS Flush) 2 ml BID IV FLUSH 06/22/16 21:00 07/17/16 09:27 Miscellaneous Information 1 Q361D XX 06/22/16 10:15 (Chlorhexidine 2% Cloth) Taper DAILY@04 TOP 06/23/16 04:00 06/19/17 03:59 07/15/16 04:00 (Chlorhexidine 2% Cloth) 3 pack UNSCH PRN TOP 06/22/16 10:15 (Brethine Inj) 1 mg UNSCH PRN SQ 06/23/16 02:45 (Percocet 5-325 Mg) 1 tab Q4H PRN PO 06/23/16 18:00 07/14/16 11:52 (Percocet 5-325 Mg) 2 tab Q4H PRN PO 06/23/16 18:00 07/16/16 20:04 (Atropine Inj) 0.5 mg UNSCH PRN IV 06/23/16 18:00 Ondansetron HCl 4 mg 4 mg Q4H PRN IV 06/23/16 18:00 07/14/16 11:51 (Coumadin Consult Pharmacy) 0 ml @ 0 mls/hr UNSCH OTHER 06/24/16 11:45 (Romazicon Inj) 0.2 mg Q1M PRN IV PUSH 06/24/16 11:45 (Haldol Inj) 2 mg Q15M PRN IM 06/24/16 11:45 07/16/16 01:27 (Lopressor Inj) 2.5 mg Q6H PRN IV PUSH 06/24/16 12:00 07/14/16 05:19 (Vitamin B1) 100 mg DAILY PO 06/28/16 09:00 07/17/16 09:25 (Cardizem) 60 mg QID PO 06/27/16 09:00 07/17/16 12:08 (D50w (Vial) Inj) 25 ml UNSCH PRN IV PUSH 07/01/16 09:15 07/09/16 09:24 (Glucagon Inj) 1 mg UNSCH PRN OTHER 07/01/16 09:15 (NovoLIN R SUPPLEMENTAL SCALE) 1 Q6H SQ 07/01/16 10:00 07/17/16 12:09 (SEROquel) 25 mg BID PO 07/01/16 21:00 Hold 07/12/16 20:45 Alteplase, Recombinant 2 mg 2 mg Q2H PRN INTRACATH 07/06/16 16:30 07/06/16 17:08 (Cordarone Inj/ D5W ([place]) Inj) 250 ml @ 0 mls/hr CONTINUOUS IV 07/08/16 16:30 Hold 07/12/16 20:45 (Lovenox Inj) 90 mg Q12H SQ 07/11/16 11:00 07/17/16 12:09 (Santyl Oint) 1 applic DAILY TOPICAL 07/13/16 09:00 07/17/16 09:00 Amiodarone HCl 400 mg 400 mg Q12HR PO 07/13/16 11:00 07/17/16 09:24 (Cardizem Inj/NS Inj) 125 ml @ 0 mls/hr TITRATE IV 07/14/16 08:00 07/15/16 01:06 (Mycostatin Liq) 5 ml QID SWISH-SWAL 07/14/16 13:00 07/17/16 12:09 (Habitrol 14 Mg Patch.24 Hr) 1 patch DAILY T-DERMAL 07/14/16 12:15 07/16/16 09:15 Miscellaneous Information 1 HS T-DERMAL 07/14/16 21:00 07/16/16 20:05 (Coumadin) 5 mg DAILY@16 PO 07/16/16 16:00 07/16/16 17:42 (Deltasone) 40 mg Taper DAILY PO 07/18/16 09:00 07/30/16 08:59 Patient Own Medication Ketoconazole 5% cream 60 gm t... BID TOPICAL 07/17/16 12:00 Hold (Lasix) 40 mg DAILY PO 07/18/16 09:00 (Zofran Inj) 4 mg Q6HR PRN IV PUSH 07/17/16 11:00 (Protonix) 40 mg DAILY PO 07/18/16 09:00 Assessment and Plan Problem List: (1) Atrial flutter with rapid ventricular response Status: Acute Plan: Patient in sinus rhythm. cardizem increased case discussed extensively with patient and . They want to wait before proceed with ablation. I agree (2) Alcohol withdrawal Status: Acute Plan: Resolved (3) Respiratory failure Status: Acute Plan: Doing better . ambulating (4) Hypertension Status: Chronic Plan: SBP 109 Problem Qualifiers (1) Alcohol withdrawal: Qualified Code: F10.231 - Alcohol withdrawal, with delirium (2) Hypertension: Qualified Code: I10 - Essential hypertension Louis Ponce MD July 17, 2016 16:13
[2016-07-17] MEDS: WARFARIN SOD 5 MG TAB PO SCH (16:59)
[2016-07-17] MEDS: DILTIAZEM-CD 300 MG CAP ER PO SCH (18:00)
[2016-07-17] MEDS: REMOVE OLD NICODERM (NICOTINE) PATCH T-DERMAL SCH (20:40)
[2016-07-17] MEDS: oxyCODONE/ACETAMINOPHEN 5 MG/325 MG TAB PO PRN (21:21)
[2016-07-17] MEDS: QUEtiapine FUMARATE 25 MG TAB PO SCH (21:24)
[2016-07-18] VITALS (17 sets, daily range): BP systolic 124–147; BP diastolic 74–89; PULSE 74–158; RESP 16–20; TEMP 97–98.5; O2SAT 95–98
[2016-07-18] MEDS: CHLORHEXIDINE GLUCONATE 2 % 1 PACK (2 CLOTHS) TOP SCH (04:00)
[2016-07-18] MEDS: INSULIN NovoLIN REGULAR SUPPLEMENTAL SCALE SQ SCH ×4 (04:00→22:00)
[2016-07-18 06:11] LABS: AUTOMATED NEUTROPHIL # 8.1 TH/MM3 (1.8-7.7); BASOPHIL % 0.2 % (0.0-2.0); EOSINOPHIL % 0.2 % (0.0-4.0); HEMATOCRIT 36.7 % (39.0-51.0); HEMO FLAGS DIFF FINAL; LYMPH % 9.4 % (9.0-44.0); LYMPHOCYTE # 0.9 TH/MM3 (1.0-4.8); MEAN CELL VOLUME 86.3 FL (80.0-100.0); MEAN CORPUSCULAR HEMOGLOBIN 29.8 PG (27.0-34.0); MEAN CORPUSCULAR HGB CONC 34.5 % (32.0-36.0); MONO % 6.7 % (0.0-8.0); NEUT % 83.5 % (16.0-70.0); PLATELET COUNT 262 TH/MM3 (150-450); RED BLOOD COUNT 4.25 MIL/MM3 (4.50-5.90); RED CELL DISTRIBUTION WIDTH 13.7 % (11.6-17.2); WHITE BLOOD COUNT 9.7 TH/MM3 (4.0-11.0)
[2016-07-18 06:28] LABS: APTT (PATIENT) 32.1 SEC (24.3-30.1); INTERNATIONAL NORMALIZED RATIO 1.3 RATIO
[2016-07-18 06:37] LABS: BICARBONATE 29.3 MEQ/L (21.0-32.0); POTASSIUM 3.9 MEQ/L (3.5-5.1)
[2016-07-18] MEDS: NICOTINE 14 MG/24 HR PATCH T-DERMAL SCH (09:00)
[2016-07-18] MEDS: COLLAGENASE OINT 30 GM TUBE TOPICAL SCH (09:00)
--- NOTE | 2016-07-18 09:35 | HHI.FPPN ---
Subjective Remarks Patient seen and examined this am. Tachycardic this am. Wants to go home. Walked around the halls with PT yesterday. States he does not want to go to rehab, wants to go home. Denies CP or SOB. Arguing with at bedside. Objective Vitals Vital Signs Date Time Temp Pulse Resp B/P Pulse Ox O2 Delivery O2 Flow Rate FiO2 07/18/16 07:36 Nasal Cannula 2.00 21 07/18/16 06:00 87 07/18/16 05:00 158 07/18/16 04:00 74 07/18/16 04:00 98.4 74 18 130/74 95 07/18/16 04:00 Room Air 07/18/16 03:00 77 07/18/16 02:00 93 07/18/16 01:00 91 07/18/16 00:00 97 07/18/16 00:00 Room Air 07/18/16 00:00 98.2 97 20 133/78 95 07/17/16 23:00 91 07/17/16 22:00 100 07/17/16 21:00 126 07/17/16 20:00 98.0 92 20 126/84 96 07/17/16 20:00 Room Air 07/17/16 20:00 92 07/17/16 19:30 96 21 07/17/16 15:27 97.8 79 18 109/65 95 07/17/16 12:41 97.9 92 18 146/88 96 I/O 07/17/16 07/17/16 07/17/16 07/18/16 07/18/16 07/18/16 07:00 15:00 23:00 07:00 15:00 23:00 Intake Total 580 ml 960 ml 490 ml 0 ml Output Total 1400 ml 1850 ml 1450 ml Balance -820 ml -890 ml -960 ml 0 ml Intake Oral 480 ml 960 ml 480 ml IV Total 100 ml 10 ml 0 ml Output Urine Total 1400 ml 1850 ml 1450 ml # Bowel Movements 1 1 1 Result Diagram: 07/18/1651607/18/16516 Imaging Last Impressions Chest X-Ray 07/11/16 0600 Signed Impressions: Service Date/Time: Monday, July 11, 2016 04:41 - CONCLUSION: Cardiomegaly. No acute cardiopulmonary disease. Lul Glass MD Chest CT 07/07/16 1610 Signed Impressions: Service Date/Time: June 16:20 - CONCLUSION: 1. The patient was initially scheduled for right therapeutic thoracentesis. However, most of the abnormality visualized on chest x-ray is secondary to lower lobe atelectasis. There is only a very small pleural effusion present bilaterally. 2. Mild splenomegaly. Edy Emerson MD Brain MRI 07/03/16 0000 Signed Impressions: Service Date/Time: Sunday, July 03, 2016 10:12 - CONCLUSION: 1. No intracranial abnormality is seen. 2. Sinus disease. Edy Johnson MD Head CT 07/01/16 0000 Signed Impressions: Service Date/Time: Friday, July 01, 2016 20:54 - CONCLUSION: No acute intracranial abnormality. Bilateral paranasal sinusitis. Mason Noe MD Objective Remarks GENERAL: WN, WD male sitting up in bed, conversant and in NAD. SKIN: Warm and dry. Few raised, annular lesions on back with erythematous border and central clearing. HEENT: AT/NC. Pupils equal and round. MMM. HEART: Irregularly irregular rhythm, tachycardic. No appreciable murmurs. LUNGS: CTAB without wheezes or crackles. ABDOMEN: Soft, NT, ND. EXTREMITIES: No LE edema. No calf tenderness. BACK/SACRUM: Sacral ulcer not visualized today; dressing place. : Lujan in place urine clear NEURO: Awake and alert. PSYCH: Appropriate mood and affect. Not responding to internal stimuli. Date of Insertion: Jul 05, 2016 Date of Insertion: Jun 22, 2016 Line: Central Venous Catheter Side: Right Location: Internal, Jugular A/P Assessment and Plan 61 y/o CM with a PMHx of HTN and alcohol abuse presenting 06/21/16 with tachycardia to 150s, found to be in atrial flutter. Converted to afib with RVR s/p ablation, with hospital stay complicated by DTs, requiring intubation and sedation. Currently extubated; in and out of A. Fib with RVR, s/p 2 cardioversion. Currently rate controlled; cardiology assisting with case. Discharge Planning Patient slowly improving but discharge unclear at this point as there are still acute issues present (atrial fibrillation with RVR despite maximum medical management). Patient will need rehab placement on discharge; case management assisting. Anticipate this week if HR better controlled. Problem List: (1) Atrial fibrillation Status: Acute Plan: Patient continues to be in atrial fibrillation with RVR though rate improving today with HR 70-90s. He is s/p cardioversion x 2 (07/08 and 07/12). He went back into RVR on 07/14 and was started on Cardizem drip and cardiology was reconsulted. Cardizem increased to 300 mg daily; Dr. Ponce will hold ablation at this point. Continue amiodarone (400 mg PO BID x 5 days from 07/13-07/18 then 200 mg daily) - Lopressor 2.5 mg IV Q6H PRN HR>100 - CHADSVASc score of 1. Currently on therapeutic Lovenox bridging to Coumadin. INR 1.0 today - Echo with EF 35-40%, normal cavity size, wall thickness, wall motion (2) Delirium Status: Acute Plan: Resume Seroquel 25 mg PO BID. - Haldol 2 mg IM PRN - Sitter overnight (or when not present) - Frequent reorientation - Fall precautions (3) Respiratory failure Status: Resolved Plan: Patient intubated 06/23-07/10. - Change Bumex 1 mg IV BID to Lasix 40 mg PO daily since lungs are clear and patient fluid-overloaded - DuoNeb Q2H PRN - Patient had been on Solumedrol 40 mg IV from 07/06 until today. Will start PO prednisone taper * 40 mg PO daily x 3 days * 20 mg PO daily x 3 days * 10 mg PO daily x 3 days * 5 mg PO daily x 3 days - Incentive spirometer - Encouraged getting up to chair (4) Hypertension Status: Chronic Plan: BP stable. - Continue Cardizem (as above) and Losartan 100 mg PO daily (5) Hyperglycemia Status: Acute Plan: Likely from steroids which are being tapered. SSI per protocol. (6) Tinea corporis Status: Acute Plan: Ketoconazole 5% cream BID. (7) Restless leg syndrome Status: Chronic Plan: Reported. - Hold Ropinirole (8) Nutrition, metabolism, and development symptoms Status: Acute Plan: Fluids: Tolerating PO Electrolytes: WNL Nutrition: Heart healthy diet. Pure per ST rec DVT prophylaxis: SCDs dw Dr. Torres Problem Qualifiers (1) Atrial fibrillation: Qualified Code: I48.1 - Persistent atrial fibrillation (2) Hypertension: Qualified Code: I10 - Essential hypertension Bibi Alejandre MD R3 July 18, 2016 09:35
[2016-07-18] MEDS: DILTIAZEM-CD 300 MG CAP ER PO SCH ×2 (09:49→09:53)
[2016-07-18] MEDS: LOSARTAN 50 MG TAB PO SCH ×2 (09:49→09:53)
[2016-07-18] MEDS: PANTOPRAZOLE SOD 40 MG DELAYED RELEASE TAB PO SCH ×2 (09:49→09:53)
[2016-07-18] MEDS: FUROSEMIDE 40 MG TAB PO SCH ×2 (09:50→09:53)
[2016-07-18] MEDS: SODIUM CHLORIDE 0.9% FLUSH 10 ML FLUSH IV FLUSH SCH ×2 (09:50→22:32)
[2016-07-18] MEDS: AMIODARONE 200 MG TAB PO SCH ×2 (09:50→09:54)
[2016-07-18] MEDS: QUEtiapine FUMARATE 25 MG TAB PO SCH ×3 (09:50→22:14)
[2016-07-18] MEDS: ASPIRIN 81 MG CHEW TAB PO SCH (09:50)
[2016-07-18] MEDS: NYSTATIN SUSP 500,000 U/5 ML CUP SWISH-SWAL SCH ×4 (09:50→22:14)
[2016-07-18] MEDS: predniSONE 20 MG TAB PO SCH ×2 (09:50→09:53)
[2016-07-18] MEDS: THIAMINE HCL 100 MG TAB PO SCH ×2 (09:50→09:53)
[2016-07-18] MEDS: ENOXAPARIN SODIUM 100 MG/ML SYRINGE SQ SCH ×2 (11:00→22:32)
--- NOTE | 2016-07-18 16:35 | HHI.PR ---
Subjective Remarks When am I going home Objective Vital Signs Date Time Temp Pulse Resp B/P Pulse Ox O2 Delivery O2 Flow Rate FiO2 07/18/16 15:32 98.0 118 18 136/78 96 07/18/16 11:30 98.0 82 18 140/80 96 07/18/16 10:03 97.0 81 20 143/82 98 07/18/16 07:36 Nasal Cannula 2.00 21 07/18/16 06:00 87 07/18/16 05:00 158 07/18/16 04:00 74 07/18/16 04:00 98.4 74 18 130/74 95 07/18/16 04:00 Room Air 07/18/16 03:00 77 07/18/16 02:00 93 07/18/16 01:00 91 07/18/16 00:00 97 07/18/16 00:00 Room Air 07/18/16 00:00 98.2 97 20 133/78 95 07/17/16 23:00 91 07/17/16 22:00 100 07/17/16 21:00 126 07/17/16 20:00 98.0 92 20 126/84 96 07/17/16 20:00 Room Air 07/17/16 20:00 92 07/17/16 19:30 96 21 I/O 07/17/16 07/17/16 07/17/16 07/18/16 07/18/16 07/18/16 07:00 15:00 23:00 07:00 15:00 23:00 Intake Total 580 ml 960 ml 490 ml 0 ml Output Total 1400 ml 1850 ml 1450 ml Balance -820 ml -890 ml -960 ml 0 ml Intake Oral 480 ml 960 ml 480 ml IV Total 100 ml 10 ml 0 ml Output Urine Total 1400 ml 1850 ml 1450 ml # Bowel Movements 1 1 1 Result Diagram: 07/18/1651607/18/16516 Imaging Alert, fully oriented Lungs: ventilated Heart: S1, S2 irregular, tachycardia Abdomen: soft, no mass Ext: no edema Last Impressions Chest X-Ray 07/11/16 0600 Signed Impressions: Service Date/Time: Monday, July 11, 2016 04:41 - CONCLUSION: Cardiomegaly. No acute cardiopulmonary disease. Lul Glass MD Chest CT 07/07/16 1610 Signed Impressions: Service Date/Time: June 16:20 - CONCLUSION: 1. The patient was initially scheduled for right therapeutic thoracentesis. However, most of the abnormality visualized on chest x-ray is secondary to lower lobe atelectasis. There is only a very small pleural effusion present bilaterally. 2. Mild splenomegaly. Edy Emerson MD Brain MRI 07/03/16 0000 Signed Impressions: Service Date/Time: Sunday, July 03, 2016 10:12 - CONCLUSION: 1. No intracranial abnormality is seen. 2. Sinus disease. Edy Johnson MD Head CT 07/01/16 0000 Signed Impressions: Service Date/Time: Friday, July 01, 2016 20:54 - CONCLUSION: No acute intracranial abnormality. Bilateral paranasal sinusitis. Mason Noe MD Current Medications Medications (Trade) Dose Ordered Sig/Krishan Route Start Time Stop Time Status Last Admin (Aspirin Chew) 81 mg DAILY PO 06/22/16 09:00 07/18/16 09:50 (Catapres) 0.1 mg Q6H PRN PO 06/21/16 14:45 07/09/16 12:39 (Cozaar) 100 mg DAILY PO 06/22/16 09:00 07/18/16 09:53 (NS Flush) 2 ml UNSCH PRN IV FLUSH 06/22/16 10:15 07/12/16 01:09 (NS Flush) 2 ml BID IV FLUSH 06/22/16 21:00 07/18/16 09:50 Miscellaneous Information 1 Q361D XX 06/22/16 10:15 (Chlorhexidine 2% Cloth) Taper DAILY@04 TOP 06/23/16 04:00 06/19/17 03:59 07/15/16 04:00 (Chlorhexidine 2% Cloth) 3 pack UNSCH PRN TOP 06/22/16 10:15 (Brethine Inj) 1 mg UNSCH PRN SQ 06/23/16 02:45 (Percocet 5-325 Mg) 1 tab Q4H PRN PO 06/23/16 18:00 07/14/16 11:52 (Percocet 5-325 Mg) 2 tab Q4H PRN PO 06/23/16 18:00 07/17/16 21:21 (Atropine Inj) 0.5 mg UNSCH PRN IV 06/23/16 18:00 Ondansetron HCl 4 mg 4 mg Q4H PRN IV 06/23/16 18:00 07/14/16 11:51 (Coumadin Consult Pharmacy) 0 ml @ 0 mls/hr UNSCH OTHER 06/24/16 11:45 (Romazicon Inj) 0.2 mg Q1M PRN IV PUSH 06/24/16 11:45 (Haldol Inj) 2 mg Q15M PRN IM 06/24/16 11:45 07/16/16 01:27 (Lopressor Inj) 2.5 mg Q6H PRN IV PUSH 06/24/16 12:00 07/14/16 05:19 (Vitamin B1) 100 mg DAILY PO 06/28/16 09:00 07/18/16 09:53 (D50w (Vial) Inj) 25 ml UNSCH PRN IV PUSH 07/01/16 09:15 07/09/16 09:24 (Glucagon Inj) 1 mg UNSCH PRN OTHER 07/01/16 09:15 (NovoLIN R SUPPLEMENTAL SCALE) 1 Q6H SQ 07/01/16 10:00 07/17/16 20:44 (SEROquel) 25 mg BID PO 07/01/16 21:00 07/18/16 09:54 Alteplase, Recombinant 2 mg 2 mg Q2H PRN INTRACATH 07/06/16 16:30 07/06/16 17:08 (Cordarone Inj/ D5W ([place]) Inj) 250 ml @ 0 mls/hr CONTINUOUS IV 07/08/16 16:30 Hold 07/12/16 20:45 (Lovenox Inj) 90 mg Q12H SQ 07/11/16 11:00 07/18/16 11:00 (Santyl Oint) 1 applic DAILY TOPICAL 07/13/16 09:00 07/18/16 09:00 (Mycostatin Liq) 5 ml QID SWISH-SWAL 07/14/16 13:00 07/18/16 09:50 (Habitrol 14 Mg Patch.24 Hr) 1 patch DAILY T-DERMAL 07/14/16 12:15 07/16/16 09:15 Miscellaneous Information 1 HS T-DERMAL 07/14/16 21:00 07/17/16 20:40 (Coumadin) 5 mg DAILY@16 PO 07/16/16 16:00 07/17/16 16:59 (Deltasone) 40 mg Taper DAILY PO 07/18/16 09:00 07/30/16 08:59 07/18/16 09:53 Patient Own Medication Ketoconazole 5% cream 60 gm t... BID TOPICAL 07/17/16 12:00 Hold (Lasix) 40 mg DAILY PO 07/18/16 09:00 07/18/16 09:53 (Zofran Inj) 4 mg Q6HR PRN IV PUSH 07/17/16 11:00 (Protonix) 40 mg DAILY PO 07/18/16 09:00 07/18/16 09:53 (Cardizem Cd) 300 mg DAILY PO 07/17/16 18:00 07/18/16 09:53 (Cordarone) 200 mg DAILY PO 07/18/16 09:00 07/18/16 09:54 Assessment and Plan Problem List: (1) Atrial flutter with rapid ventricular response Status: Acute Plan: back in atrial fibrillation again HR between 118 and 130 Continue with medical management case discussed again with patient (2) Alcohol withdrawal Status: Acute Plan: Resolved (3) Respiratory failure Status: Acute Plan: Doing better . ambulating (4) Hypertension Status: Chronic Plan: SBP 136 Problem Qualifiers (1) Alcohol withdrawal: Qualified Code: F10.231 - Alcohol withdrawal, with delirium (2) Hypertension: Qualified Code: I10 - Essential hypertension Louis Ponce MD July 18, 2016 16:35
[2016-07-18] MEDS: WARFARIN SOD 5 MG TAB PO SCH (17:31)
[2016-07-18] MEDS: REMOVE OLD NICODERM (NICOTINE) PATCH T-DERMAL SCH (21:00)
[2016-07-18] MEDS: METOPROLOL TARTRATE 5 MG/5 ML VIAL IV PUSH PRN (23:54)
[2016-07-18] MEDS: oxyCODONE/ACETAMINOPHEN 5 MG/325 MG TAB PO PRN (23:57)
[2016-07-19] VITALS (26 sets, daily range): BP systolic 104–128; BP diastolic 65–91; PULSE 76–142; RESP 18–20; TEMP 97.7–98.3; O2SAT 95–98
[2016-07-19] MEDS: CHLORHEXIDINE GLUCONATE 2 % 1 PACK (2 CLOTHS) TOP SCH (01:13)
[2016-07-19] MEDS: INSULIN NovoLIN REGULAR SUPPLEMENTAL SCALE SQ SCH ×4 (04:00→22:29)
[2016-07-19 05:37] LABS: APTT (PATIENT) 33.5 SEC (24.3-30.1); INTERNATIONAL NORMALIZED RATIO 1.3 RATIO; PROTHROMBIN TIME - PATIENT 14.8 SEC (9.8-11.6)
--- NOTE | 2016-07-19 07:15 | HHI.FPPN ---
Subjective Remarks Patient seen and examined this am. HR 80s-120s overnight. Intermittent agitation overnight. HR remains elevated, during exam up tot he 140s. Urinating without difficulty. has picked out a SNF. He wants to go home. Objective Vitals Vital Signs Date Time Temp Pulse Resp B/P Pulse Ox O2 Delivery O2 Flow Rate FiO2 07/19/16 06:00 99 07/19/16 05:26 115 07/19/16 04:00 108 07/19/16 03:45 98.1 101 18 128/91 98 07/19/16 03:00 90 07/19/16 02:00 86 07/19/16 01:13 82 07/19/16 00:00 120 07/18/16 23:30 98.0 96 16 147/89 96 07/18/16 23:00 90 07/18/16 22:00 125 07/18/16 21:00 107 07/18/16 20:00 107 07/18/16 19:45 96 Room Air 07/18/16 19:45 98.5 85 18 124/84 96 07/18/16 19:00 80 07/18/16 15:32 98.0 118 18 136/78 96 07/18/16 11:30 98.0 82 18 140/80 96 07/18/16 10:03 97.0 81 20 143/82 98 07/18/16 07:36 Nasal Cannula 2.00 21 I/O 07/18/16 07/18/16 07/18/16 07/19/16 07/19/16 07/19/16 07:00 15:00 23:00 07:00 15:00 23:00 Intake Total 490 ml 0 ml 1000 ml 480 ml Output Total 1450 ml 1900 ml 400 ml Balance -960 ml 0 ml -900 ml 80 ml Intake Oral 480 ml 1000 ml 480 ml IV Total 10 ml 0 ml 0 ml 0 ml Output Urine Total 1450 ml 1900 ml 400 ml # Voids 4 # Bowel Movements 1 0 Result Diagram: 07/18/1651607/18/16516 Objective Remarks GENERAL: WN, WD male sitting up in bed, conversant and in NAD. SKIN: Warm and dry. Few raised, annular lesions on back with erythematous border and central clearing. HEENT: AT/NC. Pupils equal and round. MMM. HEART: Irregularly irregular rhythm, tachycardic. No appreciable murmurs. LUNGS: CTAB without wheezes or crackles. ABDOMEN: Soft, NT, ND. EXTREMITIES: No LE edema. No calf tenderness. BACK/SACRUM: Sacral ulcer not visualized today; dressing place. : Lujan in place urine clear NEURO: Awake and alert. PSYCH: Appropriate mood and affect. Not responding to internal stimuli. Date of Insertion: Jul 05, 2016 Date of Insertion: Jun 22, 2016 Line: Central Venous Catheter Side: Right Location: Internal, Jugular A/P Assessment and Plan 61 y/o CM with a PMHx of HTN and alcohol abuse presenting 06/21/16 with tachycardia to 150s, found to be in atrial flutter. Converted to afib with RVR s/p ablation, with hospital stay complicated by DTs, requiring intubation and sedation. Currently extubated; in and out of A. Fib with RVR, s/p 2 cardioversion. Currently rate controlled; cardiology assisting with case. Discharge Planning D/C to SNF pending stabilization of HR and decreased agitation. Ideally by the end of the week. Family would [facility]. Discussed with case management today. Problem List: (1) Atrial fibrillation Status: Acute Plan: Per cards continue medical mgmt. Patient continues to be in atrial fibrillation with RVR. He is s/p cardioversion x 2 (07/08 and 07/12). He went back into RVR on 07/14 and was started on Cardizem drip and cardiology was reconsulted. Cardizem increased to 300 mg daily; Dr. Ponce will hold ablation at this point. Continue amiodarone (400 mg PO BID x 5 days from 07/13-07/18 then 200 mg daily) - Lopressor 2.5 mg IV Q6H PRN HR>100 - CHADSVASc score of 1. Currently on therapeutic Lovenox bridging to Coumadin. INR 1.3 today - Echo with EF 35-40%, normal cavity size, wall thickness, wall motion (2) Delirium Status: Acute Plan: Resume Seroquel 25 mg PO BID. - Haldol 2 mg IM PRN - Sitter overnight (or when not present) - Frequent reorientation - Fall precautions (3) Respiratory failure Status: Resolved Plan: Patient intubated 06/23-07/10. - Ignacio Lasix 40 mg PO daily to 20 mg PO daily since lungs are clear and patient fluid-overloaded - DuoNeb Q2H PRN - Patient had been on Solumedrol 40 mg IV from 07/06 until today. Will start PO prednisone taper * 40 mg PO daily x 3 days * 20 mg PO daily x 3 days * 10 mg PO daily x 3 days * 5 mg PO daily x 3 days - Incentive spirometer - Encouraged getting up to chair (4) Hypertension Status: Chronic Plan: BP stable. - Continue Cardizem (as above) and Losartan 100 mg PO daily (5) Hyperglycemia Status: Acute Plan: Likely from steroids which are being tapered. SSI per protocol. (6) Tinea corporis Status: Acute Plan: Ketoconazole 5% cream BID. (7) Restless leg syndrome Status: Chronic Plan: Reported. - Hold Ropinirole (8) Nutrition, metabolism, and development symptoms Status: Acute Plan: Fluids: Tolerating PO Electrolytes: WNL Nutrition: Heart healthy diet. Pure per ST [facility] DVT prophylaxis: SCDs dw Dr. Torres Problem Qualifiers (1) Atrial fibrillation: Qualified Code: I48.1 - Persistent atrial fibrillation (2) Hypertension: Qualified Code: I10 - Essential hypertension Bibi Alejandre MD R3 July 19, 2016 07:15
--- NOTE | 2016-07-19 08:16 | PD.CARD.PN ---
Subjective Subjective Remarks Up in chair, requiring a sitter, mild agitation, denies discomfort. Objective Medications Current Medications Medications (Trade) Dose Ordered Sig/Krishan Route Start Time Stop Time Status Last Admin (Aspirin Chew) 81 mg DAILY PO 06/22/16 09:00 07/18/16 09:50 (Catapres) 0.1 mg Q6H PRN PO 06/21/16 14:45 07/09/16 12:39 (Cozaar) 100 mg DAILY PO 06/22/16 09:00 07/18/16 09:53 (NS Flush) 2 ml UNSCH PRN IV FLUSH 06/22/16 10:15 07/12/16 01:09 (NS Flush) 2 ml BID IV FLUSH 06/22/16 21:00 07/18/16 22:32 Miscellaneous Information 1 Q361D XX 06/22/16 10:15 (Chlorhexidine 2% Cloth) Taper DAILY@04 TOP 06/23/16 04:00 06/19/17 03:59 07/15/16 04:00 (Chlorhexidine 2% Cloth) 3 pack UNSCH PRN TOP 06/22/16 10:15 (Brethine Inj) 1 mg UNSCH PRN SQ 06/23/16 02:45 (Percocet 5-325 Mg) 1 tab Q4H PRN PO 06/23/16 18:00 07/14/16 11:52 (Percocet 5-325 Mg) 2 tab Q4H PRN PO 06/23/16 18:00 07/18/16 23:57 (Atropine Inj) 0.5 mg UNSCH PRN IV 06/23/16 18:00 Ondansetron HCl 4 mg 4 mg Q4H PRN IV 06/23/16 18:00 07/14/16 11:51 (Coumadin Consult Pharmacy) 0 ml @ 0 mls/hr UNSCH OTHER 06/24/16 11:45 (Romazicon Inj) 0.2 mg Q1M PRN IV PUSH 06/24/16 11:45 (Haldol Inj) 2 mg Q15M PRN IM 06/24/16 11:45 07/16/16 01:27 (Lopressor Inj) 2.5 mg Q6H PRN IV PUSH 06/24/16 12:00 07/18/16 23:54 (Vitamin B1) 100 mg DAILY PO 06/28/16 09:00 07/18/16 09:53 (D50w (Vial) Inj) 25 ml UNSCH PRN IV PUSH 07/01/16 09:15 07/09/16 09:24 (Glucagon Inj) 1 mg UNSCH PRN OTHER 07/01/16 09:15 (NovoLIN R SUPPLEMENTAL SCALE) 1 Q6H SQ 07/01/16 10:00 07/18/16 16:00 (SEROquel) 25 mg BID PO 07/01/16 21:00 07/18/16 22:14 Alteplase, Recombinant 2 mg 2 mg Q2H PRN INTRACATH 07/06/16 16:30 07/06/16 17:08 (Cordarone Inj/ D5W (Hemlock) Inj) 250 ml @ 0 mls/hr CONTINUOUS IV 07/08/16 16:30 Hold 07/12/16 20:45 (Lovenox Inj) 90 mg Q12H SQ 07/11/16 11:00 07/18/16 22:32 (Santyl Oint) 1 applic DAILY TOPICAL 07/13/16 09:00 07/18/16 09:00 (Mycostatin Liq) 5 ml QID SWISH-SWAL 07/14/16 13:00 07/18/16 22:14 (Habitrol 14 Mg Patch.24 Hr) 1 patch DAILY T-DERMAL 07/14/16 12:15 07/16/16 09:15 Miscellaneous Information 1 HS T-DERMAL 07/14/16 21:00 07/17/16 20:40 (Coumadin) 5 mg DAILY@16 PO 07/16/16 16:00 07/18/16 17:31 (Deltasone) 40 mg Taper DAILY PO 07/18/16 09:00 07/30/16 08:59 07/18/16 09:53 Patient Own Medication Ketoconazole 5% cream 60 gm t... BID TOPICAL 07/17/16 12:00 Hold (Lasix) 40 mg DAILY PO 07/18/16 09:00 07/18/16 09:53 (Zofran Inj) 4 mg Q6HR PRN IV PUSH 07/17/16 11:00 (Protonix) 40 mg DAILY PO 07/18/16 09:00 07/18/16 09:53 (Cardizem Cd) 300 mg DAILY PO 07/17/16 18:00 07/18/16 09:53 (Cordarone) 200 mg DAILY PO 07/18/16 09:00 07/18/16 09:54 Vital Signs / I&O Vital Signs Date Time Temp Pulse Resp B/P Pulse Ox O2 Delivery O2 Flow Rate FiO2 07/19/16 07:00 101 07/19/16 07:00 97.9 115 20 128/74 96 07/19/16 06:00 99 07/19/16 05:26 115 07/19/16 04:00 108 07/19/16 03:45 98.1 101 18 128/91 98 07/19/16 03:00 90 07/19/16 02:00 86 07/19/16 01:13 82 07/19/16 00:00 120 07/18/16 23:30 98.0 96 16 147/89 96 07/18/16 23:00 90 07/18/16 22:00 125 07/18/16 21:00 107 07/18/16 20:00 107 07/18/16 19:45 96 Room Air 07/18/16 19:45 98.5 85 18 124/84 96 07/18/16 19:00 80 07/18/16 15:32 98.0 118 18 136/78 96 07/18/16 11:30 98.0 82 18 140/80 96 07/18/16 10:03 97.0 81 20 143/82 98 I/O 07/18/16 07/18/16 07/18/16 07/19/16 07/19/16 07/19/16 07:00 15:00 23:00 07:00 15:00 23:00 Intake Total 490 ml 0 ml 1000 ml 480 ml Output Total 1450 ml 1900 ml 400 ml Balance -960 ml 0 ml -900 ml 80 ml Intake Oral 480 ml 1000 ml 480 ml IV Total 10 ml 0 ml 0 ml 0 ml Output Urine Total 1450 ml 1900 ml 400 ml # Voids 4 # Bowel Movements 1 0 Physical Exam GENERAL: Well-nourished, well-developed patient. SKIN: Warm and dry. HEAD: Normocephalic. EYES: No scleral icterus. No injection or drainage. NECK: Supple, trachea midline. No JVD or lymphadenopathy. CARDIOVASCULAR: Tachycardic rate and irregular rhythm without murmurs, gallops, or rubs. RESPIRATORY: Breath sounds equal bilaterally. No accessory muscle use. GASTROINTESTINAL: Abdomen soft, non-tender, nondistended. EXTREMITIES: No cyanosis, or edema. NEUROLOGICAL: Awake, alert, confused. Non-focal. Laboratory Laboratory Tests Test 07/19/16 03:56 Prothrombin Time 14.8 SEC Prothromb Time International 1.3 RATIO Ratio Activated Partial 33.5 SEC Thromboplast Time Imaging Last Impressions Chest X-Ray 07/11/16 0600 Signed Impressions: Service Date/Time: Monday, July 11, 2016 04:41 - CONCLUSION: Cardiomegaly. No acute cardiopulmonary disease. Lul Glass MD Chest CT 07/07/16 1610 Signed Impressions: Service Date/Time: June 16:20 - CONCLUSION: 1. The patient was initially scheduled for right therapeutic thoracentesis. However, most of the abnormality visualized on chest x-ray is secondary to lower lobe atelectasis. There is only a very small pleural effusion present bilaterally. 2. Mild splenomegaly. Edy Emerson MD Brain MRI 07/03/16 0000 Signed Impressions: Service Date/Time: Sunday, July 03, 2016 10:12 - CONCLUSION: 1. No intracranial abnormality is seen. 2. Sinus disease. Edy Johnson MD Head CT 07/01/16 0000 Signed Impressions: Service Date/Time: Friday, July 01, 2016 20:54 - CONCLUSION: No acute intracranial abnormality. Bilateral paranasal sinusitis. Mason Noe MD Assessment and Plan Problem List: (1) Atrial fibrillation Assessment and Plan: Remains tachycardic. Patient is agitated and confused. Apparently undergoing alcohol withdrawal. Anticoagulation with Coumadin. INR 1.3 today after 3 days of 5 mg daily. Continue current medical therapy per my discussion with Dr. Ponce. (2) Delirium Assessment and Plan: Confused, requiring a sitter. On CIWA protocol. Problem Qualifiers (1) Atrial fibrillation: Qualified Code: I48.1 - Persistent atrial fibrillation Christina Bustos July 19, 2016 08:16
[2016-07-19] MEDS: NICOTINE 14 MG/24 HR PATCH T-DERMAL SCH ×2 (09:00→09:25)
[2016-07-19] MEDS: SODIUM CHLORIDE 0.9% FLUSH 10 ML FLUSH IV FLUSH SCH ×2 (09:20→22:20)
[2016-07-19] MEDS: NYSTATIN SUSP 500,000 U/5 ML CUP SWISH-SWAL SCH ×4 (09:21→22:20)
[2016-07-19] MEDS: ASPIRIN 81 MG CHEW TAB PO SCH (09:21)
[2016-07-19] MEDS: FUROSEMIDE 20 MG TAB PO SCH (09:21)
[2016-07-19] MEDS: THIAMINE HCL 100 MG TAB PO SCH (09:23)
[2016-07-19] MEDS: predniSONE 20 MG TAB PO SCH (09:24)
[2016-07-19] MEDS: LOSARTAN 50 MG TAB PO SCH (09:24)
[2016-07-19] MEDS: PANTOPRAZOLE SOD 40 MG DELAYED RELEASE TAB PO SCH (09:24)
[2016-07-19] MEDS: AMIODARONE 200 MG TAB PO SCH (09:25)
[2016-07-19] MEDS: DILTIAZEM-CD 300 MG CAP ER PO SCH (09:25)
[2016-07-19] MEDS: ENOXAPARIN SODIUM 100 MG/ML SYRINGE SQ SCH ×2 (11:24→22:21)
[2016-07-19] MEDS: COLLAGENASE OINT 30 GM TUBE TOPICAL SCH (11:24)
[2016-07-19] MEDS ORDERED: WARFARIN SOD 2 MG TAB PO SCH (16:00)
[2016-07-19] MEDS: WARFARIN SOD 5 MG TAB PO SCH (16:02)
[2016-07-19] MEDS: REMOVE OLD NICODERM (NICOTINE) PATCH T-DERMAL SCH (21:00)
[2016-07-19] MEDS: QUEtiapine FUMARATE 25 MG TAB PO SCH (22:20)
[2016-07-20] VITALS (10 sets, daily range): BP systolic 137; BP diastolic 89; PULSE 82–176; RESP 17; TEMP 97.7; O2SAT 97
[2016-07-20] MEDS: CHLORHEXIDINE GLUCONATE 2 % 1 PACK (2 CLOTHS) TOP SCH (01:58)
[2016-07-20] MEDS: INSULIN NovoLIN REGULAR SUPPLEMENTAL SCALE SQ SCH (03:47)
[2016-07-20 06:31] LABS: INTERNATIONAL NORMALIZED RATIO 1.9 RATIO; PROTHROMBIN TIME - PATIENT 21.4 SEC (9.8-11.6)
[2016-07-20] MEDS: METOPROLOL TARTRATE 5 MG/5 ML VIAL IV PUSH PRN (06:46)
--- NOTE | 2016-07-20 08:25 | HHI.FPPN ---
Subjective Remarks Patient seen and examined this morning. Called by nurse this am that patient requesting to leave. Was agitated overnight, did not want to sit/lay in bed because of his bottom hurting. is at bedside. Patient is denying chest pain or SOB. Was seen and evaluated by cardiology and cleared. Objective Vitals Vital Signs Date Time Temp Pulse Resp B/P Pulse Ox O2 Delivery O2 Flow Rate FiO2 07/20/16 08:00 114 07/20/16 07:00 97.7 85 17 137/89 97 07/20/16 07:00 112 07/20/16 06:14 111 07/20/16 05:00 176 07/20/16 04:04 96 07/20/16 03:00 124 07/20/16 02:00 105 07/20/16 01:00 98 07/20/16 00:39 82 07/19/16 23:00 98.0 87 18 120/74 95 07/19/16 23:00 77 07/19/16 22:00 76 07/19/16 21:00 86 07/19/16 20:50 21 07/19/16 20:00 86 07/19/16 19:45 98.0 84 20 104/65 98 07/19/16 19:00 80 07/19/16 18:00 129 07/19/16 17:00 102 07/19/16 16:00 122 07/19/16 15:00 138 07/19/16 15:00 97.7 102 20 126/79 96 07/19/16 14:00 112 07/19/16 13:00 105 07/19/16 12:00 118 07/19/16 11:00 98.3 113 20 126/76 97 07/19/16 11:00 116 07/19/16 10:00 100 07/19/16 09:00 142 I/O 07/19/16 07/19/16 07/19/16 07/20/16 07/20/16 07/20/16 07:00 15:00 23:00 07:00 15:00 23:00 Intake Total 480 ml 780 ml 300 ml Output Total 400 ml 200 ml Balance 80 ml 780 ml 100 ml Intake Oral 480 ml 780 ml 300 ml IV Total 0 ml 0 ml Output Urine Total 400 ml 200 ml # Voids 4 7 5 # Bowel Movements 0 1 0 Result Diagram: 07/18/1651607/18/1617 Imaging Last Impressions Chest X-Ray 07/11/16 0600 Signed Impressions: Service Date/Time: Monday, July 11, 2016 04:41 - CONCLUSION: Cardiomegaly. No acute cardiopulmonary disease. Lul Glass MD Chest CT 07/07/16 1610 Signed Impressions: Service Date/Time: June 16:20 - CONCLUSION: 1. The patient was initially scheduled for right therapeutic thoracentesis. However, most of the abnormality visualized on chest x-ray is secondary to lower lobe atelectasis. There is only a very small pleural effusion present bilaterally. 2. Mild splenomegaly. Edy Emerson MD Brain MRI 07/03/16 0000 Signed Impressions: Service Date/Time: Sunday, July 03, 2016 10:12 - CONCLUSION: 1. No intracranial abnormality is seen. 2. Sinus disease. Edy Johnson MD Head CT 07/01/16 0000 Signed Impressions: Service Date/Time: Friday, July 01, 2016 20:54 - CONCLUSION: No acute intracranial abnormality. Bilateral paranasal sinusitis. Mason Noe MD Objective Remarks GENERAL: WN, WD male sitting up in bed, conversant and in NAD. SKIN: Warm and dry. Few raised, annular lesions on back with erythematous border and central clearing. HEENT: AT/NC. Pupils equal and round. MMM. HEART: Irregularly irregular rhythm, tachycardic. No appreciable murmurs. LUNGS: CTAB without wheezes or crackles. ABDOMEN: Soft, NT, ND. EXTREMITIES: No LE edema. No calf tenderness. BACK/SACRUM: Sacral ulcer not visualized today; dressing place. : Lujan in place urine clear NEURO: Awake and alert. PSYCH: Appropriate mood and affect. Not responding to internal stimuli. Date of Insertion: Jul 05, 2016 Date of Insertion: Jun 22, 2016 Line: Central Venous Catheter Side: Right Location: Internal, Jugular A/P Assessment and Plan 61 y/o CM with a PMHx of HTN and alcohol abuse presenting 06/21/16 with tachycardia to 150s, found to be in atrial flutter. Converted to afib with RVR s/p ablation, with hospital stay complicated by DTs, requiring intubation and sedation. Currently extubated; in and out of A. Fib with RVR, s/p 2 cardioversion. Currently rate controlled; cardiology assisting with case. Discharge Planning PT recommends SNF, patient is ambulatory independently, will have PT re- evaluate him. Cleared by cardiology. Patient and have been cautioned that his heart rate remains elevated. He is refusing ablation. He cannot tolerate a beta meggan. Medications have been optimized by cardiology. He was instructed to follow up with his edge beader and PCP within one week. He is to return to the ER if developed CP, SOB, symptomatic palpitations, or any change in clinical status. case discussed with Dr. Torres Problem List: (1) Atrial fibrillation Status: Acute Plan: Per cards continue medical mgmt. Patient continues to be in atrial fibrillation with RVR. He is s/p cardioversion x 2 (07/08 and 07/12). He went back into RVR on 07/14 and was started on Cardizem drip and cardiology was reconsulted. Cardizem increased to 360 mg daily; Dr. Ponce will hold ablation at this point as patient refuses. Continue amiodarone (400 mg PO BID x 5 days from 07/13-07/18 then 200 mg daily) - Lopressor 2.5 mg IV Q6H PRN HR>100 - CHADSVASc score of 1. Currently on therapeutic Lovenox bridging to Coumadin. INR 1.9 today - Echo with EF 35-40%, normal cavity size, wall thickness, wall motion (2) Delirium Status: Acute Plan: Seroquel 25 mg PO BID. - Haldol 2 mg IM PRN - Sitter overnight (or when not present) - Frequent reorientation - Fall precautions (3) Respiratory failure Status: Resolved Plan: Patient intubated 06/23-07/10. - Ignacio Lasix 40 mg PO daily to 20 mg PO daily since lungs are clear and patient fluid-overloaded - DuoNeb Q2H PRN - Patient had been on Solumedrol 40 mg IV from 07/06 until today. Cont PO prednisone taper * 40 mg PO daily x 3 days * 20 mg PO daily x 3 days * 10 mg PO daily x 3 days * 5 mg PO daily x 3 days - Incentive spirometer - Encouraged getting up to chair (4) Hypertension Status: Chronic Plan: BP stable. - Continue Cardizem (as above) and Losartan 100 mg PO daily (5) Hyperglycemia Status: Acute Plan: Likely from steroids which are being tapered. SSI per protocol. (6) Tinea corporis Status: Acute Plan: Ketoconazole 5% cream BID. (7) Restless leg syndrome Status: Chronic Plan: Reported. - Hold Ropinirole (8) Nutrition, metabolism, and development symptoms Status: Acute Plan: Fluids: Tolerating PO Electrolytes: WNL Nutrition: Heart healthy diet. Pure per ST rec DVT prophylaxis: SCDs dw Dr. Torres Problem Qualifiers (1) Atrial fibrillation: Qualified Code: I48.1 - Persistent atrial fibrillation (2) Hypertension: Qualified Code: I10 - Essential hypertension Bibi Alejandre MD R3 July 20, 2016 08:25
[2016-07-20] MEDS: NYSTATIN SUSP 500,000 U/5 ML CUP SWISH-SWAL SCH (08:51)
[2016-07-20] MEDS: THIAMINE HCL 100 MG TAB PO SCH (08:51)
[2016-07-20] MEDS: predniSONE 20 MG TAB PO SCH (08:51)
[2016-07-20] MEDS: PANTOPRAZOLE SOD 40 MG DELAYED RELEASE TAB PO SCH (08:51)
[2016-07-20] MEDS: FUROSEMIDE 20 MG TAB PO SCH (08:52)
[2016-07-20] MEDS: LOSARTAN 50 MG TAB PO SCH (08:52)
[2016-07-20] MEDS: ASPIRIN 81 MG CHEW TAB PO SCH (08:52)
[2016-07-20] MEDS: AMIODARONE 200 MG TAB PO SCH (08:52)
[2016-07-20] MEDS: SODIUM CHLORIDE 0.9% FLUSH 10 ML FLUSH IV FLUSH SCH (08:52)
[2016-07-20] MEDS: NICOTINE 14 MG/24 HR PATCH T-DERMAL SCH (08:53)
[2016-07-20] MEDS: QUEtiapine FUMARATE 25 MG TAB PO SCH (08:53)
[2016-07-20] MEDS: COLLAGENASE OINT 30 GM TUBE TOPICAL SCH (08:54)
[2016-07-20] MEDS ORDERED: DILTIAZEM-CD 180 MG CAP ER PO SCH (09:00)
[2016-07-20] MEDS ORDERED: PRED10 PO ×2 (09:15→10:40)
[2016-07-20] MEDS ORDERED: PRED20 PO ×2 (09:15→10:40)
[2016-07-20] MEDS ORDERED: AMIO200T PO ×2 (09:15→10:40)
[2016-07-20] MEDS ORDERED: PRED5TAB PO ×2 (09:15→10:40)
[2016-07-20] MEDS ORDERED: COZA50TA PO ×2 (09:15→10:40)
[2016-07-20] MEDS ORDERED: QUET1TAB7 PO ×2 (09:15→10:40)
[2016-07-20] MEDS ORDERED: CARD360C PO ×2 (09:15→10:40)
[2016-07-20] MEDS ORDERED: COUM5TAB PO ×2 (09:15→10:40)
[2016-07-20] MEDS ORDERED: Aspirin Chew PO ×2 (09:17→10:40)
--- NOTE | 2016-07-20 09:19 | HHI.FF ---
Face to Face Verification Diagnosis: (1) Alcohol withdrawal (2) Atrial flutter with rapid ventricular response Physical Therapy Order: Evaluate and Treat Home Health Nursing Order: Medical education Medication education-adverse effect Nursing assessment with vital signs I have seen patient Pacheco Guevara on 07/20/16. My clinical findings support the need for the requested home health care services because: Med compliance is questionable I certify that my clinical findings support that this patient is homebound because: Unsteady gait/balance Bibi Alejandre MD R3 July 20, 2016 09:19
--- NOTE | 2016-07-20 11:35 | HHI.DS ---
Discharge Summary Admission Date Jun 21, 2016 at 13:36 Discharge Date: July 20, 2016 Admitting Diagnosis atrial flutter with RVR (1) Atrial fibrillation Diagnosis: Principal Plan: Per cards continue medical mgmt. Patient continues to be in atrial fibrillation with RVR. He is s/p cardioversion x 2 (07/08 and 07/12). He went back into RVR on 07/14 and was started on Cardizem drip and cardiology was reconsulted. Cardizem increased to 360 mg daily; Dr. Ponce will hold ablation at this point as patient refuses. Continue amiodarone (400 mg PO BID x 5 days from 07/13-07/18 then 200 mg daily) - Lopressor 2.5 mg IV Q6H PRN HR>100 - CHADSVASc score of 1. Currently on therapeutic Lovenox bridging to Coumadin. INR 1.9 today - Echo with EF 35-40%, normal cavity size, wall thickness, wall motion (2) Delirium Diagnosis: Secondary Plan: Seroquel 25 mg PO BID. - Haldol 2 mg IM PRN - Sitter overnight (or when not present) - Frequent reorientation - Fall precautions (3) Respiratory failure Diagnosis: Principal Plan: Patient intubated 06/23-07/10. - Ignacio Lasix 40 mg PO daily to 20 mg PO daily since lungs are clear and patient fluid-overloaded - DuoNeb Q2H PRN - Patient had been on Solumedrol 40 mg IV from 07/06 until today. Cont PO prednisone taper * 40 mg PO daily x 3 days * 20 mg PO daily x 3 days * 10 mg PO daily x 3 days * 5 mg PO daily x 3 days - Incentive spirometer - Encouraged getting up to chair (4) Hypertension Plan: BP stable. - Continue Cardizem (as above) and Losartan 100 mg PO daily (5) Hyperglycemia Plan: Likely from steroids which are being tapered. SSI per protocol. (6) Tinea corporis Plan: Ketoconazole 5% cream BID. (7) Restless leg syndrome Plan: Reported. - Hold Ropinirole (8) Nutrition, metabolism, and development symptoms Plan: Fluids: Tolerating PO Electrolytes: WNL Nutrition: Heart healthy diet. Pure per ST reccs DVT prophylaxis: SCDs dw Dr. [facility] Critical Care Brief History Mr. Ismael is a 61 y/o CM with a PMHx of HTN and heavy whiskey drinking who presented from the [facility] with an elevated, irregular heart rate. He is a patient of Dr. Irwin Rodriguez, who sent this patient from clinic to the hospital. In clinic, he was found to have a heart rate in the 150s and was advised to be seen in the ER for further evaluation. Upon arriving to the ER the patient was found to have atrial flutter on twelve-lead EKG with a rate 151 with 2-1 conduction. He presented to clinic this morning without a chief complaint and to only establish care. He denies any chest pain, prior arrhythmia, thyroid disorder, or heart disease. He states that his last EKG was approximately 8 years ago before his eye surgery s/p accident. He does have an alcohol and smoking history, but denies any illicit drugs. He stated that he was at his baseline except for 3 episodes of nonbloody diarrhea that have all occurred over the morning of admission. Otherwise he has no complaints and denies any fevers, chills, SOB, NV, or calf tenderness. Of note the patient has said multiple times that he wishes he could go home, and according to ER staff was talked into staying by his for further treatment. Overnight he had been placed on CIWA protocol and received 6 mg of ativan but was still yelling and agitated. A halicat was called and he was [place] [facility] He needed more ativan and Precedex and his flutter went to a rate of 50 but remained in flutter. He has a possible history of sleep apnea per his as she states he "stops breathing" sometimes at night or after consuming excess whiskey, his drink of choice. His understood how ill he was and the need for intubation. We discussed how serious alcohol withdrawal could be. He had to be intubated because of sedation and his heart rate dropping into the 50s and hypotension. He had been scheduled for ablation but couldn't have it done today with his severe alcohol withdrawal this morning. He has remained in a flutter on the monitor but has had a variable conduction. Despite meds he has never come out of flutter. He is scheduled to have ablation later today as flutter is very hard to treat medically. Had a discussion with his and she agreed to entubation as he was deteriorating. She understands his alcohol problem but states he "he is weak CBC/BMP: 07/18/16 0517 07/18/16 0517 Significant Findings Laboratory Tests Test 07/18/16 07/19/16 07/20/16 05:17 03:56 05:59 Red Blood Count 4.25 MIL/MM3 (4.50-5.90) Hemoglobin 12.7 GM/DL (13.0-17.0) Hematocrit 36.7 % (39.0-51.0) Neutrophils (%) (Auto) 83.5 % (16.0-70.0) Neutrophils # (Auto) 8.1 TH/MM3 (1.8-7.7) Lymphocytes # (Auto) 0.9 TH/MM3 (1.0-4.8) Prothrombin Time 14.0 SEC 14.8 SEC 21.4 SEC (9.8-11.6) (9.8-11.6) (9.8-11.6) Activated Partial 32.1 SEC 33.5 SEC 34.0 SEC Thromboplast Time (24.3-30.1) (24.3-30.1) (24.3-30.1) Blood Urea Nitrogen 34 MG/DL (7-18) Estimat Glomerular Filtration 76 ML/MIN (>89) Rate Imaging Last Impressions Chest X-Ray 07/11/16 0600 Signed Impressions: Service Date/Time: Monday, July 11, 2016 04:41 - CONCLUSION: Cardiomegaly. No acute cardiopulmonary disease. Lul Glass MD Chest CT 07/07/16 1610 Signed Impressions: Service Date/Time: June 16:20 - CONCLUSION: 1. The patient was initially scheduled for right therapeutic thoracentesis. However, most of the abnormality visualized on chest x-ray is secondary to lower lobe atelectasis. There is only a very small pleural effusion present bilaterally. 2. Mild splenomegaly. Edy Emerson MD Brain MRI 07/03/16 0000 Signed Impressions: Service Date/Time: Sunday, July 03, 2016 10:12 - CONCLUSION: 1. No intracranial abnormality is seen. 2. Sinus disease. Edy Johnson MD Head CT 07/01/16 0000 Signed Impressions: Service Date/Time: Friday, July 01, 2016 20:54 - CONCLUSION: No acute intracranial abnormality. Bilateral paranasal sinusitis. Mason Noe MD PE at Discharge GENERAL: WN, WD male sitting up in bed, conversant and in NAD. SKIN: Warm and dry. Few raised, annular lesions on back with erythematous border and central clearing. HEENT: AT/NC. Pupils equal and round. MMM. HEART: Irregularly irregular rhythm, tachycardic. No appreciable murmurs. LUNGS: CTAB without wheezes or crackles. ABDOMEN: Soft, NT, ND. EXTREMITIES: No LE edema. No calf tenderness. BACK/SACRUM: Sacral ulcer not visualized today; dressing place. : Lujan in place urine clear NEURO: Awake and alert. PSYCH: Appropriate mood and affect. Not responding to internal stimuli. Hospital Course Mr. Guevara is a 61 y/o M who presented on 06/21/16 and found to have atrial flutter. He was admitted and scheduled for ablation on 06/22/16, however due to his extensive alcohol abuse went in to delirium tremens from withdrawal. Medical team paged for HALICAT at approximately 06/23/15 due to withdrawal agitation. Per nursing report patient had been agitated and altered throughout the night with CIWA scores up to 25. Patient was then transferred to ICU, intubated, and controlled on a Precedex drip. While intubated he was taken for ablation on 06/23/16 without complication. He self extubated and subsequently re- intubated on 06/25/16 due to flash pulmonary edema and oxygen desaturations. Patient was then found to have ventilator associated pneumonia and was treated with Zosyn. The patient was eventually extubated. Patient continues to be in atrial fibrillation with RVR. He is s/p cardioversion x 2 (07/08 and 07/12). Patient discussed ablation with cardiology, and he refused. Patient wanted medical management. He was intermittently agitated throughout his hospitalization and required a sitter. Medical therapy optimized- Cardizem 360 mg daily and amiodarone 200 mg daily, and coumadin. Patient did not tolerate beta meggan, cause significant hypotension. Patient ambulatory independently. The importance of following up with cardiology and PCP. He was discharged home with home health. Pt Condition on Discharge: Stable Discharge Disposition: Disch w/ Home Health Serv Discharge Instructions DIET: Follow Instructions for: Heart Healthy Diet Activities you can perform: Weight Bearing as Zack Other Activity Instructions: per PT Bibi Alejandre MD R3 July 20, 2016 11:34
[2016-07-20] MEDS ORDERED: WARFARIN SOD 2.5 MG TAB PO SCH (16:00)
--- NOTE | 2016-07-20 23:19 | HHI.PR ---
Subjective Remarks I want to go home Objective Vital Signs Date Time Temp Pulse Resp B/P Pulse Ox O2 Delivery O2 Flow Rate FiO2 07/20/16 09:00 123 07/20/16 08:00 114 07/20/16 07:00 97.7 85 17 137/89 97 07/20/16 07:00 112 07/20/16 06:14 111 07/20/16 05:00 176 07/20/16 04:04 96 07/20/16 03:00 124 07/20/16 02:00 105 07/20/16 01:00 98 07/20/16 00:39 82 I/O 07/19/16 07/19/16 07/19/16 07/20/16 07/20/16 07/20/16 07:00 15:00 23:00 07:00 15:00 23:00 Intake Total 480 ml 780 ml 300 ml Output Total 400 ml 200 ml Balance 80 ml 780 ml 100 ml Intake Oral 480 ml 780 ml 300 ml IV Total 0 ml 0 ml Output Urine Total 400 ml 200 ml # Voids 4 7 5 # Bowel Movements 0 1 0 Result Diagram: 07/18/16 0517 07/18/16 0517 Imaging Alert, out of bed, talking with , very anxious Lungs: ventilated Heart: S1, S2 tachycardia Abdomen: soft, no mass Ext: no edema Last Impressions Chest X-Ray 07/11/16 0600 Signed Impressions: Service Date/Time: Monday, July 11, 2016 04:41 - CONCLUSION: Cardiomegaly. No acute cardiopulmonary disease. Lul Glass MD Chest CT 07/07/16 1610 Signed Impressions: Service Date/Time: June 16:20 - CONCLUSION: 1. The patient was initially scheduled for right therapeutic thoracentesis. However, most of the abnormality visualized on chest x-ray is secondary to lower lobe atelectasis. There is only a very small pleural effusion present bilaterally. 2. Mild splenomegaly. Edy Emerson MD Brain MRI 07/03/16 0000 Signed Impressions: Service Date/Time: Sunday, July 03, 2016 10:12 - CONCLUSION: 1. No intracranial abnormality is seen. 2. Sinus disease. Edy Johnson MD Head CT 07/01/16 0000 Signed Impressions: Service Date/Time: Friday, July 01, 2016 20:54 - CONCLUSION: No acute intracranial abnormality. Bilateral paranasal sinusitis. Mason Noe MD Assessment and Plan Problem List: (1) Atrial flutter with rapid ventricular response Status: Acute Plan: Patient seen earlier today (07:45) in a supraventricular arrhythmia. Very agitated. Doesn't want to stay Case discussed extensively with him and his He wants to go home independently of how he is doing Patient willing to sign out AMA (2) Alcohol withdrawal Status: Acute Plan: Not sure if this situation resolved Patient exhibited all the characteristic of withdrawal (3) Respiratory failure Status: Acute Plan: SOB improved (4) Hypertension Status: Chronic Plan: SBP 137 Problem Qualifiers (1) Alcohol withdrawal: Qualified Code: F10.231 - Alcohol withdrawal, with delirium (2) Hypertension: Qualified Code: I10 - Essential hypertension Louis Ponce MD July 20, 2016 23:19
[2016-07-21] MEDS ORDERED: WARFARIN SOD 5 MG TAB PO SCH (16:00)
[2016-07-29] MEDS ORDERED: LIDO2GEL11 TOPICAL (10:26)
[2016-08-02] MEDS ORDERED: LEVO750T33 PO (11:23)
[2016-08-02] MEDS ORDERED: AUGM875T PO (11:24)
[2016-08-09] MEDS ORDERED: Aspirin Chew PO (16:15)
[2016-08-09] MEDS ORDERED: CARD360C PO (16:15)
[2016-08-09] MEDS ORDERED: AMIO200T PO (16:15)
[2016-08-09] MEDS ORDERED: COZA50TA PO (16:15)
[2016-08-12] MEDS ORDERED: COUM5TAB PO (12:42)
[2016-08-12] MEDS ORDERED: Aspirin Chew PO (12:42)
[2016-08-29] MEDS ORDERED: WARF-18 PO (12:22)
[2016-09-08] MEDS ORDERED: APIX5TAB PO (13:45)
== END 2016-07-20 10:27 | disposition home health service (06) | DRG 273 ==
LOC: NEPC 11:27 → NEDA 13:36 → HCIS 22:36 → HIMN 06-22 08:15 → HCIS 07-15 12:48
PROVIDERS: ADMIT Family Medicine; ATTEND Family Medicine
PROC: 5A1955Z Respiratory Ventilation, Greater than 96 Consecutive Hours (ICD-10-PCS; 2016-06-22)
PROC: 0BH17EZ Insertion of Endotracheal Airway into Trachea, Via Natural or Artificial Opening (ICD-10-PCS; 2016-06-22)
PROC: 0CJS8ZZ Inspection of Larynx, Via Natural or Artificial Opening Endoscopic (ICD-10-PCS; 2016-06-22)
PROC: 02HV33Z Insertion of Infusion Device into Superior Vena Cava, Percutaneous Approach (ICD-10-PCS; 2016-06-22)
PROC: B543ZZA Ultrasonography of Right Jugular Veins, Guidance (ICD-10-PCS; 2016-06-22)
PROC: 02K83ZZ Map Conduction Mechanism, Percutaneous Approach (ICD-10-PCS; 2016-06-23)
PROC: 4A023FZ Measurement of Cardiac Rhythm, Percutaneous Approach (ICD-10-PCS; 2016-06-23)
PROC: 4A0234Z Measurement of Cardiac Electrical Activity, Percutaneous Approach (ICD-10-PCS; 2016-06-23)
PROC: 02583ZZ Destruction of Conduction Mechanism, Percutaneous Approach (ICD-10-PCS; principal; 2016-06-23 14:30)
PROC: 0BH17EZ Insertion of Endotracheal Airway into Trachea, Via Natural or Artificial Opening (ICD-10-PCS; 2016-06-25)
PROC: 0BH17EZ Insertion of Endotracheal Airway into Trachea, Via Natural or Artificial Opening (ICD-10-PCS; 2016-07-02)
PROC: 5A2204Z Restoration of Cardiac Rhythm, Single (ICD-10-PCS; 2016-07-08)
PROC: 5A2204Z Restoration of Cardiac Rhythm, Single (ICD-10-PCS; 2016-07-12)
DX: I48.3 Typical atrial flutter (principal); G93.41 Metabolic encephalopathy; J96.00 Acute respiratory failure, unspecified whether with hypoxia or hypercapnia; J90 Pleural effusion, not elsewhere classified; F10.231 Alcohol dependence with withdrawal delirium; N17.9 Acute kidney failure, unspecified; J81.1 Chronic pulmonary edema; J95.851 Ventilator associated pneumonia; I11.9 Hypertensive heart disease without heart failure; J44.9 Chronic obstructive pulmonary disease, unspecified; I48.0 Paroxysmal atrial fibrillation; R40.2434 Glasgow coma scale score 3-8, 24 hours or more after hospital admission; R31.9 Hematuria, unspecified; K59.00 Constipation, unspecified; R73.9 Hyperglycemia, unspecified; G93.89 Other specified disorders of brain; I48.1 Persistent atrial fibrillation; R19.7 Diarrhea, unspecified; R21 Rash and other nonspecific skin eruption; B35.4 Tinea corporis; G47.30 Sleep apnea, unspecified; M51.36 Other intervertebral disc degeneration, lumbar region; G25.81 Restless legs syndrome; F17.210 Nicotine dependence, cigarettes, uncomplicated; T38.0X5A Adverse effect of glucocorticoids and synthetic analogues, initial encounter; Y84.8 Other medical procedures as the cause of abnormal reaction of the patient, or of later complication, without mention of misadventure at the time of the procedure; Y90.0 Blood alcohol level of less than 20 mg/100 ml; Z78.1 Physical restraint status; Z82.49 Family history of ischemic heart disease and other diseases of the circulatory system; Z91.14 Patient's other noncompliance with medication regimen
CPT/HCPCS: 31500; 36556; 36600; 70450; 70551; 71010; 71250; 76937; 80048; 80053; 81001; 82140; 82550; 82607; 82746; 82805; 82948; 83735; 84100; 84132; 84425; 84436; 84443; 84484; 85002; 85007; 85025; 85027; 85610; 85730; 87040; 87070; 87086; 87205; 87493; 87641; 93005; 93306; 93613; 93623; 93653; 94002; 94003; 94150; 94640; 94664; 94667; 94668; 95819; 96374; 96375; 96376; 99211; C1730; C1732; C2630; C9113; G0463; J0171; J0282; J0330; J1160; J1630; J1644; J1650; J1940; J2060; J2250; J2370; J2405; J2543; J2920; J2930; J2997; J3010; J3411; J3480; J7030; J7040; J7050; J7060; J7512; J7608

== ENCOUNTER 2016-07-25 10:12 | Emergency (ER) | payer OTHER ==
[~2016-07-25 10:12] MED LIST changes: +AMIO200T PO; -ATEN25TA PO; +Aspirin Chew PO; +CARD360C PO; +COUM5TAB PO; +COZA50TA PO; +PRED10 PO; +PRED20 PO; +PRED5TAB PO; +QUET1TAB7 PO
[2016-07-25 10:15] VITALS: BP 174/75; PULSE 106; RESP 20; TEMP 98; O2SAT 98
[2016-07-25] MEDS ORDERED: CLINDAMYCIN INJ 600 MG in SODIUM CHLORIDE 0.9% INJ 100 ML IV ONE (12:00)
--- NOTE | 2016-07-25 12:04 | PD ---
HPI Chief Complaint: Skin Problem Time Seen by Provider: 11:59 Travel History International Travel<30 days: No Contact w/Intl Traveler<30days: No Traveled to known affect area: No History of Present Illness HPI 61-year-old male that presents to the ED for evaluation of decubitus ulcer to his left buttocks. Patient has a history of recent hospitalization for what appears to be alcohol withdrawal with atrial fibrillation with minimal medical response. Patient had to be intubated. Patient was in the ICU for some time. Patient had to be intubated twice. Patient developed pneumonia as well as cardiology wanted to do an ablation but he never had it done because he refused. Patient was found to be very agitated during admission and he was very delirious. At the time apparently per family did mention that he and family mention that patient was having some discomfort to the buttox and they apply cream to it. Per family that aren't of anything else was done. There were no told to follow up with anybody about this. Per is at bedside today at [place] patient had significant decubitus ulcer to his left buttocks and apparently contacted the family physician who recommended that he comes here to get evaluated to get wound care evaluation. Patient states that is slightly painful 4 out of 10 pain. is more concerned about infection. Patient has never had anything like this before. Per patient was not moved while intubated. They were told to come here to get a stat evaluation of the decubitus ulcer. Patient has no allergies to medication. Patient taking no antibiotics at this time. Patient being compliant with his medications except with the medication for depression which was prescribed to him when he was admitted. PFSH Past Medical History Asthma: Yes Anxiety: Yes Depression: No Heart Rhythm Problems: Yes Cancer: No Cardiovascular Problems: Yes (ABLATION, AFIB) High Cholesterol: No Chest Pain: Yes (while working) Congestive Heart Failure: No COPD: Yes Cerebrovascular Accident: No Endocrine: No Genitourinary: No Hypertension: Yes Immune Disorder: No Musculoskeletal: Yes Neurologic: Yes Psychiatric: Yes Reproductive: No Respiratory: Yes ("ON VENT ABOUT A WEEK AGO") Migraines: No Seizures: No Sleep Apnea: No Past Surgical History Abdominal Surgery: No Cardiac Surgery: No Ear Surgery: No Endocrine Surgery: No Eye Surgery: Yes (cataracts bilaterally 2014) Genitourinary Surgery: No Gynecologic Surgery: Yes (vasectomy 1992) Oral Surgery: Yes (wisdom teeth 1974) Thoracic Surgery: No Social History Alcohol Use: Yes (4) Tobacco Use: Yes (1ppd) Substance Use: Yes (marijuana 06/20/16) Allergies-Medications (Allergen,Severity, Reaction): Coded Allergies: No Known Allergies (Unverified , 06/21/16) Reported Meds & Prescriptions Reported Meds & Active Scripts Active Clindamycin (Clindamycin HCl) 150 Mg Cap 300 Mg PO Q6H 10 Days [Aspirin Chew] 81 MG Chew 81 Mg PO DAILY Prednisone 10 Mg Tab 10 Mg PO DAILY Prednisone 5 Mg Tab 5 Mg PO DAILY Cardizem CD 24 HR (Diltiazem CD 24 HR) 360 Mg Caper 360 Mg PO DAILY Amiodarone (Amiodarone HCl) 200 Mg Tab 200 Mg PO DAILY Coumadin (Warfarin) 5 Mg Tab 5 Mg PO DAILY@16 Cozaar (Losartan Potassium) 50 Mg Tab 100 Mg PO DAILY Review of Systems Except as stated in HPI: all other systems reviewed are Neg Physical Exam Narrative GENERAL: SKIN: Warm and dry. HEAD: Atraumatic. Normocephalic. EYES: Pupils equal and round 4 mms reactive to light and accommodation. No scleral icterus. No injection or drainage. ENT: No nasal bleeding or discharge. Mucous membranes pink and moist. Tongue is midline. No uvula deviation. NECK: Trachea midline. No JVD. CARDIOVASCULAR: Regular rate and rhythm. RESPIRATORY: No accessory muscle use. Clear to auscultation. Breath sounds equal bilaterally. GASTROINTESTINAL: Abdomen soft, non-tender, nondistended. Hepatic and splenic margins not palpable. MUSCULOSKELETAL: Extremities without clubbing, cyanosis, or edema. No obvious deformities. Full range of motion of the upper and lower extremities bilaterally. Patient does have what appears to be a stage II/3 decubitus ulcer to the right buttocks. Muscle is seen. Patient does have greenish discharge coming from it. Somewhat tender but not severe. No bony presence noted. No foreign body noted. NEUROLOGICAL: Awake and alert. No obvious cranial nerve deficits. Motor grossly within normal limits. Five out of 5 muscle strength in the arms and legs. Normal speech. PSYCHIATRIC: Appropriate mood and affect; insight and judgment normal. Data Data Last Documented VS Vital Signs Date Time Temp Pulse Resp B/P Pulse Ox O2 Delivery O2 Flow Rate FiO2 07/25/16 12:48 95 18 161/79 98 Room Air 07/25/16 10:15 98.0 Orders Complete Blood Count With Diff (07/25/16 11:33) Basic Metabolic Panel (Bmp) (07/25/16 11:33) Blood Culture (07/25/16 11:33) Magnesium (Mg) (07/25/16 11:33) Wound Culture And Gram Stain (07/25/16 11:33) Iv Access Insert/Monitor (07/25/16 11:33) Ct Pelvis W/O Iv Contrast (07/25/16 ) Wound Care (07/25/16 11:46) Clindamycin Inj (Cleocin Inj) (07/25/16 12:00) Labs Laboratory Tests Test 07/25/16 12:00 White Blood Count 11.5 TH/MM3 Red Blood Count 4.38 MIL/MM3 Hemoglobin 12.7 GM/DL Hematocrit 38.2 % Mean Corpuscular Volume 87.3 FL Mean Corpuscular Hemoglobin 29.0 PG Mean Corpuscular Hemoglobin 33.2 % Concent Red Cell Distribution Width 14.7 % Platelet Count 207 TH/MM3 Mean Platelet Volume 8.2 FL Neutrophils (%) (Auto) 89.1 % Lymphocytes (%) (Auto) 4.2 % Monocytes (%) (Auto) 5.2 % Eosinophils (%) (Auto) 1.1 % Basophils (%) (Auto) 0.4 % Neutrophils # (Auto) 10.3 TH/MM3 Lymphocytes # (Auto) 0.5 TH/MM3 Monocytes # (Auto) 0.6 TH/MM3 Eosinophils # (Auto) 0.1 TH/MM3 Basophils # (Auto) 0.0 TH/MM3 CBC Comment DIFF FINAL Differential Comment Sodium Level 136 MEQ/L Potassium Level 4.5 MEQ/L Chloride Level 104 MEQ/L Carbon Dioxide Level 24.0 MEQ/L Anion Gap 8 MEQ/L Blood Urea Nitrogen 20 MG/DL Creatinine 1.22 MG/DL Estimat Glomerular Filtration 60 ML/MIN Rate Random Glucose 122 MG/DL Calcium Level 9.2 MG/DL Magnesium Level 2.2 MG/DL MDM Medical Decision Making Medical Screen Exam Complete: Yes Emergency Medical Condition: Yes Medical Record Reviewed: Yes Interpretation(s) CBC & BMP Diagram 07/25/16 12:[address] 07/25/16 0000 Signed Impressions: Service Date/Time: Monday, July 25, 2016 12:11 - CONCLUSION: 1. No evidence of focal abscess. 2. Subcutaneous inflammatory changes underneath the skin along the medial right buttocks. 3. Scattered diverticulosis of the sigmoid colon without inflammatory changes. Shashank Ramos MD Differential Diagnosis Decubitus ulcer versus infected ulcer versus osteomyelitis Narrative Course 61-year-old male that presents to the ED for evaluation of possible decubitus ulcer. Patient was properly examined and was found to have signs and symptoms consistent appears to be stage II/3 decubitus ulcer. Muscle is seen but does not appear to be affected of this time. Does appear to be somewhat infected but unclear. One has been there. Per family for about 4 or 5 days but he did mention that he had some buttox pain with some skin changes on admission per medical records. No records patient had decubitus ulcer on admission and discharged last week. At this time I recommend imaging and labs. Patient was started on IV antibiotics. Labs and imaging where within normal limits. Case was discussed with my attending Dr Rivera who evaluated the patient and agrees with plan. Patient will be discharged home with prescription for clindamycin. I discussed case with case management who was able to fax information to the wound care center so patient can follow-up outpatient with the wound care center. Patient was given information for this. Follow with PCP. See ED for worsening symptoms. Diagnosis Primary Impression: Decubitus ulcer of ankle, stage 2 Qualified Code: L89.512 - Decubitus ulcer of right ankle, stage 2 Referrals: [facility] Patient Instructions: General Instructions Additional Instructions: Take medication as prescribed. Follow with the wound care center. See ED for worsening symptoms. Change dressings daily. Med/Other Pt SpecificInfo: Prescription(s) given, Wound Care Scripts Clindamycin 150 Mg [id number] Mg PO Q6H 10 Days Prov:Rolf Jorge MD 07/25/16 Disposition: 01 DISCHARGE HOME Condition: Stable Benjamin Rogers July 25, 2016 12:04 Benjamin Rogers July 25, 2016 12:04
[2016-07-25 12:25] LABS: AUTOMATED NEUTROPHIL # 10.3 TH/MM3 (1.8-7.7); BASOPHIL % 0.4 % (0.0-2.0); EOSINOPHIL # 0.1 TH/MM3 (0-0.4); EOSINOPHIL % 1.1 % (0.0-4.0); HEMATOCRIT 38.2 % (39.0-51.0); HEMO FLAGS DIFF FINAL; LYMPH % 4.2 % (9.0-44.0); LYMPHOCYTE # 0.5 TH/MM3 (1.0-4.8); MEAN CELL VOLUME 87.3 FL (80.0-100.0); MEAN CORPUSCULAR HGB CONC 33.2 % (32.0-36.0); MONO % 5.2 % (0.0-8.0); NEUT % 89.1 % (16.0-70.0); PLATELET COUNT 207 TH/MM3 (150-450); RED BLOOD COUNT 4.38 MIL/MM3 (4.50-5.90); RED CELL DISTRIBUTION WIDTH 14.7 % (11.6-17.2); WHITE BLOOD COUNT 11.5 TH/MM3 (4.0-11.0)
--- NOTE | 2016-07-25 12:37 | RADRPT ---
EXAM DATE/TIME: 07/25/2016 12:11 [facility] COMPARISON: No previous studies available for comparison. INDICATIONS : Decubius ulcer right side evaluate for abscess. ORAL CONTRAST: No oral contrast ingested. RADIATION DOSE: 10.64 CTDIvol (mGy) MEDICAL HISTORY : Cardiovascular disease. Hypertension. SURGICAL HISTORY : None. ENCOUNTER: Initial ACUITY: 3 weeks PAIN SCALE: 3/10 LOCATION: Right Pelvis TECHNIQUE: Volumetric scanning of the pelvis was performed. Using automated exposure control and adjustment of the mA and/or kV according to patient size, radiation dose was kept as low as reasonably achievable t o obtain optimal diagnostic quality images. FINDINGS: BOWEL/MESENTERY: The visualized small and large bowel demonstrate no acute abnormality. There is no free fluid. Scatte red diverticulosis of the sigmoid colon without inflammatory changes. BLADDER: There is no wall thickening or mass. RETROPERITONEUM: There is no aneurysm or lymphadenopathy. REPRODUCTIVE: Within normal limits. INGUINAL: There is no lymphadenopathy or hernia. MUSCULOSKELETAL: Bony structures are grossly intact. There are some degenerative changes of the lower lumbar spine. Th ere is some nonspecific inflammatory type changes in the subcutaneous fat along the medial right butt ocks. Patient has a history of a right decubitus ulcer. No loculated fluid collections are seen to mario ggest an abscess at this time. CONCLUSION: 1. No evidence of focal abscess. 2. Subcutaneous inflammatory changes underneath the skin along the medial right buttocks. 3. Scattered diverticulosis of the sigmoid colon without inflammatory changes. Shashank Ramos MD on July 25, 2016 at 12:32 Board Certified Radiologist. This report was verified electronically.
[2016-07-25 12:38] LABS: MAGNESIUM 2.2 MG/DL (1.5-2.5); POTASSIUM 4.5 MEQ/L (3.5-5.1)
[2016-07-25] MEDS ORDERED: CLIN1CAP5 PO (12:47)
[2016-07-25 12:48] VITALS: BP 161/79; PULSE 95; RESP 18; O2SAT 98
--- NOTE | 2016-07-25 12:58 | PD ---
Physical Exam Date Seen by Provider: July 25, 2016 Time Seen by Provider: 12:00 Narrative I, Dr. Sena, have reviewed the advance practice practitioner's documentation and am in agreement, met with the patient face to face, made the diagnosis, and the medical decision making was done by me. *My assessment and Findings: Patient seen and evaluated PA, please see further details. On exam, this appears to be old healing stage II sacral decubitus ulcer. There are no signs of infection at this point. Patient is ambulatory now. At this point, he is a fairly reliable patient and I suspect that this wound will heal on its own without issues. Patient is already set up with home health care nurse. My plan would be to release the patient with further follow- up to primary care physician. Laboratory Tests Test 07/25/16 12:00 White Blood Count 11.5 TH/MM3 (4.0-11.0) Red Blood Count 4.38 MIL/MM3 (4.50-5.90) Hemoglobin 12.7 GM/DL (13.0-17.0) Hematocrit 38.2 % (39.0-51.0) Neutrophils (%) (Auto) 89.1 % (16.0-70.0) Lymphocytes (%) (Auto) 4.2 % (9.0-44.0) Neutrophils # (Auto) 10.3 TH/MM3 (1.8-7.7) Lymphocytes # (Auto) 0.5 TH/MM3 (1.0-4.8) Blood Urea Nitrogen 20 MG/DL (7-18) Estimat Glomerular Filtration 60 ML/MIN (>89) Rate Random Glucose 122 MG/DL (74-106) Last [address] 07/25/16 0000 Signed Impressions: Service Date/Time: Monday, July 25, 2016 12:11 - CONCLUSION: 1. No evidence of focal abscess. 2. Subcutaneous inflammatory changes underneath the skin along the medial right buttocks. 3. Scattered diverticulosis of the sigmoid colon without inflammatory changes. Shashank Ramos MD Data Data Last Documented VS Vital Signs Date Time Temp Pulse Resp B/P Pulse Ox O2 Delivery O2 Flow Rate FiO2 07/25/16 12:48 95 18 161/79 98 Room Air 07/25/16 10:15 98.0 Orders Complete Blood Count With Diff (07/25/16 11:33) Basic Metabolic Panel (Bmp) (07/25/16 11:33) Blood Culture (07/25/16 11:33) Magnesium (Mg) (07/25/16 11:33) Wound Culture And Gram Stain (07/25/16 11:33) Iv Access Insert/Monitor (07/25/16 11:33) Ct Pelvis W/O Iv Contrast (07/25/16 ) Wound Care (07/25/16 11:46) Clindamycin Inj (Cleocin Inj) (07/25/16 12:00) Labs Laboratory Tests Test 07/25/16 12:00 White Blood Count 11.5 TH/MM3 Red Blood Count 4.38 MIL/MM3 Hemoglobin 12.7 GM/DL Hematocrit 38.2 % Mean Corpuscular Volume 87.3 FL Mean Corpuscular Hemoglobin 29.0 PG Mean Corpuscular Hemoglobin 33.2 % Concent Red Cell Distribution Width 14.7 % Platelet Count 207 TH/MM3 Mean Platelet Volume 8.2 FL Neutrophils (%) (Auto) 89.1 % Lymphocytes (%) (Auto) 4.2 % Monocytes (%) (Auto) 5.2 % Eosinophils (%) (Auto) 1.1 % Basophils (%) (Auto) 0.4 % Neutrophils # (Auto) 10.3 TH/MM3 Lymphocytes # (Auto) 0.5 TH/MM3 Monocytes # (Auto) 0.6 TH/MM3 Eosinophils # (Auto) 0.1 TH/MM3 Basophils # (Auto) 0.0 TH/MM3 CBC Comment DIFF FINAL Differential Comment Sodium Level 136 MEQ/L Potassium Level 4.5 MEQ/L Chloride Level 104 MEQ/L Carbon Dioxide Level 24.0 MEQ/L Anion Gap 8 MEQ/L Blood Urea Nitrogen 20 MG/DL Creatinine 1.22 MG/DL Estimat Glomerular Filtration 60 ML/MIN Rate Random Glucose 122 MG/DL Calcium Level 9.2 MG/DL Magnesium Level 2.2 MG/DL [facility] Medical Record Reviewed: Yes Supervised Visit with TRANG: Yes Diagnosis Primary Impression: Sacral decubitus ulcer, stage II Patient Instructions: General Instructions, Acute Wound Care (ED) Departure Forms: Tests/Procedures Scripts Clindamycin 150 Mg [id number] Mg PO Q6H 10 Days Prov:Rolf Jorge MD 07/25/16 Disposition: 01 DISCHARGE HOME Condition: Stable Rolf Jorge MD July 25, 2016 12:58
[2016-07-29] MEDS ORDERED: LIDO2GEL11 TOPICAL (10:26)
[2016-08-02] MEDS ORDERED: LEVO750T33 PO (11:23)
[2016-08-02] MEDS ORDERED: AUGM875T PO (11:24)
[2016-08-09] MEDS ORDERED: COZA50TA PO (16:15)
[2016-08-09] MEDS ORDERED: Aspirin Chew PO (16:15)
[2016-08-09] MEDS ORDERED: CARD360C PO (16:15)
[2016-08-09] MEDS ORDERED: AMIO200T PO (16:15)
[2016-08-12] MEDS ORDERED: Aspirin Chew PO (12:42)
[2016-08-12] MEDS ORDERED: COUM5TAB PO (12:42)
[2016-08-29] MEDS ORDERED: WARF-18 PO (12:22)
[2016-09-08] MEDS ORDERED: APIX5TAB PO (13:45)
== END 2016-07-25 13:43 | disposition home or self-care (01) ==
LOC: NEPE 10:12
DX: L89.512 Pressure ulcer of right ankle, stage 2 (principal); I48.91 Unspecified atrial fibrillation; I10 Essential (primary) hypertension; J44.1 Chronic obstructive pulmonary disease with (acute) exacerbation; F17.210 Nicotine dependence, cigarettes, uncomplicated; F12.10 Cannabis abuse, uncomplicated; F41.8 Other specified anxiety disorders
CPT/HCPCS: 72192; 80048; 83735; 85025; 87040; 87070; 87077; 87186; 96374